=== PATIENT | female | born 1950 | race Caucasian/White ===

== ENCOUNTER 2016-10-17 12:36 | Inpatient (IN) | payer MEDICARE, OTHER ==
[2016-10-17 13:19] LABS: Hematocrit 34 % (35-47); Mean Corpuscular HGB Conc 32 g/dl (31-36); Mean Corpuscular Hemoglobin 30 pg (27-31); Mean Corpuscular Volume 94 fL (80-97); Mean Platelet Volume 8 um3 (7.4-10.4); Red Blood Count 3.66 10^6/ul (4.0-5.4); Red Cell Distribution Width 16 % (10.5-15); White Blood Count 15.1 10^3/ul (3.5-10.8)
[2016-10-17 13:33] LABS: Albumin 2.9 g/dL (3.2-5.2); BUN/Creatinine Ratio 18.3 (8-20); Calcium 11.8 mg/dL (8.6-10.3); EGFR African American 68.2 (>60); Globulin 2.1 g/dL (2-4); Potassium 4.2 mmol/L (3.5-5.0); Total Bilirubin 0.6 mg/dL (0.2-1.0)
[2016-10-17] MEDS ORDERED: NS 0.9% 1000 ML* 1,000 ML IV ONE (13:38)
[2016-10-17] MEDS ORDERED: Furosemide IV* 10 MG/ML VIAL (40 MG) IV SLOW PU ONE (13:38)
[2016-10-17] MEDS ORDERED: NS 0.9% IVPB SCH (14:00)
[2016-10-17] MEDS ORDERED: PAMIDRONATE IVPB SCH (14:00)
[2016-10-17] MEDS ORDERED: Ketorolac INJ* 30 MG/ML 1 ML VIAL IV PUSH ONE (14:02)
[2016-10-17 15:29] LABS: Troponin I 0.14 ng/mL (<0.04)
--- NOTE | 2016-10-17 15:39 | RAD ---
Indication: Bronchitis, dehydration. Edema. Non-Hodgkin's lymphoma. Comparison: June 24, 2016 CT. Technique: Upright AP 1455 hours Report: Minimal prominence of interstitial markings. Negative for alveolar consolidation, focal pulmonary lesion, pleural effusion, pneumothorax. Upper normal heart size. Unremarkable central pulmonary vasculature and mediastinal contours. LEFT chest port tip at level of superior vena cava. IMPRESSION: No evidence for acute intrathoracic disease.
[2016-10-17 15:44] LABS: Urine Bilirubin Negative (Negative); Urine Glucose Negative (Negative); Urine Nitrite Negative (Negative)
[2016-10-17] MEDS ORDERED: Enoxaparin(*) 40 MG/0.4 ML SYR SUBCUT SCH (17:00)
[2016-10-17] MEDS ORDERED: NS 0.9% 1000 ML* 1,000 ML IV SCH (17:15)
[2016-10-17] MEDS ORDERED: Ketorolac INJ* 15 MG/ML 1 ML VIAL IV PUSH PRN (17:49)
[2016-10-17] MEDS ORDERED: Aspirin TAB* 325 MG PO ONE (18:15)
[2016-10-17 18:35] LABS: Calcium (PTH Intact) 11.7 mg/dL (8.6-10.3)
[2016-10-17] MEDS: oxyCODONE/Acetamin 5/325 MG* TAB PO PRN ×2 (18:58→23:50)
[2016-10-17 19:21] LABS: Troponin I 0.16 ng/mL (<0.04)
[2016-10-17] MEDS: Metoprolol Tartrate TAB* 25 MG PO SCH (20:32)
[2016-10-17] MEDS: Gabapentin CAP(*) 100 MG PO SCH (20:32)
[2016-10-17] MEDS: Topiramate TAB(*) 25 MG PO SCH (20:34)
--- NOTE | 2016-10-17 22:12 | ED ---
Carey Wills Janilya, scribed for Neri Han MD on 10/17/16 at 1330 . Complex/Multi-Sys Presentation - HPI Summary HPI Summary: A 65 y/o female came in to [facility] presenting w/ a gradual onset of constant arthralgia, rash, fever starting July. Pt was put on Prednisione, which alleviated her Sx. When she finished her prescription of Prednisione 2 weeks ago , her Sx reoccurred. Since then, her condition has been getting progressively worse with arthralgia of ankles, knees, hands, elbows as well as muscle aches. In addition, fluids have been collecting in all of her extremities resulting in edema. About a week ago, pt noticed swelling of her face as well. In total, pt has gained 9 pounds. There is pain associated with her edema. She also reports tachycardia, fatigue, mild CP that lasted 5 minutes 3 weeks ago. Pt denies dizziness, SOB. Pt had chemotheraphy for lymphoma last May. No PMHx rheumatoid arthritis. At [facility], pt was told she was dehydrated. At Urgent Care, pt was told she has extremely high calcium levels. - History Of Current Complaint Chief Complaint: EDGeneral Time Seen by Provider: 10/17/16 12:55 Hx Obtained From: Patient Onset/Duration: Gradual Onset, Lasting Days, Still Present Timing: Constant Severity Currently: Moderate Severity Initially: Moderate Alleviating Factor(s): Prednisone, only when she is on the medication. When pt finishes the med, her Sx reoccur. - Allergies/Home Medications Allergies/Adverse Reactions: Allergies Allergy/AdvReac Type Severity Reaction Status Date / Time No Known Allergies Allergy Verified 10/17/16 12:43 Home Medications: Home Medications Gabapentin CAP(*) [Neurontin 100 mg CAP(*)] 100 mg PO BEDTIME 10/17/16 [History Confirmed 10/17/16] Ibuprofen [Advil] 800 mg PO TID 10/17/16 [History Confirmed 10/17/16] PMH/Surg Hx/FS Hx/Imm Hx Previously Healthy: Yes Endocrine/Hematology History: Denies: Hx Diabetes, Hx Systemic Lupus Erythematosus Cardiovascular History: Denies: Hx Congestive Heart Failure, Hx Hypertension, Hx Pacemaker/ICD GI History: Reports: Hx Gastroesophageal Reflux Disease - HEARTBURN OCCASIONALLY , NO MEDS, Other GI Disorders - polyp removed and illeoceceal valve History: Denies: Hx Dialysis, Hx Renal Disease Musculoskeletal History: Denies: Hx Rheumatoid Arthritis Sensory History: Reports: Hx Contacts or Glasses Denies: Hx Cataracts, Hx Hearing Aid Opthamlomology History: Reports: Hx Contacts or Glasses Denies: Hx Cataracts Neurological History: Reports: Hx Migraine Psychiatric History: Denies: Hx Panic Disorder - Cancer History Cancer Type, Location and Year: lymphoma Hx Chemotherapy: Yes - current Hx Radiation Therapy: No - Surgical History Surgery Procedure, Year, and Place: 2001 AND 2007 BIOPSY PAROTID TUMOR LYMPHOMA NON H[facility]GKINS; PARTIAL COLON RESECTON RELATED TO A POLYP-UNCHARACTERISTIC ATTACHED SO SURG REMOVED 2007 NON CANCEROUS Hx Anesthesia Reactions: No Infectious Disease History: No Infectious Disease History: Denies: Traveled Outside the [place] in Last 30 Days - Family History Known Family History: Positive: Diabetes, Other - pos: paternal aunt, breast CA - Social History Occupation: Retired Alcohol Use: Weekly Alcohol Amount: RED WINE 3-4 X WEEK Substance Use Type: Reports: None Smoking Status (MU): Never Smoked Tobacco Review of Systems Positive: Fever, Fatigue. Negative: Chills Negative: Erythema Negative: Sore Throat Positive: Chest Pain - 3 weeks ago, not now, Other - tachycardia Negative: Shortness Of Breath, Cough Negative: Abdominal Pain, Vomiting, Diarrhea, Nausea Negative: dysuria, hematuria Positive: Arthralgia, Myalgia, Edema Positive: Rash Neurological: Negative - pt denies dizziness All Other Systems Reviewed And Are Negative: Yes Physical Exam - Summary Physical Exam Summary: Constitutional: Well-developed, Well-nourished, Alert. (-) Distressed Skin: Warm, Dry HENT: Normocephalic; Atraumatic Eyes: Conjunctiva normal Neck: Musculoskeletal ROM normal neck. (-) JVD, (-) Stridor, (-) Tracheal deviation Cardio: Rhythm regular, rate normal, Heart sounds normal; Intact distal pulses; The pedal pulses are 2+ and symmetric. Radial pulses are 2+ and symmetric. (-) Murmur Pulmonary/Chest wall: Effort normal. (-) Respiratory distress, (-) Wheezes, (-) Rales Abd: Soft, (-) Tenderness, (-) Distension, (-) Guarding, (-) Rebound Musculoskeletal: (+) Peripheral edema up to knees, hands swollen. Lymph: (-) Cervical adenopathy Neuro: Alert, Oriented x3 Psych: Mood and affect Normal Triage Information Reviewed: Yes Vital Signs On Initial Exam: Initial Vitals Temp Pulse Resp BP Pulse Ox 98.4 F 96 16 113/66 100 10/17/16 12:43 10/17/16 12:43 10/17/16 12:43 10/17/16 12:43 10/17/16 12:43 Vital Signs Reviewed: Yes Diagnostics - Vital Signs Vital Signs Temp Pulse Resp BP Pulse Ox 10/17/16 12:43 98.4 F 96 16 113/66 100 - Laboratory Lab Results: Lab Results 10/17/16 Range/Units 13:04 WBC 15.1 H (3.5-10.8) 10^3/ul RBC 3.66 L (4.0-5.4) 10^6/ul Hgb 11.0 L (12.0-16.0) g/dl Hct 34 L (35-47) % MCV 94 (80-97) fL MCH 30 (27-31) pg MCHC 32 (31-36) g/dl RDW 16 H (10.5-15) % Plt Count 355 (150-450) 10^3/ul MPV 8 (7.4-10.4) um3 Neut % (Auto) 89.4 H (38-83) % Lymph % (Auto) 2.5 L (25-47) % Ponce % (Auto) 5.1 (1-9) % Eos % (Auto) 2.6 (0-6) % Baso % (Auto) 0.4 (0-2) % Absolute Neuts (auto) 13.5 H (1.5-7.7) 10^3/ul Absolute Lymphs (auto) 0.4 L (1.0-4.8) 10^3/ul Absolute Monos (auto) 0.8 (0-0.8) 10^3/ul Absolute Eos (auto) 0.4 (0-0.6) 10^3/ul Absolute Basos (auto) 0.1 (0-0.2) 10^3/ul Absolute Nucleated RBC 0.01 10^3/ul Nucleated RBC % 0 Result Diagrams: 10/17/16 13:04 10/17/16 13:04 Lab Statement: Any lab studies that have been ordered have been reviewed, and results considered in the medical decision making process. - Radiology CXR Xray Interpretation: No Acute Changes - IMPRESSION: No evidence of acute intrathoracic disease. Radiology Interpretation Completed By: Radiologist - EKG 1324 Cardiac Rate: NL - 94 bpm EKG Rhythm: Sinus Rhythm EKG Interpretation: No STEMI Complex Multi-Symp Course/Dx Course Of Treatment: d/w Dr. Gordillo @ [facility] for admission Assessment/Plan: A 65-year-old female presents to the ED with a CC of a gradual progress of edema of extremities since July. She was given Prednisone which improved her condition. However, once she was off the med, all her Sx returned. Pt states for 2 weeks, her condition has been worsening with swelling of face. Pt also stated she had mild CP a few weeks ago. CXR here showed no acute disease and EKG was normal. Today she was seen at Urgent Care and was diagnosed with hypercalcemia. We discussed patient care with Dr. Castillo and they recommended Zometa for high calcium as well as admission to hospital. Patient will be admitted. Pt is agreeable with this plan. - Diagnoses Provider Diagnoses: Peripheral edema, Elevated brain natriuretic peptide (BNP) level, Leukocytosis , Hypercalcemia - Physician Notifications Discussed Care Of Patient With: Dr. Castillo (oncology) at 1507: discussed current condition of pt and PMHx of lymphoma. Recommended Zometa as well as hospital admission for cardiac workup and treatment of hypercalcemia. Instructed by Provider To: Admit As Inpatient - Critical Care Time Critical Care Time: 30-74 min Discharge - Discharge Plan Condition: Stable Disposition: ADMITTED TO [facility] The documentation as recorded by the Carey daigle Janilya accurately reflects the service I personally performed and the decisions made by , Neri Han MD.
--- NOTE | 2016-10-18 01:55 | HP ---
CC: Dr. Radha Ardon; Dr. Orr, Oncology; Dr. Hensley, Rheumatology HISTORY AND PHYSICAL: DATE OF ADMISSION: 10/17/16 PRIMARY CARE PHYSICIAN: Dr. Radha Ardon. CHIEF COMPLAINT: Hypercalcemia. HISTORY OF PRESENT ILLNESS: Ms. Montes is a 65-year-old female with a past medical history of migraine and lymphoma, status post R-CHOP therapy, who presents to the hospital after she was found to be hypercalcemic on outpatient labs. The patient was recently referred to [facility] by Dr. Orr due to ongoing joint pains and edema and on lab work there, she was found to have an elevated calcium of 12.2. She was called after she left [place] and was already almost home, so she presents to the emergency room today for followup. The patient was treated for lymphoma at the end of last year. She underwent R- CHOP therapy, which completed in June, which she apparently had a good response to as noted by CT chest, abdomen, and pelvis from June 24. The patient states beginning in July, she developed joint pains initially were just in the hand. She saw Dr. Orr for this and has been on a course of prednisone, which improved the pain. She also noticed at that time that she had a rash on her face, arms and torso with the prednisone; however, after stopping prednisone, the joint pain and swelling returned, now involving her lower extremities as well. She has since seen Dr. Hensley for a few visits, who did an extensive workup and does not seem like he found any rheumatological cause for her symptoms. She has extensive testing done in our system here from early September that is all negative. The patient has been on multiple courses of prednisone and improves during each episode; however, after stopping, her symptoms return seemingly worse. She has since developed edema on top of the joint pain and swelling. She has agreed with Dr. Orr and Dr. Hensley not to resume prednisone. Dr. Orr referred the patient to [facility] for a second opinion to see if they thought perhaps the R-CHOP that she had been on before was causing these symptoms. The patient went there yesterday. She states she spoke with 2 oncologists up there who did not feel that this was a side effect of the chemotherapy. They took a lot of blood from the patient there and as noted above, directed her when calcium was elevated. The remaining results of the blood test from yesterday are not available at this time; however, they were concerned about possible recurrence of her lymphoma as the reason for her hypercalcemia. The patient does also take calcium supplements, which she was told to stop yesterday. She has been off prednisone for 2 weeks now and her pain and rash recurred in the past week or so. She has been controlling the pain mostly with ibuprofen at home and she did not like the way oxycodone made her feel. She denies any fever or chills. She does report intermittent midsternal chest pain over the past weeks that only lasted for a few minutes at a time and resolved. She reports some intermittent palpitations as well. Has had some episodes of constipation alternating with diarrhea and some nausea with no emesis. Denies any bleeding. No dysuria. PAST MEDICAL HISTORY: Follicular lymphoma, status post R-CHOP; migraines. PAST SURGICAL HISTORY: Parotidectomy, colectomy for a polyp, excisional lymph node biopsies, TMJ surgery. HOME MEDICATIONS: 1. Topamax 50 mg by mouth nightly. 2. Omeprazole 40 mg by mouth daily. 3. Ibuprofen 800 mg by mouth 3 times daily. 4. Gabapentin 200 mg by mouth in the morning, 100 mg by mouth at bedtime. ALLERGIES: The patient reports no known drug allergies. FAMILY HISTORY: Significant for paternal uncle with diabetes and a paternal grandmother with diabetes. SOCIAL HISTORY: The patient smoked briefly in high school. Has not smoked in a long time. Denies any alcohol or illicit drug use. PHYSICAL EXAMINATION GENERAL: A middle-aged female, lying in bed in no apparent distress. HEENT: Pupils equal, round, reactive to light and accommodation. Anicteric sclerae. Moist mucous membranes. NECK: No cervical adenopathy. LUNGS: Clear to auscultation bilaterally. No wheezes, rales, or rhonchi. CARDIOVASCULAR: Regular rate and rhythm. S1, S2. No murmurs, gallops, or rubs. ABDOMEN: Soft, nontender, and nondistended. Bowel sounds positive. EXTREMITIES: The patient has diffuse joint swelling throughout the hand, seems like the left greater than the right. Tender to palpation. No erythema noted. The patient with nonpitting edema in the lower extremities. Reports some facial fullness as well. SKIN: The patient has a faint maculopapular rash on her face, torso, and abdomen, and some on her upper thighs as well, nonpruritic. DIAGNOSTIC STUDIES/LAB DATA: White blood cell count of 15, hemoglobin of 11, hematocrit of 34, and platelets of 355. Sodium of 133, potassium of 4.2, chloride of 100, carbon dioxide of 28, BUN of 19, creatinine of 1.04, glucose of 116, lactic acid of 1.8, calcium of 11.8, and ionized calcium of 6.65. LFTs within normal limits. Troponin of 0.14. B-natriuretic peptide of 437. Urinalysis negative. Chest x-ray personally reviewed shows no acute disease. EKG personally reviewed shows low-voltage, some lateral T-wave flattening, which is new from old EKG from 2003. We do not have any more recent EKGs. ASSESSMENT AND PLAN: A 65-year-old female with a past medical history of lymphoma, status post R-CHOP therapy, and migraines who presents to the hospital with hypercalcemia, elevated troponin, and diffuse joint swelling and rash, which has been ongoing for some time now. 1. Hypercalcemia: The patient was taking some calcium supplementation as an outpatient, which she states it was not a significant amount. Does not take any Tums. In the ED, she received IV fluids, which I will continue as well as IV Lasix. Also, a dose of zoledronic acid. Recheck calcium and ionized calcium in the morning. I will also add on PTH, PTH-related peptide, and vitamin D levels to begin with. May be due to recurrence of malignancy. 2. Elevated troponin: The patient does not endorse any typical anginal chest pain. She mentioned these episodes of brief midsternal chest pain over the past weeks; however, nothing acutely leading up to this hospitalization. Troponin 0.14. I will trend this for now. She has some flattened T-waves; however, we do not have any more recent EKGs. I will order an echo for tomorrow. We will give her a dose of aspirin as well as a beta haider. If the patient has any significant changes in her echo or if her troponin continues to trend up, consider Cardiology consult in the morning assuming her chemotherapy can be cardiotoxic. 3. Polyarticular pain and rash: Etiology for this is unclear. She has had an extensive outpatient workup that has largely been negative. She stated that the oncologists from [place] did not feel that this is related to her chemotherapy and Dr. Hensley's workup so far has not showed any rheumatological causes, seems to be steroid responsive; however, the patient is resistant to resuming steroids at this point. For now, we will continue to treat symptomatically. We will hold off on additional nonsteroidal antiinflammatory drugs for now as I want to make sure kidney function is at baseline for CT scan with contrast. 4. History of lymphoma: The patient completed R-CHOP therapy in June with improvement on her CAT scan then. I would like to get a CT chest, abdomen, and pelvis here in the hospital to evaluate for any recurrence, which could be causing her hypercalcemia; however, her creatinine seems to be above baseline at the moment, maybe due to her home nonsteroidal anti-inflammatory drug treatments. We will hold this for now. She will be getting IV fluids as above. If her creatinine is stable or improved tomorrow, would proceed with a CT chest, abdomen, and pelvis. 5. History of migraines: Continue home Topamax q.h.s. 6. DVT prophylaxis: Lovenox subcu. TIME SPENT: Total time spent on this admission 65 minutes with over half the time spent [id number] with the patient in counseling and coordinating care. [id number]/[facility] #: [id number] WILEY
[2016-10-18] MEDS: Omeprazole CAP* 20 MG PO SCH (05:47)
[2016-10-18 05:54] LABS: Hematocrit 26 % (35-47); Hemoglobin 8.8 g/dl (12.0-16.0); Mean Corpuscular HGB Conc 34 g/dl (31-36); Mean Corpuscular Hemoglobin 31 pg (27-31); Mean Corpuscular Volume 93 fL (80-97); Mean Platelet Volume 8 um3 (7.4-10.4); Red Blood Count 2.83 10^6/ul (4.0-5.4); Red Cell Distribution Width 15 % (10.5-15); White Blood Count 9.3 10^3/ul (3.5-10.8)
[2016-10-18 06:05] LABS: BUN/Creatinine Ratio 17.1 (8-20); Calcium 11.5 mg/dL (8.6-10.3); EGFR African American 63.2 (>60); EGFR Non-African American 49.2 (>60); Potassium 3.6 mmol/L (3.5-5.0)
[2016-10-18] MEDS: Aspirin Low Dose CHEW TAB* 81 MG PO SCH (08:38)
[2016-10-18] MEDS: Gabapentin CAP(*) 100 MG PO SCH ×2 (08:38→21:37)
[2016-10-18] MEDS: Metoprolol Tartrate TAB* 25 MG PO SCH ×2 (08:53→21:39)
[2016-10-18] MEDS: oxyCODONE/Acetamin 5/325 MG* TAB PO PRN ×2 (09:32→21:58)
--- NOTE | 2016-10-18 13:37 | ECHO ---
Patient: MIKE GARCIA [facility] Rec#: [id number] : 1950 Date: 10/18/2016 Age: 65y Height: 163 cm / 64.2 in Weight: 63 kg / 138.9 lbs Sex: F BSA: 1.7 Room#: [facility] Admit Date#: 10/17/2016 Type: Inpatient Referring: MURIEL RIVERA MD Reading: Aiden Mera MD Nailer Operator: Deborah Herndon RN RDCS CC: Radha Mitchell MD Transthoracic Echocardiogram Indication: Elevated troponin levels BP: 95/50 HR: 104 Rhythm: Tachycardia Findings History: Lymphoma S/P R-CHOP therapy, migraines, admitted with hypercalcemia Technical Comments: The study quality is good. Left Ventricle: Mild concentric left ventricular hypertrophy is observed. There is increased basal septal hypertrophy noted without evidence of an increased gradient across the left ventricular outflow tract. C/w sigmoid septum. Mildly increased LVOT and aortic valve velocities c/w the hyperdynamic state. The left ventricle appears hyperdynamic. The estimated ejection fraction is greater than 65%. Abnormal left ventricular diastolic filling is observed, consistent with impaired relaxation. Left Atrium: The left atrium is mildly dilated. Right Ventricle: Moderator Band present. The right ventricle is mildly dilated. The right ventricular global systolic function is moderately reduced. Flattened in systole and diastole consistent with right ventricular pressure and volume overload. Right Atrium: The right atrium is mildly dilated. Aortic Valve: The aortic valve leaflets are mildly thickened. Systolic excursion of the aortic valve is normal. There is no evidence of aortic regurgitation. There is no evidence of aortic stenosis. Mitral Valve: The mitral valve leaflets are mildly thickened. There is mild to moderate mitral regurgitation. The mitral regurgitant jet is centrally directed. The mitral regurgitant jet is laterally directed. There is no evidence of mitral stenosis. Tricuspid Valve: The tricuspid valve leaflets are normal. There is moderate tricuspid regurgitation. There is evidence of moderate pulmonary hypertension. Pulmonic Valve: The pulmonic valve appears normal. There is mild pulmonic regurgitation. There is no pulmonic stenosis. Pericardium: There is a small pericardial effusion.Located posteriorly; does not appear to be hemodynamically significant. The pericardial effusion is seen adjacent to the left ventricle. The pericardium is thickened and calcified. Aorta: There is no dilatation of the ascending aorta. There is no dilatation of the aortic arch. The aortic root is normal in size. Pulmonary Artery: The main pulmonary artery appears normal. Venous: The inferior vena cava appears normal in size. There is a greater than 50% respiratory change in the inferior vena cava dimension. Summary: There was not any prior study for comparison. Conclusions Mild concentric left ventricular hypertrophy is observed. There is increased basal septal hypertrophy noted without evidence of an increased gradient across the left ventricular outflow tract. The estimated ejection fraction is greater than 65%. Mildly increased LVOT and aortic valve velocities c/w the hyperdynamic state. Abnormal left ventricular diastolic filling is observed, consistent with impaired relaxation. The left atrium is mildly dilated. The right ventricle is mildly dilated. The right ventricular global systolic function is moderately reduced. There is mild to moderate mitral regurgitation. There is moderate tricuspid regurgitation. There is evidence of moderate pulmonary hypertension. There is mild pulmonic regurgitation. There is a small pericardial effusion.Located posteriorly; does not appear to be hemodynamically significant. Measurements Name Value Normal Range RVIDd (AP) 2D 3.1 cm (0.9 - 2.6) RVDdMajor (2D) 3.7 cm (2.2 - 4.4) RAd ISD 4CH 4.9 cm (3.4 - 4.9) RA (A4C)W 3.9 cm (2.9 - 4.6) IVSd (2D) 1.5 cm (0.6 - 1) LVPWd (2D) 1.2 cm (0.6 - 1) LVIDd (2D) 4 cm (3.6 - 5.4) LVIDs (2D) 2.7 cm - LV FS (2D) 33 % (25 - 45) Aortic Annulus 1.7 cm (1.4 - 2.6) Ao root diameter (2D) 2.8 cm (2.1 - 3.5) Ascending Ao 2.8 cm (2.1 - 3.4) Aortic arch 2.1 cm (1.8 - 3.4) LA dimension (AP) 2D 3.3 cm (2.3 - 3.8) LAd ISD 4CH 4.9 cm (2.9 - 5.3) LA ISD 4CH W 4.1 cm (2.5 - 4.5) Name Value Normal Range LA ESV SP 4CH (A/L) 46 ml - LA ESV SP 2CH (A/L) 37 ml - LA ESV BP (A/L) 41 ml - LA ESV BP (A/L) index 25 ml/m2 - LA ESV SP 4CH (MOD) 44 ml - LA ESV SP 2CH (MOD) 35 ml - Name Value Normal Range MV E-wave Vmax 1 m/sec - MV deceleration time 209 msec - MV A-wave Vmax 1.3 m/sec - MV E:A ratio 0.8 ratio - LV septal e' Vmax 0.07 m/sec - LV lateral e' Vmax 0.09 m/sec - LV E:e' septal ratio 14.3 ratio - LV E:e' lateral ratio 11.1 ratio - Name Value Normal Range AV Vmax 2.3 m/sec - AV VTI 32.7 cm - AV peak gradient 21 mmHg - AV mean gradient 13 mmHg - LVOT diameter 1.9 cm - LVOT Vmax 1.5 m/sec - LVOT VTI 23.1 cm - LVOT peak gradient 8.5 mmHg - LVOT mean gradient 5.1 mmHg - DOI (VTI) 0.71 ratio - LEYLA (continuity Vmax) 1.9 cm2 - LEYLA (continuity VTI) 2 cm2 - ANNETTA Vmax 1.2 m/sec - Name Value Normal Range TR Vmax 3.4 m/sec - TR peak gradient 46 mmHg - RAP 10 mmHg - RVSP 56 mmHg - Name Value Normal Range PV Vmax 1.2 m/sec -
[2016-10-18] MEDS: Docusate CAP* 100 MG PO SCH ×2 (14:26→21:39)
[2016-10-18] MEDS: Polyethylene Glycol 3350* 17 GM PACKET PO SCH ×2 (14:26→21:40)
[2016-10-18] MEDS ORDERED: Enoxaparin(*) 60 MG/0.6 ML SYR SUBCUT SCH (14:30)
--- NOTE | 2016-10-18 15:26 | RAD ---
Indication: Bilateral leg edema Duplex Doppler sonography of the deep venous system of both lower extremities was performed. Bilaterally the common femoral veins, proximal greater saphenous veins, proximal deep femoral veins, femoral veins, popliteal veins, posterior tibial veins and peroneal veins appear patent and compressible. IMPRESSION: NO EVIDENCE OF DEEP VENOUS THROMBOSIS OF EITHER LOWER EXTREMITY IS PRESENT. Bilateral popliteal cysts are noted.
[2016-10-18] MEDS: NS 0.9% 1000 ML* 1,000 ML IV SCH ×2 (15:42→23:07)
[2016-10-18] MEDS ORDERED: Iodixanol* (CONTRAST) 320 MG/ML 100 ML SDV IV SCH (16:58)
--- NOTE | 2016-10-18 16:58 | PN ---
Subjective Date of Service: 10/18/16 Interval History: HOSPITALIST PROGRESS NOTE Patient seen and examined at bedside. In good spirits despite multiple joints hurting. Had one brief episode of chest pain last week, lasting <5 minutes, but denies chest pain since. No dyspnea or cough. Has noted progressive LE edema and gained 9lbs. Family History: Unchanged from Admission Social History: Unchanged from Admission Past Medical History: Unchanged from Admission Objective Active Medications: Aspirin (Aspirin Low Dose Tab*) 81 mg PO DAILY [facility] Last Admin: 10/18/16 08:38 Dose: 81 mg Docusate Sodium (Colace Cap*) 100 mg PO BID [facility] Last Admin: 10/18/16 14:26 Dose: 100 mg Enoxaparin Sodium (Lovenox(*)) 60 mg SUBCUT Q12H [facility] Last Admin: 10/18/16 14:20 Dose: 60 mg Gabapentin (Neurontin Cap(*)) 100 mg PO BEDTIME [facility] Last Admin: 10/17/16 20:32 Dose: 100 mg Gabapentin (Neurontin Cap(*)) 200 mg PO DAILY [facility] Last Admin: 10/18/16 08:38 Dose: 200 mg Sodium Chloride (Ns 0.9% 1000 Ml*) 1,000 mls @ 150 mls/hr IV PER RATE [facility] Last Admin: 10/18/16 15:42 Dose: 150 mls/hr Metoprolol Tartrate (Lopressor Tab*) 12.5 mg PO Q12HR [facility] Last Admin: 10/18/16 08:53 Dose: 12.5 mg Morphine Sulfate (Morphine Inj (Syringe)*) 2 mg IV Q4H PRN PRN Reason: SEVERE PAIN Omeprazole (Prilosec Cap*) 40 mg PO DAILY@0600 [facility] Last Admin: 10/18/16 05:47 Dose: 40 mg Oxycodone/Acetaminophen (Percocet 5/325 Tab*) 2 tab PO Q4H PRN PRN Reason: PAIN Last Admin: 10/18/16 09:32 Dose: 2 tab Polyethylene Glycol/Electrolytes (Miralax*) 17 gm PO 0800,2100 [facility] Last Admin: 10/18/16 14:26 Dose: 17 gm Topiramate (Topamax(*)) 50 mg PO BEDTIME [facility] Last Admin: 10/17/16 20:34 Dose: 50 mg Vital Signs 03/07/2510/18/16 10/18/16 04:50 07:24 07:50 Temperature 98.6 F Pulse Rate 94 97 Respiratory 16 16 Rate Blood Pressure 95/50 92/43 (mmHg) O2 Sat by Pulse 94 Oximetry 10/18/16 10/18/16 10/18/16 10:38 11:32 14:04 Temperature 98.9 F Pulse Rate Respiratory 18 16 18 Rate Blood Pressure 102/54 (mmHg) O2 Sat by Pulse Oximetry Oxygen Devices in Use Now: None Appearance: Pleasant lady lying in bed in NAD. Eyes: No Scleral Icterus Ears/Nose/Mouth/Throat: Mucous Membranes Moist Neck: Trachea Midline Respiratory: Symmetrical Chest Expansion and Respiratory Effort, Clear to Auscultation Cardiovascular: RRR - Normal S1 and S2 Abdominal: NL Sounds; No Tenderness; No Distention Extremities: - - Bilateral LE edema Neurological: Alert and Oriented x 3, NL Muscle Strength and Tone Lines/Tubes/Other Access: Clean, Dry and Intact Peripheral IV Nutrition: Taking PO's Result Diagrams: 10/18/16 05:42 10/18/16 05:42 Assess/Plan/Problems-Billing Assessment: Mrs. Montes is a 65yo F with PMH of follicular lymphoma s/p RCHOP, migraines, who presented to ED due to abnormal labs revealing hypercalcemia, also found to have troponin elevation. - Patient Problems (1) Hypercalcemia Comment: - Patient had labs done at [place] 10/17/16 and was called with an elevated calcium 12.2. - Receveid IVF, Furosemide, and Zoledronic acid yesterday. - Calcium down to 11.5 today (ionized Ca 7.1). - Continue aggressive IVF and monitor. - PTH is low consistent with non-PTH mediated hypercalcemia. With her h/o lymphoma, major concern is malignancy associated hypercalcemia - follow PTH related peptide. (2) Elevated troponin Comment: - Highly suspicious for pulmonary embolism. - Patient has h/o malignancy, drove back and forth from [place] yesterday, has LE edema. - Echocardiogram showed signs of moderate pulmonary HTN, mild dilatation of RV, and RV systolic function moderately reduced. - LE doppler negative for DVT. - Her creatinine is above her usual baseline, but at this point, CTA chest is really important, especially to see if she has massive or submassive PE, as it would change her therapy. Discussed risks and benefits of renal failure with IV contrast and patient agrees to proceed. - D/w Radiology (Dr. Manley) - CT approved. - Therapeutic Lovenox. (3) PIERRE (acute kidney injury) Comment: - Suspect part of it secondary to NSAID use, worsened by dehydration caused by hypercalcemia. - Continue IVF and monitor renal function. (4) Polyarthritis Comment: - Rheum w/u as outpatient was negative. CRP was 92, but RF, anti-CCP, HANY, ANCA were all negative. - Will consult Dr. Hensley. - Continue pain management. (5) Migraine Comment: - Continue Topamax. (6) DVT prophylaxis Comment: - Lovenox. (7) Full code status Status and Disposition: Inpatient. Sister updated at bedside.
--- NOTE | 2016-10-18 18:52 | RAD ---
Indication: Positive troponin. Shortness of breath. Contrast: Administered 67.0 ml of VISAPAQUE 320 mgi/ml CTA of the chest was performed after IV contrast administration. Coronal and sagittal reconstructed images were obtained. CT of the abdomen and pelvis was performed after oral and IV contrast administration. Comparison is made with the previous exam dated June 24, 2016. The pulmonary arterial tree is well opacified. There are no filling defects present to suggest pulmonary embolus. Aorta demonstrates no evidence of aortic dissection or aneurysmal dilatation. There is no mediastinal or hilar adenopathy. Heart is of normal size without evidence of pericardial effusion. The trachea and major bronchi appear patent. Bibasilar atelectasis is noted. Moderate degree of bilateral pleural effusions are noted. No pulmonary nodules are identified. The axilla demonstrates small 3 to 5 mm lymph nodes scattered throughout the axilla. The bony structures demonstrate no evidence of lytic lesions. CT of the abdomen and pelvis demonstrates liver to be normal in size. No focal lesions or intrahepatic ductal dilatation is noted. The spleen is normal in size. Pancreas demonstrates no mass effect or ductal dilatation. The common duct is not dilated. Gallbladder demonstrates no calcified gallstones. The stomach is contrast-filled. There is nondistention of the gastric antrum. There is some mild mucosal thickening of the gastric antrum and the possibility of infiltrative process within the gastric antrum such as linitis plastica is not excluded. No retroperitoneal lymphadenopathy is noted. No dilated loops of bowel are noted. The colon is filled with stool. No hernias are noted. The urinary bladder is unremarkable. No pelvic adenopathy is noted.. Myomatous uterus is present. The ovaries are unremarkable.. Small amount of free fluid is present. No hernias are noted. The bony structures demonstrates compression of the inferior endplate of L3. This was not present previously on June 24, 2016. IMPRESSION: No evidence of pulmonary embolus is noted. Moderate sized bilateral pleural effusion with bibasilar atelectasis is noted. No mediastinal or hilar adenopathy is noted. The gastric antrum is poorly distended and appears tubular. There is some mild thickening of the gastric antrum and an infiltrative process such as linitis plastica should BE considered. There is compression of the inferior endplate of L3 which was not present on previous exam.
--- NOTE | 2016-10-18 20:13 | RAD ---
Indication: Positive troponin, lymphoma. Contrast: Administered 50.0 ml of VISAPAQUE 320 mgi/ml CT of the neck was performed after IV contrast administration. Coronal and sagittal reconstructed images were obtained. Comparison is made with previous exam dated June 14, 2016. Again noted is bilateral pleural effusions. This is of moderate size. The visualized axilla and supraclavicular regions demonstrates no evidence of abnormal adenopathy. Small scattered supraclavicular lymph nodes are noted measuring up to 4 mm on the left supraclavicular area. The thyroid lobes demonstrates heterogeneous thyroid with small hypodense nodules unchanged from previous exam. The carotid chain demonstrates small lymph nodes which are not significantly changed since previous exam. The parotid glands demonstrates postoperative changes in the right parotid gland. Left parotid gland is unremarkable. Submandibular glands are grossly unremarkable. No prevertebral soft tissue swelling or fluid collections are noted. Mastoid air cells are unremarkable. IMPRESSION: NO EVIDENCE OF ABNORMAL LYMPHADENOPATHY IS NOTED. THERE ARE BILATERAL PLEURAL EFFUSIONS NOTED. POSTOPERATIVE CHANGES OF THE RIGHT PAROTID GLAND. NO SIGNIFICANT CHANGE IS NOTED SINCE PREVIOUS EXAM.
[2016-10-18] MEDS: Topiramate TAB(*) 25 MG PO SCH (21:39)
[2016-10-18 21:42] LABS: BUN/Creatinine Ratio 20.4 (8-20); EGFR African American 77.6 (>60); EGFR Non-African American 60.3 (>60); Potassium 3.4 mmol/L (3.5-5.0)
[2016-10-19] MEDS: Omeprazole CAP* 20 MG PO SCH (05:48)
[2016-10-19] MEDS: NS 0.9% 1000 ML* 1,000 ML IV SCH (05:53)
[2016-10-19 07:04] LABS: Hematocrit 26 % (35-47); Hemoglobin 8.4 g/dl (12.0-16.0); Mean Corpuscular HGB Conc 33 g/dl (31-36); Mean Corpuscular Hemoglobin 31 pg (27-31); Mean Corpuscular Volume 94 fL (80-97); Mean Platelet Volume 8 um3 (7.4-10.4); Red Blood Count 2.73 10^6/ul (4.0-5.4); Red Cell Distribution Width 16 % (10.5-15)
[2016-10-19 07:13] LABS: BUN/Creatinine Ratio 22.5 (8-20); Calcium 10.2 mg/dL (8.6-10.3); EGFR African American 92.3 (>60); EGFR Non-African American 71.8 (>60); Potassium 3.4 mmol/L (3.5-5.0)
[2016-10-19 07:32] LABS: TSH (Thyroid Stimulating Horm) 3.95 mcIU/mL (0.34-5.60)
[2016-10-19] MEDS ORDERED: NS 0.9% 1000 ML* 1,000 ML IV SCH (08:24)
[2016-10-19] MEDS: Enoxaparin(*) 40 MG/0.4 ML SYR SUBCUT SCH (08:36)
[2016-10-19] MEDS: Potassium Chlor TAB* 20 MEQ TAB.ER PO SCH ×3 (08:39→21:22)
[2016-10-19] MEDS: Docusate CAP* 100 MG PO SCH ×2 (08:40→21:22)
[2016-10-19] MEDS: Metoprolol Tartrate TAB* 25 MG PO SCH ×2 (08:40→21:21)
[2016-10-19] MEDS: Gabapentin CAP(*) 100 MG PO SCH ×2 (08:41→21:20)
[2016-10-19] MEDS: Polyethylene Glycol 3350* 17 GM PACKET PO SCH ×2 (08:42→21:53)
[2016-10-19] MEDS: Aspirin Low Dose CHEW TAB* 81 MG PO SCH (08:42)
--- NOTE | 2016-10-19 09:59 | PN ---
Progress Note - Progress Note SOAP: Subjective: []Today no changes. Discussed disease course. Presented with edema and diffuse rash. On and off steroids with limited effects. Rash controlled but edema continued to become worse. Fatigued, not eating well. Nose hurts and dry mouth. Has been seen by Rheumatology and had serologic evaluation that was negative, though may have been on steroids. Now presents dehydrated, SOB and with hypercalemia. Aspirin (Aspirin Low Dose Tab*) 81 mg PO DAILY [facility] Last Admin: 10/19/16 08:42 Dose: 81 mg Docusate Sodium (Colace Cap*) 100 mg PO BID [facility] Last Admin: 10/19/16 08:40 Dose: 100 mg Enoxaparin Sodium (Lovenox(*)) 40 mg SUBCUT DAILY [facility] Last Admin: 10/19/16 08:36 Dose: 40 mg Gabapentin (Neurontin Cap(*)) 100 mg PO BEDTIME [facility] Last Admin: 10/18/16 21:37 Dose: 100 mg Gabapentin (Neurontin Cap(*)) 200 mg PO DAILY [facility] Last Admin: 10/19/16 08:41 Dose: 200 mg Sodium Chloride (Ns 0.9% 1000 Ml*) 1,000 mls @ 75 mls/hr IV PER RATE [facility] Iodixanol (Visipaque* 320 (Contrast)) 117 ml IV ONCE [facility] Stop: 10/20/16 23:59 Last Admin: 10/18/16 17:49 Dose: 117 ml Metoprolol Tartrate (Lopressor Tab*) 12.5 mg PO Q12HR [facility] Last Admin: 10/19/16 08:40 Dose: 12.5 mg Morphine Sulfate (Morphine Inj (Syringe)*) 2 mg IV Q4H PRN PRN Reason: SEVERE PAIN Omeprazole (Prilosec Cap*) 40 mg PO DAILY@0600 [facility] Last Admin: 10/19/16 05:48 Dose: 40 mg Oxycodone/Acetaminophen (Percocet 5/325 Tab*) 2 tab PO Q4H PRN PRN Reason: PAIN Last Admin: 10/18/16 21:58 Dose: 2 tab Polyethylene Glycol/Electrolytes (Miralax*) 17 gm PO 0800,2100 [facility] Last Admin: 10/19/16 08:42 Dose: 17 gm Potassium Chloride (Klor Con Er Tab*) 40 meq PO Q4H [facility] Stop: 10/19/16 13:01 Last Admin: 10/19/16 08:39 Dose: 40 meq Topiramate (Topamax(*)) 50 mg PO BEDTIME [facility] Last Admin: 10/18/16 21:39 Dose: 50 mg Objective: [] Vital Signs Temp Pulse Resp BP Pulse Ox 98.2 F 96 16 112/52 89 10/19/16 07:45 10/19/16 07:45 10/19/16 08:41 10/19/16 07:52 10/19/16 07:45 HEENT - PALE, DRY MUCOSA, NO THRUSH CRACKLES AT BASE BOTH SIDES AND NO WHEEZING RRR S1S2 NO HSM, NT/ND EXT +2 EDEMA Assessment: []65 year old who presents with multiple concurrent symptoms and lab abnormalities. Ddx: unifying diagnosis would include primary immunologic syndrome, paraneoplastic syndrome (gastric cancer, occult lymphoma). May have right heart failure from progressive respiratory disease, anemia from iron deficiency, rash allergic or primary immune, but then difficult to explain hyperglycemia. Plan: []1. Re-send ESR and check Iron studies, Retic Count, LDH. If increased Retic, then [facility] 2. Agree with EGD 3. Re-check bone green biopsy. 4. Assuming RHF is secondary to pulmonary disease, PFTs in house or when feeling better, consider consultation to Dr. Reyes. 5. Will obtain full lab results from [facility].
[2016-10-19 11:58] LABS: Corrected Retic Count 1.1 % (0.5-1.5); Immature Retic Fraction 0.53
[2016-10-19 12:09] LABS: C Reactive Protein 42.93 mg/L (< 5.00)
[2016-10-19 12:35] LABS: Erythrocyte Sed Rate 13 mm/Hr (0-40)
[2016-10-19] MEDS ORDERED: Furosemide IV* 10 MG/ML 2 ML VIAL (20 MG) IV ONE (13:15)
[2016-10-19] MEDS: oxyCODONE/Acetamin 5/325 MG* TAB PO PRN (17:43)
--- NOTE | 2016-10-19 18:23 | PN ---
Subjective Date of Service: 10/19/16 Interval History: HOSPITALIST PROGRESS NOTE Patient seen and examined at bedside. She feels a little dyspneic today, denies CP. Joint pains are still present, but she was able to ambulate to bathroom. Family History: Unchanged from Admission Social History: Unchanged from Admission Past Medical History: Unchanged from Admission Objective Active Medications: Aspirin (Aspirin Low Dose Tab*) 81 mg PO DAILY [facility] Last Admin: 10/19/16 08:42 Dose: 81 mg Docusate Sodium (Colace Cap*) 100 mg PO BID [facility] Last Admin: 10/19/16 08:40 Dose: 100 mg Enoxaparin Sodium (Lovenox(*)) 40 mg SUBCUT DAILY [facility] Last Admin: 10/19/16 08:36 Dose: 40 mg Gabapentin (Neurontin Cap(*)) 100 mg PO BEDTIME [facility] Last Admin: 10/18/16 21:37 Dose: 100 mg Gabapentin (Neurontin Cap(*)) 200 mg PO DAILY [facility] Last Admin: 10/19/16 08:41 Dose: 200 mg Iodixanol (Visipaque* 320 (Contrast)) 117 ml IV ONCE [facility] Stop: 10/20/16 23:59 Last Admin: 10/18/16 17:49 Dose: 117 ml Metoprolol Tartrate (Lopressor Tab*) 12.5 mg PO Q12HR [facility] Last Admin: 10/19/16 08:40 Dose: 12.5 mg Morphine Sulfate (Morphine Inj (Syringe)*) 2 mg IV Q4H PRN PRN Reason: SEVERE PAIN Omeprazole (Prilosec Cap*) 40 mg PO DAILY@0600 [facility] Last Admin: 10/19/16 05:48 Dose: 40 mg Oxycodone/Acetaminophen (Percocet 5/325 Tab*) 2 tab PO Q4H PRN PRN Reason: PAIN Last Admin: 10/19/16 17:43 Dose: 2 tab Polyethylene Glycol/Electrolytes (Miralax*) 17 gm PO 0800,2100 [facility] Last Admin: 10/19/16 08:42 Dose: 17 gm Potassium Chloride (Klor Con Er Tab*) 20 meq PO BID WITH MEALS [facility] Prednisone (Deltasone Tab*) 20 mg PO DAILY WITH MEAL [facility] Topiramate (Topamax(*)) 50 mg PO BEDTIME [facility] Last Admin: 10/18/16 21:39 Dose: 50 mg Vital Signs 10/19/16 10/19/16 10/19/16 08:41 10:41 11:37 Temperature 99.6 F Pulse Rate 100 Respiratory 16 16 18 Rate Blood Pressure 112/52 (mmHg) O2 Sat by Pulse 93 Oximetry 10/19/16 10/19/16 15:06 17:43 Temperature 99.3 F Pulse Rate 95 Respiratory 18 18 Rate Blood Pressure 108/59 (mmHg) O2 Sat by Pulse 92 Oximetry Oxygen Devices in Use Now: None Appearance: Pleasant lady lying in bed in NAD. Eyes: No Scleral Icterus Ears/Nose/Mouth/Throat: Mucous Membranes Moist Neck: Trachea Midline Respiratory: Symmetrical Chest Expansion and Respiratory Effort, - - BS+ bilaterally with bibasilar Cardiovascular: RRR - Normal S1 and S2 Abdominal: - - Mild distention, soft, NT, BS+ Extremities: - - Bilateral LE moderate to severe pitting edema all the way up to her thighs Skin: - - Faint macular erythematous rash on both forearms Neurological: Alert and Oriented x 3, NL Muscle Strength and Tone Lines/Tubes/Other Access: Clean, Dry and Intact Peripheral IV Nutrition: Taking PO's Result Diagrams: 10/19/16 06:36 10/19/16 06:36 Assess/Plan/Problems-Billing Assessment: Mrs. Montes is a 65yo F with PMH of follicular lymphoma s/p RCHOP, migraines, who presented to ED due to abnormal labs revealing hypercalcemia, also found to have troponin elevation. - Patient Problems (1) Fluid overload Comment: - Suspect her dyspnea is secondary to mild fluid overload associated with her aggressive IV hydration for hypercalcemia and PIERRE. - D/c IVF and give Furosemide 20mg IV x1. - Continue to monitor. (2) Hypercalcemia Comment: - Patient had labs done at [facility] 10/17/16 and was called with an elevated calcium 12.2. - Receveid IVF, Furosemide, and Zoledronic acid 10/16/16. - Calcium back to normal - 10.2 today. - D/c IVF. - PTH is low consistent with non-PTH mediated hypercalcemia. With her h/o lymphoma, major concern is malignancy associated hypercalcemia - follow PTH related peptide. (3) Elevated troponin Comment: - CTA chest was negative for PE and LE doppler negative for DVT. - Echocardiogram showed signs of moderate pulmonary HTN, mild dilatation of RV, and RV systolic function moderately reduced and this is new when compared to prior echo from January 2016. - Will request Pulm eval for new pulmonary hypertension. (4) PIERRE (acute kidney injury) Comment: - Suspect part of it secondary to NSAID use, worsened by dehydration caused by hypercalcemia. - Resolved. - D/c IVF. (5) Polyarthritis Comment: - Rheum w/u as outpatient was negative. CRP was 92, but RF, anti-CCP, HANY, ANCA were all negative. - Rheum consult requested. - Continue pain management. (6) Migraine Comment: - Continue Topamax. (7) DVT prophylaxis Comment: - Lovenox. (8) Full code status Status and Disposition: Inpatient. Sister updated at bedside.
--- NOTE | 2016-10-19 18:36 | CONSULT ---
Consult Consult: See dictated H and P. Ms. Montes is a 65 year old woman with history of an elevated CRP, diffuse myalgias and arthralgias, partially responsive to prednisone now admitted with hypercalcemia, with findings of pulmonary HTN, gastric wall thickening, L3 endplate deformity and pleural effusion in the setting of renal insufficiency. Prior rheumatologic workup was unrevealing; in light of pleural effusion/ serositis we will repeat her CTD panel and ANCA (given renal insufficiency) She is planning to have an endoscopy and bone marrow biopsy tomorrow; will follow up results; thanks!
[2016-10-19] MEDS: Topiramate TAB(*) 25 MG PO SCH (21:20)
--- NOTE | 2016-10-20 00:25 | CONS ---
RHEUMATOLOGY CONSULTATION: DATE OF CONSULT: 10/19/16 CONSULTING PHYSICIAN: Dr. Maldonado. CHIEF COMPLAINT: Elevated C-reactive protein and arthralgias. HISTORY OF PRESENT ILLNESS: Ms. Gely Montes is a 65-year-old woman, known to me, who was initially referred to me by Dr. Orr as an outpatient. She had at least partially steroid responsive syndrome characterized by diffuse arthralgias and myalgias and neuropathic pain that occurred shortly after rituximab for treatment of a prior malignancy. There is some question as to whether it might be a medication reaction and she initially held gabapentin, but this did not seem to make a difference. More recently, she was seen as a second oncologic opinion at the [facility] as her C-reactive protein remained elevated despite several courses of prednisone, which she had tapered off. During her workup there, she was found to have an elevated calcium level of 12.2. She was also very edematous. She was called by [facility] as she was driving home, advising her to go to the emergency room immediately because of hypercalcemia and renal insufficiency. She then presented to the emergency room and indeed it was confirmed that she had hypercalcemia. She was admitted for IV hydration as well as a further workup. As noted above, she was treated for lymphoma last year. She underwent CHOP therapy, which included rituximab and this ended in June, which she overall tolerated well and she had had imaging studies of her CT of the chest, abdomen and pelvis from June 2016. In July, she developed the joint pains as noted above, initially in her hands, but also her shoulders and other joints. She was placed on a course of prednisone, which did improve the pain except for her hands. She also had a rash on her face, arms, and torso, which came and went. After the prednisone was stopped, the joint swelling and especially the pain and myalgias returned, especially in the lower extremities. She had an extensive rheumatologic evaluation and only the C-reactive protein was found to be elevated, although it did seem to come down a little bit while she was on steroids. She was started on another course of prednisone with some response to it and her symptoms worsened after she got off. She was also on a Butrans patch and she was restarted on gabapentin for her neuropathic pain. The Butrans was stopped this past week as she developed edema and it was unclear at the time whether she was having side effects of her medications. She also developed diffuse edema, and as noted above, she was seen at [facility] for a second opinion. She had extensive serologies done there and it was later noted when she was going home that the calcium level was elevated. I have requested results of this workup. During her present admission, she had an evaluation including an echocardiogram, which revealed moderate pulmonary hypertension among other abnormalities. CT scan of the chest and abdomen revealed pleural effusions and an end-plate abnormality at the L3 region and dilated or edematous gastric region. She is currently planning to have another bone marrow biopsy in light of her symptoms as well as imaging findings as there is some concern for the presence of a malignancy, although otherwise her CT scan was not revealing. Despite her pulmonary hypertension, there has been no evidence of thromboemboli found. In terms of her symptoms, she has had progressive shortness of breath. She was also on ibuprofen, which is being held because of her renal insufficiency. She has not been on prednisone, however, over the last couple of days. She has also had some intermittent palpitations and she has diffuse pain in her shoulder region as well. She has also had some constipation and some nausea with no emesis. She is on Percocet and she is concerned about the possibility of worsening the constipation on pain medicines; however, she has had no bleeding and no dysuria. PAST MEDICAL HISTORY: Includes follicular lymphoma, status post right CHOP; and migraine headaches. PAST SURGICAL HISTORY: Includes parotidectomy, colectomy for a polyp, and excisional lymph node biopsies, TMJ surgery. HOME MEDICATIONS: 1. Topamax 50 mg daily. 2. Omeprazole 40 mg daily. 3. Ibuprofen, which is currently being held. 4. Gabapentin 300 mg daily total, which is 200 in the morning and 100 at bedtime. ALLERGIES: No known drug allergies. FAMILY HISTORY: Notable for paternal uncle with diabetes and grandmother with diabetes. SOCIAL HISTORY: She smoked briefly in high school. She has not smoked in a long time. She denies any alcohol or drug use. PHYSICAL EXAM: She is a pleasant woman, lying in bed, appeared to be chronically ill, but in no acute distress. HEENT Exam: Normocephalic, atraumatic. Pupils equal, round, and reactive to light and accommodate. Anicteric sclerae. Moist mucous membranes. In terms of her vital signs, temperature is 99.6, respiratory rate of 16, blood pressure 112/52. Neck: Trachea was midline. No apparent adenopathy and mucous membranes are moist. Respiratory revealed symmetric chest expansion and respiratory effort, bilateral breath sounds present with bibasilar decreased breath sounds. Cardio- vascular exam revealed a regular rate and rhythm. Normal S1 and S2. No S3 or S4. Abdomen: Minimal distention, soft, otherwise nontender. Positive bowel sounds. There is no organomegaly. Extremities: Bilateral lower extremities, 1 to 2+ edema all the way to the mid thigh region. Skin: Faint macular erythematous rash in both forearms. Neurologic: Alert and oriented x3. Muscle strength and tone was intact. On musculoskeletal exam, moderate tenderness and restriction of the shoulders, but no synovitis or warmth of the joints. Neurologic: Cranial nerves II through XII are intact. Motor strength was intact as well too. : No CVA tenderness. There is no synovitis of her joints. DIAGNOSTIC STUDIES/LAB DATA: She had a hemoglobin of 8.4. BUN 18, creatinine 0.80. ASSESSMENT: Ms. Montes is a 65-year-old woman with a past medical history of follicular lymphoma. She has received rituximab as part of her treatment. She presented with hypercalcemia. Workup has revealed pleural effusions on her CT scan with gastric thickening and possible L3 end-plate deformity. She has had a prior rheumatologic evaluation as an outpatient. Her Lyme test, antinuclear antibody, rheumatoid factor, CCP, sed rate, and HLA-B27 as well as SSA and SSB, scleroderma panel, and CPK were normal. However, her C-reactive has been elevated and in fact went up when she came off of prednisone, and is now just above 40, but it was 92 on 10/14/16. 1. In terms of her hypercalcemia, she has had a PTH done. I am wondering if she might have an underlying malignancy. In light of her serositis and pleural effusions, would recheck the connective tissue disease panel. She has had some sinus symptoms and in light of her renal insufficiency, we will check an ANCA to evaluate for a pulmonary renal syndrome. 2. In terms of her gastric wall thickening, she is going to have an endoscopy. She will have H. pylori to look for another inflammatory process. 3. Elevated C-reactive protein. We will probably hold off on steroids at this point given that we do not have her underlying unifying diagnosis established yet. 4. Hypercalcemia. As noted above, would follow up on the connective tissue disease panel. 5. Renal insufficiency. NSAIDs were on hold. 6. Chronic pain. Consider restarting the Butrans patch, which she noted some benefit from in combination with prednisone. Potentially she might have some symptoms of polymyalgia rheumatica, although not all of her symptoms are consistent with this, and potentially we could start prednisone to get a low dose of 20 mg daily which she noted benefit from in combination with the Butrans patch. We will continue to follow. TIME SPENT: Greater than 60 minutes with the patient, explaining results and counseling her and we will continue to follow daily. [id number]/[facility] #: [id number] WILEY
[2016-10-20] MEDS: Morphine INJ* 2 MG/ML 1 ML SYRINGE IV PRN (01:36)
[2016-10-20] MEDS: Omeprazole CAP* 20 MG PO SCH (04:54)
[2016-10-20] MEDS: oxyCODONE/Acetamin 5/325 MG* TAB PO PRN ×3 (04:55→20:40)
[2016-10-20 04:56] LABS: Hematocrit 28 % (35-47); Hemoglobin 9.4 g/dl (12.0-16.0); Mean Corpuscular HGB Conc 33 g/dl (31-36); Mean Corpuscular Hemoglobin 31 pg (27-31); Mean Corpuscular Volume 93 fL (80-97); Mean Platelet Volume 8 um3 (7.4-10.4); Red Blood Count 3.06 10^6/ul (4.0-5.4); Red Cell Distribution Width 15 % (10.5-15); White Blood Count 15.7 10^3/ul (3.5-10.8)
[2016-10-20 05:07] LABS: BUN/Creatinine Ratio 23.1 (8-20); Calcium 9.7 mg/dL (8.6-10.3); EGFR Non-African American 73.9 (>60); Potassium 4.1 mmol/L (3.5-5.0)
[2016-10-20] MEDS ORDERED: predniSONE TAB* 20 MG PO SCH (08:30)
[2016-10-20] MEDS: Polyethylene Glycol 3350* 17 GM PACKET PO SCH ×2 (10:14→20:46)
[2016-10-20] MEDS: Aspirin Low Dose CHEW TAB* 81 MG PO SCH (10:15)
[2016-10-20] MEDS: Potassium Chlor TAB* 20 MEQ TAB.ER PO SCH ×2 (10:15→17:13)
[2016-10-20] MEDS: Metoprolol Tartrate TAB* 25 MG PO SCH ×3 (10:15→21:05)
[2016-10-20] MEDS: Gabapentin CAP(*) 100 MG PO SCH ×2 (10:16→20:37)
[2016-10-20] MEDS: Docusate CAP* 100 MG PO SCH ×2 (10:16→20:38)
[2016-10-20] MEDS: Enoxaparin(*) 40 MG/0.4 ML SYR SUBCUT SCH (10:16)
--- NOTE | 2016-10-20 14:35 | CONSULT ---
Consult Consult: Consult follow up Note Patient: MIKE MONTES /Age: 05 1950 65 Medical Record#: [id number] Admission Date: 10/17/16 Provider: Steve Hensley MD Chief Complaint: Joint/muscular pain, elevated CRP Subjective Date of Service: 10/20/16 Interval History: PROGRESS NOTE Patient seen and examined at bedside. She feels persistent left shoulder pain but no swelling; she does feel that she has had some congestion or blockages in her nasal airway and she also had a skin biopsy and is planning to have an EGD done; denies CP. Joint pains is present especially near the left upper extremity and it was very severe last night; changing position helps her joint pain to bathroom. Family History: Unchanged from Admission Social History: Unchanged from Admission Past Medical History: Unchanged from Admission Objective Active Medications: Aspirin (Aspirin Low Dose Tab*) 81 mg PO DAILY [facility] Last Admin: 10/19/16 08:42 Dose: 81 mg Docusate Sodium (Colace Cap*) 100 mg PO BID [facility] Last Admin: 10/19/16 08:40 Dose: 100 mg Enoxaparin Sodium (Lovenox(*)) 40 mg SUBCUT DAILY [facility] Last Admin: 10/19/16 08:36 Dose: 40 mg Gabapentin (Neurontin Cap(*)) 100 mg PO BEDTIME [facility] Last Admin: 10/18/16 21:37 Dose: 100 mg Gabapentin (Neurontin Cap(*)) 200 mg PO DAILY [facility] Last Admin: 10/19/16 08:41 Dose: 200 mg Iodixanol (Visipaque* 320 (Contrast)) 117 ml IV ONCE [facility] Stop: 10/20/16 23:59 Last Admin: 10/18/16 17:49 Dose: 117 ml Metoprolol Tartrate (Lopressor Tab*) 12.5 mg PO Q12HR [facility] Last Admin: 10/19/16 08:40 Dose: 12.5 mg Morphine Sulfate (Morphine Inj (Syringe)*) 2 mg IV Q4H PRN PRN Reason: SEVERE PAIN Omeprazole (Prilosec Cap*) 40 mg PO DAILY@0600 [facility] Last Admin: 10/19/16 05:48 Dose: 40 mg Oxycodone/Acetaminophen (Percocet 5/325 Tab*) 2 tab PO Q4H PRN PRN Reason: PAIN Last Admin: 10/19/16 17:43 Dose: 2 tab Polyethylene Glycol/Electrolytes (Miralax*) 17 gm PO 0800,2100 [facility] Last Admin: 10/19/16 08:42 Dose: 17 gm Progress Note MIKE MONTES [id number] 10/17/16 Potassium Chloride (Klor Con Er Tab*) 20 meq PO BID WITH MEALS [facility] Prednisone (Deltasone Tab*) 20 mg PO DAILY WITH [facility] Topiramate (Topamax(*)) 50 mg PO BEDTIME [facility] Last Admin: 10/18/16 21:39 Dose: 50 mg Vital Signs 10/19/16 10/19/16 08:41 10:41 11:37 Temperature 99.6 F Pulse Rate 100 Respiratory 16 16 18 Rate Blood Pressure 112/52 (mmHg) O2 Sat by Pulse 93 Oximetry 10/19/16 10/19/16 15:06 17:43 Temperature 99.3 F Pulse Rate 95 Respiratory 18 18 Rate Blood Pressure 108/59 (mmHg) O2 Sat by Pulse 92 Oximetry Oxygen Devices in Use Now: None Appearance: No acute distress lying in bed on her right side Eyes: No Scleral Icterus Ears/Nose/Mouth/Throat: Mucous Membranes Moist Neck: Trachea Midline Respiratory: Symmetrical Chest Expansion and Respiratory Effort, - - BS+ bilaterally clear Cardiovascular: RRR - Normal S1 and S2 Abdominal: - - Mild distention, soft, NT, BS+ Extremities: - - Bilateral LE moderate to severe pitting edema all the way up to her thighs Skin: - - Faint macular erythematous rash on both forearms s/p biopsy Neurological: Alert and Oriented x 3, NL Muscle Strength and Tone M/S: mild left shoulder restriction and right shoulder restriction but no synovitis or warmth of her joints. No impingement. Clean, Dry and Intact Peripheral IV Nutrition: Taking PO's Result Diagrams: 06:36 Hemoglobin was 8.4 on 10/19 and serume creatinine was .8 on 10/19. Assess/Plan/Problems Assessment: Mrs. Montes is a 65yo F with PMH of follicular lymphoma s/p RCHOP, with an elevated CRP and diffuse myalgias partiallly responsive to steroids in the past. She was admitted with hypercalcemia, low grade fever, renal insufficiency , dyspnea, and CT revealing pleural effusions and echo revealing pulmonary HTN. - Patient Problems (1) Elevated CRP Comment: - Suspect possible connective tissue disorder, although symptoms and signs could relate to an occult malignancy. Repeat connective tissue disease panel is pending. Pulmonary HTN may reflect a connective tissue disorder. She is having an EGD for evaluation of abnormal gastric lining; monitor low grade fevers and white count, which has stabilized. - Continue to monitor. (2) Shoulder pain Comment: - Patient had labs done at [place] 10/17/16 and results were requested. Pain may be coming from her soft tissue region around the shoulder; we will try topical Lidoderm; hold off on steroids until further diagnostic evaluation reveals her underlying diagnosis Of note, her PTH is low consistent with non-PTH mediated hypercalcemia. Agree with following PTH related peptide. (3) PIERRE (acute kidney injury) Comment: - Suspect part of it secondary to NSAID use, and this is improved; she is holding NSAIDs (5) Polyarthritis Comment: Serologies for pending. Monitor for rash or other side effects with Lidoderm, which is rare; it may help her shoulder pain. Status and Disposition: Inpatient. Sister updated as well at bedside
[2016-10-20] MEDS ORDERED: Lidocaine PATCH 5%* 1 PATCH TRANSDERM SCH (15:00)
--- NOTE | 2016-10-20 15:07 | CONS ---
PULMONARY/SLEEP CONSULTATION REPORT: DATE OF CONSULT: 10/20/16 CONSULTATION REQUESTED BY: Dr. Maldonado. REASON FOR CONSULTATION: Evaluation of pulmonary hypertension. HISTORY OF PRESENT ILLNESS: The patient is a 65-year-old pleasant female with history of possible connective tissue disease, partially steroid responsive syndrome with diffuse arthralgias and myalgias, history of follicular lymphoma status post R-CHOP, migraine headaches. The patient was referred to [place] for a second opinion for management of her lymphoma. The patient was seen in [place] on the day of admission, had lab workup done, which revealed hypercalcemia. The patient was sent into the ED for evaluation and management of hypercalcemia. The patient received IV fluids, Lasix, with improvement in calcium levels. Further evaluation included echocardiogram, which was personally reviewed by me. The patient noted to have moderate pulmonary hypertension with no significant underlying cardiac abnormalities. The patient also noted to have pleural effusions, moderate sized bilaterally with bibasilar atelectasis without significant mediastinal or hilar adenopathy. The patient denies significant shortness of breath at this time. The patient reports history of snoring, which she attributes to having nasal blockage. The patient reports difficulty breathing through her nose, especially at night. The patient reports dry mouth. The patient also has history of migraine headaches. The patient reports daytime fatigue and sleepiness. Patient denies history of gasping arousals at night. Patient is being evaluated by rheumatological disorder given renal failure and diffuse joint pains. Patient denies history of blood clots. CTA was negative for pulmonary embolism. PAST MEDICAL HISTORY: 1. Follicular lymphoma, status post R-CHOP. 2. Migraine headaches. PAST SURGICAL HISTORY: Parotidectomy, colectomy for a polyp, excisional lymph node biopsy, TMJ surgery. MEDICATIONS AT HOME: 1. Topamax 50 mg daily. 2. Omeprazole 40 mg daily. 3. Ibuprofen. 4. Gabapentin 300 mg daily, 200 mg in the morning and 100 mg at bedtime. ALLERGIES: No known drug allergies. FAMILY HISTORY: Paternal uncle with diabetes and grandmother with diabetes. SOCIAL HISTORY: Smoked briefly while she was in high school. No significant smoking history. No alcohol or drug abuse. PHYSICAL EXAMINATION: General: The patient sitting up in bed in no apparent distress. Vital Signs: Temperature 98.5, pulse 86 beats per minute, respiratory rate 20 per minute, O2 sat 95% on room air, blood pressure 101/53. HEENT: Pupils equal, reactive to light. Mucous membranes moist. Respiratory: Good breath sounds bilaterally, symmetric chest wall expansion. Cardiovascular: Regular rate and rhythm. No murmurs, gallops or rubs. Extremities: Normal range of motion. Trace edema present. Skin: No rash or bruits, very faint macular erythematous rash in forearms. Neurologic: Alert, awake, and oriented x3. No focal deficits. LABORATORY DATA: WBC count of 15.7 today with hemoglobin of 9.4 and hematocrit of 28 with platelet count of 292. Sodium is 131, potassium 4.1, chloride 103, bicarb 24, BUN 18, creatinine 0.78, troponin slightly elevated at 0.1 4, CRP 42.93, LDH 129, calcium 9.7, TSH 3.95. Connective tissue disease workup pending at this time. CTA of the chest showed no evidence of pulmonary embolism, moderate-sized pleural effusions bilaterally. Echocardiogram showed evidence of moderate pulmonary hypertension, mild calcific LV hypertrophy, there is increased basal septal hypertrophy, EF of 65% . Hyperdynamic state seen. Diastolic dysfunction is seen, small pericardial effusion is seen. IMPRESSION AND RECOMMENDATIONS: 65-year-old female with history of follicular lymphoma status post R-CHOP, with underlying connective tissue disease, partially steroid responsive of unclear etiology with evidence of pulmonary hypertension. Pulmonary hypertension could be of multiple etiologies in her case, given underlying connective tissue disease that is yet to be diagnosed versus a hematological malignancy versus medication induced versus hypoxemia secondary to underlying sleep apnea, which is to be investigated Recommend overnight oximetry for evaluation of hypoxemia, if overnight oximetry points towards the possibility of sleep apnea, will investigate further with a sleep study. Right heart catheterization not indicated at this time.Patient not symptomatic with underlying pulmonary hypertension. Will wait for the serological workup to evaluate underlying connective tissue disease. Further recommendations pending above workups. Thank you for allowing me to participate in the care of your patient. Will follow up with you. [id number]/[facility] #: [id number] WILEY
[2016-10-20] MEDS ORDERED: Midazolam* 1 MG/ML 10 ML VIAL (10 MG) ONE (16:17)
[2016-10-20] MEDS ORDERED: Meperidine SYRINGE* 50 MG/ML ONE (16:17)
[2016-10-20] MEDS ORDERED: Midazolam* 1 MG/ML 5 ML VIAL (5 MG) ONE (16:17)
[2016-10-20] MEDS ORDERED: Diltiazem DRIP* 100 MG/100 ML ADDV.BAG IVPB ONE (17:10)
--- NOTE | 2016-10-20 17:36 | PN ---
Subjective Date of Service: 10/20/16 Interval History: HOSPITALIST PROGRESS NOTE Patient seen and examined at bedside. She did not sleep well last night. Feels her nose is blocked and "suffocating" her. Also has severe left shoulder pain now and could not get comfortable in bed. During our conversation, she developed a right sided facial rash after drinking hot broth. Family History: Unchanged from Admission Social History: Unchanged from Admission Past Medical History: Unchanged from Admission Objective Active Medications: Aspirin (Aspirin Low Dose Tab*) 81 mg PO DAILY [facility] Last Admin: 10/20/16 10:15 Dose: 81 mg Docusate Sodium (Colace Cap*) 100 mg PO BID [facility] Last Admin: 10/20/16 10:16 Dose: 100 mg Enoxaparin Sodium (Lovenox(*)) 40 mg SUBCUT DAILY [facility] Last Admin: 10/20/16 10:16 Dose: 40 mg Gabapentin (Neurontin Cap(*)) 100 mg PO BEDTIME [facility] Last Admin: 10/19/16 21:20 Dose: 100 mg Gabapentin (Neurontin Cap(*)) 200 mg PO DAILY [facility] Last Admin: 10/20/16 10:16 Dose: 200 mg Diltiazem HCl (Cardizem Iv Advan*) 100 mg in 100 mls @ 5 mls/hr IVPB DAILY [facility] PRN Reason: 5 MG/HR Iodixanol (Visipaque* 320 (Contrast)) 117 ml IV ONCE [facility] Stop: 10/20/16 23:59 Last Admin: 10/18/16 17:49 Dose: 117 ml Lidocaine (Lidoderm 5% Patch*) 1 patch TRANSDERM .ON 0900 OFF AT 2100 [facility] Last Admin: 10/20/16 17:12 Dose: 1 patch Metoprolol Tartrate (Lopressor Tab*) 12.5 mg PO Q12HR [facility] Last Admin: 10/20/16 17:13 Dose: 12.5 mg Morphine Sulfate (Morphine Inj (Syringe)*) 2 mg IV Q4H PRN PRN Reason: SEVERE PAIN Last Admin: 10/20/16 01:36 Dose: 2 mg Omeprazole (Prilosec Cap*) 40 mg PO DAILY@0600 [facility] Last Admin: 10/20/16 04:54 Dose: 40 mg Oxycodone/Acetaminophen (Percocet 5/325 Tab*) 2 tab PO Q4H PRN PRN Reason: PAIN Last Admin: 03/14/17 14:21 Dose: 2 tab Pharmacy Profile Note (Lidocaine Patch Remove*) 1 note N/A 2099 [facility] Polyethylene Glycol/Electrolytes (Miralax*) 17 gm PO 0800,2099 [facility] Last Admin: 10/20/16 10:14 Dose: Not Given Potassium Chloride (Klor Con Er Tab*) 20 meq PO BID WITH MEALS [facility] Last Admin: 10/20/16 17:13 Dose: 20 meq Topiramate (Topamax(*)) 50 mg PO BEDTIME [facility] Last Admin: 10/19/16 21:20 Dose: 50 mg Vital Signs 10/20/16 10/20/16 10/20/16 14:21 15:14 16:21 Temperature 99.3 F Pulse Rate 106 Respiratory 18 18 20 Rate Blood Pressure 106/53 (mmHg) O2 Sat by Pulse 92 Oximetry Oxygen Devices in Use Now: None Appearance: Pleasant lady sitting up in bed in [facility], but discouraged. Eyes: No Scleral Icterus Ears/Nose/Mouth/Throat: Mucous Membranes Moist Neck: Trachea Midline Respiratory: Symmetrical Chest Expansion and Respiratory Effort, - - BS+ bilaterally with bibasilar rales Cardiovascular: RRR - Normal S1 and S2 Abdominal: NL Sounds; No Tenderness; No Distention Extremities: - - Bilateral LE moderate pitting edema Skin: - - Palpable faint erythematous rash on both UE and right side of her face Neurological: Alert and Oriented x 3, NL Muscle Strength and Tone Lines/Tubes/Other Access: Clean, Dry and Intact Peripheral IV Nutrition: Taking PO's Result Diagrams: 10/20/16 04:41 10/20/16 04:41 Assess/Plan/Problems-Billing Assessment: Mrs. Montes is a 65yo F with PMH of follicular lymphoma s/p RCHOP, migraines, who presented to ED due to abnormal labs revealing hypercalcemia, also found to have troponin elevation. - Patient Problems (1) Atrial fibrillation Comment: - Patient had a brief episode of tachycardia while napping, likely secondary to GREG, but developed Afib when she went to Endo suite. - Continue metoprolol and start Cardizem drip for rate control. - [id number] score is 2 (sex, age). Discussed risks and benefits of anticoagulation and patient is in agreement with Lovenox, as we can hold it before her procedures. - Cardiology consult if she does not convert. (2) Fluid overload Comment: - Suspect her dyspnea is secondary to mild fluid overload associated with her aggressive IV hydration for hypercalcemia and PIERRE. - Hold off on further diuresis for now due to new Afib with RVR. (3) Hypercalcemia Comment: - Patient had labs done at [facility] 10/17/16 and was called with an elevated calcium 12.2. - Receveid IVF, Furosemide, and Zoledronic acid 10/16/16. - Calcium back to normal. - PTH is low consistent with non-PTH mediated hypercalcemia. With her h/o lymphoma, major concern is malignancy associated hypercalcemia - follow PTH related peptide. (4) Elevated troponin Comment: - CTA chest was negative for PE and LE doppler negative for DVT. - Echocardiogram showed signs of moderate pulmonary HTN, mild dilatation of RV, and RV systolic function moderately reduced and this is new when compared to prior echo from January 2016. - Pulm eval appreciated - concerned with GREG as source of pulmonary hypertension. Check overnight oximetry on RA tonight. (5) PIERRE (acute kidney injury) Comment: - Suspect part of it secondary to NSAID use, worsened by dehydration caused by hypercalcemia. - Resolved. - D/c IVF. (6) Polyarthritis Comment: - Rheum w/u as outpatient was negative. CRP was 92, but RF, anti-CCP, HANY, ANCA were all negative. - Rheum consult appreciated - will repeat w/u. - With her nasal symptoms, concerned for Hunter's - will check sinus CT. - Continue pain management. (7) Migraine Comment: - Continue Topamax. (8) Rash Comment: - Palpable rash of UE and face suggestive of vasculitis - skin biopsy. (9) Gastric wall thickening Comment: - CT abdome revealed gastric thickening suggestive of linitis plastica. - EGD was cancelled today due to episode of new Afib. (10) H/O lymphoma Comment: - For bone marrow biopsy tomorrow. (11) DVT prophylaxis Comment: - Lovenox. (12) Full code status Status and Disposition: Inpatient. Sister updated at bedside.
[2016-10-20] MEDS ORDERED: Diltiazem DRIP* 100 MG/100 ML ADDV.BAG IVPB SCH ×2 (18:00→19:07)
[2016-10-20 18:06] LABS: Magnesium 1.4 mg/dL (1.9-2.7)
[2016-10-20] MEDS ORDERED: Enoxaparin(*) 60 MG/0.6 ML SYR SUBCUT SCH (20:00)
[2016-10-20] MEDS ORDERED: Magnesium Sulfate 2 GM IV* 0 GM/0 ML BAG ONE (20:24)
[2016-10-20] MEDS: Ondansetron INJ* 2 MG/ML VIAL IV PRN (20:35)
[2016-10-20] MEDS: Topiramate TAB(*) 25 MG PO SCH (20:39)
[2016-10-20] MEDS ORDERED: Rosuvastatin (NF) 20 MG TAB PO SCH (21:00)
--- NOTE | 2016-10-20 23:35 | CONS ---
GASTROENTEROLOGY CONSULT: DATE OF CONSULT: 10/20/16 CONSULTING PHYSICIANS: Joe Orr*; Sadia Maldonado. REASON FOR CONSULTATION: Gastric antral thickening on CT scan done as part of an evaluation of numerous issues including anorexia, hypercalcemia and diffuse rheumatologic complaints that are being evaluated by Dr Orr, Dr Hensley, and a second opinion consult at [facility]. 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 About a month later, she developed diffuse rheumatologic complaints along with some swelling and rash. She was seen by Dr Hensley who noted her ESR was not elevated. She had a couple of brief courses of steroids with symptomatic improvement, though her inflammatory markers did not respond typically. She also tried ibuprofen briefly. She had been maintained on omeprazole throughout this time and indeed it had been started several weeks after the start of her chemotherapy this summer when she developed dyspepsia 40 mg a day. In recent weeks, she says she has just been a little bit anorectic, but there has not been any vomiting. She has been constipated and blames this on pain medications she is taking for the rheumatologic complaints. 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 PAST MEDICAL HISTORY: 1. Lymphoma - detected in a right neck biopsy in 2001 and then, per the patient , a second opinion contradicted that interpretation, but then in 2007, she had another biopsy from the same general area showing lymphoma and [facility] confirmed this in a second opinion. She then was observed given the indolent course until this past summer when she had a right groin lymph node biopsy. Throughout this time and indeed up to now, LDHs have been consistently normal. 2. Atrial fibrillation - noted today when she was brought to endoscopy. She had been having steadily increasing tachycardia the last 48 hrs on tele. 3. History of migraines. 4. History of cecal sessile serrated adenoma - [place] [address] Benjamin. Other hyperplastic and adenomatous polyps removed by Dr Crawford. Most recent surveillance exam October 2015. 5. Status post TMJ surgery. 6. Status post parotid resection. SOCIAL HISTORY: She is and under some stress as her recently had open heart surgery complicated by a stroke. 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 She is a nonsmoker, having just dabbled with it in high school. REVIEW OF SYSTEMS: No history of OH, valvular disease, syncope, palpitations, hepatitis, hematuria, recent abdominal surgery, or psoriasis. She has had no dysphagia or vomiting. PHYSICAL EXAM (in her room) : She is an older woman, moderately overweight with a slightly protuberant abdomen, in no distress at this time, stating she feels tired with any exertion. HEENT exam shows no icterus. She has no adenopathy. Breath sounds are diminished at the bases. Heart sounds are between 100 to 110, irregular. She is not diaphoretic and again feels warm. Her abdomen is symmetric, protuberant, doughy without focal mass. Extremities showed 1 to 2+ edema of the ankles. DIAGNOSTIC STUDIES/LAB DATA: CT review - the antrum has a symmetrically slightly thickened contour compared to the upper body and fundus, though there are no changes of inflammatory stranding or lymph nodes. Contrast goes through. Labs - today hemoglobin 9.4, hematocrit 28, MCV 93, platelets 292. White count 15.7. Chemistries show BUN 18, creatinine 0.78 down from creatinine 1.11 on admission. Iron panel showing iron 20, TIBC 239, saturation 8%, ferritin 88, and most recent B12, 06/02/16, greater than 1450. IMPRESSION: This 65-year-old woman treated for follicular lymphoma for 5 or 6 months this past year after remarkably 14 years of watchful waiting, now has had a couple of months of rheumatologic symptoms and then hypercalcemia, all emerging without any bulky disease seen on imaging or on physical exam. There has been detected a thickening of the antrum of the stomach. She has not had typical peptic pain or N,V or weight loss. This can be a hard area to operations and maintenance specialist radiologically and there are no nodes or liver findings. Adding to the complexity is that she has been being on omeprazole for 9 months and then sporadic short courses of ibuprofen and prednisone. Gastroscopy will be done along with a CLOtest. [id number]/[facility] #: [id number] MTDD
[2016-10-21] MEDS: oxyCODONE/Acetamin 5/325 MG* TAB PO PRN (05:29)
[2016-10-21] MEDS: Omeprazole CAP* 20 MG PO SCH (05:31)
[2016-10-21] MEDS: Lidocaine Patch REMOVE* 1 NOTE MISC SCH ×2 (05:37→23:21)
[2016-10-21 06:08] LABS: Hematocrit 30 % (35-47); Hemoglobin 9.8 g/dl (12.0-16.0); Mean Corpuscular HGB Conc 33 g/dl (31-36); Mean Corpuscular Hemoglobin 30 pg (27-31); Mean Corpuscular Volume 93 fL (80-97); Mean Platelet Volume 8 um3 (7.4-10.4); Red Blood Count 3.22 10^6/ul (4.0-5.4); Red Cell Distribution Width 16 % (10.5-15); White Blood Count 19.5 10^3/ul (3.5-10.8)
[2016-10-21 06:24] LABS: Albumin 2.4 g/dL (3.2-5.2); Calcium 9.2 mg/dL (8.6-10.3); EGFR African American 87.2 (>60); EGFR Non-African American 67.8 (>60); Globulin 1.8 g/dL (2-4); Magnesium 1.7 mg/dL (1.9-2.7); Potassium 4.3 mmol/L (3.5-5.0); Total Bilirubin 0.5 mg/dL (0.2-1.0); Total Protein 4.2 g/dL (6.4-8.9)
[2016-10-21] MEDS: Acetaminophen TAB* 325 MG PO PRN ×3 (08:02→20:35)
[2016-10-21] MEDS ORDERED: Piperac/Tazob 3.375 gm in NS* 3.375 GM/100 ML BAG IVPB ONE (10:25)
[2016-10-21] MEDS ORDERED: Vancomycin(*) 1,250 MG in NS 0.9% 250 ML* 250 ML IVPB ONE (11:00)
[2016-10-21] MEDS: Lidocaine PATCH 5%* 1 PATCH TRANSDERM SCH (11:18)
[2016-10-21] MEDS ORDERED: Vancomycin per Pharmacy* NOTE FOLLOW UP PRN (12:17)
[2016-10-21] MEDS ORDERED: Senna TAB PO ONE (12:19)
[2016-10-21] MEDS ORDERED: Senna TAB PO PRN (12:19)
[2016-10-21] MEDS: Aspirin Low Dose CHEW TAB* 81 MG PO SCH (13:22)
[2016-10-21] MEDS: Polyethylene Glycol 3350* 17 GM PACKET PO SCH ×2 (13:22→20:36)
[2016-10-21] MEDS: Potassium Chlor TAB* 20 MEQ TAB.ER PO SCH ×2 (13:22→17:25)
[2016-10-21] MEDS: Docusate CAP* 100 MG PO SCH ×2 (13:23→20:34)
[2016-10-21] MEDS: Gabapentin CAP(*) 100 MG PO SCH ×2 (13:23→20:34)
[2016-10-21] MEDS: Metoprolol Tartrate TAB* 25 MG PO SCH ×2 (13:25→20:20)
--- NOTE | 2016-10-21 13:56 | PN ---
Progress Note - Progress Note Note: Pulm consult f/u note 10/21/16. Pt seen and examined at bedside. Pt reproted not being able to sleep well at night. Has MURRY, no new complaints. Active Medications Generic Name Dose Route Start Last Admin Trade Name Freq PRN Reason Stop Dose Admin Acetaminophen 650 mg 10/21/16 07:43 10/21/16 08:02 Tylenol Tab* PO 650 mg Q4H PRN Administration FEVER/PAIN Aspirin 81 mg 10/18/16 09:00 10/21/16 13:22 Aspirin Low Dose Tab* PO 81 mg DAILY MARIN Administration Docusate Sodium 100 mg 10/18/16 15:00 10/21/16 13:23 Colace Cap* PO 100 mg BID MARIN Administration Gabapentin 100 mg 10/17/16 21:00 10/20/16 20:37 Neurontin Cap(*) PO 100 mg BEDTIME MARIN Administration Gabapentin 200 mg 10/18/16 09:00 10/21/16 13:23 Neurontin Cap(*) PO 200 mg DAILY MARIN Administration Lactated Ringer's 1,000 mls @ 0 mls/hr 10/21/16 10:25 10/21/16 12:46 Lactated Ringers 1000 Ml Bag* IV 10/21/16 23:59 999 mls/hr WIDE OPEN AMRIN Administration Wide Open Piperacillin Sod/Tazobactam Sod 3.375 gm in 100 mls @ 25 mls/hr 10/21/16 15: 00 Zosyn 3.375 Gm In Ns Premix* IVPB Q8H MARIN Vancomycin HCl 1,000 mg/ 250 mls @ 166.667 mls/hr 10/21/16 20:00 Sodium Chloride IVPB Q8H MARIN Lidocaine 1 patch 10/21/16 10:00 10/21/16 11:18 Lidoderm 5% Patch* TRANSDERM 1 patch DAILY MARIN Administration Metoprolol Tartrate 12.5 mg 10/17/16 21:00 10/21/16 13:25 Lopressor Tab* PO Not Given Q12HR MARIN Morphine Sulfate 2 mg 10/17/16 17:57 10/20/16 01:36 Morphine Inj (Syringe)* IV 2 mg Q4H PRN Administration SEVERE PAIN Omeprazole 40 mg 10/18/16 06:00 10/21/16 05:31 Prilosec Cap* PO 40 mg DAILY@0600 MARIN Administration Ondansetron HCl 4 mg 10/20/16 19:59 10/20/16 20:35 Zofran Inj* IV 4 mg Q6H PRN Administration NAUSEA Oxycodone/Acetaminophen 2 tab 10/17/16 17:56 10/21/16 05:29 Percocet 5/325 Tab* PO 2 tab Q4H PRN Administration PAIN Pharmacy Consult 1 note 10/21/16 12:17 Vancomycin Per Pharmacy* FOLLOW UP . PRN PER PROTOCOL Pharmacy Profile Note 1 note 10/20/16 21:00 10/21/16 05:37 Lidocaine Patch Remove* N/A 1 note 2100 MARIN Administration Pharmacy Profile Note 1 note 10/22/16 11:30 Vancomycin Trough Check FOLLOW UP 10/22/16 11:31 ONCE ONE Polyethylene Glycol/Electrolytes 17 gm 10/18/16 15:00 10/21/16 13:22 Miralax* PO Not Given 0800,2100 MARIN Potassium Chloride 20 meq 10/19/16 21:00 10/21/16 13:22 Klor Con Er Tab* PO 20 meq BID WITH MEALS MARIN Administration Senna 1 tab 10/21/16 12:19 Senokot Tab* PO BEDTIME PRN CONSTIPATION Topiramate 50 mg 10/17/16 21:00 10/20/16 20:39 Topamax(*) PO 50 mg BEDTIME MARIN Administration Vital Signs Temp Pulse Resp BP Pulse Ox 99.7 F 106 18 83/51 92 10/21/16 08:54 10/20/16 15:14 10/21/16 13:23 10/21/16 12:30 10/20/16 15:14 Gen: Pt in NAD HEENT: No Scleral Icterus, Mucous Membranes Moist Neck: Trachea Midline Respiratory: Symmetrical Chest Expansion and Respiratory Effort, BS+ bilaterally with bibasilar rales Cardiovascular: RRR - Normal S1 and S2 Abdominal: NL Sounds; No Tenderness; No Distention Extremities: Bilateral LE moderate pitting edema Skin: Palpable faint erythematous rash on both UE and right side of her face Neurological: Alert and Oriented x 3, NL Muscle Strength and Tone Laboratory Results - last 24 hr 10/17/16 10/20/16 10/21/16 17:57 04:41 05:49 WBC 19.5 H RBC 3.22 L Hgb 9.8 L Hct 30 L MCV 93 MCH 30 MCHC 33 RDW 16 H Plt Count 348 MPV 8 Neut % (Auto) 89.8 H Lymph % (Auto) 2.1 L [place] % (Auto) 5.9 Eos % (Auto) 1.9 Baso % (Auto) 0.3 Absolute Neuts (auto) 17.5 H Absolute Lymphs (auto) 0.4 L Absolute Monos (auto) 1.2 H Absolute Eos (auto) 0.4 Absolute Basos (auto) 0 Absolute Nucleated RBC 0 Nucleated RBC % 0 Sodium Potassium Chloride Carbon Dioxide Anion Gap BUN Creatinine Est GFR ( Amer) Est GFR (Non-Af Amer) BUN/Creatinine Ratio Glucose Calcium Magnesium 1.4 L Total Bilirubin AST ALT Alkaline Phosphatase Total Protein Albumin Globulin Albumin/Globulin Ratio Vit D 1,25-Dihydroxy 277 H 10/21/16 05:49 WBC RBC Hgb Hct MCV MCH MCHC RDW Plt Count MPV Neut % (Auto) Lymph % (Auto) [place] % (Auto) Eos % (Auto) Baso % (Auto) Absolute Neuts (auto) Absolute Lymphs (auto) Absolute Monos (auto) Absolute Eos (auto) Absolute Basos (auto) Absolute Nucleated RBC Nucleated RBC % Sodium 129 L Potassium 4.3 Chloride 101 Carbon Dioxide 22 Anion Gap 6 BUN 21 Creatinine 0.84 Est GFR ( Amer) 87.2 Est GFR (Non-Af Amer) 67.8 BUN/Creatinine Ratio 25.0 H Glucose 100 Calcium 9.2 Magnesium 1.7 L Total Bilirubin 0.50 AST 26 ALT 19 Alkaline Phosphatase 52 Total Protein 4.2 L Albumin 2.4 L Globulin 1.8 L Albumin/Globulin Ratio 1.3 Vit D 1,25-Dihydroxy I/R: Pt is a 65yo F with PMH of follicular lymphoma s/p R-CHOP, migraines, who presented to ED due to abnormal labs revealing hypercalcemia, new onset A.fib, PH on ECHO. - Elevated troponins, CTA chest was negative for PE and LE doppler negative for DVT. Echocardiogram showed signs of moderate pulmonary HTN, mild dilatation of RV, and RV systolic function moderately reduced and this is new when compared to prior echo from January 2016. Pulm HTN likely secondary Overnight oximetry suggestive of significant hypoxia Results were discussed in detail hypoxia likely secondary to underlying sleep apnea Will need sleep study as out pt Hypercalcemia improved with IVF, Furosemide, and Zoledronic acid O2 until sleep study can be performed Rest of mx as per primary team
[2016-10-21 14:06] LABS: PTH Related Peptide 0.4 pmol/L (<2.0)
[2016-10-21] MEDS: Piperac/Tazob 3.375 gm in NS* 3.375 GM/100 ML BAG IVPB SCH ×2 (15:30→22:46)
--- NOTE | 2016-10-21 18:03 | CONSULT ---
Consult Consult: Progress Consult follow up Note Patient: MIKE MONTES /Age: 05 1950 65 Medical Record#: [id number] Admission Date: 10/17/16 Provider: Steve Hensley MD Chief complaint: myalgias elevated CRP Subjective Date of Service: 10/21/16 Interval History: PROGRESS NOTE Patient seen and examined at bedside. She did not sleep well last night. However, she did note that the Lidoderm patch helped her shoulder pain; it worsened when the patch was taken off and is improved now that it is back on. EGD was held and not done yet. Skin biopsy and autoimmune studies are pending. She has some difficulty with breathing when talking a lot or mobilizing but overall symptoms are stable Family History: Unchanged from Admission Social History: Unchanged from Admission Past Medical History: Unchanged from Admission Objective Active Medications: Aspirin (Aspirin Low Dose Tab*) 81 mg PO DAILY [facility] Last Admin: 10/20/16 10:15 Dose: 81 mg Docusate Sodium (Colace Cap*) 100 mg PO BID [facility] Last Admin: 10/20/16 10:16 Dose: 100 mg Enoxaparin Sodium (Lovenox(*)) 40 mg SUBCUT DAILY [facility] Last Admin: 10/20/16 10:16 Dose: 40 mg Gabapentin (Neurontin Cap(*)) 100 mg PO BEDTIME MARIN Last Admin: 10/19/16 21:20 Dose: 100 mg Gabapentin (Neurontin Cap(*)) 200 mg PO DAILY [facility] Last Admin: 10/20/16 10:16 Dose: 200 mg Diltiazem HCl (Cardizem Iv Advan*) 100 mg in 100 mls @ 5 mls/hr IVPB DAILY [facility] PRN Reason: 5 MG/HR Iodixanol (Visipaque* 320 (Contrast)) 117 ml IV ONCE [facility] Stop: 10/20/16 23:59 Last Admin: 10/18/16 17:49 Dose: 117 ml Lidocaine (Lidoderm 5% Patch*) 1 patch TRANSDERM .ON 0900 OFF AT 2100 [facility] Last Admin: 10/20/16 17:12 Dose: 1 patch Metoprolol Tartrate (Lopressor Tab*) 12.5 mg PO Q12HR MARIN Last Admin: 10/20/16 17:13 Dose: 12.5 mg Morphine Sulfate (Morphine Inj (Syringe)*) 2 mg IV Q4H PRN PRN Reason: SEVERE PAIN Last Admin: 10/20/16 01:36 Dose: 2 mg Omeprazole (Prilosec Cap*) 40 mg PO DAILY@0600 [facility] Last Admin: 10/20/16 04:54 Dose: 40 mg Oxycodone/Acetaminophen (Percocet 5/325 Tab*) 2 tab PO Q4H PRN PRN Reason: PAIN Last Admin: 10/20/16 14:21 Dose: 2 tab Pharmacy Profile Note (Lidocaine Patch Remove*) 1 note N/A 2099 [facility] Polyethylene Glycol/Electrolytes (Miralax*) 17 gm PO 0800,2100 [facility] Last Admin: 10/20/16 10:14 Dose: Not Given Potassium Chloride (Klor Con Er Tab*) 20 meq PO BID WITH MEALS [facility] Last Admin: 10/20/16 17:13 Dose: 20 meq Topiramate (Topamax(*)) 50 mg PO BEDTIME [facility] Last Admin: 10/19/16 21:20 Dose: 50 mg Vital Signs 10/20/16 10/20/16 14:21 15:14 16:21 Temperature 99.3 F Pulse Rate 106 Respiratory 18 18 20 Rate Blood Pressure 106/53 (mmHg) O2 Sat by Pulse 92 Oximetry Oxygen Devices in Use Now: None Appearance: Pleasant lady sitting up in bed in [facility], but discouraged. Eyes: No Scleral Icterus Ears/Nose/Mouth/Throat: Mucous Membranes Moist Neck: Trachea Midline Respiratory: Symmetrical Chest Expansion and Respiratory Effort, - - BS+ bilaterally are clear Cardiovascular: RRR - Normal S1 and S2 Abdominal: No Distention Extremities: - - Bilateral LE moderate pitting edema Skin: - - Palpable faint erythematous rash on both UE but it is fading; she has mild facial swelling Neurological: Alert and Oriented x 3, NL Muscle Strength and Tone M/S no synovitis; no warmth of joints; mild shoulder restriction Lines/Tubes/Other Access: Clean, Dry and Intact Peripheral IV Nutrition: Taking PO's Result Diagrams: 04:41 White count 15.7 K and hemoglobin of 9.4 Assess/Plan/Problems-Billing Assessment: Mrs. Montes is a 65yo F with PMH of follicular lymphoma s/p RCHOP, migraines, who presented to ED due to abnormal labs revealing hypercalcemia, also found to have pulmonary HTN, rash and pleural effusions; vertebral end plate abnormality - Patient Problems (1) Hypercalcemia Comment: - Patient had correction of this issue; autoimmune serologies are pending - PTH is low consistent with non-PTH mediated hypercalcemia. With her h/o lymphoma, major concern is malignancy associated hypercalcemia - follow PTH related peptide. (4) Elevated CRP Comment: - CTA chest was negative for PE and LE doppler negative for DVT. - Echocardiogram showed signs of moderate pulmonary HTN, mild dilatation of RV, and RV systolic function moderately reduced and this is new and so she is having oximetry tresting (5) PIERRE (acute kidney injury) Comment: - Suspect part of it secondary to NSAID use, and so NSAIDs are held - D/c IVF. (6) Polyarthritis Comment: - As an out patient RF, anti-CCP, HANY, ANCA were all negative. - She has noted some benefit with Lidoderm - Continue pain management. (7) Rash Comment: - Palpable rash of UE and face suggestive of vasculitis - skin biopsy pending. (9) Gastric wall thickening Comment: - CT abdome revealed gastric thickening and she will have an EGD soon. Steroids are on hold until diagnosis elucidated
[2016-10-21] MEDS: Topiramate TAB(*) 25 MG PO SCH (20:35)
[2016-10-21] MEDS: Vancomycin(*) 1,000 MG in NS 0.9% 250 ML* 250 ML IVPB SCH (20:41)
--- NOTE | 2016-10-21 20:42 | PN ---
Subjective Date of Service: 10/21/16 Interval History: . Interviewed and examined patient at bedside; Discussed case with Dr. Maldonado ; Reviewed previous notes and radiology results; episode of AF overnight, converted. started on amio has hypotensive. dilt stopped. c/o nasal congestion. c/o peripheral edema (discussed Pulm htn can cause this; protein levels low; potentially infalmmatory process at play) Family History: Unchanged from Admission Social History: Unchanged from Admission Past Medical History: Unchanged from Admission Objective Active Medications: . Acetaminophen (Tylenol Tab*) 650 mg PO Q4H PRN PRN Reason: FEVER/PAIN Last Admin: 10/21/16 20:35 Dose: 650 mg Aspirin (Aspirin Low Dose Tab*) 81 mg PO DAILY [facility] Last Admin: 10/21/16 13:22 Dose: 81 mg Docusate Sodium (Colace Cap*) 100 mg PO BID [facility] Last Admin: 10/21/16 20:34 Dose: 100 mg Gabapentin (Neurontin Cap(*)) 100 mg PO BEDTIME [facility] Last Admin: 10/21/16 20:34 Dose: 100 mg Gabapentin (Neurontin Cap(*)) 200 mg PO DAILY [facility] Last Admin: 10/21/16 13:23 Dose: 200 mg Lactated Ringer's (Lactated Ringers 1000 Ml Bag*) 1,000 mls @ 0 mls/hr IV WIDE OPEN MARIN PRN Reason: Wide Open Stop: 10/21/16 23:59 Last Admin: 10/21/16 10:15 Dose: 999 mls/hr Piperacillin Sod/Tazobactam Sod (Zosyn 3.375 Gm In Ns Premix*) 3.375 gm in 100 mls @ 25 mls/hr IVPB Q8H [facility] Last Admin: 10/21/16 15:30 Dose: 25 mls/hr Vancomycin HCl 1,000 mg/ (Sodium Chloride) 250 mls @ 166.667 mls/hr IVPB Q8H [facility] Lidocaine (Lidoderm 5% Patch*) 1 patch TRANSDERM DAILY [facility] Last Admin: 10/21/16 11:18 Dose: 1 patch Metoprolol Tartrate (Lopressor Tab*) 12.5 mg PO Q12HR [facility] Last Admin: 10/21/16 20:20 Dose: Not Given Morphine Sulfate (Morphine Inj (Syringe)*) 2 mg IV Q4H PRN PRN Reason: SEVERE PAIN Last Admin: 10/20/16 01:36 Dose: 2 mg Omeprazole (Prilosec Cap*) 40 mg PO DAILY@0600 [facility] Last Admin: 10/21/16 05:31 Dose: 40 mg Ondansetron HCl (Zofran Inj*) 4 mg IV Q6H PRN PRN Reason: NAUSEA Last Admin: 10/20/16 20:35 Dose: 4 mg Oxycodone/Acetaminophen (Percocet 5/325 Tab*) 2 tab PO Q4H PRN PRN Reason: PAIN Last Admin: 10/21/16 05:29 Dose: 2 tab Pharmacy Consult (Vancomycin Per Pharmacy*) 1 note FOLLOW UP . PRN PRN Reason: PER PROTOCOL Pharmacy Profile Note (Lidocaine Patch Remove*) 1 note N/A 2100 [facility] Last Admin: 10/21/16 05:37 Dose: 1 note Pharmacy Profile Note (Vancomycin Trough Check) 1 note FOLLOW UP ONCE ONE Stop: 10/22/16 11:31 Polyethylene Glycol/Electrolytes (Miralax*) 17 gm PO 0800,2100 [facility] Last Admin: 10/21/16 20:36 Dose: 17 gm Potassium Chloride (Klor Con Er Tab*) 20 meq PO BID WITH MEALS [facility] Last Admin: 10/21/16 17:25 Dose: 20 meq Senna (Senokot Tab*) 1 tab PO BEDTIME PRN PRN Reason: CONSTIPATION Topiramate (Topamax(*)) 50 mg PO BEDTIME [facility] Last Admin: 10/21/16 20:35 Dose: 50 mg Vital Signs 10/20/16 10/20/16 10/20/16 20:40 21:00 22:00 Temperature Respiratory 16 20 23 Rate Blood Pressure 82/37 91/58 (mmHg) 10/20/16 10/20/16 10/20/16 22:26 22:37 22:38 Temperature Respiratory 20 22 19 Rate Blood Pressure 86/43 (mmHg) Oxygen Devices in Use Now: None Appearance: NAD at rest Eyes: No Scleral Icterus Ears/Nose/Mouth/Throat: Clear Oropharnyx Neck: Trachea Midline Respiratory: Clear to Auscultation Cardiovascular: NL Sounds; No Murmurs; No JVD Abdominal: NL Sounds; No Tenderness; No Distention Lymphatic: No Cervical Adenopathy, - - + peripheral edema Extremities: - - + vasculitis appearing rash Neurological: Alert and Oriented x 3 Lines/Tubes/Other Access: Clean, Dry and Intact Peripheral IV Nutrition: Taking PO's Result Diagrams: 10/23/16 11:03 10/23/16 06:30 Additional Lab and Data: . Microbiology and Other Data: Microbiology 10/18/16 03:45 Nasal Screen MRSA (PCR)(ZANE) - Final Nasal Mrsa Negative Assess/Plan/Problems-Billing . Assessment: Mrs. Montes is a 65yo F with PMH of follicular lymphoma s/p RCHOP, migraines, who presented to ED due to abnormal labs revealing hypercalcemia, also found to have troponin elevation. Current Medications: - Acetaminophen (Tylenol Tab) 650 mg PO Q4H PRN FEVER/PAIN - Aspirin (Aspirin Low Dose Tab) 81 mg PO DAILY MARIN - Docusate Sodium (Colace Cap*) 100 mg PO BID MARIN - Gabapentin (Neurontin Cap(*)) 100 mg PO BEDTIME MARIN - Gabapentin (Neurontin Cap(*)) 200 mg PO DAILY MARIN - Piperacillin Sod/Tazobactam Sod (Zosyn 3.375 Gm In Ns Premix*) 3.375 gm in 100 mls @ 25 mls/hr IVPB Q8H - Vancomycin HCl 1,000 mg/ (Sodium Chloride) 250 mls @ 166.667 mls/hr IVPB Q8H - Lidocaine (Lidoderm 5% Patch*) 1 patch TRANSDERM DAILY - Metoprolol Tartrate (Lopressor Tab) 12.5 mg PO Q12HR MARIN - Morphine Sulfate (Morphine Inj (Syringe)*) 2 mg IV Q4H PRN SEVERE PAIN - Omeprazole (Prilosec Cap) 40 mg PO DAILY@0600 MARIN - Ondansetron HCl (Zofran Inj) 4 mg IV Q6H PRN NAUSEA - Oxycodone/Acetaminophen (Percocet 5/325 Tab) 2 tab PO Q4H PRN PAIN - Polyethylene Glycol/Electrolytes (Miralax*) 17 gm PO 0800,2100 MARIN - Potassium Chloride (Klor Con Er Tab*) 20 meq PO BID WITH MEALS MARIN - Senna (Senokot Tab*) 1 tab PO BEDTIME PRN CONSTIPATION - Topiramate (Topamax) 50 mg PO BEDTIME MARIN - Patient Problems (1) Atrial fibrillation Current Visit: Yes Status: Acute Priority: High Code(s): I48.91 - UNSPECIFIED ATRIAL FIBRILLATION Comment: - Patient had a brief episode of tachycardia while napping, likely secondary to GREG, but developed Afib when she went to Endo suite. - Continue metoprolol ; Cardizem caused hypotension. - [id number] score is 2 (sex, age). Discussed risks and benefits of anticoagulation and patient is in agreement with Lovenox, but we can hold it before her procedures. - Cardiology consult if she does not convert. (2) Fluid overload Current Visit: Yes Status: Acute Priority: High Code(s): E87.70 - FLUID OVERLOAD, UNSPECIFIED Comment: - Is her dyspnea is secondary to mild fluid overload associated with her aggressive IV hydration for hypercalcemia and PIERRE. - Hold off on further diuresis for now due to new Afib with RVR. (3) Hypercalcemia Current Visit: Yes Status: Acute Priority: High Code(s): E83.52 - HYPERCALCEMIA Comment: - Patient had labs done at [place] 10/17/16 and was called with an elevated calcium 12.2. - Receveid IVF, Furosemide, and Zoledronic acid 10/16/16. - Calcium back to normal. - PTH is low consistent with non-PTH mediated hypercalcemia. With her h/o lymphoma, major concern is malignancy associated hypercalcemia - follow PTH related peptide. (4) Elevated troponin Current Visit: Yes Status: Acute Priority: High Code(s): R74.8 - ABNORMAL LEVELS OF OTHER SERUM ENZYMES Comment: - CTA chest was negative for PE and LE doppler negative for DVT. - Echocardiogram showed signs of moderate pulmonary HTN, mild dilatation of RV, and RV systolic function moderately reduced and this is new when compared to prior echo from January 2016. - Pulreji tran appreciated - concerned for GREG as source of pulmonary hypertension. (5) PIERRE (acute kidney injury) Current Visit: Yes Status: Acute Priority: High Code(s): N17.9 - ACUTE KIDNEY FAILURE, UNSPECIFIED Comment: - Suspect part of it secondary to NSAID use, worsened by dehydration caused by hypercalcemia. - Resolved. - D/C IVF. (6) Polyarthritis Current Visit: Yes Status: Acute Priority: High Code(s): M13.0 - POLYARTHRITIS, UNSPECIFIED Comment: - Rheum w/u as outpatient was negative. CRP was 92, but RF, anti-CCP, HANY, ANCA were all negative. - Rheum consult appreciated - repeat w/u in process - With her nasal symptoms, concerned for Hunter's - but sinus CT negative. - Continue pain management. (7) Migraine Current Visit: Yes Status: Acute Priority: Medium Code(s): G43.909 - MIGRAINE, UNSP, NOT INTRACTABLE, WITHOUT STATUS MIGRAINOSUS Comment: - Continue Topamax. (8) Rash Current Visit: Yes Status: Acute Code(s): R21 - RASH AND OTHER NONSPECIFIC SKIN ERUPTION Comment: - Palpable rash of UE and face suggestive of vasculitis - skin biopsy pending. 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 - EGD was cancelled today due to episode of new Afib. (10) H/O lymphoma Current Visit: Yes Status: Acute Priority: High Code(s): Z85.79 - PRSNL HX OF MALIG NEOPLM OF LYMPHOID, HEMATPOETC & REL TISS Comment: - Bone marrow biopsy when stable. (11) DVT prophylaxis Current Visit: Yes Status: Acute Priority: High Code(s): KSP2062 - Comment: - Lovenox, but on hold for EGD. (12) Full code status Current Visit: Yes Status: Acute Priority: High Code(s): Z78.9 - OTHER SPECIFIED HEALTH STATUS Status and Disposition: Inpatient. Sister updated at bedside.
[2016-10-21] MEDS: Saline NASAL DROPS 0.65%* 1 DROP BTL BOTH NARES PRN (22:11)
[2016-10-21] MEDS: Morphine INJ* 2 MG/ML 1 ML SYRINGE IV PRN (22:41)
[2016-10-22] MEDS ORDERED: Diltiazem DRIP* 100 ML IVPB ONE (00:02)
[2016-10-22] MEDS ORDERED: Diltiazem DRIP* 100 MG/100 ML ADDV.BAG IVPB ONE (00:05)
--- NOTE | 2016-10-22 00:05 | PN ---
Progress Note - Progress Note Note: Cross cover note: Pt rhythm back in afib with rates 120-140. BP with SBPs 90 and DBP 40-50s. Will start cardizem at 2.5mg. If BP unable to tolerate then will transfer ICU for amiodarone.
[2016-10-22] MEDS ORDERED: Amiodarone 150 MG IVPREMIX* 150 MG/100 ML BAG IV ONE (01:22)
[2016-10-22] MEDS: Amiodarone 360 MG IVPREMIX* 360 MG/200 ML BAG IV SCH ×4 (02:25→19:38)
[2016-10-22] MEDS: oxyCODONE/Acetamin 5/325 MG* TAB PO PRN ×4 (02:38→22:56)
[2016-10-22] MEDS: Vancomycin(*) 1,000 MG in NS 0.9% 250 ML* 250 ML IVPB SCH ×3 (04:42→19:40)
[2016-10-22] MEDS: Piperac/Tazob 3.375 gm in NS* 3.375 GM/100 ML BAG IVPB SCH ×3 (06:10→22:49)
[2016-10-22] MEDS: Omeprazole CAP* 20 MG PO SCH (06:10)
[2016-10-22 06:45] LABS: Hematocrit 30 % (35-47); Hemoglobin 9.7 g/dl (12.0-16.0); Mean Corpuscular HGB Conc 33 g/dl (31-36); Mean Corpuscular Hemoglobin 31 pg (27-31); Mean Corpuscular Volume 94 fL (80-97); Mean Platelet Volume 8 um3 (7.4-10.4); Red Blood Count 3.16 10^6/ul (4.0-5.4); Red Cell Distribution Width 16 % (10.5-15); White Blood Count 18.9 10^3/ul (3.5-10.8)
[2016-10-22 06:57] LABS: BUN/Creatinine Ratio 20.7 (8-20); Calcium 8.7 mg/dL (8.6-10.3); EGFR African American 83.8 (>60); EGFR Non-African American 65.1 (>60); Potassium 4.2 mmol/L (3.5-5.0)
[2016-10-22] MEDS: Morphine INJ* 2 MG/ML 1 ML SYRINGE IV PRN ×2 (07:04→19:40)
[2016-10-22] MEDS: Docusate CAP* 100 MG PO SCH ×2 (07:54→22:24)
[2016-10-22] MEDS: Aspirin Low Dose CHEW TAB* 81 MG PO SCH (07:56)
[2016-10-22] MEDS: Gabapentin CAP(*) 100 MG PO SCH ×2 (07:56→22:25)
[2016-10-22] MEDS: Metoprolol Tartrate TAB* 25 MG PO SCH ×2 (07:56→22:25)
[2016-10-22] MEDS: Polyethylene Glycol 3350* 17 GM PACKET PO SCH ×2 (08:06→22:24)
[2016-10-22] MEDS: Potassium Chlor TAB* 20 MEQ TAB.ER PO SCH ×2 (08:07→18:19)
[2016-10-22] MEDS: Saline NASAL DROPS 0.65%* 1 DROP BTL BOTH NARES PRN (08:09)
[2016-10-22] MEDS ORDERED: Oxymetazoline 0.05% NASAL SPR* 15 ML BTL BOTH NARES ONE (09:20)
[2016-10-22] MEDS: Lidocaine PATCH 5%* 1 PATCH TRANSDERM SCH (10:56)
[2016-10-22] MEDS ORDERED: Vancomycin Trough Check NOTE FOLLOW UP ONE (11:30)
--- NOTE | 2016-10-22 13:25 | CONS ---
CARDIOLOGY CONSULTATION: DATE OF CONSULT: 10/22/16 REASON FOR CONSULT: Paroxysmal atrial fibrillation. CHIEF COMPLAINT: Rash, fevers, arthralgias, swelling, and shortness of breath. HISTORY OF PRESENT ILLNESS: Mrs. Montes is a 65-year-old woman with a history of lymphoma, followed by Dr. Joe Orr. The patient reports and notes confirm that the patient underwent chemotherapy with R-CHOP from January 2016, ending in May (follicular lymphoma grade 3A). In either late June to early July, she developed a rash, fever and some swelling of her hands and assumed it was a virus. She was at [facility] with her during his bypass surgery with the acute flare. She reports that she was treated with steroids with improvement in her swelling, fevers and rash but when she came off , she had recurrent symptoms with hand swelling and now feet swelling. I believe she was on 4 to 5 courses of high dose steroids over the 4 to 5 month period of her symptoms and she underwent outpatient consultation with Rheumatology, Oncology locally, as well as in [facility]. After her workup in [facility] revealed hypercalcemia and she was advised to be hospitalized for this, which prompted this admission. During this admission, the patient was found to have pleural effusions, elevated PA pressures, right ventricular strain, marked hypoxemia on overnight oximetry, electrolyte disturbances, mild elevation in troponins, elevated C- reactive protein, and her hypercalcemia was confirmed. She has been treated with diuretics, which led to a drop in blood pressure. Toradol for pain, Lidoderm for pain, magnesium replacement, antibiotics with pip/tazo and vancomycin. On the , she had 20 mg of prednisone and she has had normal saline IV. The patient's stay has been complicated by paroxysmal atrial fibrillation during sleep, the patient is unaware of any palpitations or racing of the heart or other symptoms with this. She has orthopnea, has to have the head of the bed and 2 pillows to sleep comfortably. She continues to have pain in her feet , hands and joints. She reports a 12-pound weight gain and she is very constipated. She denies a change in appetite, hematuria, or dysuria. PAST MEDICAL HISTORY: 1. Follicular lymphoma, grade 3A, status post R-CHOP 6 cycles, initial diagnosis was 2001 with a swollen lymph node in the neck. 2. She has a history of migraine headaches. PAST SURGICAL HISTORY: Includes: 1. Parotidectomy. 2. Colectomy for polyp. 3. Excisional lymph node. 4. TMJ surgery. OUTPATIENT SUPPLEMENTS: She was taking at the onset of this included: 1. Zinc. 2. Curcumin. 3. Feverfew. 4. Red palm oil. 5. Selenium. 6. Resveratrol. 7. Vitamin B12. 8. Milk thistle. 9. Vitamin K2. 10. Magnesium. 11. Calcium 400 mg a day. 12. Bitter melon 500 mg a day. 13. Fish oil 1 g a day. 14. Vitamin B complex. 15. Vitamin B6. 16. Coenzyme Q. Additional discontinued medications included aspirin. CURRENT ACTIVE MEDICATIONS: Include: 1. Tylenol. 2. Amiodarone drip. 3. Aspirin 81 mg a day (decreased from 325 mg). 4. Colace. 5. Neurontin 300 mg a day. 6. Lidocaine patch. 7. Metoprolol 12.5 mg b.i.d. 8. Morphine p.r.n. 9. Biotene mouthwash. 10. Prilosec 40 mg a day. 11. Zofran p.r.n. nausea. 12. Percocet p.r.n. 13. Vancomycin. 14. PEG. 15. Potassium 20 mEq b.i.d. 16. Senna. 17. Sodium chloride nasal drops. 18. Topamax 50 mg q.h.s. ALLERGIES: She has no known drug allergies. FAMILY HISTORY: Significant for diabetes in uncle and paternal grandmother. SOCIAL HISTORY: Distant smoking in high school, no history of recreational drugs or alcohol. Supportive family, . REVIEW OF SYSTEMS: As above, significant for orthopnea, constipation, pain in joints and the soft tissues in the hands and feet, and diffuse body pain, increased fluid weight gain and abdominal distention. She denies recent travel or known exposure to any sorts of parasites or unusual environment. She denies any oral mucosal lesions. She did mention that she has had bleeding and clotting within the nose during this. PHYSICAL EXAMINATION: On exam, the patient is 5 feet 4, weighs 165 pounds with a BMI of 28. Blood pressure 95/60. She is currently in sinus rhythm in the 70s to 90s. General appearance: Older middle-aged woman, well nourished, lying at 30 degrees in no acute distress. Psychologically, calm, cooperative, pleasant. Neurologically, awake, alert, oriented to person, place and time. Cranial nerves II through XII grossly intact. Speech is articulate. Comprehension is good. No gross motor or sensory deficits in the bed. Gait not examined. Skin : She does have a fine macular rash seen on the arm but no evidence of cyanosis on room air, awake. HEENT: Pupils are equal and round. Nares not examined. Oral mucosa moist and unremarkable. Neck: Without thyromegaly or lymphadenopathy appreciated. Palpable carotid pulses, free of bruits. Breath sounds were markedly diminished in the bases with some vocal egophony, dull to percussion in the bases bilaterally. Coronary, a bit muffled. S1, S2 regular. I did not appreciate murmurs. Abdomen: Active bowel sounds, soft, nontender. No appreciable hepatosplenomegaly. Lower extremities showed mild pitting edema and looked a bit tense. DIAGNOSTIC STUDIES/LABORATORY DATA: A 12-lead ECG from 10/18/16 shows normal sinus rhythm, 88 beats per minute, QRS axis +60 with a normal AV and IV conduction times. She has flattened T-waves out of proportion to her body habitus in the limb leads and diffusely. Rhythm strips last night confirm atrial fibrillation with a ventricular rate of 144 beats a minute. Currently she is in normal sinus rhythm. Echocardiogram from 10/17/16 shows mild left ventricular hypertrophy, hyperdynamic left ventricular function with an ejection fraction of 65% and diastolic dysfunction, right ventricular dilatation, mild and moderate right ventricular hypokinesis, mild to moderate mitral insufficiency, moderate tricuspid insufficiency and PA pressure of 56 mmHg. Small pericardial effusion without filling compromise appreciated. Chest x-ray from 10/17/16 was negative for effusions or acute disease. From 10/18/16, CT of the chest, abdomen and pelvis was negative for pulmonary emboli, moderate sized bilateral pleural effusions and atelectasis. Gastric antrum appears tubular and thickened. Compression L3. Venous Doppler, 10/18/16, negative for DVT. Neck CT, no abnormal lymphadenopathy, pleural effusions again noted, operative changes from right parotid biopsy. Overnight oximeter from 10/21/16 showed marked desaturation and with desaturation associated increase in heart rate, oxygen saturation below 90%, 4 hours and 50 minutes and oxygenation below 80%, 2 minutes. Labs today, white count 18.9, hemoglobin 9.7, hematocrit 30, platelets 334, sed rate of 13. Sodium 129, potassium 4.2, chloride 102, bicarb 20, BUN 18, creatinine 1.25, glucose 99, calcium 8.7, CK 54, ionized calcium 7.14 on the 12th, phosphorous 3.6, magnesium 1.7, AST 26, ALT 19. Troponin #1 of 0.14, #2 of 0.16, #3 of 0.14. C- reactive protein 43. BNP of 437, total protein 4.2, albumin 2.2, globulin 1.8. Total cholesterol 226, triglycerides 143, LDL cholesterol 147, HDL cholesterol 50 (cholesterol from November 2015). Vitamin D1/25 of 277, TSH of 3.95, intact parathyroid hormone less than 1.3, calcium (PTH intact) 11.7, PTH related peptide 0.4. Urinalysis from 10/17/16, specific gravity 1.006, negative for blood, bacteria, white cells, nitrites, ketones, protein. Immunological studies sent 10/20/16 are largely pending. Negative for C-ANCA, P - ANCA and HLA-B27. Serology, hepatitis negative and nonreactive. Lyme is negative. HPV negative. Skin biopsy revealed thrombotic vasculopathy. SUMMARY: Mrs. Montes is a 65-year-old woman who presented approximately 4 months ago with rash, fever, and swelling initially in the hands that is steroid responsive and as of yet undiagnosed. The patient is status post multiple courses of high-dose steroids, use of nonsteroidals, and has presented to our hospital with significant pleural effusions, pulmonary hypertension, right ventricular strain, desaturating overnight and she has had 2 episodes of atrial fibrillation with sleep and presumed trigger of hypoxia. In terms of the paroxysmal atrial fibrillation, I believe this is secondary to her hypoxia, and pulmonary abnormalities with elevated PA pressure and significant pleural effusions. As discussed with Dr. Miner, I think ensuring she is well oxygenated overnight, even during her workup, is going to be important to keep her out of atrial fibrillation. Medications to assist in keeping in sinus rhythm is fine, amiodarone is efficacious and safe on the short term, but could potentially complicate her picture with its propensity for pulmonary toxicity, thyroid abnormalities, skin reactions and potential liver toxicity. Additional options as she does not have a lot of other past medical history prior to this would include sotalol 80 mg b.i.d. among others. The elevated troponins could be due to underlying coronary disease but she does not have a high pretest probability and it could be from a right ventricular strain, small pericardial effusion. I do not feel she needs an acute workup or cath for this. In terms of just managing her effusions, especially as she is constipated, I would consider adding colchicine as a trial and titrating to loose stools and following her CRP. I believe her underlying inflammatory/autoimmune process is the root of her problem and I have reviewed the multiple consultations on this, considerations would be some sort of a renal tubular problem. As she would be immunocompromised with her R- CHOP, opportunistic infections such as fungal infections should be considered, this could present with sinus problems, vasculitis. There are other infections, viral, bacterial, and parasitic should be considered with secondary autoimmune reaction. As we discussed ENT to evaluate the sinuses, as this is one for her complaints and consideration of stopping aspirin, at least on the short term until ENT has seen the patient, in case an aspirin, triad of sinus, pulmonary and rash are contributing her presentation. The patient's electrolyte disturbances and low blood pressure are noted. I am most suspicious of iatrogenic adrenal insufficiency with this but I would try to optimize the electrolytes with the potassium, magnesium and sodium, as this can impact on the patient's rhythms. There is potential for chemo-induced cardiotoxicity but with the left ventricle appearing hyperdynamic, I am more suspicious that the right ventricular hypokinesis is a secondary phenomenon as opposed to a chemo-induced cardiomyopathy. If in the future we have additional concerns about cardiotoxicity from chemotherapy, a cardiac MRI is an option that is much more sensitive and specific than an echocardiogram. We will follow along with you on this very pleasant but complex patient. CC: Dr. Miner, Radha Ardon MD; Dr. Orr * [id number]/[facility] #: [id number] [facility]PITALKalyan
[2016-10-22 15:08] LABS: Rheumatoid Factor <15 IU/mL (<15)
[2016-10-22] MEDS: Oral Rinse (Biotene)(NF) 237 ML ORAL RINSE BTL MT SCH ×2 (15:31→20:04)
--- NOTE | 2016-10-22 15:50 | CONSULT ---
Consult Consult: Consult follow up Progress Note Patient Name: MIKE MONTES Date of : 1950 Patient Status: Inpatient Attending Provider: Steve Hensley Date: 10/22/165 Subjective Date of Service: 10/22/16 Chief complaint: arthralgias, elevated CRP Interval History: Events noted Patient now in ICU with arrythmia (atrial fibrillation) and hypotension. She has noted improvement in her shoulder pain with Lidoderm. She notes dyspnea with exertion. Sherelated that she felt that something is blocking her sinuses and/or upper nasal airway passages Family History: Unchanged from Admission Social History: Unchanged from Admission Past Medical History: Unchanged from Admission Objective Active Medications: . Acetaminophen (Tylenol Tab*) 650 mg PO Q4H PRN PRN Reason: FEVER/PAIN Last Admin: 10/21/16 20:35 Dose: 650 mg Aspirin (Aspirin Low Dose Tab*) 81 mg PO DAILY [facility] Last Admin: 10/21/16 13:22 Dose: 81 mg Docusate Sodium (Colace Cap*) 100 mg PO BID [facility] Last Admin: 10/21/16 20:34 Dose: 100 mg Gabapentin (Neurontin Cap(*)) 100 mg PO BEDTIME [facility] Last Admin: 10/21/16 20:34 Dose: 100 mg Gabapentin (Neurontin Cap(*)) 200 mg PO DAILY [facility] Last Admin: 10/21/16 13:23 Dose: 200 mg Lactated Ringer's (Lactated Ringers 1000 Ml Bag*) 1,000 mls @ 0 mls/hr IV WIDE OPEN [facility]IN PRN Reason: Wide Open Stop: 10/21/16 23:59 Last Admin: 10/21/16 10:15 Dose: 999 mls/hr Piperacillin Sod/Tazobactam Sod (Zosyn 3.375 Gm In Ns Premix*) 3.375 gm in 100 mls @ 25 mls/hr IVPB Q8H [facility] Last Admin: 10/21/16 15:30 Dose: 25 mls/hr Vancomycin HCl 1,000 mg/ (Sodium Chloride) 250 mls @ 166.667 mls/hr IVPB Q8H [facility] Lidocaine (Lidoderm 5% Patch*) 1 patch TRANSDERM DAILY [facility] Last Admin: 10/21/16 11:18 Dose: 1 patch Metoprolol Tartrate (Lopressor Tab*) 12.5 mg PO Q12HR [facility] Last Admin: 10/21/16 20:20 Dose: Not Given Morphine Sulfate (Morphine Inj (Syringe)*) 2 mg IV Q4H PRN PRN Reason: SEVERE PAIN Last Admin: 10/20/16 01:36 Dose: 2 mg Omeprazole (Prilosec Cap*) 40 mg PO DAILY@0600 [facility] Last Admin: 10/21/16 05:31 Dose: 40 mg Ondansetron HCl (Zofran Inj*) 4 mg IV Q6H PRN PRN Reason: NAUSEA Last Admin: 10/20/16 20:35 Dose: 4 mg Oxycodone/Acetaminophen (Percocet 5/325 Tab*) 2 tab PO Q4H PRN PRN Reason: PAIN Last Admin: 10/21/16 05:29 Dose: 2 tab Pharmacy Consult (Vancomycin Per Pharmacy*) 1 note FOLLOW UP . PRN PRN Reason: PER PROTOCOL Pharmacy Profile Note (Lidocaine Patch Remove*) 1 note N/A 2100 [facility] Last Admin: 10/21/16 05:37 Dose: 1 note Pharmacy Profile Note (Vancomycin Trough Check) 1 note FOLLOW UP ONCE ONE Stop: 10/22/16 11:31 Polyethylene Glycol/Electrolytes (Miralax*) 17 gm PO 0800,2100 [facility] Last Admin: 10/21/16 20:36 Dose: 17 gm Potassium Chloride (Klor Con Er Tab*) 20 meq PO BID WITH MEALS [facility] Last Admin: 10/21/16 17:25 Dose: 20 meq Senna (Senokot Tab*) 1 tab PO BEDTIME PRN PRN Reason: CONSTIPATION Topiramate (Topamax(*)) 50 mg PO BEDTIME [facility] Last Admin: 10/21/16 20:35 Dose: 50 mg Vital Signs 10/20/16 10/20/16 10/20/16 20:40 21:00 22:00 Temperature Respiratory 16 20 23 Rate Blood Pressure 82/37 91/58 (mmHg) 10/20/16 10/20/16 10/20/16 22:26 22:37 22:38 Temperature Respiratory 20 22 19 Rate Blood Pressure 86/43 (mmHg) Oxygen Devices in Use Now: None Appearance: NAD at rest Ears/Nose/Mouth/Throat: Clear Oropharnyx Neck: Trachea Midline Respiratory: Clear to Auscultation Cardiovascular: NL Sounds; No Murmurs although she has a few ectopic beats, mostly sounds regular in rhythm and rate; No JVD Abdominal: NL Sounds; No Tenderness; No Distention Lymphatic: No Cervical Adenopathy Vascular:trace peripheral edema Extremities: papular exanthem forearm; left hand is slightly swollen but IV infiltrated near site Neurological: Alert and Oriented x 3 Lines/Tubes/Other Access: Clean, Dry and Intact Peripheral IV Musculoskeletal: mild synovitis, minimal shoulder restriction, no warmth of her joints Nutrition: complains of constipation Result Microbiology and Other Data: Microbiology 10/18/16 03:45 Nasal Screen MRSA (PCR)(ZANE) - Final Nasal Mrsa Negative RF negative. Skin Biopsy: thrombotic vasculopathy: no evidence of leukocytoclastic vasculitis Assess/Plan/Problems-Billing . Assessment: Mrs. Montes is a 65yo F with PMH of follicular lymphoma s/p RCHOP, migraines, who was admitted with hypercalcemia. History of elevated CRP and diffuse arthralgias, now with pleural effusion, pulmonary HTN, and thrombotic vasculopathy - Patient Problems (1) Elevated CRP: This may represent an autoimmune process. Given the nature of her hypercalcemia and history, also consider an atypical paraneoplastic process. EGD and Bone marrow biopsy carries some risk as she is hypotensive given her current hemodynamic status. Would follow up autoimmune serologies. Consider empiric trial of steroids, which she noted benefit from in the past. She has primarily complaints of possible nasal blockage symptoms. Consider ENT consultation (2) Thrombotic vasculopathy: check cryos and cardiolipin antibodies. Repeat HANY pending (3) Hypercalcemia - PTH is low consistent with non-PTH mediated hypercalcemia. With her h/o lymphoma, major concern is malignancy associated hypercalcemia - follow PTH related peptide. (6) Renal insufficiency: NSAIDs on hold 7) Shoulder pain: improved with Lidoderm
[2016-10-22 15:58] LABS: SS-B/La Antibody <0.2 U; Scleroderma Ab <0.2 U
[2016-10-22] MEDS: Lactobacillus Acidophilu (GG)* 1 CAP CAP PO SCH (18:19)
[2016-10-22] MEDS ORDERED: NS 0.9% 250 ML* 500 ML ONE (19:27)
[2016-10-22] MEDS: Lidocaine Patch REMOVE* 1 NOTE MISC SCH (22:26)
[2016-10-22] MEDS: Topiramate TAB(*) 25 MG PO SCH (22:26)
[2016-10-23] MEDS: Ondansetron INJ* 2 MG/ML VIAL IV PRN (00:59)
[2016-10-23] MEDS: ALPRAZolam TAB* 0.5 MG PO PRN (01:02)
[2016-10-23] MEDS ORDERED: NS 0.9% 1000 ML* 1,000 ML IV SCH (02:45)
[2016-10-23] MEDS: Vancomycin(*) 1,000 MG in NS 0.9% 250 ML* 250 ML IVPB SCH ×3 (03:25→19:30)
[2016-10-23] MEDS: Omeprazole CAP* 20 MG PO SCH (06:00)
[2016-10-23] MEDS: Piperac/Tazob 3.375 gm in NS* 3.375 GM/100 ML BAG IVPB SCH ×2 (06:29→15:09)
[2016-10-23 07:03] LABS: Albumin 2.2 g/dL (3.2-5.2); BUN/Creatinine Ratio 18.4 (8-20); Calcium 8.2 mg/dL (8.6-10.3); EGFR African American 83.8 (>60); EGFR Non-African American 65.1 (>60); Globulin 1.8 g/dL (2-4); Potassium 4.6 mmol/L (3.5-5.0); Total Bilirubin 0.3 mg/dL (0.2-1.0)
[2016-10-23] MEDS: Polyethylene Glycol 3350* 17 GM PACKET PO SCH ×2 (08:06→20:17)
[2016-10-23] MEDS: Potassium Chlor TAB* 20 MEQ TAB.ER PO SCH ×2 (09:19→16:59)
[2016-10-23] MEDS: Lactobacillus Acidophilu (GG)* 1 CAP CAP PO SCH (09:39)
[2016-10-23] MEDS: Docusate CAP* 100 MG PO SCH ×2 (09:39→20:17)
[2016-10-23] MEDS: Metoprolol Tartrate TAB* 25 MG PO SCH ×2 (09:40→20:46)
[2016-10-23] MEDS: Gabapentin CAP(*) 100 MG PO SCH ×2 (09:40→20:47)
--- NOTE | 2016-10-23 10:16 | PN ---
Progress Note - Progress Note SOAP: Subjective: []Short of breath, dry mouth. She has some confusion. No nausea, no focal neurological complaints. Acetaminophen (Tylenol Tab*) 650 mg PO Q4H PRN PRN Reason: FEVER/PAIN Last Admin: 10/21/16 20:35 Dose: 650 mg Alprazolam (Xanax Tab*) 0.5 mg PO TID PRN PRN Reason: ANXIETY Last Admin: 10/23/16 01:02 Dose: 0.5 mg Docusate Sodium (Colace Cap*) 100 mg PO BID [facility] Last Admin: 10/23/16 09:39 Dose: Not Given Gabapentin (Neurontin Cap(*)) 100 mg PO BEDTIME [facility] Last Admin: 10/22/16 22:25 Dose: 100 mg Gabapentin (Neurontin Cap(*)) 200 mg PO DAILY [facility] Last Admin: 10/23/16 09:40 Dose: 200 mg Piperacillin Sod/Tazobactam Sod (Zosyn 3.375 Gm In Ns Premix*) 3.375 gm in 100 mls @ 25 mls/hr IVPB Q8H [facility] Last Admin: 10/23/16 06:29 Dose: 25 mls/hr Vancomycin HCl 1,000 mg/ (Sodium Chloride) 250 mls @ 166.667 mls/hr IVPB Q8H [facility] Last Admin: 10/23/16 03:25 Dose: 166.667 mls/hr Sodium Chloride (Ns 0.9% 1000 Ml*) 1,000 mls @ 125 mls/hr IV PER RATE [facility] Stop: 10/23/16 10:44 Last Admin: 10/23/16 03:25 Dose: 125 mls/hr Lactobacillus Rhamnosus (Culturelle*) 1 cap PO DAILY [facility] Last Admin: 10/23/16 09:39 Dose: 1 cap Lidocaine (Lidoderm 5% Patch*) 1 patch TRANSDERM DAILY@1600 [facility] Metoprolol Tartrate (Lopressor Tab*) 12.5 mg PO Q12HR [facility] Last Admin: 10/23/16 09:40 Dose: 12.5 mg Morphine Sulfate (Morphine Inj (Syringe)*) 2 mg IV Q4H PRN PRN Reason: SEVERE PAIN Last Admin: 10/22/16 19:40 Dose: 2 mg Multi-Ingredient Mouthwash/Gargle (Biotene Dry Mouth Oral Rinse(Nf)) 15 ml MT . DIRECTED [facility] Last Admin: 10/22/16 20:04 Dose: 15 ml Omeprazole (Prilosec Cap*) 40 mg PO DAILY@0600 [facility] Last Admin: 10/23/16 06:00 Dose: 40 mg Ondansetron HCl (Zofran Inj*) 4 mg IV Q6H PRN PRN Reason: NAUSEA Last Admin: 10/23/16 00:59 Dose: 4 mg Oxycodone/Acetaminophen (Percocet 5/325 Tab*) 2 tab PO Q4H PRN PRN Reason: PAIN Last Admin: 10/22/16 22:56 Dose: 2 tab Pharmacy Consult (Vancomycin Per Pharmacy*) 1 note FOLLOW UP . PRN PRN Reason: PER PROTOCOL Pharmacy Profile Note (Lidocaine Patch Remove*) 1 note PATCH OFF 0400 [facility] Polyethylene Glycol/Electrolytes (Miralax*) 17 gm PO 0800,2100 [facility] Last Admin: 10/23/16 08:06 Dose: Not Given Potassium Chloride (Klor Con Er Tab*) 20 meq PO BID WITH MEALS [facility] Last Admin: 10/23/16 09:19 Dose: Not Given Senna (Senokot Tab*) 1 tab PO BEDTIME PRN PRN Reason: CONSTIPATION Sodium Chloride (Sodium Chloride 0.65% Nasal Drops*) 1 drop BOTH NARES Q4H PRN PRN Reason: CONGESTION Last Admin: 10/22/16 08:09 Dose: 1 drop Topiramate (Topamax(*)) 50 mg PO BEDTIME [facility] Last Admin: 10/22/16 22:26 Dose: 50 mg Objective: [] Vital Signs Temp Pulse Resp BP Pulse Ox 98.7 F 88 27 102/59 93 10/23/16 08:00 10/23/16 07:30 10/23/16 09:00 10/23/16 08:00 10/23/16 08:00 HEENT - CYANOSIS. PALE, DRY MUCOSA, NO THRUSH CTA AND NO WHEEZING, sat 90% on RA on exam. RRR S1S2 NO HSM, NT/ND EXT +2 EDEMA Assessment: []65 year old who presents with multiple concurrent symptoms and lab abnormalities. 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 My concern is neoplastic process in stomach trgigering DIC through tissue factor release (gastric cancer, occult lymphoma). Primary immunologic syndrome, paraneoplastic syndrome remain on differential. Plan: 1. Proceed with EGD when possible 2. Send serologic evaluation of micro thrombotic process: - DIC panel, Lupus anticoagulant, ACL, Protein C, S 3. Heparin drip, discussed with Dr. Marcos. Unclear why she is not on anticoagulation at this time 4. O2 by NC
[2016-10-23 12:03] LABS: Hematocrit 27 % (35-47); Hemoglobin 8.8 g/dl (12.0-16.0); Mean Corpuscular HGB Conc 33 g/dl (31-36); Mean Corpuscular Hemoglobin 31 pg (27-31); Mean Corpuscular Volume 94 fL (80-97); Mean Platelet Volume 8 um3 (7.4-10.4); Red Blood Count 2.83 10^6/ul (4.0-5.4); Red Cell Distribution Width 16 % (10.5-15)
[2016-10-23 12:20] LABS: Fibrinogen 332 mg/dL (110.8-404.3)
[2016-10-23 12:27] LABS: Schistocytes PRESENT
[2016-10-23] MEDS: Morphine INJ* 2 MG/ML 1 ML SYRINGE IV PRN ×2 (12:35→19:30)
[2016-10-23] MEDS: Saline NASAL DROPS 0.65%* 1 DROP BTL BOTH NARES PRN ×2 (14:06→21:52)
[2016-10-23] MEDS: Lidocaine PATCH 5%* 1 PATCH TRANSDERM SCH (16:12)
[2016-10-23] MEDS ORDERED: Oxymetazoline 0.05% NASAL SPR* 15 ML BTL BOTH NARES ONE (16:30)
[2016-10-23] MEDS ORDERED: Midazolam* 1 MG/ML 10 ML VIAL (10 MG) ONE (16:33)
[2016-10-23] MEDS ORDERED: Meperidine SYRINGE* 50 MG/ML ONE (16:33)
--- NOTE | 2016-10-23 18:41 | PN ---
Subjective Date of Service: 10/22/16 Interval History: . patient with AF o/n denies CP - converted after amio started (IV gtt); continues in NSR ? GREG - was not hypoxic. trial CPAP discussed with patient. 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 Will review with hematology. Still awaiting EGD - though ongoing AF with hypotension delayed this again. ENT consult requested as well. Family History: Unchanged from Admission Social History: Unchanged from Admission Past Medical History: Unchanged from Admission Objective Active Medications: . Acetaminophen (Tylenol Tab*) 650 mg PO Q4H PRN PRN Reason: FEVER/PAIN Last Admin: 10/21/16 20:35 Dose: 650 mg Alprazolam (Xanax Tab*) 0.5 mg PO TID PRN PRN Reason: ANXIETY Last Admin: 10/23/16 01:02 Dose: 0.5 mg Docusate Sodium (Colace Cap*) 100 mg PO BID [facility] Last Admin: 10/23/16 09:39 Dose: Not Given Gabapentin (Neurontin Cap(*)) 100 mg PO BEDTIME [facility] Last Admin: 10/22/16 22:25 Dose: 100 mg Gabapentin (Neurontin Cap(*)) 200 mg PO DAILY [facility] Last Admin: 10/23/16 09:40 Dose: 200 mg Piperacillin Sod/Tazobactam Sod (Zosyn 3.375 Gm In Ns Premix*) 3.375 gm in 100 mls @ 25 mls/hr IVPB Q8H [facility] Last Admin: 10/23/16 15:09 Dose: 25 mls/hr Vancomycin HCl 1,000 mg/ (Sodium Chloride) 250 mls @ 166.667 mls/hr IVPB Q8H [facility] Last Admin: 10/23/16 12:06 Dose: 166.667 mls/hr Lactobacillus Rhamnosus (Culturelle*) 1 cap PO DAILY [facility] Last Admin: 10/23/16 09:39 Dose: 1 cap Lidocaine (Lidoderm 5% Patch*) 1 patch TRANSDERM DAILY@1600 [facility] Last Admin: 10/23/16 16:12 Dose: 1 patch Metoprolol Tartrate (Lopressor Tab*) 12.5 mg PO Q12HR [facility] Last Admin: 10/23/16 09:40 Dose: 12.5 mg Morphine Sulfate (Morphine Inj (Syringe)*) 2 mg IV Q4H PRN PRN Reason: SEVERE PAIN Last Admin: 10/23/16 12:35 Dose: 2 mg Multi-Ingredient Mouthwash/Gargle (Biotene Dry Mouth Oral Rinse(Nf)) 15 ml MT . DIRECTED [facility] Last Admin: 10/22/16 20:04 Dose: 15 ml Omeprazole (Prilosec Cap*) 40 mg PO DAILY@0600 [facility] Last Admin: 10/23/16 06:00 Dose: 40 mg Ondansetron HCl (Zofran Inj*) 4 mg IV Q6H PRN PRN Reason: NAUSEA Last Admin: 10/23/16 00:59 Dose: 4 mg Oxycodone/Acetaminophen (Percocet 5/325 Tab*) 2 tab PO Q4H PRN PRN Reason: PAIN Last Admin: 10/22/16 22:56 Dose: 2 tab Oxymetazoline HCl (Afrin 0.05% Nasal [place]*) 3 spray BOTH NARES BEDTIME PRN PRN Reason: NASAL CONGESTION Stop: 10/29/16 23:59 Pharmacy Consult (Vancomycin Per Pharmacy*) 1 note FOLLOW UP . PRN PRN Reason: PER PROTOCOL Pharmacy Profile Note (Lidocaine Patch Remove*) 1 note PATCH OFF 0400 [facility] Pharmacy Profile Note (Vancomycin Trough Check) 1 note FOLLOW UP 1130 [facility] Stop: 10/24/16 11:31 Polyethylene Glycol/Electrolytes (Miralax*) 17 gm PO 0800,2100 [facility] Last Admin: 10/23/16 08:06 Dose: Not Given Potassium Chloride (Klor Con Er Tab*) 20 meq PO BID WITH MEALS [facility] Last Admin: 10/23/16 16:59 Dose: Not Given Senna (Senokot Tab*) 1 tab PO BEDTIME PRN PRN Reason: CONSTIPATION Sodium Chloride (Sodium Chloride 0.65% Nasal Drops*) 1 drop BOTH NARES Q4H PRN PRN Reason: CONGESTION Last Admin: 10/23/16 14:06 Dose: 1 drop Sotalol HCl (Betapace Tab*) 80 mg PO BID [facility] Topiramate (Topamax(*)) 50 mg PO BEDTIME [facility] Last Admin: 10/22/16 22:26 Dose: 50 mg . Vital Signs 10/22/16 10/22/16 10/22/16 18:45 19:00 19:15 Temperature Pulse Rate 88 85 85 Respiratory 23 24 22 Rate Blood Pressure 102/50 103/57 105/58 (mmHg) O2 Sat by Pulse 97 93 95 Oximetry 10/22/16 10/22/16 10/22/16 19:30 19:40 19:45 Temperature Pulse Rate 84 85 Respiratory 21 21 26 Rate Blood Pressure 103/56 107/53 (mmHg) O2 Sat by Pulse 93 94 Oximetry Oxygen Devices in Use Now: None Appearance: NAD Ears/Nose/Mouth/Throat: NL Teeth, Lips, Gums Neck: Trachea Midline Respiratory: Symmetrical Chest Expansion and Respiratory Effort, - - a bit tachypneic Abdominal: No Hepatosplenomegaly Lymphatic: No Cervical Adenopathy Extremities: - - + peripheral edema noted; no change. Skin: - - diffuse rash as previously described. Neurological: Alert and Oriented x 3 Lines/Tubes/Other Access: Clean, Dry and Intact Peripheral IV Nutrition: Taking PO's Result Diagrams: 10/23/16 11:03 10/23/16 06:30 Additional Lab and Data: . Microbiology and Other Data: Microbiology 10/18/16 03:45 Nasal Screen MRSA (PCR)(ZANE) - Final Nasal Mrsa Negative Assess/Plan/Problems-Billing . Assessment: Mrs. Montes is a 65yo F with PMH of follicular lymphoma s/p RCHOP, migraines, who presented to ED due to abnormal labs revealing hypercalcemia, also found to have troponin elevation. Current Medications: - Acetaminophen (Tylenol Tab) 650 mg PO Q4H PRN FEVER/PAIN - Aspirin (Aspirin Low Dose Tab) 81 mg PO DAILY [facility] - Docusate Sodium (Colace Cap*) 100 mg PO BID [facility] - Gabapentin (Neurontin Cap(*)) 100 mg PO BEDTIME [facility] - Gabapentin (Neurontin Cap(*)) 200 mg PO DAILY [facility] - Piperacillin Sod/Tazobactam Sod (Zosyn 3.375 Gm In Ns Premix*) 3.375 gm in 100 mls @ 25 mls/hr IVPB Q8H - Vancomycin HCl 1,000 mg/ (Sodium Chloride) 250 mls @ 166.667 mls/hr IVPB Q8H - Lidocaine (Lidoderm 5% Patch*) 1 patch TRANSDERM DAILY - Metoprolol Tartrate (Lopressor Tab) 12.5 mg PO Q12HR [facility] - Morphine Sulfate (Morphine Inj (Syringe)*) 2 mg IV Q4H PRN SEVERE PAIN - Omeprazole (Prilosec Cap) 40 mg PO DAILY@0600 [facility] - Ondansetron HCl (Zofran Inj) 4 mg IV Q6H PRN NAUSEA - Oxycodone/Acetaminophen (Percocet 5/325 Tab) 2 tab PO Q4H PRN PAIN - Polyethylene Glycol/Electrolytes (Miralax*) 17 gm PO 0800,2100 [facility] - Potassium Chloride (Klor Con Er Tab*) 20 meq PO BID WITH MEALS [facility] - Senna (Senokot Tab*) 1 tab PO BEDTIME PRN CONSTIPATION - Topiramate (Topamax) 50 mg PO BEDTIME [facility] - Patient Problems (1) Atrial fibrillation Current Visit: Yes Status: Acute Priority: High Code(s): I48.91 - UNSPECIFIED ATRIAL FIBRILLATION Comment: - Again, AF o/n --> to ICU for amio gtt. - CHADS2 vasc score is 2 (sex, age). - Appreciate cardiology consult - Amio / metoprolol (2) Fluid overload Current Visit: Yes Status: Acute Priority: High Code(s): E87.70 - FLUID OVERLOAD, UNSPECIFIED Comment: - Hold off on further diuresis for now due to new pAfib with RVR. - Echo showed LV was actually hyperdynamic, so I think her peripheral edema is not suggestive of intravascular volume overload. (3) Hypercalcemia Current Visit: Yes Status: Acute Priority: High Code(s): E83.52 - HYPERCALCEMIA Comment: - Patient had labs done at [facility] 10/17/16 and was called with an elevated calcium 12.2. - Receveid IVF, Furosemide, and Zoledronic acid 10/16/16. - Calcium back to normal. - PTH is low consistent with non-PTH mediated hypercalcemia. With her h/o lymphoma, major concern is malignancy associated hypercalcemia - follow PTH related peptide. (4) Elevated troponin Current Visit: Yes Status: Acute Priority: High Code(s): R74.8 - ABNORMAL LEVELS OF OTHER SERUM ENZYMES Comment: - CTA chest was negative for PE and LE doppler negative for DVT. - Echocardiogram showed signs of moderate pulmonary HTN, mild dilatation of RV, and RV systolic function moderately reduced and this is new when compared to prior echo from January 2016. - Pulm chelsea appreciated - concerned for GREG as source of pulmonary hypertension. - ?? small vessel occlusions -- pulmonary thrombotic vasculopathy? - start AC after EGD. (5) PIERRE (acute kidney injury) Current Visit: Yes Status: Acute Priority: High Code(s): N17.9 - ACUTE KIDNEY FAILURE, UNSPECIFIED Comment: - Suspect part of it secondary to NSAID use, worsened by dehydration caused by hypercalcemia. - Resolved. - D/C IVF. (6) Polyarthritis Current Visit: Yes Status: Acute Priority: High Code(s): M13.0 - POLYARTHRITIS, UNSPECIFIED Comment: - Rheum w/u as outpatient was negative. CRP was 92, but RF, anti-CCP, HANY, ANCA were all negative. - Rheum consult appreciated - repeat w/u in process - With her nasal symptoms, concerned for Hunter's - but sinus CT negative. - Continue pain management. (7) Migraine Current Visit: Yes Status: Acute Priority: Medium Code(s): G43.909 - MIGRAINE, UNSP, NOT INTRACTABLE, WITHOUT STATUS MIGRAINOSUS Comment: - Continue Topamax. (8) Rash Current Visit: Yes Status: Acute Code(s): R21 - RASH AND OTHER NONSPECIFIC SKIN ERUPTION Comment: - "thrombotic vasculopathy" --> will d/w hematology; could this be a low grade DIC secondary to a malignancy? Drug reaction? 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 - EGD ordered. (10) H/O lymphoma Current Visit: Yes Status: Acute Priority: High Code(s): Z85.79 - [facility] HEMATPOETC & REL TISS Comment: - Bone marrow biopsy when stable. (11) DVT prophylaxis Current Visit: Yes Status: Acute Priority: High Code(s): KMM7463 - Comment: - Lovenox, but on hold for EGD. (12) Full code status Current Visit: Yes Status: Acute Priority: High Code(s): Z78.9 - OTHER SPECIFIED HEALTH STATUS Status and Disposition: Inpatient. Sister updated at bedside.
--- NOTE | 2016-10-23 18:50 | PN ---
Subjective Date of Service: 10/23/16 Interval History: . pt s/p EGD today -- will start AC tomorrow AM as per GI. s/p ENT consultation with no obstructive lesions to account for GREG or congestion. s/p heme/onc c/s --> recommends AC when able - tomorrow AM per GI s/p EGD. (ddx includes occult malignancy -- perhaps gastric cancer) s/p recurrent AF o/n - finished amio IV gtt; will change to Sotalol as per cardiology suggestion. ASA stopped. regular diet tomorrow AM trial CPAP o/n as tolerated. steroid trial still on table - will d/w rheumatology. Family History: Unchanged from Admission Social History: Unchanged from Admission Past Medical History: Unchanged from Admission Objective Active Medications: . Acetaminophen (Tylenol Tab*) 650 mg PO Q4H PRN PRN Reason: FEVER/PAIN Last Admin: 10/21/16 20:35 Dose: 650 mg Alprazolam (Xanax Tab*) 0.5 mg PO TID PRN PRN Reason: ANXIETY Last Admin: 10/23/16 01:02 Dose: 0.5 mg Docusate Sodium (Colace Cap*) 100 mg PO BID [facility] Last Admin: 10/23/16 09:39 Dose: Not Given Gabapentin (Neurontin Cap(*)) 100 mg PO BEDTIME [facility] Last Admin: 10/22/16 22:25 Dose: 100 mg Gabapentin (Neurontin Cap(*)) 200 mg PO DAILY [facility] Last Admin: 10/23/16 09:40 Dose: 200 mg Piperacillin Sod/Tazobactam Sod (Zosyn 3.375 Gm In Ns Premix*) 3.375 gm in 100 mls @ 25 mls/hr IVPB Q8H [facility] Last Admin: 10/23/16 15:09 Dose: 25 mls/hr Vancomycin HCl 1,000 mg/ (Sodium Chloride) 250 mls @ 166.667 mls/hr IVPB Q8H [facility] Last Admin: 10/23/16 12:06 Dose: 166.667 mls/hr Lactobacillus Rhamnosus (Culturelle*) 1 cap PO DAILY [facility] Last Admin: 10/23/16 09:39 Dose: 1 cap Lidocaine (Lidoderm 5% Patch*) 1 patch TRANSDERM DAILY@1600 [facility] Last Admin: 10/23/16 16:12 Dose: 1 patch Metoprolol Tartrate (Lopressor Tab*) 12.5 mg PO Q12HR [facility] Last Admin: 10/23/16 09:40 Dose: 12.5 mg Morphine Sulfate (Morphine Inj (Syringe)*) 2 mg IV Q4H PRN PRN Reason: SEVERE PAIN Last Admin: 10/23/16 12:35 Dose: 2 mg Multi-Ingredient Mouthwash/Gargle (Biotene Dry Mouth Oral Rinse(Nf)) 15 ml MT . DIRECTED [facility] Last Admin: 10/22/16 20:04 Dose: 15 ml Omeprazole (Prilosec Cap*) 40 mg PO DAILY@0600 [facility] Last Admin: 10/23/16 06:00 Dose: 40 mg Ondansetron HCl (Zofran Inj*) 4 mg IV Q6H PRN PRN Reason: NAUSEA Last Admin: 10/23/16 00:59 Dose: 4 mg Oxycodone/Acetaminophen (Percocet 5/325 Tab*) 2 tab PO Q4H PRN PRN Reason: PAIN Last Admin: 10/22/16 22:56 Dose: 2 tab Oxymetazoline HCl (Afrin 0.05% Nasal [place]*) 3 spray BOTH NARES BEDTIME PRN PRN Reason: NASAL CONGESTION Stop: 10/29/16 23:59 Pharmacy Consult (Vancomycin Per Pharmacy*) 1 note FOLLOW UP . PRN PRN Reason: PER PROTOCOL Pharmacy Profile Note (Lidocaine Patch Remove*) 1 note PATCH OFF 0400 [facility] Pharmacy Profile Note (Vancomycin Trough Check) 1 note FOLLOW UP 1130 ONE Stop: 10/24/16 11:31 Polyethylene Glycol/Electrolytes (Miralax*) 17 gm PO 0800,2100 [facility] Last Admin: 10/23/16 08:06 Dose: Not Given Potassium Chloride (Klor Con Er Tab*) 20 meq PO BID WITH MEALS [facility] Last Admin: 10/23/16 16:59 Dose: Not Given Senna (Senokot Tab*) 1 tab PO BEDTIME PRN PRN Reason: CONSTIPATION Sodium Chloride (Sodium Chloride 0.65% Nasal Drops*) 1 drop BOTH NARES Q4H PRN PRN Reason: CONGESTION Last Admin: 10/23/16 14:06 Dose: 1 drop Sotalol HCl (Betapace Tab*) 80 mg PO BID [facility] Topiramate (Topamax(*)) 50 mg PO BEDTIME [facility] Last Admin: 10/22/16 22:26 Dose: 50 mg . Vital Signs 10/23/16 10/23/16 10/23/16 17:05 17:10 17:15 Temperature Pulse Rate 88 87 87 Respiratory 23 22 22 Rate Blood Pressure 120/55 122/52 114/56 (mmHg) O2 Sat by Pulse 93 92 91 Oximetry 10/23/16 10/23/16 10/23/16 17:30 17:45 18:00 Temperature Pulse Rate 85 88 84 Respiratory 23 21 22 Rate Blood Pressure 106/52 109/58 103/52 (mmHg) O2 Sat by Pulse 87 85 87 Oximetry Oxygen Devices in Use Now: None Result Diagrams: 10/23/16 11:03 10/23/16 06:30 Additional Lab and Data: . Microbiology and Other Data: Microbiology 10/18/16 03:45 Nasal Screen MRSA (PCR)(ZANE) - Final Nasal Mrsa Negative Assess/Plan/Problems-Billing . Assessment: Mrs. Montes is a 65yo F with PMH of follicular lymphoma s/p RCHOP, migraines, who presented to ED due to abnormal labs revealing hypercalcemia, also found to have troponin elevation. Current Medications: - Acetaminophen (Tylenol Tab) 650 mg PO Q4H PRN FEVER/PAIN - Aspirin (Aspirin Low Dose Tab) 81 mg PO DAILY [facility] - Docusate Sodium (Colace Cap*) 100 mg PO BID [facility] - Gabapentin (Neurontin Cap(*)) 100 mg PO BEDTIME [facility] - Gabapentin (Neurontin Cap(*)) 200 mg PO DAILY [facility] - Piperacillin Sod/Tazobactam Sod (Zosyn 3.375 Gm In Ns Premix*) 3.375 gm in 100 mls @ 25 mls/hr IVPB Q8H - Vancomycin HCl 1,000 mg/ (Sodium Chloride) 250 mls @ 166.667 mls/hr IVPB Q8H - Lidocaine (Lidoderm 5% Patch*) 1 patch TRANSDERM DAILY - Metoprolol Tartrate (Lopressor Tab) 12.5 mg PO Q12HR [facility] - Morphine Sulfate (Morphine Inj (Syringe)*) 2 mg IV Q4H PRN SEVERE PAIN - Omeprazole (Prilosec Cap) 40 mg PO DAILY@0600 [facility] - Ondansetron HCl (Zofran Inj) 4 mg IV Q6H PRN NAUSEA - Oxycodone/Acetaminophen (Percocet 5/325 Tab) 2 tab PO Q4H PRN PAIN - Polyethylene Glycol/Electrolytes (Miralax*) 17 gm PO 0800,2100 [facility] - Potassium Chloride (Klor Con Er Tab*) 20 meq PO BID WITH MEALS [facility] - Senna (Senokot Tab*) 1 tab PO BEDTIME PRN CONSTIPATION - Topiramate (Topamax) 50 mg PO BEDTIME [facility] - Patient Problems (1) Atrial fibrillation Current Visit: Yes Status: Acute Priority: High Code(s): I48.91 - UNSPECIFIED ATRIAL FIBRILLATION Comment: - Again, AF o/n --> to ICU for amio gtt. - CHADS2 vasc score is 2 (sex, age). - Appreciate cardiology consult - Amio off - Sotalol 80 mg PO BID - Metoprolol 12.5 mg PO BID (2) Hypercalcemia Current Visit: Yes Status: Acute Priority: High Code(s): E83.52 - HYPERCALCEMIA Comment: - Patient had labs done at [place] 10/17/16 and was called with an elevated calcium 12.2. - Receveid IVF, Furosemide, and Zoledronic acid 10/16/16. - Calcium back to normal. - PTH is low consistent with non-PTH mediated hypercalcemia. With her h/o lymphoma, major concern is malignancy associated hypercalcemia - follow PTH related peptide. (3) Elevated troponin Current Visit: Yes Status: Acute Priority: High Code(s): R74.8 - ABNORMAL LEVELS OF OTHER SERUM ENZYMES Comment: - CTA chest was negative for PE and LE doppler negative for DVT. - Echocardiogram showed signs of moderate pulmonary HTN, mild dilatation of RV, and RV systolic function moderately reduced and this is new when compared to prior echo from January 2016. - Pulm chelsea appreciated - concerned for GREG as source of pulmonary hypertension. - ?? small vessel occlusions -- pulmonary thrombotic vasculopathy? - start AC 10/24/16 AM. (4) PIERRE (acute kidney injury) Current Visit: Yes Status: Acute Priority: High Code(s): N17.9 - ACUTE KIDNEY FAILURE, UNSPECIFIED Comment: - Suspect part of it secondary to NSAID use, worsened by dehydration caused by hypercalcemia. - Resolved. - D/C IVF. (5) Polyarthritis Current Visit: Yes Status: Acute Priority: High Code(s): M13.0 - POLYARTHRITIS, UNSPECIFIED Comment: - Rheum w/u as outpatient was negative. CRP was 92, but RF, anti-CCP, HANY, ANCA were all negative. - Rheum consult appreciated - repeat w/u in process - With her nasal symptoms, concerned for Hunter's - but sinus CT negative. - Continue pain management. (6) Migraine Current Visit: Yes Status: Acute Priority: Medium Code(s): G43.909 - MIGRAINE, UNSP, NOT INTRACTABLE, WITHOUT STATUS MIGRAINOSUS Comment: - Continue Topamax. (7) Rash Current Visit: Yes Status: Acute Code(s): R21 - RASH AND OTHER NONSPECIFIC SKIN ERUPTION Comment: - "thrombotic vasculopathy" --> will d/w hematology; could this be a low grade DIC secondary to a malignancy? Drug reaction? 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 - EGD ordered. (9) H/O lymphoma Current Visit: Yes Status: Acute Priority: High Code(s): Z85.79 - PRSNL HX OF MALIG NEOPLM OF LYMPHOID, HEMATPOETC & REL TISS Comment: - Bone marrow biopsy when stable. (10) DVT prophylaxis Current Visit: Yes Status: Acute Priority: High Code(s): XVJ2414 - Comment: - Lovenox, but on hold for EGD. (11) Full code status Current Visit: Yes Status: Acute Priority: High Code(s): Z78.9 - OTHER SPECIFIED HEALTH STATUS Status and Disposition: Inpatient. Sister updated at bedside.
[2016-10-23] MEDS: Topiramate TAB(*) 25 MG PO SCH (20:47)
[2016-10-23] MEDS: Sotalol TAB* 80 MG PO SCH (20:47)
[2016-10-23] MEDS: oxyCODONE/Acetamin 5/325 MG* TAB PO PRN (21:01)
[2016-10-23] MEDS: Oral Rinse (Biotene)(NF) 237 ML ORAL RINSE BTL MT SCH (21:52)
[2016-10-24] MEDS: ALPRAZolam TAB* 0.5 MG PO PRN ×3 (00:19→21:10)
[2016-10-24] MEDS: Piperac/Tazob 3.375 gm in NS* 3.375 GM/100 ML BAG IVPB SCH ×3 (00:20→22:46)
[2016-10-24] MEDS: Oxymetazoline 0.05% NASAL SPR* 15 ML BTL BOTH NARES PRN ×2 (00:21→21:25)
[2016-10-24] MEDS ORDERED: NS 0.9% 250 ML* 250 ML ONE (03:48)
[2016-10-24] MEDS: Vancomycin(*) 1,000 MG in NS 0.9% 250 ML* 250 ML IVPB SCH ×2 (03:52→12:20)
[2016-10-24] MEDS ORDERED: Lidocaine Patch REMOVE* 1 NOTE MISC PATCH OFF SCH (04:00)
[2016-10-24] MEDS ORDERED: Metoprolol Tartrate IV* 1 MG/ML 5 ML VIAL IV ONE (04:11)
[2016-10-24] MEDS ORDERED: Metoprolol Tartrate TAB* 25 MG PO SCH ×2 (04:12→09:00)
[2016-10-24] MEDS: Morphine INJ* 2 MG/ML 1 ML SYRINGE IV PRN ×2 (04:25→21:17)
[2016-10-24] MEDS ORDERED: Metoprolol Tartrate IV* 1 MG/ML 5 ML VIAL ONE (04:29)
[2016-10-24 05:35] LABS: Hematocrit 29 % (35-47); Hemoglobin 9.4 g/dl (12.0-16.0); Mean Corpuscular HGB Conc 32 g/dl (31-36); Mean Corpuscular Hemoglobin 30 pg (27-31); Mean Corpuscular Volume 94 fL (80-97); Mean Platelet Volume 8 um3 (7.4-10.4); Red Blood Count 3.09 10^6/ul (4.0-5.4); Red Cell Distribution Width 16 % (10.5-15); White Blood Count 11.2 10^3/ul (3.5-10.8)
[2016-10-24 05:38] LABS: Calcium 8.3 mg/dL (8.6-10.3); EGFR African American 66.7 (>60); EGFR Non-African American 51.9 (>60); Potassium 4.2 mmol/L (3.5-5.0)
--- NOTE | 2016-10-24 06:31 | PRO ---
DATE: 10/23/16 - ROOM #ICU-03 REFERRING PHYSICIANS: Radha Ardon, Jim Sewell, Hossein Hensley.* PROCEDURE: Upper gastrointestinal endoscopy and biopsy of gastric greater curvature rugal folds, midgastric antrum greater curvature aspect, and third portion of duodenum. INDICATION: This is a 65-year-old woman who has been treated for lymphoma the latter half of 2015 and now has numerous symptoms and findings which included CT of the abdomen showing thickening of the gastric antrum. There are no lymph nodes in that area or stranding. Her gastroscopy has been delayed 3 days by supraventricular tachyarrhythmias. Yesterday, she received an amiodarone drip and is now being converted to oral. She did have scrambled eggs this morning between 8 and 8:30, but was n.p.o. over the lunch hour. ENDOSCOPIST: Dr. Han MEDICATION: Midazolam 2, meperidine 37.5 with excellent preparation. FINDINGS: She is a chronically ill-appearing woman, hooked up to monitoring lines in the intensive care unit. Her rhythm is in the 80s, appearing to be sinus. EGD: Larynx - limited views are symmetric. Esophagus - easily entered. The mucosa is normal in the upper, mid, and lower esophagus with the EG junction at about 39 with no erosions. There is no fundic prolapse, but there is looseness of the EG junction. Stomach - a small amount of egg material present, but views are good and the patient did not gag or expectorate. Mucosa appears normal in the cardia and fundus. The rugal folds are somewhat prominent, maybe a little firm in the gastric body greater curvature area. This is a diffuse finding with nothing grossly deformed or eroded or ulcerated. Again, there is no focality to this and the stomach seems to distend normally. Five to six biopsies were obtained from the greater curvature, mid body, attempting to engage the rugal folds directly and deeply. The gastric antrum appeared completely normal. Given the focality of the CT finding in that area, 3 biopsies were taken, mid gastric antrum greater curvature aspect. Pylorus appeared normal. Duodenum - the bulb and second through fourth portions appear normal. Three biopsies taken, descending duodenum, because of her complexity and skin biopsy findings. IMPRESSION: 1. Loose diaphragmatic hiatus. Addendum: normal duodenum, stomach and Clotest negative 2. Otherwise grossly normal upper endoscopy with biopsies pending of the gastric body, antrum, and descending duodenum. [id number]/[facility] #: [id number] [facility]
[2016-10-24] MEDS: Omeprazole CAP* 20 MG PO SCH (06:33)
[2016-10-24] MEDS: Polyethylene Glycol 3350* 17 GM PACKET PO SCH ×2 (07:38→21:13)
[2016-10-24] MEDS: Gabapentin CAP(*) 100 MG PO SCH (08:31)
[2016-10-24] MEDS: Potassium Chlor TAB* 20 MEQ TAB.ER PO SCH ×2 (08:31→17:41)
[2016-10-24] MEDS: Sotalol TAB* 80 MG PO SCH ×2 (08:31→21:10)
[2016-10-24] MEDS: Docusate CAP* 100 MG PO SCH ×2 (08:32→21:13)
[2016-10-24] MEDS: Lactobacillus Acidophilu (GG)* 1 CAP CAP PO SCH (08:32)
[2016-10-24] MEDS: Acetaminophen TAB* 325 MG PO PRN (08:32)
[2016-10-24] MEDS ORDERED: Furosemide IV* 10 MG/ML 2 ML VIAL (20 MG) IV ONE ×2 (10:44→19:13)
[2016-10-24] MEDS ORDERED: Albumin Human 25%* 50 ML in PREMIX* 0 ML IV ONE (11:00)
[2016-10-24] MEDS: Enoxaparin(*) 80 MG/0.8 ML SYR SUBCUT SCH ×2 (11:19→23:51)
[2016-10-24] MEDS: predniSONE TAB* 20 MG PO SCH (11:20)
[2016-10-24] MEDS: Saline NASAL DROPS 0.65%* 1 DROP BTL BOTH NARES PRN ×2 (11:20→20:05)
[2016-10-24] MEDS: oxyCODONE/Acetamin 5/325 MG* TAB PO PRN (11:20)
[2016-10-24] MEDS ORDERED: Vancomycin Trough Check NOTE FOLLOW UP ONE (11:30)
[2016-10-24 15:40] LABS: Phospholipid Ab IgG < 9.4 GPL; Phospholipid Ab IgM, S < 9.4 MPL
[2016-10-24 16:39] LABS: Beta 2 Glycoprotein IgG <9.4 U/mL
--- NOTE | 2016-10-24 19:02 | PN ---
Subjective Date of Service: 10/24/16 Interval History: . multiple complaints AF again last night did not wear CPAP 2/2 EGD late in day EGD went well - bx's taken lovenox started this AM multiple meetings with family to review overall strategy. pHTN discussed --> likely combination of veno-occlusive disease. unclear etiology of clotting because patient has responded to steroids in the past, they will be restarted. albumin very low ==> albumin infusion ordered in response to total body fluid overload on physical exam, yet labs c/w poor forward flow and hypovolemia ( perhaps a consequence of pHTN and restricted R to L circulation. Will employ CPAP tonight. Awaiting EGD bx results asked nutrition to increase protein intake. follow pre-albumin and albumin levels. Adjusted meds; dc metoprolol and lower sotalol dose for observed hypotension. Encouraged PO intake / protein Antibiotics stopped; fever thought secondary to systemic (non-infectious process ) - probiotics requested by patient & family. . Family History: Unchanged from Admission Social History: Unchanged from Admission Past Medical History: Unchanged from Admission Objective Active Medications: . Acetaminophen (Tylenol Tab*) 650 mg PO Q4H PRN PRN Reason: FEVER/PAIN Last Admin: 10/24/16 08:32 Dose: 650 mg Alprazolam (Xanax Tab*) 0.5 mg PO TID PRN PRN Reason: ANXIETY Last Admin: 10/24/16 04:55 Dose: 0.5 mg Docusate Sodium (Colace Cap*) 100 mg PO BID [facility] Last Admin: 10/24/16 08:32 Dose: Not Given Enoxaparin Sodium (Lovenox(*)) 80 mg SUBCUT Q12H [facility] Last Admin: 10/24/16 11:19 Dose: 80 mg Lactobacillus Rhamnosus (Culturelle*) 1 cap PO DAILY [facility] Last Admin: 10/24/16 08:32 Dose: 1 cap Lidocaine (Lidoderm 5% Patch*) 1 patch TRANSDERM DAILY@1999 [facility] Morphine Sulfate (Morphine Inj (Syringe)*) 2 mg IV Q4H PRN PRN Reason: SEVERE PAIN Last Admin: 10/24/16 04:25 Dose: 2 mg Multi-Ingredient Mouthwash/Gargle (Biotene Dry Mouth Oral Rinse(Nf)) 15 ml MT . DIRECTED [facility] Last Admin: 10/23/16 21:52 Dose: 15 ml Omeprazole (Prilosec Cap*) 40 mg PO DAILY@0600 [facility] Last Admin: 10/24/16 06:33 Dose: 40 mg Ondansetron HCl (Zofran Inj*) 4 mg IV Q6H PRN PRN Reason: NAUSEA Last Admin: 10/23/16 00:59 Dose: 4 mg Oxycodone/Acetaminophen (Percocet 5/325 Tab*) 2 tab PO Q4H PRN PRN Reason: PAIN Last Admin: 10/24/16 11:20 Dose: 2 tab Oxymetazoline HCl (Afrin 0.05% Nasal [place]*) 3 spray BOTH NARES BEDTIME PRN PRN Reason: NASAL CONGESTION Stop: 10/29/16 23:59 Last Admin: 10/24/16 00:21 Dose: 3 nasal.[facility] Pharmacy Profile Note (Lidocaine Patch Remove*) 1 note PATCH OFF DAILY@0800 [facility] Polyethylene Glycol/Electrolytes (Miralax*) 17 gm PO 0800,2100 [facility] Last Admin: 10/24/16 07:38 Dose: Not Given Potassium Chloride (Klor Con Er Tab*) 20 meq PO BID WITH MEALS [facility] Last Admin: 10/24/16 17:41 Dose: 20 meq Prednisone (Deltasone Tab*) 40 mg PO DAILY [facility] Last Admin: 10/24/16 11:20 Dose: 40 mg Senna (Senokot Tab*) 1 tab PO BEDTIME PRN PRN Reason: CONSTIPATION Sodium Chloride (Sodium Chloride 0.65% Nasal Drops*) 1 drop BOTH NARES Q4H PRN PRN Reason: CONGESTION Last Admin: 10/24/16 11:20 Dose: 1 drop Sotalol HCl (Betapace Tab*) 40 mg PO BID [facility] Topiramate (Topamax(*)) 50 mg PO BEDTIME [facility] Last Admin: 10/23/16 20:47 Dose: 50 mg . Vital Signs 10/23/16 10/23/16 10/23/16 19:00 19:15 19:30 Temperature Pulse Rate Respiratory 22 23 Rate Blood Pressure 106/64 113/65 (mmHg) O2 Sat by Pulse Oximetry 10/23/16 10/23/16 10/23/16 19:56 20:00 21:00 Temperature 99.9 F Pulse Rate 90 Respiratory 24 22 Rate Blood Pressure 111/59 115/83 (mmHg) O2 Sat by Pulse 95 Oximetry Oxygen Devices in Use Now: None Appearance: NAD; fatigued. Eyes: No Scleral Icterus Ears/Nose/Mouth/Throat: Clear Oropharnyx Neck: Trachea Midline Respiratory: Symmetrical Chest Expansion and Respiratory Effort, - - some faint wheezing Cardiovascular: - - + peripheral edema, no MRG Abdominal: NL Sounds; No Tenderness; No Distention Lymphatic: No Cervical Adenopathy Extremities: - - + peripheral edema Skin: - - diffuse macular rash over trunk. Neurological: Alert and Oriented x 3 Lines/Tubes/Other Access: Clean, Dry and Intact Peripheral IV Nutrition: Taking PO's Result Diagrams: 10/24/16 04:38 10/24/16 04:53 Additional Lab and Data: . Microbiology and Other Data: Microbiology 10/18/16 03:45 Nasal Screen MRSA (PCR)(ZANE) - Final Nasal Mrsa Negative Assess/Plan/Problems-Billing . Assessment: Mrs. Montes is a 65yo F with PMH of follicular lymphoma s/p RCHOP, migraines, who presented to ED due to abnormal labs revealing hypercalcemia, also found to have troponin elevation. Current Medications: - Acetaminophen (Tylenol Tab) 650 mg PO Q4H PRN FEVER/PAIN - Aspirin (Aspirin Low Dose Tab) 81 mg PO DAILY [facility] - Docusate Sodium (Colace Cap*) 100 mg PO BID [facility] - Lidocaine (Lidoderm 5% Patch*) 1 patch TRANSDERM DAILY - Sotalol 40 mg PO BID (decreased 10/24) - Morphine Sulfate (Morphine Inj (Syringe)*) 2 mg IV Q4H PRN SEVERE PAIN - Omeprazole (Prilosec Cap) 40 mg PO DAILY@0600 [facility] - Ondansetron HCl (Zofran Inj) 4 mg IV Q6H PRN NAUSEA - Oxycodone/Acetaminophen (Percocet 5/325 Tab) 2 tab PO Q4H PRN PAIN - Polyethylene Glycol/Electrolytes (Miralax*) 17 gm PO 0800,2100 [facility] - Potassium Chloride (Klor Con Er Tab*) 20 meq PO BID WITH MEALS [facility] - Senna (Senokot Tab*) 1 tab PO BEDTIME PRN CONSTIPATION - Topiramate (Topamax) 50 mg PO BEDTIME [facility] - Prednisone 40 mg PO Daily (10/24 --> - Lovenox 80 mg SQ BID (10/24 --> - Albumin 25% given 10/24 - Patient Problems (1) Atrial fibrillation Current Visit: Yes Status: Acute Priority: High Code(s): I48.91 - UNSPECIFIED ATRIAL FIBRILLATION Comment: - Again, AF o/n --> to ICU for amio gtt, then changed to sotalol - CHADS2 vasc score is 2 (sex, age). - Appreciate cardiology consult - Amio off - Sotalol 40 mg PO BID - Metoprolol 12.5 mg PO BID -- stopped for hypotension. (2) Hypercalcemia Current Visit: Yes Status: Acute Priority: High Code(s): E83.52 - HYPERCALCEMIA Comment: - Patient had labs done at [place] 10/17/16 and was called with an elevated calcium 12.2. - Receveid IVF, Furosemide, and Zoledronic acid 10/16/16. - Calcium back to normal. ionized Ca nl 10/24 - PTH is low consistent with non-PTH mediated hypercalcemia. With her h/o lymphoma, major concern is malignancy associated hypercalcemia - follow PTH related peptide. (3) Elevated troponin Current Visit: Yes Status: Acute Priority: High Code(s): R74.8 - ABNORMAL LEVELS OF OTHER SERUM ENZYMES Comment: - CTA chest was negative for PE and LE doppler negative for DVT. - Echocardiogram showed signs of moderate pulmonary HTN, mild dilatation of RV, and RV systolic function moderately reduced and this is new when compared to prior echo from January 2016. - Pulm eval appreciated - concerned for GREG as source of pulmonary hypertension. - ?? small vessel occlusions -- pulmonary thrombotic vasculopathy? - started AC 10/24/16 in AM (lovenox) (4) PIERRE (acute kidney injury) Current Visit: Yes Status: Acute Priority: High Code(s): N17.9 - ACUTE KIDNEY FAILURE, UNSPECIFIED Comment: - Suspect part of it secondary to NSAID use, worsened by dehydration caused by hypercalcemia. - Resolved. - IVF off secondary to impressive peripheral edema. (5) Polyarthritis Current Visit: Yes Status: Acute Priority: High Code(s): M13.0 - POLYARTHRITIS, UNSPECIFIED Comment: - Rheum w/u as outpatient was negative. CRP was 92, but RF, anti-CCP, HANY, ANCA were all negative. - Rheum consult appreciated - repeat w/u in process - With her nasal symptoms, concerned for Hunter's - but sinus CT negative. - Continue pain management. (6) Migraine Current Visit: Yes Status: Acute Priority: Medium Code(s): G43.909 - MIGRAINE, UNSP, NOT INTRACTABLE, WITHOUT STATUS MIGRAINOSUS Comment: - Continue Topamax. (7) Rash Current Visit: Yes Status: Acute Code(s): R21 - RASH AND OTHER NONSPECIFIC SKIN ERUPTION Comment: - "thrombotic vasculopathy" --> will d/w hematology; could this be a low grade DIC secondary to a malignancy? Drug reaction? Stopped gabapentin to streamline potentially involved meds, though there are not many at present. 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 - EGD 10/23 with bx taken -- results pending as of 10/24 PM (9) H/O lymphoma Current Visit: Yes Status: Acute Priority: High Code(s): Z85.79 - PRSNL HX OF MALIG NEOPLM OF LYMPHOID, HEMATPOETC & REL TISS Comment: - Bone marrow biopsy when stable and if not alternative explanation for current presentation. (10) DVT prophylaxis Current Visit: Yes Status: Acute Priority: High Code(s): [id number] - Comment: - Lovenox (11) Full code status Current Visit: Yes Status: Acute Priority: High Code(s): Z78.9 - OTHER SPECIFIED HEALTH STATUS Status and Disposition: . Inpatient.
[2016-10-24 19:56] LABS: Phospholipid Ab IgG < 9.4 GPL; Phospholipid Ab IgM, S < 9.4 MPL
[2016-10-24] MEDS: Topiramate TAB(*) 25 MG PO SCH (21:11)
[2016-10-24] MEDS: Lidocaine PATCH 5%* 1 PATCH TRANSDERM SCH ×3 (21:17→22:46)
[2016-10-24] MEDS: Oral Rinse (Biotene)(NF) 237 ML ORAL RINSE BTL MT SCH (21:24)
[2016-10-25] MEDS ORDERED: Morphine INJ* 2 MG/ML 1 ML SYRINGE IV ONE (00:21)
[2016-10-25] MEDS ORDERED: LORazepam INJ* 2 MG/ML 1 ML VIAL IV PUSH ONE (00:21)
[2016-10-25] MEDS ORDERED: Morphine INJ* 2 MG/ML 1 ML SYRINGE ONE (00:25)
[2016-10-25] MEDS ORDERED: LORazepam INJ* 2 MG/ML 1 ML VIAL ONE (00:25)
[2016-10-25 05:26] LABS: Hematocrit 25 % (35-47); Hemoglobin 8.4 g/dl (12.0-16.0); Mean Corpuscular HGB Conc 33 g/dl (31-36); Mean Corpuscular Hemoglobin 31 pg (27-31); Mean Corpuscular Volume 94 fL (80-97); Mean Platelet Volume 8 um3 (7.4-10.4); Red Cell Distribution Width 16 % (10.5-15); White Blood Count 10.9 10^3/ul (3.5-10.8)
[2016-10-25 05:28] LABS: Add Diff/Slide Review? Slide Review Added
[2016-10-25 05:31] LABS: Potassium 4.7 mmol/L (3.5-5.0)
[2016-10-25 05:45] LABS: Add Path Review? YES; Hypochromasia 1+; Macrocytosis 1+; Microcytosis 2+; Schistocytes 1+; Toxic Granulation 1+
[2016-10-25] MEDS ORDERED: Furosemide IV* 10 MG/ML 2 ML VIAL (20 MG) IV ONE (06:00)
[2016-10-25 06:32] LABS: Albumin 2.6 g/dL (3.2-5.2); BUN/Creatinine Ratio 19.8 (8-20); Calcium 8.5 mg/dL (8.6-10.3); EGFR African American 52.2 (>60); EGFR Non-African American 40.6 (>60); Globulin 1.8 g/dL (2-4); Magnesium 1.7 mg/dL (1.9-2.7); Phosphorus 4.2 mg/dL (2.5-5.0); Total Bilirubin 0.4 mg/dL (0.2-1.0); Total Protein 4.4 g/dL (6.4-8.9)
[2016-10-25] MEDS: Omeprazole CAP* 20 MG PO SCH (06:37)
[2016-10-25] MEDS: Lactobacillus Acidophilu (GG)* 1 CAP CAP PO SCH (08:32)
[2016-10-25] MEDS: Sotalol TAB* 80 MG PO SCH (08:32)
[2016-10-25] MEDS: predniSONE TAB* 20 MG PO SCH (08:32)
[2016-10-25] MEDS: Lidocaine Patch REMOVE* 1 NOTE MISC PATCH OFF SCH (08:33)
[2016-10-25] MEDS: Potassium Chlor TAB* 20 MEQ TAB.ER PO SCH ×2 (08:33→17:44)
[2016-10-25] MEDS: Docusate CAP* 100 MG PO SCH ×2 (08:37→20:38)
[2016-10-25] MEDS: Polyethylene Glycol 3350* 17 GM PACKET PO SCH ×2 (08:37→20:38)
[2016-10-25] MEDS ORDERED: Magnesium Sulfate 1 GM IV* 1 GM/100 ML BAG IV ONE (09:27)
[2016-10-25] MEDS ORDERED: Digoxin IV* 0.5 MG/2 ML AMP (0.25 MG/ML) IV SLOW PU ONE ×2 (09:28→16:00)
[2016-10-25] MEDS: Enoxaparin(*) 80 MG/0.8 ML SYR SUBCUT SCH ×2 (09:57→23:00)
--- NOTE | 2016-10-25 10:39 | PN ---
Subjective Date of Service: 10/25/16 Interval History: f/u PAFib, volume overload Patient had hypotension SBP 70's with sotalol yesterday, renal function worse and LFT's higher No chest pain or dyspnea at rest, in and out of atrial fibrillation no change in symptoms with this Medications Active Medications: Acetaminophen (Tylenol Tab*) 650 mg PO Q4H PRN PRN Reason: FEVER/PAIN Last Admin: 10/24/16 08:32 Dose: 650 mg Alprazolam (Xanax Tab*) 0.5 mg PO TID PRN PRN Reason: ANXIETY Last Admin: 10/24/16 21:10 Dose: 0.5 mg Digoxin (Digoxin Iv*) 0.25 mg IV SLOW PU ONCE ONE Stop: 10/25/16 16:01 Docusate Sodium (Colace Cap*) 100 mg PO BID [facility] Last Admin: 10/25/16 08:37 Dose: Not Given Enoxaparin Sodium (Lovenox(*)) 80 mg SUBCUT Q12H [facility] Last Admin: 10/25/16 09:57 Dose: 80 mg Lactobacillus Rhamnosus (Culturelle*) 1 cap PO DAILY [facility] Last Admin: 10/25/16 08:32 Dose: 1 cap Lidocaine (Lidoderm 5% Patch*) 1 patch TRANSDERM DAILY@1999 [facility] Last Admin: 10/24/16 21:17 Dose: 1 patch Magnesium Oxide (Magox 400 Tab*) 800 mg PO DAILY [facility] Morphine Sulfate (Morphine Inj (Syringe)*) 2 mg IV Q4H PRN PRN Reason: SEVERE PAIN Last Admin: 10/24/16 21:17 Dose: 2 mg Multi-Ingredient Mouthwash/Gargle (Biotene Dry Mouth Oral Rinse(Nf)) 15 ml MT . DIRECTED [facility] Last Admin: 10/24/16 21:24 Dose: 15 ml Omeprazole (Prilosec Cap*) 40 mg PO DAILY@0600 [facility] Last Admin: 10/25/16 06:37 Dose: 40 mg Ondansetron HCl (Zofran Inj*) 4 mg IV Q6H PRN PRN Reason: NAUSEA Last Admin: 10/23/16 00:59 Dose: 4 mg Oxycodone/Acetaminophen (Percocet 5/325 Tab*) 2 tab PO Q4H PRN PRN Reason: PAIN Last Admin: 10/24/16 11:20 Dose: 2 tab Oxymetazoline HCl (Afrin 0.05% Nasal [place]rod*) 3 spray BOTH NARES BEDTIME PRN PRN Reason: NASAL CONGESTION Stop: 10/29/16 23:59 Last Admin: 10/24/16 21:25 Dose: 3 nasal.spr Pharmacy Profile Note (Lidocaine Patch Remove*) 1 note PATCH OFF DAILY@0800 [facility] Last Admin: 10/25/16 08:33 Dose: 1 note Polyethylene Glycol/Electrolytes (Miralax*) 17 gm PO 0800,2100 [facility] Last Admin: 10/25/16 08:37 Dose: Not Given Potassium Chloride (Klor Con Er Tab*) 20 meq PO BID WITH MEALS [facility] Last Admin: 10/25/16 08:33 Dose: 20 meq Prednisone (Deltasone Tab*) 40 mg PO DAILY [facility] Last Admin: 10/25/16 08:32 Dose: 40 mg Senna (Senokot Tab*) 1 tab PO BEDTIME PRN PRN Reason: CONSTIPATION Sodium Chloride (Sodium Chloride 0.65% Nasal Drops*) 1 drop BOTH NARES Q4H PRN PRN Reason: CONGESTION Last Admin: 10/24/16 20:05 Dose: 1 drop Topiramate (Topamax(*)) 50 mg PO BEDTIME [facility] Last Admin: 10/24/16 21:11 Dose: 50 mg Objective Vital Signs: Temp Pulse Resp BP Pulse Ox 98.4 F 87 20 88/59 98 10/25/16 08:00 10/25/16 10:00 10/25/16 10:00 10/25/16 10:00 10/25/16 10:00 Oxygen Devices in Use Now: None Appearance: frail but not toxic appearing, conversant and pleasant Neck: - - mild jvd Respiratory: Symmetrical Chest Expansion and Respiratory Effort Cardiovascular: RRR, - - no significant murmur, diffuse 2+ edema lower extremites Abdominal: - - non tender, mild distended Extremities: No Clubbing, Cyanosis Skin: No Rash or Ulcers Neurological: Alert and Oriented x 3 Laboratory Results: 10/25/16 05:16 10/25/16 05:16 INR (Anticoag Therapy) 1.17 (0.89-1.11) H 10/23/16 11:03 APTT 29.3 seconds (26.0-36.3) 10/23/16 11:03 Total Bilirubin 0.40 mg/dL (0.2-1.0) 10/25/16 05:16 AST 165 U/L (13-39) H 10/25/16 05:16 ALT 158 U/L (7-52) H 10/25/16 05:16 Alkaline Phosphatase 160 U/L (34-104) H 10/25/16 05:16 B-Natriuretic Peptide 437 pg/mL (-100) H 10/17/16 13:04 Total Protein 4.4 g/dL (6.4-8.9) L 10/25/16 05:16 Albumin 2.6 g/dL (3.2-5.2) L 10/25/16 05:16 Globulin 1.8 g/dL (2-4) L 10/25/16 05:16 Albumin/Globulin Ratio 1.4 (1-3) 10/25/16 05:16 TSH 3.95 mcIU/mL (0.34-5.60) 10/19/16 06:36 10/17/16 10/17/16 17:57 20:01 Troponin I 0.16 H* 0.14 H* Diagnostic Imaging: Chest x-ray from 10/17/16 was negative for effusions or acute disease. From 10/18/16, CT of the chest, abdomen and pelvis was negative for pulmonary emboli, moderate sized bilateral pleural effusions and atelectasis. Gastric antrum appears tubular and thickened. Compression L3. Venous Doppler, 10/18/16, negative for DVT. Overnight oximeter from 10/21/16 showed marked desaturation and with desaturation associated increase in heart rate, oxygen saturation below 90%, 4 hours and 50 minutes and oxygenation below 80%, 2 minutes. Assessment/Plan Gely Montes is a 65-year-old woman with a history of lymphoma s/p chemotherapy with R-CHOP last year since then has had fever/rash/hand swelling- pain treated with multiple course of steroids admitted with hypercalcemia has developed volume overload and third spacing in the setting of large amounts of IV saline in the setting of a low albumin level and anemia, pulm HTN some RV dysfunction but non-dilated IVC suggestive of third-spacing fluid, found with asymptomatic intermittent rapid afib had hypotension SBP 70's with sotalol and has been ineffective, also with pulmonary HTN and skin biopsy with thrombotic vasculopathy - Stop sotalol due to hypotension and has not been ineffective, would start digoxin - Agree with anticoagulation, could use a NOAC from a strict atrial fibrillation standpoint and aspirin can be stopped - Would give IV albumin with IV lasix to diurese - may need temporary pressor support pending response to above - Would continue 02 supplementation - Steroids also contributing to fluid accumulation - Keep K 4 or greater and Mg 2 or greater - No unifying diagnosis as of yet - Discussed with Dr. Rader and Dr. Rodríguez Thank you for allowing me to participate in the cardiovascular care of this patient. Please do not hesitate to contact me with questions or concerns.
--- NOTE | 2016-10-25 11:46 | CONSULT ---
Consult Consult: Consultation Note Critical Care Requesting Physician: Dr Rodríguez Reason for consult:anasarca, volume depletion, hypotension Limitations in history/physical:none Date of consult:10/25/2016 HPI: 65y F pmhx Follicular Lymphoma s/p R-CHOP (last 05/2016); admitted for arthralgia/fevers/rash since July. This was a recurrence of symptoms since stopping prednisone 2 weeks back; she has been on/off prednisone multiple times for the same thing. Worsening arthralgias of joints, muscle aches and edema has been developing. She was treated for hypercalcemia on admission with bisphosphonates/IVF/diuretics. Chest pain w/u was negative. Found to have mild- mod pulm htn and mild RV dil. Since admission she has developed more generalized anasarca due to low albumin and IVF administration from hypercal tx. She has some PIERRE which improved. Recently she has had new onset Atrial fibrillation, treated with amiodarone infusion, was not tolerating Cardizem IV, now started on Sotalol. She has not tolerated CPAP well for hypoxia. She has been intermittently hypotensive overnight, not tolerating CPAP well. She received albumin overnight, BP now is 120s. She feels okay, no cp/sob now. no abd pain/n/v/headache/dizziness. she feels congested upper airway sometimes. no fever/chills/rigors. no URI symptoms. Weight gain+. no fatigue/weakness. no dysuria. no wounds. skin lesions+. ECHO reviewed findings are consistent with low volume/IVC collapsed and mild RV dil with mild-mod pulm htn. ED/floor Course: as above ROS: ROS are all negative, except pertinent positives mentioned above. PMHx: Lymphoma s/p R-CHOP 05/2017 PSHx: Parotid Biopsy; Partial colon resection 09/10 to poly. Family History: DM; breast cancer in aunt. Social History: Alcohol red win 3-4x/week, Smoking none, Drug use none; Retired Allergies: NKDA Home Medications: ibuprofen, gabapentin Vitals: tmax 101.5 10/24 Vital Signs Temp 97.5 F 10/25/16 12:00 Pulse 98 10/25/16 13:00 Resp 23 10/25/16 13:00 BP 102/66 10/25/16 13:00 Pulse Ox 97 10/25/16 13:00 Intake & Output 10/24/16 10/25/16 10/25/16 18:59 06:59 18:59 Intake Total 700 300 120 Output Total 150 600 Balance 550 300 -480 Weight 178 lb 12.718 oz Intake: Medicated IV 50 GEN - Albumin 50 Oral 650 300 120 Output: Urine 150 600 Other: Estimated Void Medium Large Date of Last Bowel 10/24/16 10/25/16 Movement # Bowel Movements 1 3 Estimated Stool Amount Medium Large # Voids 1 3 O2/Vent: RA, sat 98% Infusions: none Current Medications: Current Medications Acetaminophen (Tylenol Tab*) 650 mg PO Q4H PRN PRN Reason: FEVER/PAIN Last Admin: 10/24/16 08:32 Dose: 650 mg Alprazolam (Xanax Tab*) 0.5 mg PO TID PRN PRN Reason: ANXIETY Last Admin: 10/24/16 21:10 Dose: 0.5 mg Digoxin (Digoxin Iv*) 0.25 mg IV SLOW PU ONCE ONE Stop: 10/25/16 16:01 Docusate Sodium (Colace Cap*) 100 mg PO BID [facility] Last Admin: 10/25/16 08:37 Dose: Not Given Enoxaparin Sodium (Lovenox(*)) 80 mg SUBCUT Q12H [facility] Last Admin: 10/25/16 09:57 Dose: 80 mg Furosemide (Lasix Iv*) 20 mg IV Q12HR [facility] Albumin Human 100 ml/ IV (Solution) 100 mls @ 0 mls/hr IV .(ENTER) [facility] PRN Reason: As Directed Albumin Human 50 ml/ IV (Solution) 50 mls @ 0 mls/hr IV Q12HR [facility] PRN Reason: As Directed Lactobacillus Rhamnosus (Culturelle*) 1 cap PO DAILY [facility] Last Admin: 10/25/16 08:32 Dose: 1 cap Lidocaine (Lidoderm 5% Patch*) 1 patch TRANSDERM DAILY@1999 [facility] Last Admin: 10/24/16 21:17 Dose: 1 patch Magnesium Oxide (Magox 400 Tab*) 800 mg PO DAILY [facility] Morphine Sulfate (Morphine Inj (Syringe)*) 2 mg IV Q4H PRN PRN Reason: SEVERE PAIN Last Admin: 10/24/16 21:17 Dose: 2 mg Multi-Ingredient Mouthwash/Gargle (Biotene Dry Mouth Oral Rinse(Nf)) 15 ml MT . DIRECTED [facility] Last Admin: 10/24/16 21:24 Dose: 15 ml Omeprazole (Prilosec Cap*) 40 mg PO DAILY@0600 [facility] Last Admin: 10/25/16 06:37 Dose: 40 mg Ondansetron HCl (Zofran Inj*) 4 mg IV Q6H PRN PRN Reason: NAUSEA Last Admin: 10/23/16 00:59 Dose: 4 mg Oxycodone/Acetaminophen (Percocet 5/325 Tab*) 2 tab PO Q4H PRN PRN Reason: PAIN Last Admin: 10/24/16 11:20 Dose: 2 tab Oxymetazoline HCl (Afrin 0.05% Nasal Ashley*) 3 spray BOTH NARES BEDTIME PRN PRN Reason: NASAL CONGESTION Stop: 10/29/16 23:59 Last Admin: 10/24/16 21:25 Dose: 3 nasal.spr Pharmacy Profile Note (Lidocaine Patch Remove*) 1 note PATCH OFF DAILY@0800 [facility] Last Admin: 10/25/16 08:33 Dose: 1 note Polyethylene Glycol/Electrolytes (Miralax*) 17 gm PO 0800,2100 [facility] Last Admin: 10/25/16 08:37 Dose: Not Given Potassium Chloride (Klor Con Er Tab*) 20 meq PO BID WITH MEALS [facility] Last Admin: 10/25/16 08:33 Dose: 20 meq Prednisone (Deltasone Tab*) 40 mg PO DAILY [facility] Last Admin: 10/25/16 08:32 Dose: 40 mg Senna (Senokot Tab*) 1 tab PO BEDTIME PRN PRN Reason: CONSTIPATION Sodium Chloride (Sodium Chloride 0.65% Nasal Drops*) 1 drop BOTH NARES Q4H PRN PRN Reason: CONGESTION Last Admin: 10/24/16 20:05 Dose: 1 drop Topiramate (Topamax(*)) 50 mg PO BEDTIME [facility] Last Admin: 10/24/16 21:11 Dose: 50 mg Physical Exam: General: awake, alert, no distress, no diaphoresis Head: normocephalic, atraumatic HEENT: no pallor, no icterus, moist mucous membranes Neck: no stridor, no jvd CVS: normal rate, normal rhythm, no murmur Resp: bilateral air entry, no rhales, no wheeze, no rhonchi, no acc muscle use Abdomen: soft, nontender, nondistended, bowel sounds present Ext: pulses+, warm, +edema in LE and upper ext mild Skin: intact, no breakdown; less areas of rash/erythema barely noticable now. Neuro: awake, alert, orientedx3, moving all extremities, no gross focal deficit Labs: Laboratory Results - last 24 hr 10/22/16 10/22/16 10/23/16 16:30 16:30 11:03 WBC RBC Hgb Hct MCV MCH MCHC RDW Plt Count MPV Neut % (Auto) Lymph % (Auto) Whitley % (Auto) Eos % (Auto) Baso % (Auto) Absolute Neuts (auto) Absolute Lymphs (auto) Absolute Monos (auto) Absolute Eos (auto) Absolute Basos (auto) Absolute Nucleated RBC Nucleated RBC % Toxic Granulation Normal RBC Morphology Hypochromasia Microcytosis Macrocytosis Elliptocytes Schistocytes Sodium Potassium Chloride Carbon Dioxide Anion Gap BUN Creatinine Est GFR ( Amer) Est GFR (Non-Af Amer) BUN/Creatinine Ratio Glucose Lactic Acid Calcium Phosphorus Magnesium Total Bilirubin AST ALT Alkaline Phosphatase Total Protein Albumin Globulin Albumin/Globulin Ratio Prealbumin Vancomycin Trough Beta-2-GPI IgG Ab <9.4 Beta-2-GPI IgM Ab <9.4 Anti-Cardiolipin IgG Ab < 9.4 < 9.4 Anti-Cardiolipin IgM Ab < 9.4 < 9.4 10/24/16 10/25/16 10/25/16 11:30 05:04 05:16 WBC 10.9 H RBC 2.70 L Hgb 8.4 L Hct 25 L MCV 94 MCH 31 MCHC 33 RDW 16 H Plt Count 286 MPV 8 Neut % (Auto) 89.7 H Lymph % (Auto) 3.8 L Whitley % (Auto) 6.3 Eos % (Auto) 0 Baso % (Auto) 0.2 Absolute Neuts (auto) 9.8 H Absolute Lymphs (auto) 0.4 L Absolute Monos (auto) 0.7 Absolute Eos (auto) 0 Absolute Basos (auto) 0 Absolute Nucleated RBC 0.01 Nucleated RBC % 0.1 Toxic Granulation 1+ Normal RBC Morphology Not Reportable Hypochromasia 1+ Microcytosis 2+ Macrocytosis 1+ Elliptocytes 1+ Schistocytes 1+ Sodium Potassium Chloride Carbon Dioxide Anion Gap BUN Creatinine Est GFR ( Amer) Est GFR (Non-Af Amer) BUN/Creatinine Ratio Glucose Lactic Acid Calcium Phosphorus Magnesium Total Bilirubin AST ALT Alkaline Phosphatase Total Protein Albumin Globulin Albumin/Globulin Ratio Prealbumin 8 L Vancomycin Trough 27.9 Beta-2-GPI IgG Ab Beta-2-GPI IgM Ab Anti-Cardiolipin IgG Ab Anti-Cardiolipin IgM Ab 10/25/16 10/25/16 05:16 05:16 WBC RBC Hgb Hct MCV MCH MCHC RDW Plt Count MPV Neut % (Auto) Lymph % (Auto) Whitley % (Auto) Eos % (Auto) Baso % (Auto) Absolute Neuts (auto) Absolute Lymphs (auto) Absolute Monos (auto) Absolute Eos (auto) Absolute Basos (auto) Absolute Nucleated RBC Nucleated RBC % Toxic Granulation Normal RBC Morphology Hypochromasia Microcytosis Macrocytosis Elliptocytes Schistocytes Sodium 127 L Potassium 4.7 Chloride 103 Carbon Dioxide 16 L Anion Gap 9 BUN 26 H Creatinine 1.31 H Est GFR ( Amer) 52.2 Est GFR (Non-Af Amer) 40.6 BUN/Creatinine Ratio 19.8 Glucose 116 H Lactic Acid 1.2 Calcium 8.5 L Phosphorus 4.2 Magnesium 1.7 L Total Bilirubin 0.40 AST 165 H ALT 158 H Alkaline Phosphatase 160 H Total Protein 4.4 L Albumin 2.6 L Globulin 1.8 L Albumin/Globulin Ratio 1.4 Prealbumin Vancomycin Trough Beta-2-GPI IgG Ab Beta-2-GPI IgM Ab Anti-Cardiolipin IgG Ab Anti-Cardiolipin IgM Ab corrected Ca for alb 2.6 and Ca 8.2 = 9.6 Imaging: -ECHO 10/2016 findings are consistent with low volume/IVC collapsed and mild RV dil, appears to be intact RV function, with mild-mod pulm htn. Preserved LV function. -CT chest/abd/pelvis 10/18/16 no PE; small to mod effusions bilaterally with mild comp atelectasis; gastric antrum mildly thickened -LE duplex 10/18 neg for DVT Assessment: 65y F pmhx Follicular Lymphoma s/p RCHOP (last 05/2016); admitted for arthralgia/fevers/rash since July. This was a recurrence of symptoms since stopping prednisone 2 weeks back. Worsening arthralgias of joints, muscle aches and edema has been developing. Treated for hypercalcemia, now with PIERRE, Transaminitis, intermittent hypotension, new onset Afib. -new onset Atrial Fibrillation -small-mod Pleural effusions -Pulmonary Hypertension -hypotension, hypovolemic, improved -Intravascular volume depletion, with gross body overload -hypoalbuminemia -PIERRE, improved, multifactorial nsaid/hypercal/dehydration -Liver Injury, congestive/ischemic -Anemia -Generalized Anasarca -Polyarthralgia/polyarthritis -Generalized rash, improved -Thrombotic vasculopathy -Hypercalcemia -h/o Follicular Lymphoma Plan: Neuro- stable CVS- clinically hypervolemic, gross overload. ECHO with intravascular depletion , collapsed IVC, hyperdyn LV (intact RV and LV function). Discussed earlier about Albumin infusions, will start with q12h. Hypotension is more so volume depletion now. Though w/u for infection due to fever needs to be done. Seems to be responding to albumin, no pressors indicated. Give lasix 20mg iv tonight and reassess response by AM and Cr by AM. This will take time to mobilize fluid. Amiodarone IV for afib now off. Agree with Dig also for rate control, watch levels, but Cr is normal now. No BB/CCB due to volume depletion. Lovenox sq BID also covering for her Afib. Resp-no distress, stable on RA. small-mod effusions. CXR in AM. would just diurese for now. bronchodilators prn. w/u for elevated PA pressures, pulm vasculopathy also part of her underlying process? some resp distress from Afib episodes also. ID- febrile 101.5 10/24 AM, WBC already has been slightly high but trending back down to. Blood cultures all negative. Cont to monitor. GI-stable. Liver injury, congestion vs ischemic insult from low bp? re-eval chem panel in AM. maintain perfusion pressure. Albumin should help. Renal- Gross volume overload, noted weights to be 30lbs+ since admission. Intravasc volume repletion, albumin. Try lasix tonight first dose to see response. Dont want to further injury kidney. Heme- s/p chemo 05/2016. D-dimer elevated but she is also in an acute disease process. CT chest done earlier in admission neg for PE. Endo-stable Musculsk-rash seems better on prednisone 40mg daily. Wounds-none Nutrition-reg diet DVT prophylaxis: lovenox sq bid GI prophylaxis:PPI Central Line:no Arterial Line:no [place] Cathetor:no Disposition: ICU for intermittent hypotension/afib. Code Status: full code Abdias Rader MD [employer] (Electronically Signed)
[2016-10-25] MEDS ORDERED: Furosemide IV* 10 MG/ML 10 ML VIAL (100 MG) IV ONE (12:25)
--- NOTE | 2016-10-25 12:36 | PN ---
Subjective Date of Service: 10/25/16 Interval History: pt c/o generalized edema. No CP, no SOB, rash -better. Has CPAP x 3 hrs last night, could not tolerate the mask for longer. Family History: Unchanged from Admission Social History: Unchanged from Admission Past Medical History: Unchanged from Admission Objective Active Medications: Acetaminophen (Tylenol Tab*) 650 mg PO Q4H PRN PRN Reason: FEVER/PAIN Last Admin: 10/24/16 08:32 Dose: 650 mg Alprazolam (Xanax Tab*) 0.5 mg PO TID PRN PRN Reason: ANXIETY Last Admin: 10/24/16 21:10 Dose: 0.5 mg Digoxin (Digoxin Iv*) 0.25 mg IV SLOW PU ONCE ONE Stop: 10/25/16 16:01 Docusate Sodium (Colace Cap*) 100 mg PO BID [facility] Last Admin: 10/25/16 08:37 Dose: Not Given Enoxaparin Sodium (Lovenox(*)) 80 mg SUBCUT Q12H [facility] Last Admin: 10/25/16 09:57 Dose: 80 mg Lactobacillus Rhamnosus (Culturelle*) 1 cap PO DAILY [facility] Last Admin: 10/25/16 08:32 Dose: 1 cap Lidocaine (Lidoderm 5% Patch*) 1 patch TRANSDERM DAILY@1999 [facility] Last Admin: 10/24/16 21:17 Dose: 1 patch Magnesium Oxide (Magox 400 Tab*) 800 mg PO DAILY [facility] Morphine Sulfate (Morphine Inj (Syringe)*) 2 mg IV Q4H PRN PRN Reason: SEVERE PAIN Last Admin: 10/24/16 21:17 Dose: 2 mg Multi-Ingredient Mouthwash/Gargle (Biotene Dry Mouth Oral Rinse(Nf)) 15 ml MT . DIRECTED [facility] Last Admin: 10/24/16 21:24 Dose: 15 ml Omeprazole (Prilosec Cap*) 40 mg PO DAILY@0600 [facility] Last Admin: 10/25/16 06:37 Dose: 40 mg Ondansetron HCl (Zofran Inj*) 4 mg IV Q6H PRN PRN Reason: NAUSEA Last Admin: 10/23/16 00:59 Dose: 4 mg Oxycodone/Acetaminophen (Percocet 5/325 Tab*) 2 tab PO Q4H PRN PRN Reason: PAIN Last Admin: 10/24/16 11:20 Dose: 2 tab Oxymetazoline HCl (Afrin 0.05% Nasal [place]*) 3 spray BOTH NARES BEDTIME PRN PRN Reason: NASAL CONGESTION Stop: 10/29/16 23:59 Last Admin: 10/24/16 21:25 Dose: 3 nasal.spr Pharmacy Profile Note (Lidocaine Patch Remove*) 1 note PATCH OFF DAILY@0800 [facility] Last Admin: 10/25/16 08:33 Dose: 1 note Polyethylene Glycol/Electrolytes (Miralax*) 17 gm PO 0800,2100 [facility] Last Admin: 10/25/16 08:37 Dose: Not Given Potassium Chloride (Klor Con Er Tab*) 20 meq PO BID WITH MEALS [facility] Last Admin: 10/25/16 08:33 Dose: 20 meq Prednisone (Deltasone Tab*) 40 mg PO DAILY [facility] Last Admin: 10/25/16 08:32 Dose: 40 mg Senna (Senokot Tab*) 1 tab PO BEDTIME PRN PRN Reason: CONSTIPATION Sodium Chloride (Sodium Chloride 0.65% Nasal Drops*) 1 drop BOTH NARES Q4H PRN PRN Reason: CONGESTION Last Admin: 10/24/16 20:05 Dose: 1 drop Topiramate (Topamax(*)) 50 mg PO BEDTIME [facility] Last Admin: 10/24/16 21:11 Dose: 50 mg Vital Signs 10/24/16 10/24/16 10/24/16 12:54 13:00 14:00 Temperature Pulse Rate 54 54 52 Respiratory 16 16 17 Rate Blood Pressure 82/45 73/40 79/47 (mmHg) O2 Sat by Pulse 99 99 98 Oximetry 10/24/16 10/24/16 10/24/16 15:00 15:16 16:00 Temperature 98 F Pulse Rate 82 76 80 Respiratory 15 16 21 Rate Blood Pressure 84/55 74/54 (mmHg) O2 Sat by Pulse 99 99 86 Oximetry 10/24/16 10/24/16 10/24/16 16:02 16:22 17:00 Temperature Pulse Rate Respiratory 23 17 18 Rate Blood Pressure 115/78 87/67 (mmHg) O2 Sat by Pulse Oximetry 10/24/16 10/24/16 10/24/16 18:00 19:00 19:34 Temperature 97.1 F Pulse Rate 80 53 Respiratory 26 17 Rate Blood Pressure 93/64 95/58 (mmHg) O2 Sat by Pulse 95 100 Oximetry 10/24/16 10/24/16 10/24/16 20:00 20:05 21:00 Temperature Pulse Rate 59 58 Respiratory 16 25 Rate Blood Pressure 87/60 96/61 (mmHg) O2 Sat by Pulse 94 98 Oximetry 10/24/16 10/24/16 10/24/16 21:10 21:17 22:00 Temperature Pulse Rate Respiratory 21 20 18 Rate Blood Pressure (mmHg) O2 Sat by Pulse Oximetry 10/24/16 10/24/16 10/24/16 22:32 23:00 23:02 Temperature Pulse Rate 61 57 Respiratory 17 16 19 Rate Blood Pressure 80/51 76/42 (mmHg) O2 Sat by Pulse 95 93 Oximetry 10/24/16 10/25/16 10/25/16 23:21 00:00 00:01 Temperature 98.0 F Pulse Rate 57 Respiratory 16 17 Rate Blood Pressure 90/56 (mmHg) O2 Sat by Pulse 93 Oximetry 10/25/16 10/25/16 10/25/16 00:29 00:30 01:00 Temperature Pulse Rate Respiratory 19 17 18 Rate Blood Pressure 92/60 (mmHg) O2 Sat by Pulse Oximetry 10/25/16 10/25/16 10/25/16 02:00 03:00 04:00 Temperature 97.8 F Pulse Rate 80 80 Respiratory 18 18 19 Rate Blood Pressure 81/55 90/62 95/75 (mmHg) O2 Sat by Pulse 96 95 Oximetry 10/25/16 10/25/16 10/25/16 05:00 06:00 06:42 Temperature Pulse Rate 122 86 47 Respiratory 17 16 22 Rate Blood Pressure 102/57 (mmHg) O2 Sat by Pulse 81 99 84 Oximetry 10/25/16 10/25/16 10/25/16 07:00 08:00 08:13 Temperature 98.4 F Pulse Rate 29 97 Respiratory 17 18 18 Rate Blood Pressure 99/63 97/55 103/65 (mmHg) O2 Sat by Pulse 88 94 Oximetry 10/25/16 10/25/16 10/25/16 08:27 09:00 09:57 Temperature Pulse Rate 125 94 90 Respiratory 17 Rate Blood Pressure 96/71 103/67 (mmHg) O2 Sat by Pulse 72 100 Oximetry 10/25/16 10/25/16 10/25/16 10:00 11:00 11:41 Temperature Pulse Rate 87 93 75 Respiratory 20 23 23 Rate Blood Pressure 88/59 120/64 102/70 (mmHg) O2 Sat by Pulse 98 97 100 Oximetry 10/25/16 10/25/16 11:44 12:00 Temperature 97.5 F Pulse Rate 69 83 Respiratory 20 25 Rate Blood Pressure 93/67 102/66 (mmHg) O2 Sat by Pulse 96 92 Oximetry Oxygen Devices in Use Now: Nasal Cannula - at 2 l Appearance: 65 yo F in nAd, aAOx3 Eyes: No Scleral Icterus, PERRLA Ears/Nose/Mouth/Throat: NL Teeth, Lips, Gums, Mucous Membranes Moist Neck: NL Appearance and Movements; NL JVP, Trachea Midline Respiratory: Symmetrical Chest Expansion and Respiratory Effort, - - crakles at b/l bases Cardiovascular: NL Sounds; No Murmurs; No JVD, - - irreegular Abdominal: NL Sounds; No Tenderness; No Distention, No Hepatosplenomegaly Extremities: No Clubbing, Cyanosis, - - anasarca and +2 pitting edema up to waist Skin: No Nodules or Sclerosis, - - scattered over the entire body and face, pale , blanchable rash Neurological: Alert and Oriented x 3, NL Muscle Strength and Tone Result Diagrams: 10/25/16 05:16 10/25/16 05:16 Additional Lab and Data: . Microbiology and Other Data: Microbiology 10/18/16 03:45 Nasal Screen MRSA (PCR)(ZANE) - Final Nasal Mrsa Negative Assess/Plan/Problems-Billing . Assessment: Mrs. Montes is a 65yo F with PMH of follicular lymphoma s/p RCHOP, migraines, who presented to ED due to abnormal labs revealing hypercalcemia, also found to have troponin elevation. - Patient Problems (1) Atrial fibrillation Comment: D/w Dr. Burns, due to hypotention, will d/c sotalol and start digoxin. CHADS2 vasc score is 2 (sex, age). Appreciate cardiology consult Metoprolol - stopped for hypotension. (2) Hypercalcemia Comment: Patient had labs done at [facility] 10/17/16 and was called with an elevated calcium 12.2. treated with IVF, Furosemide, and Zoledronic acid 10/16/16. Calcium back to normal. PTH is low consistent with non-PTH mediated hypercalcemia. With her h/o lymphoma , major concern is malignancy associated hypercalcemia. D/w Dr. Orr (3) Elevated troponin Comment: CTA chest was negative for PE and LE doppler negative for DVT. Echocardiogram showed signs of moderate pulmonary HTN, mild dilatation of RV, and RV systolic function moderately reduced and this is new when compared to prior echo from January 2016. - Pulm eval appreciated - concerned for GREG as source of pulmonary hypertension , but pt could not tolerated CPAP. - ?? small vessel occlusions -- pulmonary thrombotic vasculopathy? started AC 10/24/16 in AM (lovenox) (4) PIERRE (acute kidney injury) Comment: Suspect part of it secondary to NSAID use, worsened by dehydration caused by hypercalcemia. - Resolved in itally, now creat slightly increased- will monitor when tx with Albumin and Lasix today. (5) Polyarthritis Comment: Rheum w/u as outpatient was negative. CRP was 92, but RF, anti-CCP, HANY , ANCA were all negative. - Rheum consult appreciated - repeat w/u in process - With her nasal symptoms, concerned for Hunter's - but sinus CT negative. - Continue pain management. (6) Rash Comment: "thrombotic vasculopathy" d/w hematology; could this be a low grade DIC secondary to a malignancy? Drug reactionvs rheumatologic condition. Stopped gabapentin to streamline potentially involved meds, though there are not many at present. (7) Gastric wall thickening Comment: CT abdomen revealed gastric thickening suggestive of linitis plastica. - EGD 10/23 with bx taken -- results pending (8) H/O lymphoma Comment: H/o follicular lymphoma, s/p chemo in fall 2015, now in remission - Bone marrow biopsy when stable and if not alternative explanation for current presentation. (9) Fluid overload Comment: appreciate Dr. Rader's suggestions, albumin infusions and Lasix started. Pt is in significant volume overload from tx with IVF for initial hypercalcemia (10) Migraine Comment: - Continue Topamax. (11) LFT elevation Comment: suspect due to vascular congetsion. will monitor with diuresis (12) Fever Comment: on 10/24/16 blood cx negative, nontoxic appearing. leukocytosis resolving (13) DVT prophylaxis Comment: - Lovenox (14) Full code status Status and Disposition: . Inpatient.
[2016-10-25] MEDS ORDERED: Albumin Human 25%* 50 ML BTL IV ONE (13:45)
[2016-10-25] MEDS: oxyCODONE/Acetamin 5/325 MG* TAB PO PRN (14:26)
[2016-10-25] MEDS ORDERED: Furosemide IV* 10 MG/ML 10 ML VIAL (100 MG) IV SCH (17:00)
[2016-10-25] MEDS ORDERED: Furosemide IV* 10 MG/ML 2 ML VIAL (20 MG) IV SCH ×2 (18:00→21:00)
[2016-10-25] MEDS ORDERED: Albumin Human 25%* 50 ML in PREMIX* 0 ML IV SCH (18:00)
[2016-10-25] MEDS: Lidocaine PATCH 5%* 1 PATCH TRANSDERM SCH (20:03)
[2016-10-25] MEDS: Albumin Human 25%* 50 ML in PREMIX* 0 ML IV SCH (20:13)
[2016-10-25] MEDS: Topiramate TAB(*) 25 MG PO SCH (20:38)
[2016-10-25] MEDS: ALPRAZolam TAB* 0.5 MG PO PRN (20:39)
[2016-10-25] MEDS: Morphine INJ* 2 MG/ML 1 ML SYRINGE IV PRN (20:40)
[2016-10-26] MEDS: Omeprazole CAP* 20 MG PO SCH (05:58)
[2016-10-26 06:29] LABS: Hematocrit 24 % (35-47); Mean Corpuscular HGB Conc 33 g/dl (31-36); Mean Corpuscular Hemoglobin 31 pg (27-31); Mean Corpuscular Volume 93 fL (80-97); Mean Platelet Volume 8 um3 (7.4-10.4); Red Blood Count 2.62 10^6/ul (4.0-5.4); Red Cell Distribution Width 16 % (10.5-15); White Blood Count 14.6 10^3/ul (3.5-10.8)
[2016-10-26 06:42] LABS: Add Diff/Slide Review? Slide Review Added
[2016-10-26 06:48] LABS: BUN/Creatinine Ratio 23.9 (8-20); Calcium 9.2 mg/dL (8.6-10.3); EGFR African American 49.2 (>60); EGFR Non-African American 38.3 (>60); Globulin 1.7 g/dL (2-4); Potassium 4.3 mmol/L (3.5-5.0); Total Bilirubin 0.4 mg/dL (0.2-1.0); Total Protein 4.7 g/dL (6.4-8.9)
[2016-10-26 06:53] LABS: Digoxin 1.6 ng/ml (0.8-2.0)
--- NOTE | 2016-10-26 08:11 | PN ---
Progress Note - Progress Note Note: Progress Note Critical Care 24 hour events/significant events: -no overnight events noted; no resp distress/cp/n/v -afebrile overnight -started on albumin and got 1 dose of lasix last night; diuresing well. Vitals: Vital Signs Temp 97.0 F 10/25/16 23:40 Pulse 75 10/26/16 06:00 Resp 30 10/26/16 06:00 BP 125/75 10/26/16 06:00 Pulse Ox 98 10/26/16 06:00 Intake & Output 10/25/16 10/26/16 10/26/16 18:59 06:59 18:59 Intake Total 500 290 Output Total 1600 1900 Balance -1100 -1610 Weight 169 lb 8.568 oz Intake: IVPB 160 NS (0.9%) 10 albumin 100 magnesium 50 Oral 340 240 Albumin 50 Output: Urine 1600 1900 Other: Date of Last Bowel 10/25/16 Movement # Bowel Movements 1 Estimated Stool Amount Small Small O2/Vent: RA Infusions: none Medications: Current Medications Acetaminophen (Tylenol Tab*) 650 mg PO Q4H PRN PRN Reason: FEVER/PAIN Last Admin: 10/24/16 08:32 Dose: 650 mg Alprazolam (Xanax Tab*) 0.5 mg PO TID PRN PRN Reason: ANXIETY Last Admin: 10/25/16 20:39 Dose: 0.5 mg Docusate Sodium (Colace Cap*) 100 mg PO BID [facility] Last Admin: 10/25/16 20:38 Dose: Not Given Enoxaparin Sodium (Lovenox(*)) 80 mg SUBCUT Q12H [facility] Last Admin: 10/25/16 23:00 Dose: 80 mg Furosemide (Lasix Iv*) 20 mg IV Q12HR [facility] Last Admin: 10/25/16 20:38 Dose: 20 mg Albumin Human 100 ml/ IV (Solution) 100 mls @ 0 mls/hr IV .(ENTER) [facility] PRN Reason: As Directed Albumin Human 50 ml/ IV (Solution) 50 mls @ 0 mls/hr IV Q12HR [facility] PRN Reason: As Directed Last Admin: 10/25/16 20:13 Dose: 50 mls/hr Lactobacillus Rhamnosus (Culturelle*) 1 cap PO DAILY [facility] Last Admin: 10/25/16 08:32 Dose: 1 cap Lidocaine (Lidoderm 5% Patch*) 1 patch TRANSDERM DAILY@2000 [facility] Last Admin: 10/25/16 20:03 Dose: 1 patch Magnesium Oxide (Magox 400 Tab*) 800 mg PO DAILY [facility] Morphine Sulfate (Morphine Inj (Syringe)*) 2 mg IV Q4H PRN PRN Reason: SEVERE PAIN Last Admin: 10/25/16 20:40 Dose: 2 mg Multi-Ingredient Mouthwash/Gargle (Biotene Dry Mouth Oral Rinse(Nf)) 15 ml MT . DIRECTED [facility] Last Admin: 10/24/16 21:24 Dose: 15 ml Omeprazole (Prilosec Cap*) 40 mg PO DAILY@0600 [facility] Last Admin: 10/26/16 05:58 Dose: 40 mg Ondansetron HCl (Zofran Inj*) 4 mg IV Q6H PRN PRN Reason: NAUSEA Last Admin: 10/23/16 00:59 Dose: 4 mg Oxycodone/Acetaminophen (Percocet 5/325 Tab*) 2 tab PO Q4H PRN PRN Reason: PAIN Last Admin: 10/25/16 14:26 Dose: 2 tab Oxymetazoline HCl (Afrin 0.05% Nasal [place]*) 3 spray BOTH NARES BEDTIME PRN PRN Reason: NASAL CONGESTION Stop: 10/29/16 23:59 Last Admin: 10/24/16 21:25 Dose: 3 nasal.[email or web address] Pharmacy Profile Note (Lidocaine Patch Remove*) 1 note PATCH OFF DAILY@0800 [facility] Last Admin: 10/25/16 08:33 Dose: 1 note Polyethylene Glycol/Electrolytes (Miralax*) 17 gm PO 0800,2100 [facility] Last Admin: 10/25/16 20:38 Dose: Not Given Potassium Chloride (Klor Con Er Tab*) 20 meq PO BID WITH MEALS [facility] Last Admin: 10/25/16 17:44 Dose: 20 meq Prednisone (Deltasone Tab*) 40 mg PO DAILY [facility] Last Admin: 10/25/16 08:32 Dose: 40 mg Senna (Senokot Tab*) 1 tab PO BEDTIME PRN PRN Reason: CONSTIPATION Sodium Chloride (Sodium Chloride 0.65% Nasal Drops*) 1 drop BOTH NARES Q4H PRN PRN Reason: CONGESTION Last Admin: 10/24/16 20:05 Dose: 1 drop Topiramate (Topamax(*)) 50 mg PO BEDTIME [facility] Last Admin: 10/25/16 20:38 Dose: 50 mg Physical Exam: General: awake, alert, no distress, no diaphoresis Head: normocephalic, atraumatic HEENT: no pallor, no icterus, moist mucous membranes Neck: no stridor, no jvd CVS: normal rate, normal rhythm, no murmur Resp: bilateral air entry, no rhales, no wheeze, no rhonchi, no acc muscle use Abdomen: soft, nontender, nondistended, bowel sounds present Ext: pulses+, warm, +edema in LE and upper ext mild Skin: intact, no breakdown; less areas of rash/erythema barely noticable now. Neuro: awake, alert, orientedx3, moving all extremities, no gross focal deficit Labs: Laboratory Results - last 24 hr 10/26/16 10/26/16 06:20 06:20 WBC 14.6 H RBC 2.62 L Hgb 8.0 L Hct 24 L MCV 93 MCH 31 MCHC 33 RDW 16 H Plt Count 322 MPV 8 Neut % (Auto) 87.0 H Lymph % (Auto) 4.3 L [place] % (Auto) 8.7 Eos % (Auto) 0 Baso % (Auto) 0 Absolute Neuts (auto) 12.7 H Absolute Lymphs (auto) 0.6 L Absolute Monos (auto) 1.3 H Absolute Eos (auto) 0 Absolute Basos (auto) 0 Absolute Nucleated RBC 0.01 Nucleated RBC % 0 Sodium 132 L Potassium 4.3 Chloride 104 Carbon Dioxide 21 L Anion Gap 7 BUN 33 H Creatinine 1.38 H Est GFR ( Amer) 49.2 Est GFR (Non-Af Amer) 38.3 BUN/Creatinine Ratio 23.9 H Glucose 115 H Calcium 9.2 Total Bilirubin 0.40 AST 100 H ALT 132 H Alkaline Phosphatase 124 H Total Protein 4.7 L Albumin 3.0 L Globulin 1.7 L Albumin/Globulin Ratio 1.8 Digoxin 1.6 Imaging: -ECHO 10/2016 findings are consistent with low volume/IVC collapsed and mild RV dil, appears to be intact RV function, with mild-mod pulm htn. Preserved LV function. -CT chest/abd/pelvis 10/18/16 no PE; small to mod effusions bilaterally with mild comp atelectasis; gastric antrum mildly thickened -LE duplex 10/18 neg for DVT Assessment: 65y F pmhx Follicular Lymphoma s/p RCHOP (last 05/2016); admitted for arthralgia/fevers/rash since July. This was a recurrence of symptoms since stopping prednisone 2 weeks back. Worsening arthralgias of joints, muscle aches and edema has been developing. Treated for hypercalcemia, now with PIERRE, Transaminitis, intermittent hypotension, new onset Afib. -new onset Atrial Fibrillation -small-mod Pleural effusions -Pulmonary Hypertension -hypotension, hypovolemic, improved -Intravascular volume depletion, with gross body overload -hypoalbuminemia -PIERRE, improved, multifactorial nsaid/hypercal/dehydration -Liver Injury, congestive/ischemic -Anemia -Generalized Anasarca -Polyarthralgia/polyarthritis -Generalized rash, improved -Thrombotic vasculopathy -Hypercalcemia -h/o Follicular Lymphoma Plan: Neuro- stable CVS- started on albumin 25% and lasix; diuresed well with very good urine output , no further hypotension. will keep diuretics, keep albumin for 2 more days to add more colloid. she may not need albumin, just lasix along would likely be enough to diurese and once a day, this edema will gradually improve, she responds well. paroxysmal afib noted, but rate controlled, keep dig daily, or even metoprolol low dose 12.5mg po bid may be better now that her blood pressures are better. re-eval tomorrow for starting metoprolol. PIERRE not improved yet but has good urine output. K normal, follow and replete as needed daily. keep k>4, mg>2. Resp-on RA, no distress ID- afebrile, wbc 14, fluctuating. no signs of sepsis otherwise. may be response to steroids. cont to monitor GI-LFTs improving. likely was ischemic injury. PPI po. Renal- gross overload. PIERRE present but making good urine, K normal. Cr 1.38. Cont albumin, would keep lasix once daily now just so we dont overdiurese and precipitate hypotension. she is reponding well. Heme- s/p chemo 05/2016. hg to 8, no bleeding noted. on therapeutic lovenox for thrombotic vasculopathy, and now also for pAFib. Prednisone 40mg po daily for undetermined connective tissue process/vasculitis phenomenon. Endo-stable Musculsk-rash seems better on prednisone 40mg daily. Wounds-none Nutrition-reg diet DVT prophylaxis: lovenox sq bid GI prophylaxis:PPI Central Line:no Arterial Line:no [place] Cathetor:no Disposition: ICU for intermittent hypotension/afib; improving; will follow as needed. Code Status: full code Abdias Rader MD [employer] (Electronically Signed)
[2016-10-26] MEDS: Polyethylene Glycol 3350* 17 GM PACKET PO SCH ×2 (08:49→20:44)
[2016-10-26] MEDS: Docusate CAP* 100 MG PO SCH ×2 (08:50→20:44)
[2016-10-26] MEDS: Lidocaine Patch REMOVE* 1 NOTE MISC PATCH OFF SCH (08:52)
[2016-10-26] MEDS: predniSONE TAB* 20 MG PO SCH (08:55)
[2016-10-26] MEDS: Potassium Chlor TAB* 20 MEQ TAB.ER PO SCH ×2 (08:55→17:43)
[2016-10-26] MEDS: Magnesium Oxide TAB* 400 MG PO SCH (08:55)
[2016-10-26] MEDS: Lactobacillus Acidophilu (GG)* 1 CAP CAP PO SCH (08:56)
[2016-10-26] MEDS: Albumin Human 25%* 100 ML in PREMIX* 0 ML IV SCH ×3 (09:06→20:36)
[2016-10-26] MEDS: Albumin Human 25%* 50 ML in PREMIX* 0 ML IV SCH ×2 (10:20→20:42)
[2016-10-26] MEDS: Morphine INJ* 2 MG/ML 1 ML SYRINGE IV PRN ×2 (10:22→20:36)
[2016-10-26] MEDS: ALPRAZolam TAB* 0.5 MG PO PRN ×2 (10:23→20:40)
[2016-10-26 10:24] LABS: White Blood Count 13.8 10^3/ul (3.5-10.8)
[2016-10-26] MEDS: Enoxaparin(*) 80 MG/0.8 ML SYR SUBCUT SCH ×2 (11:42→23:00)
[2016-10-26 13:44] LABS: Protein C Activity 51 % (70 - 150)
--- NOTE | 2016-10-26 13:59 | PN ---
Subjective Date of Service: 10/26/16 Interval History: pt feels better. On no 02 today Family History: Unchanged from Admission Social History: Unchanged from Admission Past Medical History: Unchanged from Admission Objective Active Medications: Acetaminophen (Tylenol Tab*) 650 mg PO Q4H PRN PRN Reason: FEVER/PAIN Last Admin: 10/24/16 08:32 Dose: 650 mg Alprazolam (Xanax Tab*) 0.5 mg PO TID PRN PRN Reason: ANXIETY Last Admin: 10/26/16 10:23 Dose: 0.5 mg Docusate Sodium (Colace Cap*) 100 mg PO BID [facility] Last Admin: 10/26/16 08:50 Dose: Not Given Enoxaparin Sodium (Lovenox(*)) 80 mg SUBCUT Q12H [facility] Last Admin: 10/26/16 11:42 Dose: 80 mg Furosemide (Lasix Iv*) 20 mg IV DAILY [facility] Albumin Human 100 ml/ IV (Solution) 100 mls @ 0 mls/hr IV .(ENTER) [facility] PRN Reason: As Directed Last Admin: 10/26/16 09:41 Dose: 50 mls/hr Albumin Human 50 ml/ IV (Solution) 50 mls @ 0 mls/hr IV Q12HR [facility] PRN Reason: As Directed Last Admin: 10/26/16 10:20 Dose: 50 mls/hr Lactobacillus Rhamnosus (Culturelle*) 1 cap PO DAILY [facility] Last Admin: 10/26/16 08:56 Dose: 1 cap Lidocaine (Lidoderm 5% Patch*) 1 patch TRANSDERM DAILY@2000 [facility] Last Admin: 10/25/16 20:03 Dose: 1 patch Magnesium Oxide (Magox 400 Tab*) 800 mg PO DAILY [facility] Last Admin: 10/26/16 08:55 Dose: 800 mg Morphine Sulfate (Morphine Inj (Syringe)*) 2 mg IV Q4H PRN PRN Reason: SEVERE PAIN Last Admin: 10/26/16 10:22 Dose: 2 mg Multi-Ingredient Mouthwash/Gargle (Biotene Dry Mouth Oral Rinse(Nf)) 15 ml MT . DIRECTED [facility] Last Admin: 10/24/16 21:24 Dose: 15 ml Omeprazole (Prilosec Cap*) 40 mg PO DAILY@0600 [facility] Last Admin: 10/26/16 05:58 Dose: 40 mg Ondansetron HCl (Zofran Inj*) 4 mg IV Q6H PRN PRN Reason: NAUSEA Last Admin: 10/23/16 00:59 Dose: 4 mg Oxycodone/Acetaminophen (Percocet 5/325 Tab*) 2 tab PO Q4H PRN PRN Reason: PAIN Last Admin: 10/25/16 14:26 Dose: 2 tab Oxymetazoline HCl (Afrin 0.05% Nasal [place]*) 3 spray BOTH NARES BEDTIME PRN PRN Reason: NASAL CONGESTION Stop: 10/29/16 23:59 Last Admin: 10/24/16 21:25 Dose: 3 nasal.spr Pharmacy Profile Note (Lidocaine Patch Remove*) 1 note PATCH OFF DAILY@0800 [facility] Last Admin: 10/26/16 08:52 Dose: 1 note Polyethylene Glycol/Electrolytes (Miralax*) 17 gm PO 0800,2100 [facility] Last Admin: 10/26/16 08:49 Dose: Not Given Potassium Chloride (Klor Con Er Tab*) 20 meq PO BID WITH MEALS [facility] Last Admin: 10/26/16 08:55 Dose: 20 meq Prednisone (Deltasone Tab*) 40 mg PO DAILY [facility] Last Admin: 10/26/16 08:55 Dose: 40 mg Senna (Senokot Tab*) 1 tab PO BEDTIME PRN PRN Reason: CONSTIPATION Sodium Chloride (Sodium Chloride 0.65% Nasal Drops*) 1 drop BOTH NARES Q4H PRN PRN Reason: CONGESTION Last Admin: 10/24/16 20:05 Dose: 1 drop Topiramate (Topamax(*)) 50 mg PO BEDTIME [facility] Last Admin: 10/25/16 20:38 Dose: 50 mg Vital Signs 10/25/16 10/25/16 10/25/16 14:00 14:37 15:00 Temperature Pulse Rate 85 83 Respiratory 22 23 20 Rate Blood Pressure 102/73 102/55 (mmHg) O2 Sat by Pulse 95 92 Oximetry 10/25/16 10/25/16 10/25/16 15:54 16:00 16:42 Temperature 99.5 F Pulse Rate 77 82 Respiratory 18 Rate Blood Pressure 97/60 (mmHg) O2 Sat by Pulse 93 Oximetry 10/25/16 10/25/16 10/25/16 17:00 18:00 18:59 Temperature Pulse Rate 118 88 Respiratory 23 20 16 Rate Blood Pressure 105/63 95/56 (mmHg) O2 Sat by Pulse 95 96 Oximetry 10/25/16 10/25/16 10/25/16 19:00 19:43 20:00 Temperature 98.2 F Pulse Rate 71 78 Respiratory 16 30 Rate Blood Pressure 107/72 108/62 (mmHg) O2 Sat by Pulse 97 95 Oximetry 10/25/16 10/25/16 10/25/16 20:39 20:40 21:00 Temperature Pulse Rate 75 Respiratory 26 26 21 Rate Blood Pressure 112/58 (mmHg) O2 Sat by Pulse 95 Oximetry 10/25/16 10/25/16 10/25/16 22:00 22:07 23:00 Temperature Pulse Rate 73 73 68 Respiratory 17 17 17 Rate Blood Pressure 100/53 85/56 (mmHg) O2 Sat by Pulse 95 93 93 Oximetry 10/25/16 10/26/16 10/26/16 23:40 00:00 00:01 Temperature 97.0 F Pulse Rate 98 89 Respiratory 17 17 Rate Blood Pressure 95/51 (mmHg) O2 Sat by Pulse 92 93 Oximetry 10/26/16 10/26/16 10/26/16 01:00 02:00 03:00 Temperature Pulse Rate 88 68 67 Respiratory 18 25 17 Rate Blood Pressure 94/57 102/61 91/51 (mmHg) O2 Sat by Pulse 93 95 94 Oximetry 10/26/16 10/26/16 10/26/16 04:00 05:00 06:00 Temperature Pulse Rate 65 64 75 Respiratory 16 15 30 Rate Blood Pressure 96/51 91/48 125/75 (mmHg) O2 Sat by Pulse 94 94 98 Oximetry 10/26/16 10/26/16 10/26/16 07:00 08:00 09:00 Temperature 98.5 F Pulse Rate 66 70 69 Respiratory 18 18 16 Rate Blood Pressure 121/60 121/97 (mmHg) O2 Sat by Pulse 96 97 98 Oximetry 10/26/16 10/26/16 10/26/16 10:00 10:11 10:22 Temperature Pulse Rate 67 67 Respiratory 24 23 22 Rate Blood Pressure 124/69 (mmHg) O2 Sat by Pulse 99 98 Oximetry 10/26/16 10/26/16 10/26/16 10:23 11:00 12:00 Temperature 98.8 F Pulse Rate 68 Respiratory 22 28 Rate Blood Pressure 123/77 (mmHg) O2 Sat by Pulse 95 Oximetry Oxygen Devices in Use Now: None Appearance: 65 yo F in nAD, aAOx3 Eyes: No Scleral Icterus, PERRLA Ears/Nose/Mouth/Throat: NL Teeth, Lips, Gums, Mucous Membranes Moist Neck: NL Appearance and Movements; NL JVP, Trachea Midline Respiratory: Symmetrical Chest Expansion and Respiratory Effort, - - crackles at bases b/l Cardiovascular: NL Sounds; No Murmurs; No JVD, RRR Abdominal: NL Sounds; No Tenderness; No Distention Lymphatic: No Cervical Adenopathy Extremities: No Clubbing, Cyanosis, - - anasarca up to waist, improving Skin: No Nodules or Sclerosis, - - pale rash all over body and face-unchanged Neurological: Alert and Oriented x 3, NL Muscle Strength and Tone Result Diagrams: 10/26/16 06:20 10/26/16 06:20 Additional Lab and Data: . Microbiology and Other Data: Microbiology 10/18/16 03:45 Nasal Screen MRSA (PCR)([facility]) - Final Nasal Mrsa Negative Assess/Plan/Problems-Billing . Assessment: Mrs. Montes is a 65yo F with PMH of follicular lymphoma s/p RCHOP, migraines, who presented to ED due to abnormal labs revealing hypercalcemia, also found to have troponin elevation. - Patient Problems (1) Atrial fibrillation Comment: Due to hypotention, sotalol was stopped and digoxin started on 10/1916. Will start on a low maintenance dose on 10/27/16 (level of 1.6 today) CHADS2 vasc score is 2 (sex, age). Appreciate cardiology consult Metoprolol - stopped for hypotension. (2) Hypercalcemia Comment: Patient had labs done at [facility] 10/17/16 and was called with an elevated calcium 12.2. treated with IVF, Furosemide, and Zoledronic acid 10/16/16. Calcium back to normal. PTH is low consistent with non-PTH mediated hypercalcemia. With her h/o lymphoma , major concern is malignancy associated hypercalcemia. D/w Dr. Orr (3) Elevated troponin Comment: CTA chest was negative for PE and LE doppler negative for DVT. Echocardiogram showed signs of moderate pulmonary HTN, mild dilatation of RV, and RV systolic function moderately reduced and this is new when compared to prior echo from January 2016. - Pulm eval appreciated - concerned for GREG as source of pulmonary hypertension , but pt could not tolerate CPAP. - ?? small vessel occlusions -- pulmonary thrombotic vasculopathy? started AC 10/24/16 in AM (lovenox) (4) PIERRE (acute kidney injury) Comment: Suspect part of it secondary to NSAID use, worsened by dehydration caused by hypercalcemia. - Resolved in initally, now creat slightly increased- will monitor on tx with Albumin and Lasix (5) Polyarthritis Comment: Rheum w/u as outpatient was negative. CRP was 92, but RF, anti-CCP, HANY , ANCA were all negative. - Rheum consult appreciated - repeat w/u in process - With her nasal symptoms, concerned for Hunter's - but sinus CT negative. - Continue pain management. (6) Rash Comment: "thrombotic vasculopathy" d/w hematology; could this be a low grade DIC secondary to a malignancy? Drug reaction vs rheumatologic condition. Stopped gabapentin to streamline potentially involved meds, though there are not many at present. (7) Gastric wall thickening Comment: CT abdomen revealed gastric thickening suggestive of linitis plastica. - EGD 10/23 unremarkable, but with bx taken -- results pending (8) H/O lymphoma Comment: H/o follicular lymphoma, s/p chemo in fall 2015, now in remission - Bone marrow biopsy when stable and if not alternative explanation for current presentation. (9) Fluid overload Comment: appreciate Dr. Rader's suggestions, albumin infusions and Lasix started on 10/25/16-will cont fopr now Pt is in significant volume overload from tx with IVF for initial hypercalcemia (10) Migraine Comment: - Continue Topamax. (11) LFT elevation Comment: suspect due to vascular congestion. improved with diuresis (12) Fever Comment: on 10/24/16 blood cx negative, nontoxic appearing. leukocytosis present, but pt on steroids (13) DVT prophylaxis Comment: - Lovenox (14) Full code status Status and Disposition: . Inpatient.
[2016-10-26 14:09] LABS: LAC APTT 28 sec (26 - 36); LAC INR 1.2; Lac DRVVT Screen Ratio 0.9 ratio (0.0 - 1.1); Prothrombin Time(LAC) 13.6 sec
[2016-10-26] MEDS ORDERED: Furosemide IV* 10 MG/ML 2 ML VIAL (20 MG) IV SCH (16:00)
--- NOTE | 2016-10-26 18:56 | CONSULT ---
Consult Consult: Rheumatology Consult follow up Note Patient Name: MIKE MONTES Date of : 1950 Patient Status: Inpatient Attending Provider: Steve Hensley Date: 10/26/16 Initialization Date: 10/26/16 Chief Complaint: elevated CRP Subjective Date of Service: 10/26/16 Interval History: Overall Ms. Montes is feeling better and her edema is improved; she does have discomfort in her knees and spine and hips but it is mild. Edema has improved and she is on no Oxygen. Family History: Unchanged from Admission Social History: Unchanged from Admission Past Medical History: Unchanged from Admission Objective Active Medications: Acetaminophen (Tylenol Tab*) 650 mg PO Q4H PRN PRN Reason: FEVER/PAIN Last Admin: 10/24/16 08:32 Dose: 650 mg Alprazolam (Xanax Tab*) 0.5 mg PO TID PRN PRN Reason: ANXIETY Last Admin: 10/26/16 10:23 Dose: 0.5 mg Docusate Sodium (Colace Cap*) 100 mg PO BID [facility] Last Admin: 10/26/16 08:50 Dose: Not Given Enoxaparin Sodium (Lovenox(*)) 80 mg SUBCUT Q12H [facility] Last Admin: 10/26/16 11:42 Dose: 80 mg Furosemide (Lasix Iv*) 20 mg IV DAILY [facility] Albumin Human 100 ml/ IV (Solution) 100 mls @ 0 mls/hr IV .(ENTER) [facility] PRN Reason: As Directed Last Admin: 10/26/16 09:41 Dose: 50 mls/hr Albumin Human 50 ml/ IV (Solution) 50 mls @ 0 mls/hr IV Q12HR [facility] PRN Reason: As Directed Last Admin: 10/26/16 10:20 Dose: 50 mls/hr Lactobacillus Rhamnosus (Culturelle*) 1 cap PO DAILY [facility] Last Admin: 10/26/16 08:56 Dose: 1 cap Lidocaine (Lidoderm 5% Patch*) 1 patch TRANSDERM DAILY@1999 [facility] Last Admin: 10/25/16 20:03 Dose: 1 patch Magnesium Oxide (Magox 400 Tab*) 800 mg PO DAILY [facility] Last Admin: 10/26/16 08:55 Dose: 800 mg Morphine Sulfate (Morphine Inj (Syringe)*) 2 mg IV Q4H PRN PRN Reason: SEVERE PAIN Last Admin: 10/26/16 10:22 Dose: 2 mg Multi-Ingredient Mouthwash/Gargle (Biotene Dry Mouth Oral Rinse(Nf)) 15 ml MT . DIRECTED [facility] Last Admin: 10/24/16 21:24 Dose: 15 ml Omeprazole (Prilosec Cap*) 40 mg PO DAILY@0600 [facility] Last Admin: 10/26/16 05:58 Dose: 40 mg Ondansetron HCl (Zofran Inj*) 4 mg IV Q6H PRN PRN Reason: NAUSEA Last Admin: 10/23/16 00:59 Dose: 4 mg Oxycodone/Acetaminophen (Percocet 5/325 Tab*) 2 tab PO Q4H PRN PRN Reason: PAIN Last Admin: 10/25/16 14:26 Dose: 2 tab Oxymetazoline HCl (Afrin 0.05% Nasal [place]*) 3 spray BOTH NARES BEDTIME PRN PRN Reason: NASAL CONGESTION Stop: 10/29/16 23:59 Last Admin: 10/24/16 21:25 Dose: 3 nasal.[facility] Pharmacy Profile Note (Lidocaine Patch Remove*) 1 note PATCH OFF DAILY@0800 [facility] Last Admin: 10/26/16 08:52 Dose: 1 note Polyethylene Glycol/Electrolytes (Miralax*) 17 gm PO 0800,2100 [facility] Last Admin: 10/26/16 08:49 Dose: Not Given Potassium Chloride (Klor Con Er Tab*) 20 meq PO BID WITH MEALS [facility] Last Admin: 10/26/16 08:55 Dose: 20 meq Prednisone (Deltasone Tab*) 40 mg PO DAILY [facility] Last Admin: 10/26/16 08:55 Dose: 40 mg Senna (Senokot Tab*) 1 tab PO BEDTIME PRN PRN Reason: CONSTIPATION Sodium Chloride (Sodium Chloride 0.65% Nasal Drops*) 1 drop BOTH NARES Q4H PRN PRN Reason: CONGESTION Last Admin: 10/24/16 20:05 Dose: 1 drop Topiramate (Topamax(*)) 50 mg PO BEDTIME [facility] Last Admin: 10/25/16 20:38 Dose: 50 mg Vital Signs 10/25/16 10/25/16 10/25/16 14:00 14:37 15:00 Temperature Pulse Rate 85 83 Respiratory 22 23 20 Rate Blood Pressure 102/73 102/55 (mmHg) O2 Sat by Pulse 95 92 Oximetry 10/25/16 10/25/16 10/25/16 15:54 16:00 16:42 Temperature 99.5 F Pulse Rate 77 82 Respiratory 18 Rate Blood Pressure 97/60 (mmHg) O2 Sat by Pulse 93 Oximetry 10/25/16 10/25/16 10/25/16 17:00 18:00 18:59 Temperature Pulse Rate 118 88 Respiratory 23 20 16 Rate Blood Pressure 105/63 95/56 (mmHg) O2 Sat by Pulse 95 96 Oximetry 10/25/16 10/25/16 10/25/16 19:00 19:43 20:00 Temperature 98.2 F Pulse Rate 71 78 Respiratory 16 30 Rate Blood Pressure 107/72 108/62 (mmHg) O2 Sat by Pulse 97 95 Oximetry 10/25/16 10/25/16 10/25/16 20:39 20:40 21:00 Temperature Pulse Rate 75 Respiratory 26 26 21 Rate Blood Pressure 112/58 (mmHg) O2 Sat by Pulse 95 Oximetry 10/25/16 10/25/16 10/25/16 22:00 22:07 23:00 Temperature Pulse Rate 73 73 68 Respiratory 17 17 17 Rate Blood Pressure 100/53 85/56 (mmHg) O2 Sat by Pulse 95 93 93 Oximetry 10/25/16 10/26/16 10/26/16 23:40 00:00 00:01 Temperature 97.0 F Pulse Rate 98 89 Respiratory 17 17 Rate Blood Pressure 95/51 (mmHg) O2 Sat by Pulse 92 93 Oximetry 10/26/16 10/26/16 10/26/16 01:00 02:00 03:00 Temperature Pulse Rate 88 68 67 Respiratory 18 25 17 Rate Blood Pressure 94/57 102/61 91/51 (mmHg) O2 Sat by Pulse 93 95 94 Oximetry 10/26/16 10/26/16 10/26/16 04:00 05:00 06:00 Temperature Pulse Rate 65 64 75 Respiratory 16 15 30 Rate Blood Pressure 96/51 91/48 125/75 (mmHg) O2 Sat by Pulse 94 94 98 Oximetry 10/26/16 10/26/16 10/26/16 07:00 08:00 09:00 Temperature 98.5 F Pulse Rate 66 70 69 Respiratory 18 18 16 Rate Blood Pressure 121/60 121/97 (mmHg) O2 Sat by Pulse 96 97 98 Oximetry 10/26/16 10/26/16 10/26/16 10:00 10:11 10:22 Temperature Pulse Rate 67 67 Respiratory 24 23 22 Rate Blood Pressure 124/69 (mmHg) O2 Sat by Pulse 99 98 Oximetry 10/26/16 10/26/16 10/26/16 10:23 11:00 12:00 Temperature 98.8 F Pulse Rate 68 Respiratory 22 28 Rate Blood Pressure 123/77 (mmHg) O2 Sat by Pulse 95 Oximetry Oxygen Devices in Use Now: None Appearance: 65 yo F in nAD, aAOx3 Eyes: No Scleral Icterus, PERRLA Ears/Nose/Mouth/Throat: NL Teeth, Lips, Gums, Mucous Membranes Moist Neck: NL Appearance and Movements; NL JVP, Trachea Midline Respiratory: Symmetrical Chest Expansion and Respiratory Effort, - - crackles at bases b/l Cardiovascular: NL Sounds; No Murmurs; No JVD, RRR Abdominal: NL Sounds; No Tenderness; No Distention Lymphatic: No Cervical Adenopathy Extremities: No Clubbing, Cyanosis, - - anasarca up to waist, improving Skin: No Nodules or Sclerosis, - - pale rash all over body and face-unchanged Neurological: Alert and Oriented x 3, NL Muscle Strength and Tone Result Diagrams: 10/26/16 06:20 10/26/16 06:20 Additional Lab and Data: . Microbiology and Other Data: Microbiology 10/18/16 03:45 Nasal Screen MRSA (PCR)([facility]) - Final Nasal Mrsa Negative Assess/Plan/Problems-Billing . Assessment: Mrs. Montes is a 65yo F with PMH of follicular lymphoma s/p RCHOP, migraines, who was admitted with renal insufficiency, hypercalcemia, elevated CRP, elevated white count. Polyarthritis Comment: Her repeatRF, anti-CCP, HANY, ANCA were all negative. - She is on a trial of prednisone 40mg daily; she does have some PMR symptoms that are responsive to steroids, but this does not explain all of her findings; consider paraneoplastic process - She will need a gradual taper. (6) Rash Comment: Thrombotic vasculopathy: cardiolipin antibodies not significantly elevated; possible DIC? (7) Gastric wall thickening Comment: CT abdomen revealed gastric thickening and biopsy results pending (8) H/O lymphoma Comment: H/o follicular lymphoma, s/p chemo in fall 2015, now in remission - Bone marrow biopsy may be helpful once stable
[2016-10-26] MEDS ORDERED: Albumin Human 25%* 50 ML BTL IV ONE (20:33)
[2016-10-26] MEDS: Lidocaine PATCH 5%* 1 PATCH TRANSDERM SCH (20:36)
[2016-10-26] MEDS: Topiramate TAB(*) 25 MG PO SCH (20:36)
[2016-10-27] MEDS: oxyCODONE/Acetamin 5/325 MG* TAB PO PRN ×3 (01:59→22:21)
[2016-10-27 04:31] LABS: Hematocrit 24 % (35-47); Hemoglobin 7.7 g/dl (12.0-16.0); Mean Corpuscular HGB Conc 33 g/dl (31-36); Mean Corpuscular Hemoglobin 30 pg (27-31); Mean Corpuscular Volume 93 fL (80-97); Mean Platelet Volume 9 um3 (7.4-10.4); Red Blood Count 2.54 10^6/ul (4.0-5.4); Red Cell Distribution Width 16 % (10.5-15); White Blood Count 15.7 10^3/ul (3.5-10.8)
[2016-10-27 04:32] LABS: Add Diff/Slide Review? Slide Review Added
[2016-10-27 04:57] LABS: Albumin 3.2 g/dL (3.2-5.2); BUN/Creatinine Ratio 27.7 (8-20); Calcium 9.5 mg/dL (8.6-10.3); EGFR African American 52.7 (>60); Globulin 1.6 g/dL (2-4); Potassium 4.4 mmol/L (3.5-5.0); Total Bilirubin 0.4 mg/dL (0.2-1.0); Total Protein 4.8 g/dL (6.4-8.9)
[2016-10-27 05:13] LABS: Macrocytosis 1+; Microcytosis 2+
[2016-10-27 05:14] LABS: Add Path Review? YES; Polychromasia 1+; Schistocytes 1+; Spherocytes 1+; Target Cells 1+; Toxic Granulation 1+
[2016-10-27] MEDS: Omeprazole CAP* 20 MG PO SCH (06:46)
[2016-10-27] MEDS ORDERED: Albumin Human 5%* 500 ML in PREMIX* 0 ML IV ONE ×2 (08:02→09:00)
--- NOTE | 2016-10-27 08:15 | PN ---
Progress Note - Progress Note Note: Progress Note Critical Care 24 hour events/significant events: -no overnight events noted; no resp distress/cp/n/v -making urine, continued diuretics and albumin Vitals: Vital Signs Temp 99.7 F 10/27/16 07:33 Pulse 59 10/27/16 06:00 Resp 17 10/27/16 06:00 BP 113/65 10/27/16 06:00 Pulse Ox 95 10/27/16 06:00 Intake & Output 10/26/16 10/27/16 10/27/16 18:59 06:59 18:59 Intake Total 490 490 Output Total 0 550 Balance 490 -60 Weight 170 lb 10.205 oz Intake: IV Fluids 30 50 NS (0.9%) 30 albumin 50 IVPB 100 albumin 100 Oral 360 440 Output: Urine 0 550 O2/Vent: RA Infusions: none Medications: Current Medications Acetaminophen (Tylenol Tab*) 650 mg PO Q4H PRN PRN Reason: FEVER/PAIN Last Admin: 10/24/16 08:32 Dose: 650 mg Alprazolam (Xanax Tab*) 0.5 mg PO TID PRN PRN Reason: ANXIETY Last Admin: 10/26/16 20:40 Dose: 0.5 mg Docusate Sodium (Colace Cap*) 100 mg PO BID [facility] Last Admin: 10/26/16 20:44 Dose: Not Given Enoxaparin Sodium (Lovenox(*)) 80 mg SUBCUT Q12H [facility] Last Admin: 10/26/16 23:00 Dose: 80 mg Furosemide (Lasix Iv*) 20 mg IV DAILY [facility] Last Admin: 10/26/16 16:20 Dose: 20 mg Albumin Human 50 ml/ IV (Solution) 50 mls @ 0 mls/hr IV Q12HR [facility] PRN Reason: As Directed Last Admin: 10/26/16 20:42 Dose: 50 mls/hr Albumin Human 500 ml/ IV (Solution) 500 mls @ 0 mls/hr IV ONCE ONE PRN Reason: As Directed Stop: 10/27/16 08:03 Lactobacillus Rhamnosus (Culturelle*) 1 cap PO DAILY [facility] Last Admin: 10/26/16 08:56 Dose: 1 cap Lidocaine (Lidoderm 5% Patch*) 1 patch TRANSDERM DAILY@1999 [facility] Last Admin: 10/26/16 20:36 Dose: 1 patch Magnesium Oxide (Magox 400 Tab*) 800 mg PO DAILY [facility] Last Admin: 10/26/16 08:55 Dose: 800 mg Morphine Sulfate (Morphine Inj (Syringe)*) 2 mg IV Q4H PRN PRN Reason: SEVERE PAIN Last Admin: 10/26/16 20:36 Dose: 2 mg Multi-Ingredient Mouthwash/Gargle (Biotene Dry Mouth Oral Rinse(Nf)) 15 ml MT . DIRECTED [facility] Last Admin: 10/24/16 21:24 Dose: 15 ml Omeprazole (Prilosec Cap*) 40 mg PO DAILY@0600 [facility] Last Admin: 10/27/16 06:46 Dose: 40 mg Ondansetron HCl (Zofran Inj*) 4 mg IV Q6H PRN PRN Reason: NAUSEA Last Admin: 10/23/16 00:59 Dose: 4 mg Oxycodone/Acetaminophen (Percocet 5/325 Tab*) 2 tab PO Q4H PRN PRN Reason: PAIN Last Admin: 10/27/16 01:59 Dose: 2 tab Oxymetazoline HCl (Afrin 0.05% Nasal [place]*) 3 spray BOTH NARES BEDTIME PRN PRN Reason: NASAL CONGESTION Stop: 10/29/16 23:59 Last Admin: 10/24/16 21:25 Dose: 3 nasal.[facility] Profile Note (Lidocaine Patch Remove*) 1 note PATCH OFF DAILY@0800 [facility] Last Admin: 10/26/16 08:52 Dose: 1 note Polyethylene Glycol/Electrolytes (Miralax*) 17 gm PO 0800,2100 [facility] Last Admin: 10/26/16 20:44 Dose: Not Given Potassium Chloride (Klor Con Er Tab*) 20 meq PO BID WITH MEALS [facility] Last Admin: 10/26/16 17:43 Dose: 20 meq Prednisone (Deltasone Tab*) 40 mg PO DAILY [facility] Last Admin: 10/26/16 08:55 Dose: 40 mg Senna (Senokot Tab*) 1 tab PO BEDTIME PRN PRN Reason: CONSTIPATION Sodium Chloride (Sodium Chloride 0.65% Nasal Drops*) 1 drop BOTH NARES Q4H PRN PRN Reason: CONGESTION Last Admin: 10/24/16 20:05 Dose: 1 drop Topiramate (Topamax(*)) 50 mg PO BEDTIME [facility] Last Admin: 10/26/16 20:36 Dose: 50 mg Physical Exam: General: awake, alert, no distress, no diaphoresis Head: normocephalic, atraumatic HEENT: no pallor, no icterus, moist mucous membranes Neck: no stridor, no jvd CVS: normal rate, normal rhythm, no murmur Resp: bilateral air entry, no rhales, no wheeze, no rhonchi, no acc muscle use Abdomen: soft, nontender, nondistended, bowel sounds present Ext: pulses+, warm, +edema in LE and upper ext mild Skin: intact, no breakdown; less areas of rash/erythema barely noticable now. Neuro: awake, alert, orientedx3, moving all extremities, no gross focal deficit Labs: Laboratory Results - last 24 hr 10/22/16 10/23/16 10/23/16 16:30 11:03 11:03 WBC 13.8 H RBC Hgb Hct MCV MCH MCHC RDW Plt Count MPV Neut % (Auto) Lymph % (Auto) Mcdonough % (Auto) Eos % (Auto) Baso % (Auto) Absolute Neuts (auto) Absolute Lymphs (auto) Absolute Monos (auto) Absolute Eos (auto) Absolute Basos (auto) Absolute Nucleated RBC Nucleated RBC % Toxic Granulation Normal RBC Morphology Polychromasia Microcytosis Macrocytosis Spherocytes Target Cells Schistocytes Hem Pathologist Commnt PT 13.6 H INR 1.2 Cryofibrinogen Negative Lupus Anticoag aPTT 28 dRVVT Screen Ratio 0.9 Lupus Anticoag Interp See comment Protein C Activity Protein S Activity Sodium Potassium Chloride Carbon Dioxide Anion Gap BUN Creatinine Est GFR ( Amer) Est GFR (Non-Af Amer) BUN/Creatinine Ratio Glucose Calcium Total Bilirubin AST ALT Alkaline Phosphatase Total Protein Albumin Globulin Albumin/Globulin Ratio Cryoglobulin Negative 10/23/16 10/24/16 10/25/16 11:03 04:38 05:16 WBC RBC Hgb Hct MCV MCH MCHC RDW Plt Count MPV Neut % (Auto) Lymph % (Auto) Mcdonough % (Auto) Eos % (Auto) Baso % (Auto) Absolute Neuts (auto) Absolute Lymphs (auto) Absolute Monos (auto) Absolute Eos (auto) Absolute Basos (auto) Absolute Nucleated RBC Nucleated RBC % Toxic Granulation Normal RBC Morphology Polychromasia Microcytosis Macrocytosis Spherocytes Target Cells Schistocytes Hem Pathologist Commnt PT INR Cryofibrinogen Lupus Anticoag aPTT dRVVT Screen Ratio Lupus Anticoag Interp Protein C Activity 51 L Protein S Activity 92 Sodium Potassium Chloride Carbon Dioxide Anion Gap BUN Creatinine Est GFR ( Amer) Est GFR (Non-Af Amer) BUN/Creatinine Ratio Glucose Calcium Total Bilirubin AST ALT Alkaline Phosphatase Total Protein Albumin Globulin Albumin/Globulin Ratio Cryoglobulin 10/26/16 10/27/16 10/27/16 06:20 04:10 04:10 WBC 15.7 H RBC 2.54 L Hgb 7.7 L Hct 24 L MCV 93 MCH 30 MCHC 33 RDW 16 H Plt Count 294 MPV 9 Neut % (Auto) 83.5 H Lymph % (Auto) 7.1 L Mcdonough % (Auto) 9.2 H Eos % (Auto) 0 Baso % (Auto) 0.2 Absolute Neuts (auto) 13.1 H Absolute Lymphs (auto) 1.1 Absolute Monos (auto) 1.5 H Absolute Eos (auto) 0 Absolute Basos (auto) 0 Absolute Nucleated RBC 0.05 Nucleated RBC % 0.3 Toxic Granulation 1+ Normal RBC Morphology Not Reportable Polychromasia 1+ Microcytosis 2+ Macrocytosis 1+ Spherocytes 1+ Target Cells 1+ Schistocytes 1+ Hem Pathologist Commnt PT INR Cryofibrinogen Lupus Anticoag aPTT dRVVT Screen Ratio Lupus Anticoag Interp Protein C Activity Protein S Activity Sodium 133 Potassium 4.4 Chloride 104 Carbon Dioxide 19 L Anion Gap 10 BUN 36 H Creatinine 1.30 H Est GFR ( Amer) 52.7 Est GFR (Non-Af Amer) 41.0 BUN/Creatinine Ratio 27.7 H Glucose 106 H Calcium 9.5 Total Bilirubin 0.40 AST 110 H ALT 156 H Alkaline Phosphatase 163 H Total Protein 4.8 L Albumin 3.2 Globulin 1.6 L Albumin/Globulin Ratio 2.0 Cryoglobulin Imaging: -ECHO 10/2016 findings are consistent with low volume/IVC collapsed and mild RV dil, appears to be intact RV function, with mild-mod pulm htn. Preserved LV function. -CT chest/abd/pelvis 10/18/16 no PE; small to mod effusions bilaterally with mild comp atelectasis; gastric antrum mildly thickened -LE duplex 10/18 neg for DVT Assessment: 65y F pmhx Follicular Lymphoma s/p [facility] (last 05/2016); admitted for arthralgia/fevers/rash since July. This was a recurrence of symptoms since stopping prednisone 2 weeks back. Worsening arthralgias of joints, muscle aches and edema has been developing. Treated for hypercalcemia, now with PIERRE, Transaminitis, intermittent hypotension, new onset Afib. -new onset Atrial Fibrillation -small-mod Pleural effusions -Pulmonary Hypertension -hypotension, hypovolemic, improved -Intravascular volume depletion, with gross body overload -hypoalbuminemia -PIERRE, improved, multifactorial nsaid/hypercal/dehydration -Liver Injury, congestive/ischemic -Anemia -Generalized Anasarca -Polyarthralgia/polyarthritis -Generalized rash, improved -Thrombotic vasculopathy -Hypercalcemia -h/o Follicular Lymphoma Plan: Neuro- stable CVS- no hypotension, making urine. on albumin 25% q12h, lasix 20mg iv qdaily only. Positive i/o balance noted. Has been in NSR all night, no further Afib noted, seems paroxysmal, dig/lopressor was not started. Would prob start low dose BB anyway just to keep her controlled. K normal, follow and replete as needed daily. keep k>4, mg>2. Resp-on RA, no distress ID- afebrile, wbc 15. no signs of sepsis otherwise. may be response to steroids. cont to monitor. GI- LFTs improving. likely was ischemic injury. PPI po. Renal- gross overload. PIERRE not much changed. Will give 500cc albumin now, more fluid to improve perfusion. Maybe we should hold lasix today and allow renal function to recover completely. K normal, mild nongap acidosis with bicarb 19. Cr 1.30. Heme- s/p chemo 05/2016. hg to 7.7, no bleeding noted. Hg has been in 8 range since admission, repeat tomorrow and transfuse if <7 or more symptomatic. on therapeutic lovenox for thrombotic vasculopathy, and now also for pAFib. Prednisone 40mg po daily for undetermined connective tissue process/vasculitis phenomenon. Will send off FOBT just incase. Endo-stable Musculsk-rash seems better on prednisone 40mg daily. Wounds-none Nutrition-reg diet DVT prophylaxis: lovenox sq bid GI prophylaxis:PPI Central Line:no Arterial Line:no [place] Cathetor:no Disposition: ICU for intermittent hypotension; improving; will follow as needed. Code Status: full code Abdias Rader MD [place] (Electronically Signed)
--- NOTE | 2016-10-27 09:05 | PN ---
Subjective Date of Service: 10/27/16 Interval History: Patient seen this morning. Says she continues to have MURRY and pains in her joints, rash is improving. Has been urinating quite a bit, feels like edema is moving in the right direction. Frustrated she does not know exactly what is causing all of her symptoms. No AFib overnight. Family History: Unchanged from Admission Social History: Unchanged from Admission Past Medical History: Unchanged from Admission Objective Active Medications: Acetaminophen (Tylenol Tab*) 650 mg PO Q4H PRN Alprazolam (Xanax Tab*) 0.5 mg PO TID PRN Docusate Sodium (Colace Cap*) 100 mg PO BID [facility] Enoxaparin Sodium (Lovenox(*)) 80 mg SUBCUT Q12H [facility] Albumin Human 50 ml/ IV (Solution) 50 mls @ 0 mls/hr IV Q12HR [facility] Lactobacillus Rhamnosus (Culturelle*) 1 cap PO DAILY [facility] Lidocaine (Lidoderm 5% Patch*) 1 patch TRANSDERM DAILY@2000 [facility] Magnesium Oxide (Magox 400 Tab*) 800 mg PO DAILY [facility] Morphine Sulfate (Morphine Inj (Syringe)*) 2 mg IV Q4H PRN Multi-Ingredient Mouthwash/Gargle (Biotene Dry Mouth Oral Rinse(Nf)) 15 ml MT . DIRECTED [facility] Omeprazole (Prilosec Cap*) 40 mg PO DAILY@0600 [facility] Ondansetron HCl (Zofran Inj*) 4 mg IV Q6H PRN Oxycodone/Acetaminophen (Percocet 5/325 Tab*) 2 tab PO Q4H PRN Oxymetazoline HCl (Afrin 0.05% Nasal [place]*) 3 spray BOTH NARES BEDTIME PRN Pharmacy Profile Note (Lidocaine Patch Remove*) 1 note PATCH OFF DAILY@0800 [facility] Polyethylene Glycol/Electrolytes (Miralax*) 17 gm PO 0800,2100 [facility] Potassium Chloride (Klor Con Er Tab*) 20 meq PO BID WITH MEALS [facility] Prednisone (Deltasone Tab*) 40 mg PO DAILY [facility] Senna (Senokot Tab*) 1 tab PO BEDTIME PRN Sodium Chloride (Sodium Chloride 0.65% Nasal Drops*) 1 drop BOTH NARES Q4H PRN Topiramate (Topamax(*)) 50 mg PO BEDTIME [facility] Vital Signs 10/26/16 10/26/16 10/26/16 10:00 10:11 10:22 Temperature Pulse Rate 67 67 Respiratory 22 23 22 Rate Blood Pressure 124/69 (mmHg) O2 Sat by Pulse 99 98 Oximetry 10/26/16 10/26/16 10/26/16 10:23 11:00 12:00 Temperature 98.8 F Pulse Rate 68 68 Respiratory 22 30 21 Rate Blood Pressure 123/77 124/84 (mmHg) O2 Sat by Pulse 95 97 Oximetry 10/27/16 10/27/16 10/27/16 05:00 06:00 07:33 Temperature 99.7 F Pulse Rate 55 59 Respiratory 18 17 Rate Blood Pressure 104/53 113/65 (mmHg) O2 Sat by Pulse 93 95 Oximetry Oxygen Devices in Use Now: None Appearance: Middle-aged, F, laying in bed in NAD Eyes: No Scleral Icterus Ears/Nose/Mouth/Throat: - - Dry MM Neck: NL Appearance and Movements; NL JVP Respiratory: Symmetrical Chest Expansion and Respiratory Effort, - - Diminished/ absent BS in bases, otherwise clear Cardiovascular: NL Sounds; No Murmurs; No JVD, RRR Abdominal: NL Sounds; No Tenderness; No Distention Lymphatic: No Cervical Adenopathy Extremities: - - Anasarca to waist Skin: - - Faint MP rash over face, torso and arms Neurological: Alert and Oriented x 3 Result Diagrams: 10/27/16 04:10 10/27/16 04:10 Additional Lab and Data: . Assess/Plan/Problems-Billing . Assessment: Mrs. Montes is a 65yo F with PMH of follicular lymphoma s/p RCHOP, migraines, who presented to ED due to abnormal labs revealing hypercalcemia, also found to have troponin elevation. - Patient Problems (1) Atrial fibrillation Current Visit: Yes Comment: Due to hypotention, sotalol was stopped and digoxin started on 10/25/16. Start maintenance dose of 125 mcg daily starting CHADS2 vasc score is 2 (sex, age). Appreciate cardiology consult Metoprolol - stopped for hypotension. (2) Hypercalcemia Current Visit: Yes Comment: Patient had labs done at [place] 10/17/16 and was called with an elevated calcium 12.2. treated with IVF, Furosemide, and Zoledronic acid 10/16/16. Calcium back to normal. PTH is low consistent with non-PTH mediated hypercalcemia. With her h/o lymphoma , major concern is malignancy associated hypercalcemia. Oncology following. (3) Elevated troponin Current Visit: Yes Comment: CTA chest was negative for PE and LE doppler negative for DVT. Echocardiogram showed signs of moderate pulmonary HTN, mild dilatation of RV, and RV systolic function moderately reduced and this is new when compared to prior echo from January 2016. - Pulm eval appreciated - concerned for GREG as source of pulmonary hypertension , but pt could not tolerate CPAP. - ?? small vessel occlusions -- pulmonary thrombotic vasculopathy? started AC 10/24/16 in AM (lovenox) (4) PIERRE (acute kidney injury) Current Visit: Yes Comment: Suspect part of it secondary to NSAID use, worsened by dehydration caused by hypercalcemia. - Resolved initally, now creat slightly elevated but stable, will hold IV Lasix today, continue albumin alone (5) Polyarthritis Current Visit: Yes Comment: Rheum w/u as outpatient was negative. CRP was 92, but RF, anti-CCP, HANY, ANCA were all negative. - Rheum consult appreciated - repeat w/u unremarkable for clear process - With her nasal symptoms, concerned for Hunter's - but sinus CT negative. - Continue pain management. (6) Rash Current Visit: Yes Comment: "thrombotic vasculopathy" d/w hematology; could this be a low grade DIC secondary to a malignancy? Drug reaction vs rheumatologic condition. Stopped gabapentin to streamline potentially involved meds, though there are not many at present. 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 - EGD 10/23 unremarkable, but with bx taken that only show some areas of inflammation, no evidence of malignancy (8) H/O lymphoma Current Visit: Yes Comment: H/o follicular lymphoma, s/p chemo in fall 2015, now in remission - Bone marrow biopsy when stable and if not alternative explanation for current presentation. (9) Fluid overload Current Visit: Yes Comment: appreciate Dr. Rader's suggestions, albumin infusions and Lasix started on 10/25/16-will hold Lasix for today Pt is in significant volume overload from tx with IVF for initial hypercalcemia (10) LFT elevation Current Visit: Yes Comment: suspect due to vascular congestion or ischemia. improved with diuresis (11) Migraine Current Visit: Yes Comment: - Continue Topamax. (12) Fever Current Visit: Yes Comment: on 10/24/16, no recurrence blood cx negative, nontoxic appearing. leukocytosis present, but pt on steroids (13) DVT prophylaxis Current Visit: Yes Comment: Lovenox (14) Full code status Current Visit: Yes Status and Disposition: . Inpatient.
[2016-10-27] MEDS: Polyethylene Glycol 3350* 17 GM PACKET PO SCH (09:06)
[2016-10-27] MEDS: Lidocaine Patch REMOVE* 1 NOTE MISC PATCH OFF SCH (09:06)
[2016-10-27] MEDS: Docusate CAP* 100 MG PO SCH ×2 (09:06→23:37)
[2016-10-27] MEDS: Magnesium Oxide TAB* 400 MG PO SCH (09:15)
[2016-10-27] MEDS: Potassium Chlor TAB* 20 MEQ TAB.ER PO SCH ×2 (09:15→17:35)
[2016-10-27] MEDS: predniSONE TAB* 20 MG PO SCH (09:15)
[2016-10-27] MEDS: Lactobacillus Acidophilu (GG)* 1 CAP CAP PO SCH (09:17)
[2016-10-27] MEDS: Enoxaparin(*) 80 MG/0.8 ML SYR SUBCUT SCH ×2 (11:08→22:25)
[2016-10-27] MEDS: Digoxin TAB* 0.125 MG PO SCH (17:34)
[2016-10-27] MEDS: Morphine INJ* 2 MG/ML 1 ML SYRINGE IV PRN (19:14)
[2016-10-27 19:33] LABS: Vitamin B2 Level 22 mcg/L (1-19)
[2016-10-27] MEDS ORDERED: Albumin Human 25%* 50 ML in PREMIX* 0 ML IV SCH (21:00)
[2016-10-27] MEDS: ALPRAZolam TAB* 0.5 MG PO PRN (22:17)
[2016-10-27] MEDS: Topiramate TAB(*) 25 MG PO SCH (22:24)
[2016-10-27] MEDS: Lidocaine PATCH 5%* 1 PATCH TRANSDERM SCH (22:28)
[2016-10-28] MEDS: Albumin Human 25%* 50 ML in PREMIX* 0 ML IV SCH ×2 (00:59→12:25)
[2016-10-28] MEDS: Morphine INJ* 2 MG/ML 1 ML SYRINGE IV PRN (01:15)
[2016-10-28] MEDS: Polyethylene Glycol 3350* 17 GM PACKET PO SCH ×3 (04:01→20:45)
[2016-10-28] MEDS: Omeprazole CAP* 20 MG PO SCH (05:43)
[2016-10-28 07:08] LABS: Hematocrit 24 % (35-47); Hemoglobin 7.8 g/dl (12.0-16.0); Mean Corpuscular HGB Conc 32 g/dl (31-36); Mean Corpuscular Hemoglobin 30 pg (27-31); Mean Corpuscular Volume 94 fL (80-97); Mean Platelet Volume 9 um3 (7.4-10.4); Red Blood Count 2.56 10^6/ul (4.0-5.4); Red Cell Distribution Width 16 % (10.5-15); White Blood Count 19.1 10^3/ul (3.5-10.8)
[2016-10-28 07:09] LABS: Comments Flag Yes
[2016-10-28 07:10] LABS: Add Diff/Slide Review? Slide Review Added
[2016-10-28] MEDS: predniSONE TAB* 20 MG PO SCH (07:20)
[2016-10-28] MEDS: Docusate CAP* 100 MG PO SCH ×2 (07:20→20:44)
[2016-10-28] MEDS: Potassium Chlor TAB* 20 MEQ TAB.ER PO SCH ×2 (07:21→16:07)
[2016-10-28] MEDS: Magnesium Oxide TAB* 400 MG PO SCH (07:22)
[2016-10-28] MEDS: Lactobacillus Acidophilu (GG)* 1 CAP CAP PO SCH (07:22)
[2016-10-28] MEDS: Lidocaine Patch REMOVE* 1 NOTE MISC PATCH OFF SCH (07:24)
[2016-10-28 07:28] LABS: Albumin 3.5 g/dL (3.2-5.2); BUN/Creatinine Ratio 26.9 (8-20); Calcium 9.7 mg/dL (8.6-10.3); EGFR African American 52.7 (>60); Globulin 1.6 g/dL (2-4); Potassium 4.3 mmol/L (3.5-5.0); Total Bilirubin 0.5 mg/dL (0.2-1.0); Total Protein 5.1 g/dL (6.4-8.9)
[2016-10-28] MEDS ORDERED: Furosemide IV* 10 MG/ML 10 ML VIAL (100 MG) IV ONE (09:52)
[2016-10-28] MEDS: ALPRAZolam TAB* 0.5 MG PO PRN ×2 (10:33→21:15)
[2016-10-28] MEDS: Enoxaparin(*) 80 MG/0.8 ML SYR SUBCUT SCH ×2 (10:34→23:58)
[2016-10-28] MEDS ORDERED: LORazepam TAB(*) 0.5 MG PO SCH (11:00)
[2016-10-28] MEDS: oxyCODONE/Acetamin 5/325 MG* TAB PO PRN ×2 (12:23→20:56)
--- NOTE | 2016-10-28 13:46 | PN ---
Subjective Date of Service: 10/28/16 Interval History: Patient had recurrent episode of AFib overnight. States she did not sleep well overnight, partly due to roomate, partly because she felt short of breath at times. Still has significant pain/discomfort from edema and joint pains. Underwent BMBx by Dr. Orr this morning. Family History: Unchanged from Admission Social History: Unchanged from Admission Past Medical History: Unchanged from Admission Objective Active Medications: Acetaminophen (Tylenol Tab*) 650 mg PO Q4H PRN Alprazolam (Xanax Tab*) 0.5 mg PO TID PRN Digoxin (Lanoxin Tab*) 0.125 mg PO 1700 [facility] Docusate Sodium (Colace Cap*) 100 mg PO BID [facility] Enoxaparin Sodium (Lovenox(*)) 80 mg SUBCUT Q12H [facility] Albumin Human 50 ml/ IV (Solution) 50 mls @ 0 mls/hr IV Q12H [facility] Lactobacillus Rhamnosus (Culturelle*) 1 cap PO DAILY [facility] Lidocaine (Lidoderm 5% Patch*) 1 patch TRANSDERM DAILY@2000 [facility] Lorazepam (Ativan Tab(*)) 0.5 mg PO ONCE [facility] Magnesium Oxide (Magox 400 Tab*) 800 mg PO DAILY [facility] Morphine Sulfate (Morphine Inj (Syringe)*) 2 mg IV Q4H PRN Multi-Ingredient Mouthwash/Gargle (Biotene Dry Mouth Oral Rinse(Nf)) 15 ml MT . DIRECTED [facility] Omeprazole (Prilosec Cap*) 40 mg PO DAILY@0600 [facility] Ondansetron HCl (Zofran Inj*) 4 mg IV Q6H PRN Oxycodone/Acetaminophen (Percocet 5/325 Tab*) 2 tab PO Q4H PRN Oxymetazoline HCl (Afrin 0.05% Nasal [place]*) 3 spray BOTH NARES BEDTIME PRN Pharmacy Profile Note (Lidocaine Patch Remove*) 1 note PATCH OFF DAILY@0800 [facility] Polyethylene Glycol/Electrolytes (Miralax*) 17 gm PO 0800,2100 [facility] Potassium Chloride (Klor Con Er Tab*) 20 meq PO BID WITH MEALS [facility] Prednisone (Deltasone Tab*) 40 mg PO DAILY [facility] Senna (Senokot Tab*) 1 tab PO BEDTIME PRN Sodium Chloride (Sodium Chloride 0.65% Nasal Drops*) 1 drop BOTH NARES Q4H PRN Topiramate (Topamax(*)) 50 mg PO BEDTIME [facility] Vital Signs 10/27/16 10/27/16 10/27/16 14:00 15:00 16:00 Temperature Pulse Rate 64 61 60 Respiratory 19 14 14 Rate Blood Pressure 123/80 (mmHg) O2 Sat by Pulse 97 95 96 Oximetry 10/28/16 10/28/16 10/28/16 11:18 12:23 12:33 Temperature 97.7 F Pulse Rate 92 Respiratory 22 18 18 Rate Blood Pressure 122/77 (mmHg) O2 Sat by Pulse 96 Oximetry Oxygen Devices in Use Now: None Appearance: Middle-aged, F, laying in bed in NAD Eyes: No Scleral Icterus Ears/Nose/Mouth/Throat: Mucous Membranes Moist Neck: NL Appearance and Movements; NL JVP Respiratory: Symmetrical Chest Expansion and Respiratory Effort, - - Diminshed BS in bases, no rales appreciated Cardiovascular: NL Sounds; No Murmurs; No JVD, - - IRIR Abdominal: NL Sounds; No Tenderness; No Distention Lymphatic: No Cervical Adenopathy Extremities: - - Anasarca to low back Skin: - - Cannot appreciate much residual rash Neurological: Alert and Oriented x 3 Result Diagrams: 10/28/16 05:22 10/28/16 05:22 Additional Lab and Data: . Microbiology and Other Data: Assess/Plan/Problems-Billing . Assessment: Mrs. Montes is a 65yo F with PMH of follicular lymphoma s/p RCHOP, migraines, who presented to ED due to abnormal labs revealing hypercalcemia, also found to have troponin elevation. - Patient Problems (1) Atrial fibrillation Current Visit: Yes Comment: Flipped from NSR back to AFib late 10/27 Due to hypotention, sotalol and metoprolol were stopped and digoxin started on . Started maintenance dose of 125 mcg daily on 10/27, will check level in AM CHADS2 vasc score is 2 (sex, age). Appreciate cardiology consult (2) Hypercalcemia Current Visit: Yes Comment: Patient had labs done at [facility] 10/17/16 and was called with an elevated calcium 12.2. treated with IVF, Furosemide, and Zoledronic acid 10/16/16. Calcium back to normal. PTH is low consistent with non-PTH mediated hypercalcemia. With her h/o lymphoma , major concern is malignancy associated hypercalcemia. Oncology following. BMBx done 10/[address] Orr, results pending (3) Elevated troponin Current Visit: Yes Comment: CTA chest was negative for PE and LE doppler negative for DVT. Echocardiogram showed signs of moderate pulmonary HTN, mild dilatation of RV, and RV systolic function moderately reduced and this is new when compared to prior echo from January 2016. - Pulm eval appreciated - concerned for GREG as source of pulmonary hypertension , but pt could not tolerate CPAP. - ?? small vessel occlusions -- pulmonary thrombotic vasculopathy? started AC 10/24/16 in AM (lovenox) (4) PIERRE (acute kidney injury) Current Visit: Yes Comment: Suspect part of it secondary to NSAID use, worsened by dehydration caused by hypercalcemia. - Resolved initally, now creat slightly elevated but stable, will resume IV Lasix. Stop Albumin after today. (5) Polyarthritis Current Visit: Yes Comment: Rheum w/u as outpatient was negative. CRP was 92, but RF, anti-CCP, HANY, ANCA were all negative. - Rheum consult appreciated - repeat w/u unremarkable for clear process - Continue Prednisone 40 mg daily - With her nasal symptoms, concerned for Hunter's - but sinus CT negative. - Continue pain management. (6) Rash Current Visit: Yes Comment: "thrombotic vasculopathy" d/w hematology; could this be a low grade DIC secondary to a malignancy? Drug reaction vs rheumatologic condition. Stopped gabapentin to streamline potentially involved meds, though there are not many at present. 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 - EGD 10/23 unremarkable, but with bx taken that only show some areas of inflammation, no evidence of malignancy (8) H/O lymphoma Current Visit: Yes Comment: H/o follicular lymphoma, s/p chemo in fall 2015, now in remission - Bone marrow biopsy when stable and if not alternative explanation for current presentation. (9) Fluid overload Current Visit: Yes Comment: appreciate Dr. Rader's suggestions, albumin infusions and Lasix started on 10/25/16-will resume Lasix today Pt is in significant volume overload from tx with IVF for initial hypercalcemia (10) LFT elevation Current Visit: Yes Comment: suspect due to vascular congestion or ischemia. improved with diuresis (11) Migraine Current Visit: Yes Comment: - Continue Topamax. (12) Fever Current Visit: Yes Comment: on 10/24/16, no recurrence blood cx negative, nontoxic appearing. leukocytosis present, but pt on steroids (13) DVT prophylaxis Current Visit: Yes Comment: Lovenox (14) Full code status Current Visit: Yes Status and Disposition: . Inpatient.
[2016-10-28] MEDS: Digoxin TAB* 0.125 MG PO SCH (16:08)
--- NOTE | 2016-10-28 20:43 | CONSULT ---
Consult Consult: Hospital follow up Note Patient: MIKE MONTES /Age: 05 1950 65 Medical Record#: [id number] Admission Date: 10/17/16 Provider: Steve Hensley MD Chief Complaint: myalgias and elevated CRP Subjective Date of Service: 10/28/16 Interval History: Patient had a bone marrow biopsy this afternoon and tolerated it well. She still has some migratory joint pain and swelling in her truncal region and lower extremity; Lidoderm has helped the pain. States she did not sleep well overnight, partly due to roomate activitivites and she still has significant pain/discomfort from edema and joint pains. Underwent BMBx by Dr. Orr this morning. Family History: Unchanged from Admission Social History: Unchanged from Admission Past Medical History: Unchanged from Admission Objective Active Medications: Acetaminophen (Tylenol Tab*) 650 mg PO Q4H PRN Alprazolam (Xanax Tab*) 0.5 mg PO TID PRN Digoxin (Lanoxin Tab*) 0.125 mg PO 1700 [facility] Docusate Sodium (Colace Cap*) 100 mg PO BID MARIN Enoxaparin Sodium (Lovenox(*)) 80 mg SUBCUT Q12H MARIN Albumin Human 50 ml/ IV (Solution) 50 mls @ 0 mls/hr IV Q12H [facility] Lactobacillus Rhamnosus (Culturelle*) 1 cap PO DAILY MARIN Lidocaine (Lidoderm 5% Patch*) 1 patch TRANSDERM DAILY@2000 [facility] Lorazepam (Ativan Tab(*)) 0.5 mg PO ONCE MARIN Magnesium Oxide (Magox 400 Tab*) 800 mg PO DAILY MARIN Morphine Sulfate (Morphine Inj (Syringe)*) 2 mg IV Q4H PRN Multi-Ingredient Mouthwash/Gargle (Biotene Dry Mouth Oral Rinse(Nf)) 15 ml MT . DIRECTED MARIN Omeprazole (Prilosec Cap*) 40 mg PO DAILY@0600 [facility] Ondansetron HCl (Zofran Inj*) 4 mg IV Q6H PRN Oxycodone/Acetaminophen (Percocet 5/325 Tab*) 2 tab PO Q4H PRN Oxymetazoline HCl (Afrin 0.05% Nasal [place]*) 3 spray BOTH NARES BEDTIME PRN Pharmacy Profile Note (Lidocaine Patch Remove*) 1 note PATCH OFF DAILY@0800 [facility] Polyethylene Glycol/Electrolytes (Miralax*) 17 gm PO 0800,2100 [facility] Potassium Chloride (Klor Con Er Tab*) 20 meq PO BID WITH MEALS MARIN Prednisone (Deltasone Tab*) 40 mg PO DAILY MARIN Senna (Senokot Tab*) 1 tab PO BEDTIME PRN Sodium Chloride (Sodium Chloride 0.65% Nasal Drops*) 1 drop BOTH NARES Q4H PRN Topiramate (Topamax(*)) 50 mg PO BEDTIME [facility] MIKE MONTES [id number] 10/17/16 Vital Signs 10/27/16 10/27/16 14:00 15:00 16:00 Temperature Pulse Rate 64 61 60 Respiratory 19 14 14 Rate Blood Pressure 123/80 (mmHg) O2 Sat by Pulse 97 95 96 Oximetry 10/28/16 10/28/16 11:18 12:23 12:33 Temperature 97.7 F Pulse Rate 92 Respiratory 22 18 18 Rate Blood Pressure 122/77 (mmHg) O2 Sat by Pulse 96 Oximetry Oxygen Devices in Use Now: None Appearance: Middle-aged, F, laying in bed in NAD Eyes: No Scleral Icterus Ears/Nose/Mouth/Throat: Mucous Membranes Moist Neck: NL Appearance and Movements; NL JVP Respiratory: Symmetrical Chest Expansion and Respiratory Effort, - - Diminshed BS in bases, no rales appreciated Cardiovascular: NL Sounds; No Murmurs; No JVD, - - IRIR Abdominal: NL Sounds; No Tenderness; No Distention Lymphatic: No Cervical Adenopathy Extremities: - - Anasarca to low back Skin: - - Cannot appreciate much residual rash Neurological: Alert and Oriented x 3 Result Diagrams: 05:22 05:22 Additional Lab and Data: .Bone Marrow biopsy pending; PR3 antibody is negative Microbiology and Other Data: Assess/Plan/Problems . Assessment: Mrs. Montes is a 65yo F with PMH of follicular lymphoma s/p RCHOP, migraines, who presented to ED due to abnormal labs revealing hypercalcemia, also found to have renal insufficiency and atrial fibrillation, intermittent - Patient Problems (1) Elevated CRP. So far, autoimmune serologies are unrevealing. I am wondering in part about the possibility of sarcoidosis; clues to this include hypercalcemia, thrombotic microangiopathy and family history. Diagnosis would require histologic confirmation of granulomas. If bone marrow biopsy is not revealing, consider cardiac evaluation with cardiac MRI; we will review BM pathology; continue low dose Prednisone at 40mg daily. Rare manifestation of the thrombotic microangiopathy in a patient with sarcoidosis, common variable immunodeficiency and large B-cell non-hodgkin lymphoma: case report. Eklino R1, Loraine VK, Usha K, Collin P, Hoyrn R. (2) Hypercalcemia PTH is low consistent with non-PTH mediated hypercalcemia. With her h/o lymphoma , major concern is malignancy associated hypercalcemia. Oncology following. BMBx done 10/[address] Orr, results pending (3) Polyarthritis CRP was 92, but RF, anti- CCP, HANY, ANCA were all negative. - Continue Prednisone [address] negative. - Continue pain management. (6) Rash Possible low grade DIC? Would follow
[2016-10-28] MEDS: Topiramate TAB(*) 25 MG PO SCH (20:44)
[2016-10-28] MEDS: Lidocaine PATCH 5%* 1 PATCH TRANSDERM SCH (20:44)
[2016-10-29] MEDS: Albumin Human 25%* 50 ML in PREMIX* 0 ML IV SCH (00:33)
[2016-10-29] MEDS: oxyCODONE/Acetamin 5/325 MG* TAB PO PRN ×3 (01:14→23:10)
[2016-10-29] MEDS: Omeprazole CAP* 20 MG PO SCH (05:55)
[2016-10-29 06:58] LABS: Hematocrit 24 % (35-47); Hemoglobin 7.9 g/dl (12.0-16.0); Mean Corpuscular HGB Conc 33 g/dl (31-36); Mean Corpuscular Hemoglobin 31 pg (27-31); Mean Corpuscular Volume 94 fL (80-97); Mean Platelet Volume 9 um3 (7.4-10.4); Red Blood Count 2.57 10^6/ul (4.0-5.4); Red Cell Distribution Width 16 % (10.5-15); White Blood Count 18.1 10^3/ul (3.5-10.8)
[2016-10-29 07:02] LABS: Comments Flag Yes
[2016-10-29 07:09] LABS: BUN/Creatinine Ratio 27.7 (8-20); EGFR African American 52.7 (>60); Potassium 4.1 mmol/L (3.5-5.0)
[2016-10-29] MEDS: Potassium Chlor TAB* 20 MEQ TAB.ER PO SCH ×2 (07:09→16:20)
[2016-10-29] MEDS: Polyethylene Glycol 3350* 17 GM PACKET PO SCH ×2 (07:09→20:04)
[2016-10-29] MEDS: Lidocaine Patch REMOVE* 1 NOTE MISC PATCH OFF SCH (07:12)
[2016-10-29] MEDS: Magnesium Oxide TAB* 400 MG PO SCH (07:47)
[2016-10-29] MEDS: Docusate CAP* 100 MG PO SCH ×2 (07:47→20:04)
[2016-10-29] MEDS: predniSONE TAB* 20 MG PO SCH (07:47)
[2016-10-29] MEDS: Lactobacillus Acidophilu (GG)* 1 CAP CAP PO SCH (07:47)
[2016-10-29] MEDS ORDERED: Furosemide IV* 10 MG/ML 10 ML VIAL (100 MG) IV ONE (10:22)
--- NOTE | 2016-10-29 10:27 | PN ---
Subjective Date of Service: 10/29/16 Interval History: Patient seen this morning. Had a difficult night of sleep again 2/2 roommate and back discomfort, moved to private room this AM. Feels swelling in arms has improved. Had good amount of urine yesterday after IV Lasix. Still feels significant swelling in back and legs. Family History: Unchanged from Admission Social History: Unchanged from Admission Past Medical History: Unchanged from Admission Objective Active Medications: Acetaminophen (Tylenol Tab*) 650 mg PO Q4H PRN Alprazolam (Xanax Tab*) 0.5 mg PO TID PRN Digoxin (Lanoxin Tab*) 0.125 mg PO 1700 [facility] Docusate Sodium (Colace Cap*) 100 mg PO BID MARIN Enoxaparin Sodium (Lovenox(*)) 80 mg SUBCUT Q12H [facility]IN Furosemide (Lasix Iv*) 20 mg IV ONCE ONE Albumin Human 50 ml/ IV (Solution) 50 mls @ 0 mls/hr IV Q12H [facility]IN Lactobacillus Rhamnosus (Culturelle*) 1 cap PO DAILY [facility] Lidocaine (Lidoderm 5% Patch*) 1 patch TRANSDERM DAILY@2000 [facility] Lorazepam (Ativan Tab(*)) 0.5 mg PO ONCE [facility] Magnesium Oxide (Magox 400 Tab*) 800 mg PO DAILY [facility] Morphine Sulfate (Morphine Inj (Syringe)*) 2 mg IV Q4H PRN Multi-Ingredient Mouthwash/Gargle (Biotene Dry Mouth Oral Rinse(Nf)) 15 ml MT . DIRECTED MAR[facility] Omeprazole (Prilosec Cap*) 40 mg PO DAILY@0600 [facility] Ondansetron HCl (Zofran Inj*) 4 mg IV Q6H PRN Oxycodone/Acetaminophen (Percocet 5/325 Tab*) 2 tab PO Q4H PRN Oxymetazoline HCl (Afrin 0.05% Nasal [place]*) 3 spray BOTH NARES BEDTIME PRN Pharmacy Profile Note (Lidocaine Patch Remove*) 1 note PATCH OFF DAILY@0800 [facility] Polyethylene Glycol/Electrolytes (Miralax*) 17 gm PO 0800,2100 [facility] Potassium Chloride (Klor Con Er Tab*) 20 meq PO BID WITH MEALS MARIN Prednisone (Deltasone Tab*) 40 mg PO DAILY [facility] Senna (Senokot Tab*) 1 tab PO BEDTIME PRN Sodium Chloride (Sodium Chloride 0.65% Nasal Drops*) 1 drop BOTH NARES Q4H PRN Topiramate (Topamax(*)) 50 mg PO BEDTIME [facility] Vital Signs 10/28/16 10/28/16 10/28/16 10:33 11:18 12:23 Temperature 97.7 F Pulse Rate 92 Respiratory 18 22 18 Rate Blood Pressure 122/77 (mmHg) O2 Sat by Pulse 96 Oximetry 10/28/16 10/28/16 10/28/16 12:33 14:23 15:45 Temperature 97.5 F Pulse Rate 103 Respiratory 18 18 20 Rate Blood Pressure 121/75 (mmHg) O2 Sat by Pulse 96 Oximetry 10/28/16 10/28/16 10/28/16 16:08 19:33 20:00 Temperature 97.4 F Pulse Rate 85 93 Respiratory 18 19 Rate Blood Pressure 128/69 (mmHg) O2 Sat by Pulse 100 Oximetry 10/28/16 10/28/16 10/28/16 20:56 21:15 22:56 Temperature Pulse Rate Respiratory 18 16 18 Rate Blood Pressure (mmHg) O2 Sat by Pulse Oximetry 10/28/16 10/28/16 10/29/16 23:15 23:57 01:14 Temperature 97.7 F Pulse Rate 81 Respiratory 18 20 18 Rate Blood Pressure 117/68 (mmHg) O2 Sat by Pulse 97 Oximetry 10/29/16 10/29/16 10/29/16 03:14 03:32 06:26 Temperature 98.1 F Pulse Rate 75 Respiratory 16 16 18 Rate Blood Pressure 125/63 (mmHg) O2 Sat by Pulse 98 Oximetry 10/29/16 07:23 Temperature 97.6 F Pulse Rate 70 Respiratory 22 Rate Blood Pressure 119/76 (mmHg) O2 Sat by Pulse 98 Oximetry Oxygen Devices in Use Now: None Appearance: Middle-aged, F, sitting in chair in NAD Eyes: No Scleral Icterus Ears/Nose/Mouth/Throat: Mucous Membranes Moist Neck: NL Appearance and Movements; NL JVP Respiratory: Symmetrical Chest Expansion and Respiratory Effort, - - Absent BS in B/L bases Cardiovascular: NL Sounds; No Murmurs; No JVD, RRR Abdominal: NL Sounds; No Tenderness; No Distention Lymphatic: No Cervical Adenopathy Extremities: - - Edema in B/L LEs to low back Skin: - - Cannot appreciate rash in UEs, LEs with some faint discoloration but may be due to position Neurological: Alert and Oriented x 3 Result Diagrams: 10/29/16 06:26 10/29/16 06:27 Additional Lab and Data: . Microbiology and Other Data: Assess/Plan/Problems-Billing . Assessment: Mrs. Montes is a 65yo F with PMH of follicular lymphoma s/p RCHOP, migraines, who presented to ED due to abnormal labs revealing hypercalcemia, also found to have troponin elevation. - Patient Problems (1) Atrial fibrillation Current Visit: Yes Comment: Paroxysmal. Currently in NSR again Due to hypotention, sotalol and metoprolol were stopped and digoxin started on . Started maintenance dose of 125 mcg daily on 10/27, level pending CHADS2 vasc score is 2 (sex, age). Appreciate cardiology consult (2) Hypercalcemia Current Visit: Yes Comment: Patient had labs done at [place] 10/17/16 and was called with an elevated calcium 12.2. treated with IVF, Furosemide, and Zoledronic acid 10/16/16. Calcium back to normal. PTH is low consistent with non-PTH mediated hypercalcemia. With her h/o lymphoma , major concern is malignancy associated hypercalcemia. Oncology following. BMBx done 10/[address] Orr, results pending (3) Elevated troponin Current Visit: Yes Comment: CTA chest was negative for PE and LE doppler negative for DVT. Echocardiogram showed signs of moderate pulmonary HTN, mild dilatation of RV, and RV systolic function moderately reduced and this is new when compared to prior echo from January 2016. - Pulm eval appreciated - concerned for GREG as source of pulmonary hypertension , but pt could not tolerate CPAP. - ?? small vessel occlusions -- pulmonary thrombotic vasculopathy? started AC 10/24/16 in AM (lovenox) (4) PIERRE (acute kidney injury) Current Visit: Yes Comment: Suspect part of it secondary to NSAID use, worsened by dehydration caused by hypercalcemia. - Resolved initally, now creat slightly elevated but stable, continue IV Lasix (5) Polyarthritis Current Visit: Yes Comment: Rheum w/u as outpatient was negative. CRP was 92, but RF, anti-CCP, HANY, ANCA were all negative. - Rheum consult appreciated - repeat w/u unremarkable for clear process, Dr. Hensley entertaining sarcoidosis, LANDON level sent, consider cardiac MRI - Continue Prednisone 40 mg daily - With her nasal symptoms, concerned for Hunter's - but sinus CT negative. - Continue pain management. (6) Rash Current Visit: Yes Comment: "thrombotic vasculopathy" d/w hematology; could this be a low grade DIC secondary to a malignancy? Drug reaction vs rheumatologic condition. Stopped gabapentin to streamline potentially involved meds, though there are not many at present. 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 - EGD 10/23 unremarkable, but with bx taken that only show some areas of inflammation, no evidence of malignancy (8) H/O lymphoma Current Visit: Yes Comment: H/o follicular lymphoma, s/p chemo in fall 2015, now in remission - Bone marrow biopsy done 10/28, results pending (9) Fluid overload Current Visit: Yes Comment: appreciate Dr. Rader's suggestions, albumin infusions and Lasix started on 10/25/16, continue direusis with IV Lasix Pt is in significant volume overload from tx with IVF for initial hypercalcemia and low albumin levels (10) LFT elevation Current Visit: Yes Comment: suspect due to vascular congestion or ischemia. improved with diuresis (11) Migraine Current Visit: Yes Comment: - Continue Topamax. (12) Fever Current Visit: Yes Comment: on 10/24/16, no recurrence blood cx negative, nontoxic appearing. leukocytosis present, but pt on steroids (13) DVT prophylaxis Current Visit: Yes Comment: Lovenox (14) Full code status Current Visit: Yes Status and Disposition: . Inpatient for continued diuresis, once improved can probably continue work-up as an outpatient
[2016-10-29] MEDS: Enoxaparin(*) 80 MG/0.8 ML SYR SUBCUT SCH ×2 (10:30→21:56)
[2016-10-29 10:35] LABS: Digoxin 1.1 ng/ml (0.8-2.0)
[2016-10-29 10:57] LABS: Albumin 3.5 g/dL (3.2-5.2)
[2016-10-29] MEDS: Digoxin TAB* 0.125 MG PO SCH (16:20)
[2016-10-29] MEDS: Lidocaine PATCH 5%* 1 PATCH TRANSDERM SCH (20:03)
[2016-10-29] MEDS: Topiramate TAB(*) 25 MG PO SCH (20:04)
[2016-10-29] MEDS: ALPRAZolam TAB* 0.5 MG PO PRN (23:49)
[2016-10-30] MEDS: Morphine INJ* 2 MG/ML 1 ML SYRINGE IV PRN (02:23)
[2016-10-30] MEDS: Omeprazole CAP* 20 MG PO SCH (05:55)
[2016-10-30 07:26] LABS: BUN/Creatinine Ratio 30.2 (8-20); Calcium 10.3 mg/dL (8.6-10.3); EGFR African American 54.6 (>60); EGFR Non-African American 42.5 (>60); Potassium 3.8 mmol/L (3.5-5.0)
[2016-10-30] MEDS: Polyethylene Glycol 3350* 17 GM PACKET PO SCH ×2 (09:24→22:46)
[2016-10-30] MEDS: Potassium Chlor TAB* 20 MEQ TAB.ER PO SCH ×2 (09:24→17:09)
[2016-10-30] MEDS: Docusate CAP* 100 MG PO SCH ×2 (09:24→22:36)
[2016-10-30] MEDS: Magnesium Oxide TAB* 400 MG PO SCH (09:25)
[2016-10-30] MEDS: predniSONE TAB* 20 MG PO SCH (09:27)
[2016-10-30] MEDS: Lidocaine Patch REMOVE* 1 NOTE MISC PATCH OFF SCH (09:28)
[2016-10-30] MEDS: Lactobacillus Acidophilu (GG)* 1 CAP CAP PO SCH (09:31)
[2016-10-30] MEDS: Enoxaparin(*) 80 MG/0.8 ML SYR SUBCUT SCH ×2 (11:55→22:41)
[2016-10-30] MEDS: ALPRAZolam TAB* 0.5 MG PO PRN ×2 (12:08→22:51)
--- NOTE | 2016-10-30 12:44 | PN ---
Subjective Date of Service: 10/30/16 Interval History: Patient seen early this afternoon. She ambulated around the unit which she was pleased with. Still reports some edema, particularly in back and legs. Denies chest pain, fever, chills. Leaking from BM site stopped. Family History: Unchanged from Admission Social History: Unchanged from Admission Past Medical History: Unchanged from Admission Objective Active Medications: Acetaminophen (Tylenol Tab*) 650 mg PO Q4H PRN Alprazolam (Xanax Tab*) 0.5 mg PO TID PRN Digoxin (Lanoxin Tab*) 0.125 mg PO 1700 [facility] Docusate Sodium (Colace Cap*) 100 mg PO BID MARIN Enoxaparin Sodium (Lovenox(*)) 80 mg SUBCUT Q12H [facility] Lactobacillus Rhamnosus (Culturelle*) 1 cap PO DAILY [facility] Lidocaine (Lidoderm 5% Patch*) 1 patch TRANSDERM DAILY@2000 [facility] Magnesium Oxide (Magox 400 Tab*) 800 mg PO DAILY [facility] Multi-Ingredient Mouthwash/Gargle (Biotene Dry Mouth Oral Rinse(Nf)) 15 ml MT . DIRECTED [facility] Omeprazole (Prilosec Cap*) 40 mg PO DAILY@0600 [facility] Ondansetron HCl (Zofran Inj*) 4 mg IV Q6H PRN Oxycodone/Acetaminophen (Percocet 5/325 Tab*) 2 tab PO Q4H PRN Pharmacy Profile Note (Lidocaine Patch Remove*) 1 note PATCH OFF DAILY@0800 [facility] Polyethylene Glycol/Electrolytes (Miralax*) 17 gm PO 0800,2100 [facility] Potassium Chloride (Klor Con Er Tab*) 20 meq PO BID WITH MEALS [facility] Prednisone (Deltasone Tab*) 40 mg PO DAILY [facility] Senna (Senokot Tab*) 1 tab PO BEDTIME PRN Sodium Chloride (Sodium Chloride 0.65% Nasal Drops*) 1 drop BOTH NARES Q4H PRN Topiramate (Topamax(*)) 50 mg PO BEDTIME [facility] Vital Signs 10/29/16 10/29/16 10/29/16 15:02 15:51 16:20 Temperature 98.2 F Pulse Rate 77 77 Respiratory 18 17 Rate Blood Pressure 133/81 (mmHg) O2 Sat by Pulse 97 Oximetry 10/29/16 10/29/16 10/29/16 17:02 19:29 19:52 Temperature 98.3 F Pulse Rate 74 Respiratory 18 16 19 Rate Blood Pressure 123/70 (mmHg) O2 Sat by Pulse 97 Oximetry 10/29/16 10/29/16 10/29/16 23:10 23:26 23:49 Temperature 97.8 F Pulse Rate 81 Respiratory 18 20 19 Rate Blood Pressure 139/82 (mmHg) O2 Sat by Pulse 98 Oximetry 10/30/16 10/30/16 10/30/16 01:10 01:49 02:23 Temperature Pulse Rate Respiratory 18 18 18 Rate Blood Pressure (mmHg) O2 Sat by Pulse Oximetry 10/30/16 10/30/16 10/30/16 03:23 03:28 07:55 Temperature 98.4 F 97.6 F Pulse Rate 86 96 Respiratory 18 16 14 Rate Blood Pressure 136/86 120/74 (mmHg) O2 Sat by Pulse 98 97 Oximetry 10/30/16 10/30/16 08:00 12:08 Temperature Pulse Rate Respiratory 16 16 Rate Blood Pressure (mmHg) O2 Sat by Pulse Oximetry Oxygen Devices in Use Now: None Appearance: Middle-aged, F, laying in bed in NAD Eyes: No Scleral Icterus Ears/Nose/Mouth/Throat: Mucous Membranes Moist Neck: NL Appearance and Movements; NL JVP Respiratory: Symmetrical Chest Expansion and Respiratory Effort, Clear to Auscultation Cardiovascular: NL Sounds; No Murmurs; No JVD, RRR Abdominal: - - Soft, non-tender, edema Lymphatic: No Cervical Adenopathy Extremities: - - B/L LE edema to low back Skin: No Rash or Ulcers Neurological: Alert and Oriented x 3 Result Diagrams: 10/29/16 06:26 10/30/16 06:49 Additional Lab and Data: . Microbiology and Other Data: Assess/Plan/Problems-Billing . Assessment: Mrs. Montes is a 65yo F with PMH of follicular lymphoma s/p RCHOP, migraines, who presented to ED due to abnormal labs revealing hypercalcemia, also found to have troponin elevation. - Patient Problems (1) Atrial fibrillation Current Visit: Yes Comment: Paroxysmal. Currently in NSR again Due to hypotention, sotalol and metoprolol were stopped and digoxin started on . Started maintenance dose of 125 mcg daily on 10/27 CHADS2 vasc score is 2 (sex, age). Appreciate cardiology consult (2) Hypercalcemia Current Visit: Yes Comment: Patient had labs done at [place] 10/17/16 and was called with an elevated calcium 12.2. treated with IVF, Furosemide, and Zoledronic acid 10/16/16. Calcium back to normal. PTH is low consistent with non-PTH mediated hypercalcemia. BMBx done 10/[address] Orr was normal with no signs of malignancy (3) Elevated troponin Current Visit: Yes Comment: CTA chest was negative for PE and LE doppler negative for DVT. Echocardiogram showed signs of moderate pulmonary HTN, mild dilatation of RV, and RV systolic function moderately reduced and this is new when compared to prior echo from January 2016. - Pulm eval appreciated - concerned for GREG as source of pulmonary hypertension , but pt could not tolerate CPAP. - ?? small vessel occlusions -- pulmonary thrombotic vasculopathy? started AC 10/24/16 in AM (lovenox) (4) PIERRE (acute kidney injury) Current Visit: Yes Comment: Suspect part of it secondary to NSAID use, worsened by dehydration caused by hypercalcemia. - Resolved initally, now creat slightly elevated but stable, continue IV Lasix (5) Polyarthritis Current Visit: Yes Comment: Rheum w/u as outpatient was negative. CRP was 92, but RF, anti-CCP, HANY, ANCA were all negative. - Rheum consult appreciated - repeat w/u unremarkable for clear process, Dr. Hensley entertaining sarcoidosis, LANDON level normal, consider cardiac MRI as outpatient - Continue Prednisone 40 mg daily - With her nasal symptoms, concerned for Hunter's - but sinus CT negative. - Continue pain management. (6) Rash Current Visit: Yes Comment: "thrombotic vasculopathy" d/w hematology; could this be a low grade DIC secondary to a malignancy? Drug reaction vs rheumatologic condition. Stopped gabapentin to streamline potentially involved meds, though there are not many at present. 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 - EGD 10/23 unremarkable, but with bx taken that only show some areas of inflammation, no evidence of malignancy (8) H/O lymphoma Current Visit: Yes Comment: H/o follicular lymphoma, s/p chemo in fall 2015, now in remission - Bone marrow biopsy done 10/28 was normal, no evidence of malignancy (9) Fluid overload Current Visit: Yes Comment: appreciate Dr. Rader's suggestions, albumin infusions and Lasix started on 10/25/16, continue direusis with IV Lasix Pt is in significant volume overload from tx with IVF for initial hypercalcemia and low albumin levels (10) LFT elevation Current Visit: Yes Comment: suspect due to vascular congestion or ischemia. improved with diuresis (11) Migraine Current Visit: Yes Comment: - Continue Topamax. (12) Fever Current Visit: Yes Comment: on 10/24/16, no recurrence blood cx negative, nontoxic appearing. leukocytosis present, but pt on steroids (13) DVT prophylaxis Current Visit: Yes Comment: Lovenox (14) Full code status Current Visit: Yes Status and Disposition: . Inpatient for continued diuresis, once improved can probably continue work-up as an outpatient
[2016-10-30] MEDS: Digoxin TAB* 0.125 MG PO SCH (17:08)
[2016-10-30] MEDS: Furosemide IV* 10 MG/ML 10 ML VIAL (100 MG) IV SCH (17:13)
--- NOTE | 2016-10-30 17:14 | CONSULT ---
Consult Consult: Consult follow up Note Patient: MIKE MONTES /Age: 05 1950 65 Medical Record#: [id number] Admission Date: 10/17/16 Provider: Steve Hensley MD Chief complaint: elevated CRP and myalgias Subjective Date of Service: 10/30/16 Interval History: Ms. Montes notes that her edema is improved; she was recently evaluated by OT and PT and ambulated around the unit which she was pleased with. Still reports some generalized swelling and some anxiety at night. Denies chest pain, fever, chills. Leaking from BM site stopped. Family History: Unchanged from Admission Social History: Unchanged from Admission Past Medical History: Unchanged from Admission Objective Active Medications: Acetaminophen (Tylenol Tab*) 650 mg PO Q4H PRN Alprazolam (Xanax Tab*) 0.5 mg PO TID PRN Digoxin (Lanoxin Tab*) 0.125 mg PO 1700 [facility] Docusate Sodium (Colace Cap*) 100 mg PO BID [facility] Enoxaparin Sodium (Lovenox(*)) 80 mg SUBCUT Q12H [facility] Lactobacillus Rhamnosus (Culturelle*) 1 cap PO DAILY [facility] Lidocaine (Lidoderm 5% Patch*) 1 patch TRANSDERM DAILY@2000 [facility] Magnesium Oxide (Magox 400 Tab*) 800 mg PO DAILY [facility] Multi-Ingredient Mouthwash/Gargle (Biotene Dry Mouth Oral Rinse(Nf)) 15 ml MT . DIRECTED [facility] Omeprazole (Prilosec Cap*) 40 mg PO DAILY@0600 [facility] Ondansetron HCl (Zofran Inj*) 4 mg IV Q6H PRN Oxycodone/Acetaminophen (Percocet 5/325 Tab*) 2 tab PO Q4H PRN Pharmacy Profile Note (Lidocaine Patch Remove*) 1 note PATCH OFF DAILY@0800 [facility] Polyethylene Glycol/Electrolytes (Miralax*) 17 gm PO 0800,2100 [facility] Potassium Chloride (Klor Con Er Tab*) 20 meq PO BID WITH MEALS MARIN Prednisone (Deltasone Tab*) 40 mg PO DAILY [facility] Senna (Senokot Tab*) 1 tab PO BEDTIME PRN Sodium Chloride (Sodium Chloride 0.65% Nasal Drops*) 1 drop BOTH NARES Q4H PRN Topiramate (Topamax(*)) 50 mg PO BEDTIME [facility] Vital Signs 03/23/ 17 03/23/17 03/23/17 15:02 15:51 16:20 Temperature 98.2 F Pulse Rate 77 77 Respiratory 18 17 Rate Blood Pressure 133/81 (mmHg) O2 Sat by Pulse 97 Oximetry 10/29/16 10/29/16 17:02 19:29 19:52 Temperature 98.3 F Pulse Rate 74 Respiratory 18 16 19 Rate Blood Pressure 123/70 (mmHg) O2 Sat by Pulse 97 Oximetry 10/29/16 10/29/16 23:10 23:26 23:49 Temperature 97.8 F Pulse Rate 81 Respiratory 18 20 19 Rate Blood Pressure 139/82 (mmHg) O2 Sat by Pulse 98 Oximetry 10/30/16 10/30/16 01:10 01:49 02:23 Temperature Pulse Rate Respiratory 18 18 18 Rate Blood Pressure (mmHg) O2 Sat by Pulse Oximetry 10/30/16 10/30/16 03:23 03:28 07:55 Temperature 98.4 F 97.6 F Pulse Rate 86 96 Respiratory 18 16 14 Rate Blood Pressure 136/86 120/74 (mmHg) O2 Sat by Pulse 98 97 Oximetry 10/30/16 10/30/16 08:00 12:08 Temperature Pulse Rate Respiratory 16 16 Rate Blood Pressure (mmHg) O2 Sat by Pulse Oximetry Oxygen Devices in Use Now: None Appearance: Middle-aged, F, laying in bed in NAD Eyes: No Scleral Icterus Ears/Nose/Mouth/Throat: Mucous Membranes Moist Neck: NL Appearance and Movements; NL JVP Respiratory: Symmetrical Chest Expansion and Respiratory Effort, Clear to Auscultation Cardiovascular: NL Sounds; No Murmurs; No JVD, RRR Abdominal: - - Soft, non-tender, edema Lymphatic: No Cervical Adenopathy Extremities: - - B/L LE edema to low back Skin: No Rash or Ulcers Neurological: Alert and Oriented x 3 Result Diagrams: 06:26 White count 18.1K Additional Lab and Data: . Microbiology and Other Data: Assess/Plan/Problems-Billing . Assessment: Mrs. Montes is a 65yo F with PMH of follicular lymphoma s/p RCHOP, migraines, who presented to ED due to abnormal labs revealing hypercalcemia, also found to have an elevated CRP , intermittent atrial fibrillation - Patient Problems (1) Elevated CRP. Bone marrow biopsy showed no granulomas. Ms. Montes is on prednisone 40mg daily. She will need a gradual taper of prednisone over time; consider tapering by 10mg every week down to 10mg daily and maintaining this dose for some time, similiar to PMR (although she does not have classic features of polymyalgia rheumatica). Ms. Montes inquired if there would be an effective steroid sparing medication she could transition to as she tapers steroids. Possibly Plaquenil may be a relatively safe option as she does have some pain from osteoarthritis and she has had articular joint pain from OA; however we discussed that Plaquenil is more often used to treat Lupus and RA and that serologically we have not been able to identify a specific connective tissue disorder that is explaining her symptoms. 2) Pulmonary HTN 3) Hypercalcemia 4) Intermittent atrial fibrillation, elevated troponin. She may need further cardiac imaging as an outpatient, as I still wonder about a possible underlying atypical granulomatous condition, which has not yet been found. 5) Hypercalcemia : improved. 6) Chronic steroid use: she will need vitamin D supplementation. Would check D level. 7) Lymphoma: follow up per hematology
[2016-10-30] MEDS: Topiramate TAB(*) 25 MG PO SCH (22:38)
[2016-10-30] MEDS: Lidocaine PATCH 5%* 1 PATCH TRANSDERM SCH (22:43)
[2016-10-31] MEDS: Omeprazole CAP* 20 MG PO SCH (06:01)
[2016-10-31 07:58] LABS: Albumin 3.3 g/dL (3.2-5.2); BUN/Creatinine Ratio 32.3 (8-20); Calcium 10.3 mg/dL (8.6-10.3); EGFR African American 55.7 (>60); EGFR Non-African American 43.3 (>60); Potassium 3.7 mmol/L (3.5-5.0)
[2016-10-31] MEDS: oxyCODONE/Acetamin 5/325 MG* TAB PO PRN (08:28)
[2016-10-31] MEDS: Polyethylene Glycol 3350* 17 GM PACKET PO SCH ×2 (08:42→22:15)
[2016-10-31] MEDS: Lactobacillus Acidophilu (GG)* 1 CAP CAP PO SCH (08:43)
[2016-10-31] MEDS: Potassium Chlor TAB* 20 MEQ TAB.ER PO SCH ×2 (08:43→15:26)
[2016-10-31] MEDS: Cholecalciferol TAB* 1000 UNITS PO SCH (08:44)
[2016-10-31] MEDS: Magnesium Oxide TAB* 400 MG PO SCH (08:44)
[2016-10-31] MEDS: predniSONE TAB* 20 MG PO SCH (08:44)
[2016-10-31] MEDS: Docusate CAP* 100 MG PO SCH ×2 (08:44→22:05)
[2016-10-31] MEDS: Furosemide IV* 10 MG/ML 10 ML VIAL (100 MG) IV SCH (08:46)
[2016-10-31] MEDS: Lidocaine Patch REMOVE* 1 NOTE MISC PATCH OFF SCH (11:10)
[2016-10-31] MEDS: Enoxaparin(*) 80 MG/0.8 ML SYR SUBCUT SCH ×2 (11:10→22:08)
[2016-10-31] MEDS: Digoxin TAB* 0.125 MG PO SCH (15:26)
--- NOTE | 2016-10-31 15:34 | PN ---
Subjective Date of Service: 10/31/16 Interval History: Patient seen this morning. Reports continued improvement. Has been having significant UOP and weight loss. Moved bowels this morning. Encouraged by work with PT. Needs to be able to get to the 2nd floor of her house. No fever or chills. Still having occasional episodes of SOB with exertion, also at night at times Family History: Unchanged from Admission Social History: Unchanged from Admission Past Medical History: Unchanged from Admission Objective Active Medications: Acetaminophen (Tylenol Tab*) 650 mg PO Q4H PRN Alprazolam (Xanax Tab*) 0.5 mg PO TID PRN Cholecalciferol (Vitamin D Tab*) 1,000 units PO DAILY [facility] Digoxin (Lanoxin Tab*) 0.125 mg PO 1700 [facility] Docusate Sodium (Colace Cap*) 100 mg PO BID [facility] Enoxaparin Sodium (Lovenox(*)) 70 mg SUBCUT Q12H [facility] Furosemide (Lasix Iv*) 20 mg IV DAILY [facility] Lactobacillus Rhamnosus (Culturelle*) 1 cap PO DAILY [facility] Lidocaine (Lidoderm 5% Patch*) 1 patch TRANSDERM DAILY@2000 [facility] Magnesium Oxide (Magox 400 Tab*) 800 mg PO DAILY [facility] Morphine Sulfate (Morphine Inj (Syringe)*) 2 mg IV Q4H PRN Multi-Ingredient Mouthwash/Gargle (Biotene Dry Mouth Oral Rinse(Nf)) 15 ml MT . DIRECTED [facility] Omeprazole (Prilosec Cap*) 40 mg PO DAILY@0600 [facility] Ondansetron HCl (Zofran Inj*) 4 mg IV Q6H PRN Oxycodone/Acetaminophen (Percocet 5/325 Tab*) 2 tab PO Q4H PRN Pharmacy Profile Note (Lidocaine Patch Remove*) 1 note PATCH OFF DAILY@0800 [facility] Polyethylene Glycol/Electrolytes (Miralax*) 17 gm PO 0800,2100 [facility] Potassium Chloride (Klor Con Er Tab*) 20 meq PO BID WITH MEALS MARIN Prednisone (Deltasone Tab*) 40 mg PO DAILY [facility] Senna (Senokot Tab*) 1 tab PO BEDTIME PRN Sodium Chloride (Sodium Chloride 0.65% Nasal Drops*) 1 drop BOTH NARES Q4H PRN Topiramate (Topamax(*)) 50 mg PO BEDTIME [facility] Vital Signs 10/30/16 10/30/16 10/30/16 15:31 17:08 19:42 Temperature 97.8 F 98.1 F Pulse Rate 76 76 81 Respiratory 18 16 Rate Blood Pressure 121/67 128/77 (mmHg) O2 Sat by Pulse 97 98 Oximetry 10/31/16 10/31/16 10/31/16 07:50 08:28 10:28 Temperature 98.1 F Pulse Rate 80 Respiratory 18 18 18 Rate Blood Pressure 124/73 (mmHg) O2 Sat by Pulse 96 Oximetry 10/31/16 10/31/16 10/31/16 11:17 15:21 15:26 Temperature 98.1 F 97.6 F Pulse Rate 70 102 110 Respiratory 16 18 Rate Blood Pressure 121/71 139/79 (mmHg) O2 Sat by Pulse 93 97 Oximetry Oxygen Devices in Use Now: None Appearance: Middle-aged, F, laying in chair in NAD Eyes: No Scleral Icterus Ears/Nose/Mouth/Throat: Mucous Membranes Moist Neck: NL Appearance and Movements; NL JVP Respiratory: Symmetrical Chest Expansion and Respiratory Effort, - - Diminished in B/L bases Cardiovascular: NL Sounds; No Murmurs; No JVD, RRR Abdominal: NL Sounds; No Tenderness; No Distention Lymphatic: No Cervical Adenopathy Extremities: - - B/L LE edema improving Skin: No Rash or Ulcers Neurological: Alert and Oriented x 3 Result Diagrams: 10/29/16 06:26 10/31/16 05:15 Additional Lab and Data: . Microbiology and Other Data: Assess/Plan/Problems-Billing . Assessment: Mrs. Montes is a 65yo F with PMH of follicular lymphoma s/p RCHOP, migraines, who presented to ED due to abnormal labs revealing hypercalcemia, also found to have troponin elevation. - Patient Problems (1) Atrial fibrillation Current Visit: Yes Comment: Paroxysmal. Due to hypotention, sotalol and metoprolol were stopped and digoxin started on . Started maintenance dose of 125 mcg daily on 10/27 CHADS2 vasc score is 2 (sex, age). Appreciate cardiology consult (2) Hypercalcemia Current Visit: Yes Comment: Patient had labs done at [place] 10/17/16 and was called with an elevated calcium 12.2. treated with IVF, Furosemide, and Zoledronic acid 10/16/16. Calcium back to normal. PTH is low consistent with non-PTH mediated hypercalcemia. BMBx done 10/[address] Orr was normal with no signs of malignancy (3) Elevated troponin Current Visit: Yes Comment: CTA chest was negative for PE and LE doppler negative for DVT. Echocardiogram showed signs of moderate pulmonary HTN, mild dilatation of RV, and RV systolic function moderately reduced and this is new when compared to prior echo from January 2016. - Pulm eval appreciated - concerned for GREG as source of pulmonary hypertension , but pt could not tolerate CPAP. - ?? small vessel occlusions -- pulmonary thrombotic vasculopathy? started AC 10/24/16 in AM (lovenox) (4) PIERRE (acute kidney injury) Current Visit: Yes Comment: Suspect part of it secondary to NSAID use, worsened by dehydration caused by hypercalcemia. - Resolved initally, now creat slightly elevated but stable, continue IV Lasix (5) Polyarthritis Current Visit: Yes Comment: Rheum w/u as outpatient was negative. CRP was 92, but RF, anti-CCP, HANY, ANCA were all negative. - Rheum consult appreciated - repeat w/u unremarkable for clear process, Dr. Hensley entertaining sarcoidosis, LANDON level normal, consider cardiac MRI as outpatient - Continue Prednisone 40 mg daily - With her nasal symptoms, concerned for Hunter's - but sinus CT negative. - Continue pain management. (6) Rash Current Visit: Yes Comment: "thrombotic vasculopathy" d/w hematology; could this be a low grade DIC secondary to a malignancy? Drug reaction vs rheumatologic condition. Stopped gabapentin to streamline potentially involved meds, though there are not many at present. 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 - EGD 10/23 unremarkable, but with bx taken that only show some areas of inflammation, no evidence of malignancy (8) H/O lymphoma Current Visit: Yes Comment: H/o follicular lymphoma, s/p chemo in fall 2015, now in remission - Bone marrow biopsy done 10/28 was normal, no evidence of malignancy (9) Fluid overload Current Visit: Yes Comment: Pt had significant volume overload from tx with IVF for initial hypercalcemia and low albumin levels appreciate Dr. Rader's suggestions, albumin infusions and Lasix started on , continue direusis with IV Lasix. Albumin has been stable off infusions (10) LFT elevation Current Visit: Yes Comment: suspect due to vascular congestion or ischemia. improved with diuresis (11) Migraine Current Visit: Yes Comment: - Continue Topamax. (12) Fever Current Visit: Yes Comment: on 10/24/16, no recurrence blood cx negative, nontoxic appearing. leukocytosis present, but pt on steroids (13) DVT prophylaxis Current Visit: Yes Comment: Lovenox (14) Full code status Current Visit: Yes Status and Disposition: . Inpatient for continued diuresis, once improved can probably continue work-up as an outpatient
[2016-10-31] MEDS ORDERED: Metoprolol Tartrate IV* 1 MG/ML 5 ML VIAL IV PRN ×2 (16:32→17:58)
[2016-10-31] MEDS: Topiramate TAB(*) 25 MG PO SCH (22:06)
[2016-10-31] MEDS: Lidocaine PATCH 5%* 1 PATCH TRANSDERM SCH (22:13)
[2016-10-31] MEDS: ALPRAZolam TAB* 0.5 MG PO PRN (22:20)
[2016-10-31] MEDS: Morphine INJ* 2 MG/ML 1 ML SYRINGE IV PRN (22:22)
[2016-11-01 05:30] LABS: Calcium 10.4 mg/dL (8.6-10.3); EGFR African American 62.6 (>60); EGFR Non-African American 48.7 (>60); Potassium 3.5 mmol/L (3.5-5.0)
[2016-11-01 05:42] LABS: Digoxin 0.8 ng/ml (0.8-2.0)
[2016-11-01] MEDS: Omeprazole CAP* 20 MG PO SCH (05:55)
[2016-11-01] MEDS: Furosemide IV* 10 MG/ML 10 ML VIAL (100 MG) IV SCH (08:48)
[2016-11-01] MEDS: Potassium Chlor TAB* 20 MEQ TAB.ER PO SCH ×2 (08:50→16:42)
[2016-11-01] MEDS: Docusate CAP* 100 MG PO SCH ×2 (08:50→21:16)
[2016-11-01] MEDS: predniSONE TAB* 20 MG PO SCH (08:50)
[2016-11-01] MEDS: Cholecalciferol TAB* 1000 UNITS PO SCH (08:50)
[2016-11-01] MEDS: Magnesium Oxide TAB* 400 MG PO SCH (08:51)
[2016-11-01] MEDS: Polyethylene Glycol 3350* 17 GM PACKET PO SCH ×2 (08:52→21:19)
[2016-11-01] MEDS: Ondansetron INJ* 2 MG/ML VIAL IV PRN (09:00)
[2016-11-01] MEDS: Lactobacillus Acidophilu (GG)* 1 CAP CAP PO SCH (09:00)
[2016-11-01] MEDS: oxyCODONE/Acetamin 5/325 MG* TAB PO PRN (09:42)
[2016-11-01] MEDS ORDERED: oxyCODONE TAB* 5 MG TAB PO PRN (09:56)
[2016-11-01] MEDS ORDERED: Insulin LISPRO* 1 UNITS UNIT SUBCUT ONE (10:33)
[2016-11-01] MEDS ORDERED: Dextrose 50% Syringe 50 ML* 25 GM/50 ML SYRINGE IV PUSH PRN (10:33)
--- NOTE | 2016-11-01 11:02 | PN ---
Subjective Date of Service: 11/01/16 Interval History: Patient seen this morning. Has some RVR yesterday evening and overnight, said she felt palpitations. Slept well for a time but was waken up for vitals and could not get back to sleep. Had some intermittent SOB and pains this AM that both resolved with percocet. Reports emergence of a cold sore on her lip. Family History: Unchanged from Admission Social History: Unchanged from Admission Past Medical History: Unchanged from Admission Objective Active Medications: Acetaminophen (Tylenol Tab*) 650 mg PO Q4H PRN Alprazolam (Xanax Tab*) 0.5 mg PO TID PRN Cholecalciferol (Vitamin D Tab*) 1,000 units PO DAILY [facility] Dextrose (D50w Syringe 50 Ml*) 12.5 gm IV PUSH .FOR FS < 60 - SS PRN Digoxin (Lanoxin Tab*) 0.125 mg PO 1700 [facility] Docusate Sodium (Colace Cap*) 100 mg PO BID [facility] Enoxaparin Sodium (Lovenox(*)) 70 mg SUBCUT Q12H [facility] Furosemide (Lasix Iv*) 20 mg IV DAILY [facility] Lactobacillus Rhamnosus (Culturelle*) 1 cap PO DAILY [facility] Lidocaine (Lidoderm 5% Patch*) 1 patch TRANSDERM DAILY@2000 [facility] Magnesium Oxide (Magox 400 Tab*) 800 mg PO DAILY [facility] Metoprolol Tartrate (Lopressor Iv*) 5 mg IV Q5M PRN Morphine Sulfate (Morphine Inj (Syringe)*) 2 mg IV Q4H PRN Multi-Ingredient Mouthwash/Gargle (Biotene Dry Mouth Oral Rinse(Nf)) 15 ml MT . DIRECTED [facility] Omeprazole (Prilosec Cap*) 40 mg PO DAILY@0600 [facility] Ondansetron HCl (Zofran Inj*) 4 mg IV Q6H PRN Oxycodone HCl (Roxycodone Tab*) 10 mg PO Q4H PRN Pharmacy Profile Note (Lidocaine Patch Remove*) 1 note PATCH OFF DAILY@0800 [facility] Polyethylene Glycol/Electrolytes (Miralax*) 17 gm PO 0800,2100 [facility] Potassium Chloride (Klor Con Er Tab*) 20 meq PO BID WITH MEALS [facility] Prednisone (Deltasone Tab*) 40 mg PO DAILY [facility] Senna (Senokot Tab*) 1 tab PO BEDTIME PRN Sodium Chloride (Sodium Chloride 0.65% Nasal Drops*) 1 drop BOTH NARES Q4H PRN Topiramate (Topamax(*)) 50 mg PO BEDTIME [facility] Vital Signs 10/31/16 10/31/16 10/31/16 11:17 15:21 15:26 Temperature 98.1 F 97.6 F Pulse Rate 70 102 110 Respiratory 16 18 Rate Blood Pressure 121/71 139/79 (mmHg) O2 Sat by Pulse 93 97 Oximetry 11/01/16 11/01/16 11/01/16 03:20 07:00 07:42 Temperature 98.2 F 97.8 F Pulse Rate 77 77 Respiratory 16 20 16 Rate Blood Pressure 110/60 125/77 (mmHg) O2 Sat by Pulse 95 96 Oximetry 11/01/16 09:42 Temperature Pulse Rate Respiratory 20 Rate Blood Pressure (mmHg) O2 Sat by Pulse Oximetry Oxygen Devices in Use Now: None Appearance: Middle-aged, F, laying in bed in NAD Eyes: No Scleral Icterus Ears/Nose/Mouth/Throat: Mucous Membranes Moist, - - cold sore on L upper lip Neck: NL Appearance and Movements; NL JVP Respiratory: Symmetrical Chest Expansion and Respiratory Effort, - - Diminshed at bases, otherwise clear Cardiovascular: - - IRIR, normal rate Abdominal: NL Sounds; No Tenderness; No Distention Lymphatic: No Cervical Adenopathy Extremities: - - B/L LE edema, improving Skin: No Rash or Ulcers Neurological: Alert and Oriented x 3 Result Diagrams: 10/29/16 06:26 11/01/16 04:58 Additional Lab and Data: . Microbiology and Other Data: Assess/Plan/Problems-Billing . Assessment: Mrs. Montes is a 65yo F with PMH of follicular lymphoma s/p RCHOP, migraines, who presented to ED due to abnormal labs revealing hypercalcemia, also found to have troponin elevation. - Patient Problems (1) Atrial fibrillation Current Visit: Yes Comment: Paroxysmal. Due to hypotention, sotalol and metoprolol were stopped and digoxin started on . Started maintenance dose of 125 mcg daily on 10/27. Had RVR evening and overnight on 10/31 that responded to IV metoprolol, digoxin level at low end of normal, will increase dose to alternate 250 mcg with 125 mcg every other day. CHADS2 vasc score is 2 (sex, age). Appreciate cardiology consult (2) Hypercalcemia Current Visit: Yes Comment: Patient had labs done at [place] 10/17/16 and was called with an elevated calcium 12.2. treated with IVF, Furosemide, and Zoledronic acid 10/16/16. Calcium back to normal. PTH is low consistent with non-PTH mediated hypercalcemia. BMBx done 10/[address] Orr was normal with no signs of malignancy (3) Elevated troponin Current Visit: Yes Comment: CTA chest was negative for PE and LE doppler negative for DVT. Echocardiogram showed signs of moderate pulmonary HTN, mild dilatation of RV, and RV systolic function moderately reduced and this is new when compared to prior echo from January 2016. - Pulm eval appreciated - concerned for GREG as source of pulmonary hypertension , but pt could not tolerate CPAP. Should get sleep study as an outpatient. - ?? small vessel occlusions -- pulmonary thrombotic vasculopathy? started AC 10/24/16 in AM (lovenox). Can likely transition to oral AC on discharge. (4) PIERRE (acute kidney injury) Current Visit: Yes Comment: Suspect part of it secondary to NSAID use, worsened by dehydration caused by hypercalcemia. - Resolved initally, now creat slightly elevated but stable, continue IV Lasix (5) Polyarthritis Current Visit: Yes Comment: Rheum w/u as outpatient was negative. CRP was 92, but RF, anti-CCP, HANY, ANCA were all negative. - Rheum consult appreciated - repeat w/u unremarkable for clear process, Dr. Hensley entertaining sarcoidosis, LANDON level normal, consider cardiac MRI as outpatient - Continue Prednisone 40 mg daily, will need gradual taper as outpatient as per Dr. Hensley - With her nasal symptoms, concerned for Hunter's - but sinus CT negative. - Continue pain management. - Vit D supplementation started with low-normal Vit D (6) Rash Current Visit: Yes Comment: "thrombotic vasculopathy" d/w hematology; could this be a low grade DIC secondary to a malignancy? Drug reaction vs rheumatologic condition. Stopped gabapentin to streamline potentially involved meds, though there are not many at present. 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 - EGD 10/23 unremarkable, but with bx taken that only show some areas of inflammation, no evidence of malignancy (8) H/O lymphoma Current Visit: Yes Comment: H/o follicular lymphoma, s/p chemo in fall 2015, now in remission - Bone marrow biopsy done 10/28 was normal, no evidence of malignancy (9) Fluid overload Current Visit: Yes Comment: Pt had significant volume overload from tx with IVF for initial hypercalcemia and low albumin levels appreciate Dr. Rader's suggestions, albumin infusions and Lasix started on , continue direusis with IV Lasix. Albumin has been stable off infusions. Weight 144 today, dry weight is ~130 as per patient. (10) LFT elevation Current Visit: Yes Comment: suspect due to vascular congestion or ischemia. improved with diuresis (11) Migraine Current Visit: Yes Comment: - Continue Topamax. (12) Cold sore Current Visit: Yes Comment: Acyclovir started on 11/01 (13) Dysphagia Current Visit: Yes Comment: Complaining of some intermittent swallowing issues. Will order swallow eval (14) DVT prophylaxis Current Visit: Yes Comment: Lovenox (15) Full code status Current Visit: Yes Status and Disposition: . Inpatient for continued diuresis, continues to improve. Hopeful for discharge in next 24-48 hours
[2016-11-01] MEDS: Enoxaparin(*) 80 MG/0.8 ML SYR SUBCUT SCH ×2 (11:05→21:18)
[2016-11-01] MEDS: Lidocaine Patch REMOVE* 1 NOTE MISC PATCH OFF SCH (11:07)
[2016-11-01] MEDS: Acyclovir CAP* 200 MG PO SCH ×3 (13:11→21:16)
[2016-11-01] MEDS: Acetaminophen TAB* 325 MG PO PRN (14:41)
[2016-11-01] MEDS ORDERED: Digoxin TAB* 0.25 MG PO SCH (17:00)
[2016-11-01] MEDS: Topiramate TAB(*) 25 MG PO SCH (21:16)
[2016-11-01] MEDS: ALPRAZolam TAB* 0.5 MG PO PRN (21:16)
[2016-11-01] MEDS: Lidocaine PATCH 5%* 1 PATCH TRANSDERM SCH (21:17)
[2016-11-01] MEDS: Morphine INJ* 2 MG/ML 1 ML SYRINGE IV PRN (21:18)
[2016-11-02] MEDS: Morphine INJ* 2 MG/ML 1 ML SYRINGE IV PRN ×3 (03:31→21:26)
[2016-11-02] MEDS: Omeprazole CAP* 20 MG PO SCH (06:41)
[2016-11-02] MEDS: Acyclovir CAP* 200 MG PO SCH ×5 (06:47→21:32)
[2016-11-02 08:52] LABS: Albumin 3.4 g/dL (3.2-5.2); Calcium 10.2 mg/dL (8.6-10.3); EGFR African American 66.7 (>60); EGFR Non-African American 51.9 (>60); Potassium 3.6 mmol/L (3.5-5.0)
[2016-11-02] MEDS: Lactobacillus Acidophilu (GG)* 1 CAP CAP PO SCH (08:53)
[2016-11-02] MEDS: Magnesium Oxide TAB* 400 MG PO SCH (08:53)
[2016-11-02] MEDS: Cholecalciferol TAB* 1000 UNITS PO SCH (08:53)
[2016-11-02] MEDS: Potassium Chlor TAB* 20 MEQ TAB.ER PO SCH ×2 (08:53→18:15)
[2016-11-02] MEDS: predniSONE TAB* 20 MG PO SCH (08:53)
[2016-11-02] MEDS: Docusate CAP* 100 MG PO SCH ×2 (08:53→21:32)
[2016-11-02] MEDS: Polyethylene Glycol 3350* 17 GM PACKET PO SCH ×2 (08:53→21:46)
[2016-11-02] MEDS: Furosemide IV* 10 MG/ML 10 ML VIAL (100 MG) IV SCH (08:54)
[2016-11-02] MEDS: Lidocaine Patch REMOVE* 1 NOTE MISC PATCH OFF SCH (08:54)
[2016-11-02] MEDS: Enoxaparin(*) 80 MG/0.8 ML SYR SUBCUT SCH (10:22)
[2016-11-02] MEDS: Acetaminophen TAB* 325 MG PO PRN ×2 (14:09→23:00)
[2016-11-02] MEDS ORDERED: Digoxin TAB* 0.125 MG PO SCH (17:00)
--- NOTE | 2016-11-02 18:20 | CONSULT ---
Consult Consult: Consult follow up Note Patient: MIKE MONTES /Age: 05 1950 65 Medical Record#: [id number] Admission Date: 10/17/16 Provider: Steve Hensley MD Chief complaint High CRP Subjective Date of Service: 11/01/16 Interval History: Patient seen this evening; she feels overall well; her shoulder pain is improved ; she has had mild hand and wrist and knee pain; she is considering blood thinners for her arrythmia. Has some RVR yesterday evening and overnight, said she felt palpitations. Slept well for a time but was waken up for vitals and could not get back to sleep. Had some intermittent SOB but this is improved now Family History: Unchanged from Admission Social History: Unchanged from Admission Past Medical History: Unchanged from Admission Objective Active Medications: Acetaminophen (Tylenol Tab*) 650 mg PO Q4H PRN Alprazolam (Xanax Tab*) 0.5 mg PO TID PRN Cholecalciferol (Vitamin D Tab*) 1,000 units PO DAILY [facility] Dextrose (D50w Syringe 50 Ml*) 12.5 gm IV PUSH .FOR FS < 60 - SS PRN Digoxin (Lanoxin Tab*) 0.125 mg PO 1700 [facility] Docusate Sodium (Colace Cap*) 100 mg PO BID [facility] Enoxaparin Sodium (Lovenox(*)) 70 mg SUBCUT Q12H [facility] Furosemide (Lasix Iv*) 20 mg IV DAILY [facility] Lactobacillus Rhamnosus (Culturelle*) 1 cap PO DAILY [facility] Lidocaine (Lidoderm 5% Patch*) 1 patch TRANSDERM DAILY@2000 [facility] Magnesium Oxide (Magox 400 Tab*) 800 mg PO DAILY [facility] Metoprolol Tartrate (Lopressor Iv*) 5 mg IV Q5M PRN Morphine Sulfate (Morphine Inj (Syringe)*) 2 mg IV Q4H PRN Multi-Ingredient Mouthwash/Gargle (Biotene Dry Mouth Oral Rinse(Nf)) 15 ml MT . DIRECTED [facility] Omeprazole (Prilosec Cap*) 40 mg PO DAILY@0600 [facility] Ondansetron HCl (Zofran Inj*) 4 mg IV Q6H PRN Oxycodone HCl (Roxycodone Tab*) 10 mg PO Q4H PRN Pharmacy Profile Note (Lidocaine Patch Remove*) 1 note PATCH OFF DAILY@0800 [facility] Polyethylene Glycol/Electrolytes (Miralax*) 17 gm PO 0800,2100 [facility] Potassium Chloride (Klor Con Er Tab*) 20 meq PO BID WITH MEALS [facility] Prednisone (Deltasone Tab*) 40 mg PO DAILY [facility] Senna (Senokot Tab*) 1 tab PO BEDTIME PRN Sodium Chloride (Sodium Chloride 0.65% Nasal Drops*) 1 drop BOTH NARES Q4H PRN Topiramate (Topamax(*)) 50 mg PO BEDTIME [facility] Vital Signs 10/31/16 10/31/16 11:17 15:21 15:26 Temperature 98.1 F 97.6 F Pulse Rate 70 102 110 Respiratory 16 18 Rate Blood Pressure 121/71 139/79 (mmHg) O2 Sat by Pulse 93 97 Oximetry 11/01/16 11/01/16 03:20 07:00 07:42 Temperature 98.2 F 97.8 F Pulse Rate 77 77 Respiratory 16 20 16 Rate Blood Pressure 110/60 125/77 (mmHg) O2 Sat by Pulse 95 96 Oximetry 11/01/16 09:42 Temperature Pulse Rate Respiratory 20 Rate Blood Pressure ( mmHg) O2 Sat by Pulse Oximetry Oxygen Devices in Use Now: None Appearance: Middle-aged, F, laying in bed in NAD Eyes: No Scleral Icterus Ears/Nose/Mouth/Throat: Mucous Membranes Moist, - - cold sore on L upper lip Neck: NL Appearance and Movements; NL JVP Respiratory: Symmetrical Chest Expansion and Respiratory Effort, - - Diminshed at bases, otherwise clear Cardiovascular: - - IRIR, normal rate Abdominal: NL Sounds; No Tenderness; No Distention Lymphatic: No Cervical Adenopathy Extremities: - - B/L LE edema, improving Skin: No Rash or Ulcers Neurological: Alert and Oriented x 3 Result Diagrams: 06:26 Progress Note MIKE MONTES [id number] 10/17/16 04:58 Additional Lab and Data: Creatinine 1.12. Hemoglobin of 7.9 Microbiology and Other Data: Assess/Plan/Problems-Billing . Assessment: Mrs. Montes is a 65yo F with PMH of follicular lymphoma s/p RCHOP, migraines, who presented to ED due to abnormal labs revealing hypercalcemia, also found to have renal insufficiency and an elevated CRP - Patient Problems (1) Polymyalgias; based on age and elevated CRP, she may have an atypical form of polymyalgia rheumatica. Of note, she has had some improvement with steroids ; she also has had some jaw pain but denied visual symptoms; she will need a gradual reduction of steroids based on improvement in inflammatory markers and symptoms. (2) Hypercalcemia Low vitamin D; she will need replacement being on chronic steroids; we will need an outpatient BMD (3) Elevated troponin Current Visit: I do wonder if further cardiac MRI imaging would be helpful - pulmonary thrombotic vasculopathy? started AC 10/24/16 in AM (lovenox). Can likely transition to oral AC on discharge. (4) PIERRE (acute kidney injury) Current Visit: NSAIDs on hold - Resolved initally, now creat slightly elevated but stable, continue IV Lasix (5) Polyarthritis Follow CRP
--- NOTE | 2016-11-02 19:05 | PN ---
Subjective Date of Service: 11/02/16 Interval History: pt feels well. Family History: Unchanged from Admission Social History: Unchanged from Admission Past Medical History: Unchanged from Admission Objective Active Medications: Acetaminophen (Tylenol Tab*) 650 mg PO Q4H PRN PRN Reason: FEVER/PAIN Last Admin: 11/02/16 14:09 Dose: 650 mg Acyclovir (Zovirax Cap*) 200 mg PO FIVE TIMES DAILY [facility] Stop: 11/06/16 13:59 Last Admin: 11/02/16 18:15 Dose: 200 mg Alprazolam (Xanax Tab*) 0.5 mg PO TID PRN PRN Reason: ANXIETY Last Admin: 11/01/16 21:16 Dose: 0.5 mg Cholecalciferol (Vitamin D Tab*) 1,000 units PO DAILY [facility] Last Admin: 11/02/16 08:53 Dose: 1,000 units Digoxin (Lanoxin Tab*) 0.125 mg PO Q48H [facility] Last Admin: 11/02/16 18:14 Dose: 0.125 mg Digoxin (Lanoxin Tab*) 0.25 mg PO Q48H [facility] Last Admin: 11/01/16 16:41 Dose: 0.25 mg Docusate Sodium (Colace Cap*) 100 mg PO BID [facility] Last Admin: 11/02/16 08:53 Dose: 100 mg Enoxaparin Sodium (Lovenox(*)) 60 mg SUBCUT 1000,2200 [facility] Furosemide (Lasix Iv*) 20 mg IV DAILY [facility] Last Admin: 11/02/16 08:54 Dose: 20 mg Lactobacillus Rhamnosus (Culturelle*) 1 cap PO DAILY [facility] Last Admin: 11/02/16 08:53 Dose: 1 cap Lidocaine (Lidoderm 5% Patch*) 1 patch TRANSDERM DAILY@1999 [facility] Last Admin: 11/01/16 21:17 Dose: 1 patch Magnesium Oxide (Magox 400 Tab*) 800 mg PO DAILY [facility] Last Admin: 11/02/16 08:53 Dose: 800 mg Metoprolol Tartrate (Lopressor Iv*) 5 mg IV Q5M PRN PRN Reason: Afib, HR persistently > 120 Morphine Sulfate (Morphine Inj (Syringe)*) 2 mg IV Q4H PRN PRN Reason: Pain/SOB Last Admin: 11/02/16 14:18 Dose: 2 mg Multi-Ingredient Mouthwash/Gargle (Biotene Dry Mouth Oral Rinse(Nf)) 15 ml MT . DIRECTED [facility] Last Admin: 10/24/16 21:24 Dose: 15 ml Omeprazole (Prilosec Cap*) 40 mg PO DAILY@0600 [facility] Last Admin: 11/02/16 06:41 Dose: 40 mg Ondansetron HCl (Zofran Inj*) 4 mg IV Q6H PRN PRN Reason: NAUSEA Last Admin: 11/01/16 09:00 Dose: 4 mg Oxycodone HCl (Roxycodone Tab*) 10 mg PO Q4H PRN PRN Reason: PAIN Pharmacy Profile Note (Lidocaine Patch Remove*) 1 note PATCH OFF DAILY@0800 [facility] Last Admin: 11/02/16 08:54 Dose: 1 note Polyethylene Glycol/Electrolytes (Miralax*) 17 gm PO 0800,2100 [facility] Last Admin: 11/02/16 08:53 Dose: 17 gm Potassium Chloride (Klor Con Er Tab*) 20 meq PO BID WITH MEALS [facility] Last Admin: 11/02/16 18:15 Dose: 20 meq Prednisone (Deltasone Tab*) 40 mg PO DAILY [facility] Last Admin: 11/02/16 08:53 Dose: 40 mg Senna (Senokot Tab*) 1 tab PO BEDTIME PRN PRN Reason: CONSTIPATION Sodium Chloride (Sodium Chloride 0.65% Nasal Drops*) 1 drop BOTH NARES Q4H PRN PRN Reason: CONGESTION Last Admin: 10/24/16 20:05 Dose: 1 drop Topiramate (Topamax(*)) 50 mg PO BEDTIME [facility] Last Admin: 11/01/16 21:16 Dose: 50 mg Vital Signs 11/01/16 11/01/16 11/01/16 20:00 20:25 21:16 Temperature 97.6 F Pulse Rate 81 Respiratory 19 19 18 Rate Blood Pressure 119/70 (mmHg) O2 Sat by Pulse 96 Oximetry 11/01/16 11/01/16 11/01/16 21:18 22:18 23:16 Temperature Pulse Rate Respiratory 18 14 14 Rate Blood Pressure (mmHg) O2 Sat by Pulse Oximetry 11/02/16 11/02/16 11/02/16 03:31 03:36 04:31 Temperature 97.9 F Pulse Rate 79 Respiratory 16 20 16 Rate Blood Pressure 128/78 (mmHg) O2 Sat by Pulse 96 Oximetry 11/02/16 11/02/16 11/02/16 07:12 08:00 08:31 Temperature 99.0 F 98.5 F Pulse Rate 74 78 Respiratory 16 18 18 Rate Blood Pressure 129/81 127/75 (mmHg) O2 Sat by Pulse 95 96 Oximetry 11/02/16 11/02/16 11/02/16 11:34 13:22 14:18 Temperature 97.8 F 98.2 F Pulse Rate 80 79 Respiratory 16 18 20 Rate Blood Pressure 129/72 124/69 (mmHg) O2 Sat by Pulse 96 96 Oximetry 11/02/16 11/02/16 11/02/16 15:15 15:18 18:14 Temperature 98.6 F Pulse Rate 81 72 Respiratory 16 18 Rate Blood Pressure 132/78 (mmHg) O2 Sat by Pulse 96 Oximetry Oxygen Devices in Use Now: None Appearance: 65 yo F in nAd, aAOx3 Eyes: No Scleral Icterus, PERRLA Ears/Nose/Mouth/Throat: NL Teeth, Lips, Gums, Mucous Membranes Moist Neck: NL Appearance and Movements; NL JVP, Trachea Midline Respiratory: Symmetrical Chest Expansion and Respiratory Effort, Clear to Auscultation Cardiovascular: NL Sounds; No Murmurs; No JVD, RRR Abdominal: NL Sounds; No Tenderness; No Distention Lymphatic: No Cervical Adenopathy Extremities: No Clubbing, Cyanosis, - - trace b/l pedal edema Skin: No Rash or Ulcers, No Nodules or Sclerosis Neurological: Alert and Oriented x 3, NL Muscle Strength and Tone Result Diagrams: 10/29/16 06:26 11/02/16 06:40 Additional Lab and Data: . Microbiology and Other Data: Assess/Plan/Problems-Billing . Assessment: Mrs. Montes is a 65yo F with PMH of follicular lymphoma s/p RCHOP, migraines, who presented to ED due to abnormal labs revealing hypercalcemia, also found to have troponin elevation. - Patient Problems (1) Atrial fibrillation Comment: Paroxysmal. Due to hypotention, sotalol and metoprolol were stopped and digoxin started on . Started maintenance dose of 125 mcg daily on 10/27. Had RVR evening and overnight on 10/31 that responded to IV metoprolol, digoxin level at low end of normal, will increase dose to alternate 250 mcg with 125 mcg every other day. CHADS2 vasc score is 2 (sex, age). Needs to be on anticoagulation. Appreciate cardiology consult (2) Hypercalcemia Comment: Patient had labs done at [place] 10/17/16 and was called with an elevated calcium 12.2. treated with IVF, Furosemide, and Zoledronic acid 10/16/16. Calcium back to normal. PTH is low consistent with non-PTH mediated hypercalcemia. BMBx done 10/[address] Orr was normal with no signs of malignancy (3) Elevated troponin Comment: CTA chest was negative for PE and LE doppler negative for DVT. Echocardiogram showed signs of moderate pulmonary HTN, mild dilatation of RV, and RV systolic function moderately reduced and this is new when compared to prior echo from January 2016. - Pulm eval appreciated - concerned for GREG as source of pulmonary hypertension , but pt could not tolerate CPAP. Should get sleep study as an outpatient. - ?? small vessel occlusions -- pulmonary thrombotic vasculopathy? started AC 10/24/16 in AM (lovenox). will start oral anticoagulant tomorrow. [facility]16 (4) PIERRE (acute kidney injury) Comment: Suspect part of it secondary to NSAID use, worsened by dehydration caused by hypercalcemia. - Resolved initally, now creat slightly elevated but stable, continue IV Lasix (5) Polyarthritis Comment: Rheum w/u as outpatient was negative. CRP was 92, but RF, anti-CCP, HANY , ANCA were all negative. - Rheum consult appreciated - repeat w/u unremarkable for clear process, Dr. Hensley entertaining sarcoidosis, LANDON level normal, consider cardiac MRI as outpatient - Continue Prednisone 40 mg daily, will need gradual taper as outpatient as per Dr. Hensley - With her nasal symptoms, concerned for Hunter's - but sinus CT negative. - Continue pain management. - Vit D supplementation started with low-normal Vit D (6) Rash Comment: "thrombotic vasculopathy" d/w hematology; could this be a low grade DIC secondary to a malignancy? Drug reaction vs rheumatologic condition. Stopped gabapentin to streamline potentially involved meds, though there are not many at present. 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 - EGD 10/23 unremarkable, but with bx taken that only show some areas of inflammation, no evidence of malignancy (8) H/O lymphoma Comment: H/o follicular lymphoma, s/p chemo in fall 2015, now in remission - Bone marrow biopsy done 10/28 was normal, no evidence of malignancy (9) Fluid overload Comment: Pt had significant volume overload from tx with IVF for initial hypercalcemia and low albumin levels appreciate Dr. Rader's suggestions, albumin infusions and Lasix started on , continue direusis with IV Lasix. Albumin has been stable off infusions. Weight 141 today, dry weight is ~130 as per patient. (10) Migraine Comment: - Continue Topamax. (11) LFT elevation Comment: suspect due to vascular congestion or ischemia. improved with diuresis (12) Fever Comment: on 10/24/16, no recurrence blood cx negative, nontoxic appearing. leukocytosis present, but pt on steroids (13) DVT prophylaxis Comment: Lovenox (14) Full code status (15) Cold sore Comment: Acyclovir started on 11/01 Status and Disposition: . Inpatient for continued diuresis, continues to improve. Hopeful for discharge in next 48 hours
[2016-11-02] MEDS: Lidocaine PATCH 5%* 1 PATCH TRANSDERM SCH (21:31)
[2016-11-02] MEDS: ALPRAZolam TAB* 0.5 MG PO PRN (21:32)
[2016-11-02] MEDS: Topiramate TAB(*) 25 MG PO SCH (21:32)
[2016-11-02] MEDS: Enoxaparin(*) 60 MG/0.6 ML SYR SUBCUT SCH (21:32)
[2016-11-03] MEDS: Morphine INJ* 2 MG/ML 1 ML SYRINGE IV PRN (01:00)
[2016-11-03] MEDS: Omeprazole CAP* 20 MG PO SCH (06:50)
[2016-11-03] MEDS: Acyclovir CAP* 200 MG PO SCH ×5 (06:50→21:17)
[2016-11-03] MEDS: Acetaminophen TAB* 325 MG PO PRN ×3 (08:21→21:42)
[2016-11-03] MEDS: Lidocaine Patch REMOVE* 1 NOTE MISC PATCH OFF SCH (08:23)
[2016-11-03] MEDS: Cholecalciferol TAB* 1000 UNITS PO SCH (08:24)
[2016-11-03] MEDS: Polyethylene Glycol 3350* 17 GM PACKET PO SCH ×2 (08:24→21:22)
[2016-11-03] MEDS: Potassium Chlor TAB* 20 MEQ TAB.ER PO SCH ×2 (08:24→17:42)
[2016-11-03] MEDS: Docusate CAP* 100 MG PO SCH ×2 (08:25→21:16)
[2016-11-03] MEDS: Furosemide IV* 10 MG/ML 10 ML VIAL (100 MG) IV SCH (08:25)
[2016-11-03] MEDS: Magnesium Oxide TAB* 400 MG PO SCH (08:25)
[2016-11-03] MEDS: predniSONE TAB* 20 MG PO SCH (08:26)
[2016-11-03] MEDS: Lactobacillus Acidophilu (GG)* 1 CAP CAP PO SCH (08:31)
[2016-11-03] MEDS ORDERED: Metoprolol Tartrate TAB* 25 MG PO SCH (09:00)
[2016-11-03 09:03] LABS: BUN/Creatinine Ratio 33.3 (8-20); Digoxin 0.9 ng/ml (0.8-2.0); EGFR African American 72.2 (>60); EGFR Non-African American 56.1 (>60); Potassium 3.6 mmol/L (3.5-5.0)
[2016-11-03] MEDS: Enoxaparin(*) 60 MG/0.6 ML SYR SUBCUT SCH (09:12)
[2016-11-03 12:54] LABS: Magnesium 1.8 mg/dL (1.9-2.7)
[2016-11-03] MEDS ORDERED: Acetaminophen TAB* 325 MG PO ONE (13:07)
[2016-11-03] MEDS ORDERED: Ibuprofen TAB* 400 MG PO ONE (13:07)
[2016-11-03] MEDS ORDERED: Magnesium Sulfate 1 GM IV* 1 GM/100 ML BAG IV ONE (13:30)
[2016-11-03 13:38] LABS: Hematocrit 29 % (35-47); Hemoglobin 9.1 g/dl (12.0-16.0); Mean Corpuscular HGB Conc 32 g/dl (31-36); Mean Corpuscular Hemoglobin 31 pg (27-31); Mean Corpuscular Volume 97 fL (80-97); Mean Platelet Volume 9 um3 (7.4-10.4); Red Blood Count 2.94 10^6/ul (4.0-5.4); Red Cell Distribution Width 18 % (10.5-15); White Blood Count 16.7 10^3/ul (3.5-10.8)
[2016-11-03 13:41] LABS: Add Diff/Slide Review? Slide Review Added; Comments Flag Yes
--- NOTE | 2016-11-03 14:52 | PN ---
Subjective Date of Service: 11/03/16 Interval History: pt had a "horrible night". she was in a. fib and felt her heart "pounding". No c /o CP. now c/o migraine headache On telem review she is in and out of A. fib HR 120's Family History: Unchanged from Admission Social History: Unchanged from Admission Past Medical History: Unchanged from Admission Objective Active Medications: Acetaminophen (Tylenol Tab*) 650 mg PO Q4H PRN PRN Reason: FEVER/PAIN Last Admin: 11/03/16 12:23 Dose: 650 mg Acyclovir (Zovirax Cap*) 200 mg PO FIVE TIMES DAILY [facility] Stop: 11/06/16 13:59 Last Admin: 11/03/16 09:11 Dose: 200 mg Alprazolam (Xanax Tab*) 0.5 mg PO TID PRN PRN Reason: ANXIETY Last Admin: 11/02/16 21:32 Dose: 0.5 mg Apixaban (Eliquis*) 5 mg PO BID [facility] Cholecalciferol (Vitamin D Tab*) 1,000 units PO DAILY [facility] Last Admin: 11/03/16 08:24 Dose: 1,000 units Digoxin (Lanoxin Tab*) 0.125 mg PO Q48H [facility] Last Admin: 11/02/16 18:14 Dose: 0.125 mg Digoxin (Lanoxin Tab*) 0.25 mg PO Q48H [facility] Last Admin: 11/01/16 16:41 Dose: 0.25 mg Docusate Sodium (Colace Cap*) 100 mg PO BID [facility] Last Admin: 11/03/16 08:25 Dose: 100 mg Furosemide (Lasix Iv*) 20 mg IV DAILY [facility] Last Admin: 11/03/16 08:25 Dose: 20 mg Lactobacillus Rhamnosus (Culturelle*) 1 cap PO DAILY [facility] Last Admin: 11/03/16 08:31 Dose: 1 cap Lidocaine (Lidoderm 5% Patch*) 1 patch TRANSDERM DAILY@1999 [facility] Last Admin: 11/02/16 21:31 Dose: 1 patch Magnesium Oxide (Magox 400 Tab*) 800 mg PO DAILY [facility] Last Admin: 11/03/16 08:25 Dose: 800 mg Metoprolol Tartrate (Lopressor Tab*) 25 mg PO BID [facility] Last Admin: 11/03/16 09:11 Dose: 25 mg Morphine Sulfate (Morphine Inj (Syringe)*) 2 mg IV Q4H PRN PRN Reason: Pain/SOB Last Admin: 11/03/16 01:00 Dose: 2 mg Multi-Ingredient Mouthwash/Gargle (Biotene Dry Mouth Oral Rinse(Nf)) 15 ml MT . DIRECTED [facility] Last Admin: 10/24/16 21:24 Dose: 15 ml Omeprazole (Prilosec Cap*) 40 mg PO DAILY@0600 [facility] Last Admin: 11/03/16 06:50 Dose: 40 mg Ondansetron HCl (Zofran Inj*) 4 mg IV Q6H PRN PRN Reason: NAUSEA Last Admin: 11/01/16 09:00 Dose: 4 mg Oxycodone HCl (Roxycodone Tab*) 10 mg PO Q4H PRN PRN Reason: PAIN Pharmacy Profile Note (Lidocaine Patch Remove*) 1 note PATCH OFF DAILY@0800 [facility] Last Admin: 11/03/16 08:23 Dose: 1 note Polyethylene Glycol/Electrolytes (Miralax*) 17 gm PO 0800,2100 [facility] Last Admin: 11/03/16 08:24 Dose: 17 gm Potassium Chloride (Klor Con Er Tab*) 20 meq PO BID WITH MEALS [facility] Last Admin: 11/03/16 08:24 Dose: 20 meq Prednisone (Deltasone Tab*) 40 mg PO DAILY [facility] Last Admin: 11/03/16 08:26 Dose: 40 mg Senna (Senokot Tab*) 1 tab PO BEDTIME PRN PRN Reason: CONSTIPATION Sodium Chloride (Sodium Chloride 0.65% Nasal Drops*) 1 drop BOTH NARES Q4H PRN PRN Reason: CONGESTION Last Admin: 10/24/16 20:05 Dose: 1 drop Topiramate (Topamax(*)) 50 mg PO BEDTIME [facility] Last Admin: 11/02/16 21:32 Dose: 50 mg Vital Signs 11/02/16 11/02/16 11/02/16 15:15 15:18 18:14 Temperature 98.6 F Pulse Rate 81 72 Respiratory 16 18 Rate Blood Pressure 132/78 (mmHg) O2 Sat by Pulse 96 Oximetry 11/02/16 11/02/16 11/02/16 19:20 20:00 21:26 Temperature 97.9 F Pulse Rate 81 Respiratory 18 16 16 Rate Blood Pressure 139/81 (mmHg) O2 Sat by Pulse 98 Oximetry 11/02/16 11/02/16 11/02/16 21:32 22:26 22:55 Temperature Pulse Rate 75 Respiratory 16 18 16 Rate Blood Pressure 140/71 (mmHg) O2 Sat by Pulse 99 Oximetry 11/02/16 11/03/16 11/03/16 23:32 00:54 01:00 Temperature 97.7 F Pulse Rate 71 Respiratory 18 20 18 Rate Blood Pressure 140/74 (mmHg) O2 Sat by Pulse 99 Oximetry 11/03/16 11/03/16 11/03/16 02:00 06:14 07:24 Temperature 98.5 F 98.3 F Pulse Rate 73 73 Respiratory 14 16 18 Rate Blood Pressure 124/66 136/77 (mmHg) O2 Sat by Pulse 100 98 Oximetry 11/03/16 11/03/16 08:00 11:58 Temperature 98.1 F Pulse Rate 68 Respiratory 18 20 Rate Blood Pressure 126/59 (mmHg) O2 Sat by Pulse 92 Oximetry Oxygen Devices in Use Now: None Appearance: 65 yo F in nAd, aAO3 Eyes: No Scleral Icterus, PERRLA Ears/Nose/Mouth/Throat: NL Teeth, Lips, Gums, Mucous Membranes Moist Neck: NL Appearance and Movements; NL JVP, Trachea Midline Respiratory: Symmetrical Chest Expansion and Respiratory Effort, Clear to Auscultation Cardiovascular: NL Sounds; No Murmurs; No JVD, RRR Abdominal: NL Sounds; No Tenderness; No Distention Lymphatic: No Cervical Adenopathy Extremities: No Clubbing, Cyanosis, - - +1 pedal pitting edema b/l Skin: No Rash or Ulcers, No Nodules or Sclerosis Neurological: Alert and Oriented x 3, NL Muscle Strength and Tone Result Diagrams: 11/03/16 08:14 11/03/16 08:15 Additional Lab and Data: . Microbiology and Other Data: Assess/Plan/Problems-Billing . Assessment: Mrs. Montes is a 65yo F with PMH of follicular lymphoma s/p RCHOP, migraines, who presented to ED due to abnormal labs revealing hypercalcemia, also found to have troponin elevation. - Patient Problems (1) Atrial fibrillation Comment: Paroxysmal, but symptomatic. Started on lopressor today. Asked Dr. Knox for further receommendations Due to hypotention, sotalol and metoprolol were stopped and digoxin started on . Started maintenance dose of 125 mcg daily on 10/27. Had RVR evening and overnight on 10/31 that responded to IV metoprolol, digoxin level at low end of normal, it was increased to 125 mcg alternating with 250 mcg. CHADS2 vasc score is 2 (sex, age). Needs to be on anticoagulation .Eliquis started on 11/03/16. will check overnight pulse ox-symptoms occur mostly at night (2) Hypercalcemia Comment: Patient had labs done at [place] 10/17/16 and was called with an elevated calcium 12.2. treated with IVF, Furosemide, and Zoledronic acid 10/16/16. Calcium back to normal. PTH is low consistent with non-PTH mediated hypercalcemia. BMBx done 10/[address] Orr was normal with no signs of malignancy (3) Elevated troponin Comment: CTA chest was negative for PE and LE doppler negative for DVT. Echocardiogram showed signs of moderate pulmonary HTN, mild dilatation of RV, and RV systolic function moderately reduced and this is new when compared to prior echo from January 2016. - Pulm eval appreciated - concerned for GREG as source of pulmonary hypertension , but pt could not tolerate CPAP. Should get sleep study as an outpatient. (4) PIERRE (acute kidney injury) Comment: Suspect part of it secondary to NSAID use, worsened by dehydration caused by hypercalcemia. - Resolved (5) Polyarthritis Comment: Rheum w/u as outpatient was negative. CRP was 92, but RF, anti-CCP, HANY , ANCA were all negative. - Rheum consult appreciated - repeat w/u unremarkable for clear process, Dr. Hensley entertaining sarcoidosis, LANDON level normal, consider cardiac MRI as outpatient - Continue Prednisone 40 mg daily, will need gradual taper as outpatient as per Dr. Hensley - With her nasal symptoms, concerned for Hunter's - but sinus CT negative. - Continue pain management. - ?? small vessel occlusions -- pulmonary thrombotic vasculopathy on skin bx results of rash. - Vit D supplementation started with low-normal Vit D (6) Rash Comment: "thrombotic vasculopathy" d/w hematology; could this be a low grade DIC secondary to a malignancy? Drug reaction vs rheumatologic condition. Stopped gabapentin to streamline potentially involved meds, though there are not many at present. 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 - EGD 10/23 unremarkable, but with bx taken that only show some areas of inflammation, no evidence of malignancy (8) H/O lymphoma Comment: H/o follicular lymphoma, s/p chemo in fall 2015, now in remission - Bone marrow biopsy done 10/28 was normal, no evidence of malignancy (9) Fluid overload Comment: Pt had significant volume overload from tx with IVF for initial hypercalcemia and low albumin levels appreciate Dr. Rader's suggestions, albumin infusions and Lasix started on , continue direusis with IV Lasix. Albumin has been stable off infusions. Weight 137 today, dry weight is ~130 as per patient. (10) Migraine Comment: - Continue Topamax. -will tx with a dose of ibuprofen and tylenol (11) LFT elevation Comment: suspect due to vascular congestion or ischemia. improved with diuresis (12) Fever Comment: on 10/24/16, no recurrence blood cx negative, nontoxic appearing. leukocytosis present, but pt on steroids (13) DVT prophylaxis Comment: Lovenox (14) Full code status (15) Cold sore Comment: Acyclovir started on 11/01 Status and Disposition: . Inpatient for continued diuresis, continues to improve. Hopeful for discharge in next 48 hours
[2016-11-03] MEDS ORDERED: Potassium Chlor TAB* 20 MEQ TAB.ER PO ONE (14:57)
[2016-11-03] MEDS: ALPRAZolam TAB* 0.5 MG PO PRN (21:15)
[2016-11-03] MEDS: Dronedarone TAB* 400 MG PO SCH (21:16)
[2016-11-03] MEDS: Apixaban* 5 MG TAB PO SCH (21:17)
[2016-11-03] MEDS: Metoprolol Tartrate TAB* 50 mg PO SCH (21:17)
[2016-11-03] MEDS: Topiramate TAB(*) 25 MG PO SCH (21:17)
[2016-11-03] MEDS: Lidocaine PATCH 5%* 1 PATCH TRANSDERM SCH (21:18)
[2016-11-04] MEDS: ALPRAZolam TAB* 0.5 MG PO PRN (02:38)
[2016-11-04] MEDS: Morphine INJ* 2 MG/ML 1 ML SYRINGE IV PRN (02:38)
[2016-11-04] MEDS: Acyclovir CAP* 200 MG PO SCH ×3 (06:49→14:14)
[2016-11-04] MEDS: Omeprazole CAP* 20 MG PO SCH (06:49)
[2016-11-04] MEDS: Apixaban* 5 MG TAB PO SCH (08:14)
[2016-11-04] MEDS: Magnesium Oxide TAB* 400 MG PO SCH (08:15)
[2016-11-04] MEDS: predniSONE TAB* 20 MG PO SCH (08:16)
[2016-11-04] MEDS: Lactobacillus Acidophilu (GG)* 1 CAP CAP PO SCH (08:16)
[2016-11-04] MEDS: Potassium Chlor TAB* 20 MEQ TAB.ER PO SCH (08:17)
[2016-11-04] MEDS: Docusate CAP* 100 MG PO SCH (08:17)
[2016-11-04] MEDS: Cholecalciferol TAB* 1000 UNITS PO SCH (08:17)
[2016-11-04] MEDS: Dronedarone TAB* 400 MG PO SCH (08:18)
[2016-11-04] MEDS: Polyethylene Glycol 3350* 17 GM PACKET PO SCH (08:18)
[2016-11-04] MEDS: Lidocaine Patch REMOVE* 1 NOTE MISC PATCH OFF SCH (08:18)
[2016-11-04] MEDS: Furosemide IV* 10 MG/ML 10 ML VIAL (100 MG) IV SCH (08:18)
[2016-11-04] MEDS: Metoprolol Tartrate TAB* 50 mg PO SCH (08:19)
--- NOTE | 2016-11-04 11:11 | PN ---
Subjective Date of Service: 11/04/16 - CC paroxysmal atrial fibrillation Interval History: The patient feels much better today, no pounding and no headaches. Converted from afib, RVR to normal sinus rhythm with Multaq and electrolyte replacement. The patient had multiple questions for me about atrial fibrillation, renal insufficiency, and her overall hematological, rheumatological health including desire to review comprehensive inpatient review of hospital course and outpatient expectations. ROS: No orthopnea, PND, no chest pain, feeling back to herself. Denies arthralgias or myalgias. Medications Active Medications: Acetaminophen (Tylenol Tab*) 650 mg PO Q4H PRN PRN Reason: FEVER/PAIN Last Admin: 11/03/16 21:42 Dose: 650 mg Acyclovir (Zovirax Cap*) 200 mg PO FIVE TIMES DAILY [facility] Stop: 11/06/16 13:59 Last Admin: 11/04/16 10:06 Dose: 200 mg Alprazolam (Xanax Tab*) 0.5 mg PO TID PRN PRN Reason: ANXIETY Last Admin: 11/04/16 02:38 Dose: 0.5 mg Apixaban (Eliquis*) 5 mg PO BID [facility] Last Admin: 11/04/16 08:14 Dose: 5 mg Cholecalciferol (Vitamin D Tab*) 1,000 units PO DAILY [facility] Last Admin: 11/04/16 08:17 Dose: 1,000 units Docusate Sodium (Colace Cap*) 100 mg PO BID [facility] Last Admin: 11/04/16 08:17 Dose: 100 mg Dronedarone (Multaq Tab*) 400 mg PO BID [facility] Last Admin: 11/04/16 08:18 Dose: 400 mg Furosemide (Lasix Iv*) 20 mg IV DAILY [facility] Last Admin: 11/04/16 08:18 Dose: 20 mg Lactobacillus Rhamnosus (Culturelle*) 1 cap PO DAILY [facility] Last Admin: 11/04/16 08:16 Dose: 1 cap Lidocaine (Lidoderm 5% Patch*) 1 patch TRANSDERM DAILY@1999 [facility] Last Admin: 11/03/16 21:18 Dose: 1 patch Magnesium Oxide (Magox 400 Tab*) 800 mg PO DAILY [facility] Last Admin: 11/04/16 08:15 Dose: 800 mg Metoprolol Tartrate (Lopressor Tab*) 50 mg PO BID [facility] Last Admin: 11/04/16 08:19 Dose: 50 mg Morphine Sulfate (Morphine Inj (Syringe)*) 2 mg IV Q4H PRN PRN Reason: Pain/SOB Last Admin: 11/04/16 02:38 Dose: 2 mg Multi-Ingredient Mouthwash/Gargle (Biotene Dry Mouth Oral Rinse(Nf)) 15 ml MT . DIRECTED [facility] Last Admin: 10/24/16 21:24 Dose: 15 ml Omeprazole (Prilosec Cap*) 40 mg PO DAILY@0600 [facility] Last Admin: 11/04/16 06:49 Dose: 40 mg Oxycodone HCl (Roxycodone Tab*) 10 mg PO Q4H PRN PRN Reason: PAIN Last Admin: 11/04/16 08:15 Dose: 10 mg Pharmacy Profile Note (Lidocaine Patch Remove*) 1 note PATCH OFF DAILY@0800 [facility] Last Admin: 11/04/16 08:18 Dose: 1 note Polyethylene Glycol/Electrolytes (Miralax*) 17 gm PO 0800,2100 [facility] Last Admin: 11/04/16 08:18 Dose: Not Given Potassium Chloride (Klor Con Er Tab*) 20 meq PO BID WITH MEALS [facility] Last Admin: 11/04/16 08:17 Dose: 20 meq Prednisone (Deltasone Tab*) 40 mg PO DAILY [facility] Last Admin: 11/04/16 08:16 Dose: 40 mg Senna (Senokot Tab*) 1 tab PO BEDTIME PRN PRN Reason: CONSTIPATION Sodium Chloride (Sodium Chloride 0.65% Nasal Drops*) 1 drop BOTH NARES Q4H PRN PRN Reason: CONGESTION Last Admin: 10/24/16 20:05 Dose: 1 drop Topiramate (Topamax(*)) 50 mg PO BEDTIME [facility] Last Admin: 11/03/16 21:17 Dose: 50 mg Objective Vital Signs: Temp Pulse Resp BP Pulse Ox 97.9 F 72 16 117/71 97 11/04/16 07:35 11/04/16 07:35 11/04/16 10:07 11/04/16 07:35 11/04/16 07:35 Oxygen Devices in Use Now: None Appearance: well nourished, appears healthy, in no acute distress, conversant and pleasant Eyes: No Scleral Icterus, PERRLA Ears/Nose/Mouth/Throat: Clear Oropharnyx, Mucous Membranes Moist Neck: NL Appearance and Movements; NL JVP, Trachea Midline, No Thyroid Enlargement, Masses, - Respiratory: Symmetrical Chest Expansion and Respiratory Effort, Clear to Auscultation Cardiovascular: NL Sounds; No Murmurs; No JVD, RRR, - - no significant murmur, diffuse 2+ edema lower extremites Abdominal: NL Sounds; No Tenderness; No Distention, No Hepatosplenomegaly, - Lymphatic: No Cervical Adenopathy Extremities: No Edema, No Clubbing, Cyanosis Skin: No Rash or Ulcers Neurological: Alert and Oriented x 3, NL Muscle Strength and Tone Laboratory Results: 11/03/16 08:14 11/03/16 08:15 PT 13.6 sec H 10/23/16 11:03 INR (Anticoag Therapy) 1.17 (0.89-1.11) H 10/23/16 11:03 APTT 29.3 seconds (26.0-36.3) 10/23/16 11:03 Total Bilirubin 0.50 mg/dL (0.2-1.0) 10/28/16 05:22 AST 73 U/L (13-39) H 10/28/16 05:22 ALT 139 U/L (7-52) H 10/28/16 05:22 Alkaline Phosphatase 176 U/L (34-104) H 10/28/16 05:22 B-Natriuretic Peptide 437 pg/mL (-100) H 10/17/16 13:04 Total Protein 5.1 g/dL (6.4-8.9) L 10/28/16 05:22 Albumin 3.4 g/dL (3.2-5.2) 11/02/16 06:40 Globulin 1.6 g/dL (2-4) L 10/28/16 05:22 Albumin/Globulin Ratio 2.2 (1-3) 10/28/16 05:22 TSH 3.95 mcIU/mL (0.34-5.60) 10/19/16 06:36 10/17/16 10/17/16 17:57 20:01 Troponin I 0.16 H* 0.14 H* Diagnostic Imaging: Overnight oximeter 11/04/16: improved significantly, still desats> 5 mins. Overnight oximeter from 10/21/16 showed marked desaturation and with desaturation associated increase in heart rate, oxygen saturation below 90%, 4 hours and 50 minutes and oxygenation below 80%, 2 minutes. EKG Data: Monitor now: NSR. Assessment/Plan Gely Montes is a 65-year-old woman with a history of lymphoma s/p chemotherapy with R-CHOP last year since then has had fever/rash/hand swelling- pain treated with multiple course of steroids admitted with hypercalcemia has developed volume overload and third spacing in the setting of large amounts of IV saline in the setting of a low albumin level and anemia, pulm HTN some RV dysfunction but non-dilated IVC suggestive of third-spacing fluid, found with asymptomatic intermittent rapid afib had hypotension SBP 70's with sotalol and has been ineffective, also with pulmonary HTN and skin biopsy with thrombotic vasculopathy Recurrence of afib, RVR with sleep, off antiarrhythmics, now symptomatic with heart pounding and headache/migraine symptoms. S/p Multaq with spontaneous cardioversion to sinus rhythm and feeling well again. Points of Discussion: Paroxysmal atrial fibrillation: Continue Multaq for now. Continue Lopressor. Continue Eliquis. KCl goals 4-5, Magnesium goal: 2-2.2 if able. I educated patient wrt afib risks, age, GREG and more, extensive discussion on the natural course of afib, lack of ability to cure. I recommend outpatient evaluation for GREG in case contributing to paroxysmal atrial fibrillation. The patient is aware she can call the cardiology office prn recurrence of afib. Out patient f/u November with cardiology, the patient is requesting Dr. Mera as her sees him. Volume and pulmonary HTN: As the patient is back on steroids, she is at risk for fluid retention and I agree with diuretics. NO NSAIDs in the future, I discussed the possible relationship of NSAIDs and her acute process. I recommend daily weights, call if weight gain >/= to discharge weight (weigh immediately on arrival to home). Inflammatory presentation: It is my understanding no clear diagnosis behind recurrent symptoms of swelling , arthralgias and myalgias, but these symptoms have again responded to prednisone. > 1 hour was spent caring for this patient and >50% was spent with the patient and her family.
[2016-11-04 12:05] VITALS: BP 110/64
--- NOTE | 2016-11-05 01:02 | DS ---
DISCHARGE SUMMARY: DATE OF ADMISSION: 10/17/16 DATE OF DISCHARGE: 11/04/16 PRIMARY CARE PROVIDER: Dr. Radha Ardon. DISCHARGE DIAGNOSES: 1. Hypercalcemia. 2. Acute kidney injury due to nonsteroidal antiinflammatory medications, most likely. 3. Anasarca after intravenous fluid treatment for hypercalcemia. 4. History of rash and arthralgias with thrombotic vasculopathy noted on the patient's skin biopsy pathology. The patient has ongoing rheumatologic evaluation with no definitive diagnosis. 5. Pulmonary hypertension. 6. Obstructive sleep apnea. 7. New atrial fibrillation. CONSULTATION DURING THE HOSPITAL STAY: Included: 1. Dr. Orr from Oncology. 2. Dr. Hensley, Rheumatology. 3. Dr. Rader, coffee farmer. 4. Dr. Reyes, Pulmonology. 5. Dr. Clemons, Cardiology. 6. Dr. Han, Gastroenterology. PROCEDURES DURING THE HOSPITAL STAY: Included EGD performed by Dr. Han on 10/23/16 with pathology of the gastric mucosa showing nonspecific superficial chronic inflammation. No active gastritis or H. pylori like organisms. No evidence of malignancy. The duodenal biopsy also showed no significant abnormalities and no evidence of neoplasia. The impression of the procedure report from EGD showed normal duodenum, stomach , and CLOtest negative. Otherwise, grossly normal upper endoscopy and biopsies pending of the gastric body, antrum, descending, and duodenum." Skin biopsy obtained on 10/20/16 showed "thrombotic vasculopathy." Furthermore in the body of the report was mentioned that there was no evidence of leukocytoclastic vasculitis. Direct immunofluorescence microscopy was negative for immunoglobulin or complement deposition that would suggest an autoimmune process. Sections showed no evidence of inflammatory process and small vessel vascular wall obliteration with luminal occlusion by thrombin composed of aggregated platelets and fibrin. RADIOLOGY STUDIES: On 10/17/16, chest x-ray showed "no evidence of acute intrathoracic disease." Venous Doppler study on 10/18/16, impression: "No evidence of DVT of either lower extremity present. Bilateral popliteal cysts noted." CTA of the chest, abdomen, and pelvis obtained on 10/18/16, impression: "No evidence of pulmonary embolism. Moderate-sized bilateral pleural effusions and bibasilar atelectasis is noted. No mediastinal or hilar adenopathy is noted. The gastric antrum is poorly distended and appears tubular. There is some mild thickening of the gastric antrum and an infiltrative process such as linitis plastica should be considered. There is a compression of inferior endplate of L3, which was not present on previous exam." Neck CT obtained on 10/18/16, impression: "No evidence of abnormal lymphadenopathy noted. There are bilateral pleural effusions. Postoperative changes of the right parotid gland. No significant changes noted since previous exam." Bone marrow biopsy obtained on 10/28/16, final diagnosis: "Bone marrow left posterior iliac crest with mildly hypercellular bone marrow at 60% with preserved trilineage hematopoiesis and no morphologic evidence of hematologic malignancy. The core needle biopsy showed "predominantly cortical bone and periosteal tissue with less than 5% cellularity with no morphologic evidence of hematologic malignancy." MEDICATIONS AT DISCHARGE: Include: 1. Topamax 50 mg at bedtime. 2. Xanax 0.5 mg 3 times a day. The patient was dispensed a minimum of 15 tablets and I-STOP was checked. 3. Eliquis 5 mg b.i.d. 4. Vitamin D 3000 units daily. 5. Multaq 400 mg b.i.d. 6. Lasix 20 mg daily for the next 7 days together with potassium chloride 20 mEq daily for the next 7 days. 7. Lidoderm patch 5% apply to the affected area daily. 8. Mag-Ox 800 mg daily. 9. Lopressor 50 mg b.i.d. 10. Prilosec 40 mg daily. 11. Oxycodone 5 mg every 4 hours p.r.n. The patient was dispensed prescription for 30 tablets. I-STOP was checked. 12. Prednisone 40 mg daily. DISCHARGE FOLLOWUP: At discharge, the patient is recommended to follow up with Dr. Hensley in approximately 1 to 2 weeks. Follow up with Dr. Orr in approximately 1 to 2 weeks. The patient requested Dr. Mera to be her refractory worker and the appointment was scheduled with Dr. Mera on 11/30/16 at 2:30 p.m. The patient is also recommended to follow with her primary care provider as she was already scheduled with Dr. Radha Ardon on 11/09/16 for a followup. LABORATORY DATA: Throughout the patient's hospital stay, please note that the patient's creatinine peaked at 1.38 on 10/26/16. The patient has had mild LFT elevations and those were trending down and last checked on 10/28/16 with AST of 73, ALT of 139, alkaline phosphatase of 176. Bilirubin was normal at 0.5. Most recent chemistries obtained on 11/03/16 shows sodium of 136, potassium 3.6 , chloride 99, carbon dioxide 27, BUN 33, creatinine 0.99. Most recent CBC on 11/03/16 showed white blood cell count of 16.7, hemoglobin 9.1, hematocrit 29, and platelets of 303. Remaining chemistry values showed 25-hydroxy vitamin D total of 30.5, vitamin D hydroxy of 277. TSH of 3.9, PTH of below 1.3. PTH related to peptide of 0.4 with a norm being below 2. Angiotensin converting enzyme level of 28 with a norm being of 8 to 53 range. Vitamin B2 of 22, which was high normal of 19. Prealbumin was last checked on 10/25/16 and it was 8. The patient's ESR was noticed to be 13 on 10/19/16. The patient's CRP was noticed to be 42 on 10/19/16. Immunology report showed negative for cryoglobulin, rheumatoid factor of below 15, CCP below 15, HANY of below 0.1. Proteinase 3, myeloperoxidase as well as anti-Ro antibody and anti-La antibodies as well as antiscleroderma antibodies were negative. Beta-2 GPI IgG, IgA, and IgM were negative. Anticardiolipin antibody was negative. HOSPITALIZATION COURSE: Gely Montes is a 65-year-old female with a history of diagnosis of lymphoma several years ago, who underwent chemotherapy for lymphoma in July of 2016 ending in the fall of 2016. The patient has had problems with myalgias, arthralgias, and intermittent rash that had been ongoing since July and June of 2016. She was often on steroid treatments and whenever she will be taken off steroids, her rash and arthralgias would worsen. She is under the care of Dr. Hensley. She went to [place] for a second opinion in regards to her arthralgias and she was noted to be hypercalcemic with a calcium level of 12.2. She was directed to the hospital for evaluation. For further details of the patient's presentation, please see history and physical dictated by Dr. Gordillo on 10/17/16. Shortly, the patient was admitted to the intensive care unit and treated with intravenous fluids. Initially, she had mild acute kidney injury with a creatinine of 1.04. After treatment with bisphosphonates as well as intravenous fluids, she actually developed acute kidney injury and anasarca. She was noted to be approximately 40 pounds over her weight. She developed pulmonary hypertension and acute respiratory failure and needed to be placed on high level of oxygen in the ICU for support. She was intermittently placed on CPAP, but she did not tolerate it very well. Dr. Reyes saw the patient in consultation and thought it was mostly related to fluid overload and anasarca. During that time, the patient also developed new atrial fibrillation that continued to be a problem throughout her hospital stay mostly at night. She was ultimately placed on amiodarone and sotalol as well as beta blockers. For further details of this treatment, please refer to Cardiology progress notes. Her amiodarone was stopped when she developed liver function test elevation that was felt to be due to liver congestion from anasarca. Amiodarone was stopped. The patient did not tolerate sotalol and beta blockers initially due to systolic blood pressures in the 70s. Those were stopped and the patient was placed on digoxin. She tolerated digoxin fairly well until the end of her hospital stay. In a couple of days prior to her discharge, she continued to have repeated episodes of nighttime atrial fibrillation with a heart rate in the 150s. Cardiology was reconsulted and recommended Multaq and continuation of beta haider. The patient tolerated it well still off and on being in atrial fibrillation. Most of the time, she was asymptomatic, but sometimes she did experience palpitations. She never experienced chest pain. Overnight pulse oximetry today prior to discharge noted that she was over 5 minutes in desaturations of below 89% at night. At that point, she was a candidate for overnight oxygen via nasal cannula, which she is going to be discharged on. She is also recommended to have obstructive sleep apnea evaluation as an outpatient. In regards to the patient's rash, that started resolving slowly after steroids were started by Dr. Hensley during the patient's hospital stay. The rash was noted to be pale erythema, rather diffuse throughout the patient's body and on the face. It was not raised. The skin was biopsied and the biopsy pathology report showed as mentioned above, thrombotic vasculopathy, but no evidence of autoimmune disease. Due to evidence of thrombotic vasculopathy and that the patient has paroxysmal atrial fibrillation with CHADS score of 2, the patient was a good candidate for anticoagulation. She was started on Lovenox and then converted to Eliquis prior to her discharge. In regards to the patient's arthralgias and rash that started resolving once on steroids and she continued to be on prednisone at 40 mg throughout most of her hospital stay and she is recommended to continue it at discharge and follow up further with recommendations as per Dr. Hensley as an outpatient. In regards to the patient's acute renal failure, she initially had acute kidney injury due to hypercalcemia. Then, she received intravenous fluid resuscitation and that resolved, but then she developed anasarca and vascular congestion and liver congestion. Her acute kidney injury with creatinine of peak at 1.39 was noted again. She was seen by Dr. Rader, the coffee farmer, while in the intensive care unit and she received albumin transfusions and intravenous Lasix to diurese her. She did very well. Eventually, she was able to be taken off albumin transfusions and be continued on IV Lasix. She diuresed very well throughout her hospital stay and she is almost at her baseline weight at the time discharge of 135 pounds. She is going to receive Lasix and potassium supplement for the next 7 days and then it should be discontinued. I do not believe that she will need Lasix past that 7 days. The patient's liver function tests elevation was most likely due to passive vascular liver congestion and that started slowly resolving once the patient was diuresed. The patient did have a troponin of 0.16, that has peaked, which was most likely due to demand ischemia. She was seen by Cardiology throughout her hospital stay as mentioned above. At discharge, the patient wishes to follow up with Dr. Mera, who is also her 's refractory worker. Please note that she did have a transthoracic echocardiogram noted on 10/17/16, which showed EF of 65% with mild concentric LVH. There was increased basal septal hypertrophy noted without evidence of an increased gradient across the left ventricular outflow tract. There was abnormal left ventricular diastolic filling observed consistent with impaired relaxation. There was mild-to- moderate mitral regurgitation, ventricular global systolic function moderately reduced. There was moderate tricuspid regurgitation and moderate pulmonary hypertension and small pericardial effusion. Please also note that the patient was seen by Oncology throughout her hospital stay. It was noted that her hypercalcemia was not PTH related. A bone marrow biopsy was obtained to look for recurrence of the patient's malignancy which as above confirmed to be negative. At this point, we still do not have a diagnosis or an etiology of the patient's hypercalcemia. Dr. Hensley noted that the patient's vitamin D levels are borderline and recommended vitamin D supplementation, which was provided to the patient. In regards to the patient's atrial fibrillation, as above, at discharge, the patient is going to be continued on Multaq, Eliquis, and metoprolol. For her obstructive sleep apnea, she is going to be on oxygen at night and recommended sleep study at night. The patient is also going to be continued on Xanax and oxycodone since she did have arthralgias throughout her hospital stay and she continued to have intermittent problems with anxiety. PHYSICAL EXAMINATION AT THE TIME OF DISCHARGE: Blood pressure of 110/64, heart rate of 65 and regular, respiratory rate 15, oxygen saturation 100% on room air , temperature 98.2. General: The patient is a very pleasant 65-year-old female , who is no acute distress. Alert, awake, and oriented x3. HEENT: Head atraumatic, normocephalic. Eyes: Pupils equal, reactive to light and accommodation. Oropharynx clear. Mucosa moist. Neck: Supple. No JVD, no bruits bilaterally. Cardiovascular: Regular rate and rhythm. No murmur. Respiratory: Clear to auscultation bilaterally. Abdomen: Soft, nontender. Bowel sounds present in all 4 quadrants. Extremities: There is trace bilateral pedal edema. Pulses +2 bilaterally. No clubbing or cyanosis. Neuro Evaluation: Speech clear. Cranial nerves II through XII grossly intact. Motor strength is 5/5 bilaterally. Please note that this is a very long complicated hospitalization of this patient. Please refer to further medical records for details. TIME SPENT: Approximately 1 hour was spent on the patient's discharge. CC: Dr. Radha Ardon; Dr. Orr; Dr. Hensley, Dr. Mera; Dr. Clemons; Dr. Han; Dr. Reyes; Dr. Rader * [id number]/[facility] #: [id number] [facility]
== END 2016-11-04 14:17 | disposition home health service (06) | DRG 640 ==
LOC: ED 12:36 → MEDTELE 15:56 → ICU 10-22 01:59 → MEDTELE 10-27 16:39
PROVIDERS: ADMIT Hospitalist; ATTEND Internal Medicine
PROC: 0HBDXZX Excision of Right Lower Arm Skin, External Approach, Diagnostic (ICD-10-PCS; 2016-10-20)
PROC: 0DB68ZX Excision of Stomach, Via Natural or Artificial Opening Endoscopic, Diagnostic (ICD-10-PCS; principal; 2016-10-23)
PROC: 0DB98ZX Excision of Duodenum, Via Natural or Artificial Opening Endoscopic, Diagnostic (ICD-10-PCS; 2016-10-23)
PROC: 5A09357 Assistance with Respiratory Ventilation, Less than 24 Consecutive Hours, Continuous Positive Airway Pressure (ICD-10-PCS; 2016-10-24)
PROC: 07DR3ZX Extraction of Iliac Bone Marrow, Percutaneous Approach, Diagnostic (ICD-10-PCS; 2016-10-28)
DX: E83.52 Hypercalcemia (principal); M31.1 Thrombotic microangiopathy; J96.01 Acute respiratory failure with hypoxia; N17.9 Acute kidney failure, unspecified; I95.9 Hypotension, unspecified; J90 Pleural effusion, not elsewhere classified; I24.8 Other forms of acute ischemic heart disease; J98.11 Atelectasis; I31.3 Pericardial effusion (noninflammatory); I27.2 Other secondary pulmonary hypertension; E87.70 Fluid overload, unspecified; G47.30 Sleep apnea, unspecified; K21.9 Gastro-esophageal reflux disease without esophagitis; G43.909 Migraine, unspecified, not intractable, without status migrainosus; Z85.72 Personal history of non-Hodgkin lymphomas; Z83.3 Family history of diabetes mellitus; Z80.3 Family history of malignant neoplasm of breast; M25.50 Pain in unspecified joint; R21 Rash and other nonspecific skin eruption; G47.33 Obstructive sleep apnea (adult) (pediatric); M13.0 Polyarthritis, unspecified; T39.395A Adverse effect of other nonsteroidal anti-inflammatory drugs [NSAID], initial encounter; Z79.52 Long term (current) use of systemic steroids; I48.0 Paroxysmal atrial fibrillation; I08.1 Rheumatic disorders of both mitral and tricuspid valves; K44.9 Diaphragmatic hernia without obstruction or gangrene; M43.8X6 Other specified deforming dorsopathies, lumbar region; G89.29 Other chronic pain; M25.519 Pain in unspecified shoulder; R50.9 Fever, unspecified; E86.0 Dehydration; R79.89 Other specified abnormal findings of blood chemistry; B00.1 Herpesviral vesicular dermatitis
CPT/HCPCS: 36415; 38220; 38221; 70491; 71010; 71275; 74177; 80048; 80053; 80162; 80202; 81003; 81479; 82040; 82164; 82272; 82306; 82330; 82397; 82585; 82595; 82652; 82728; 83516; 83540; 83550; 83605; 83615; 83690; 83735; 83880; 83970; 84100; 84134; 84252; 84443; 84484; 85025; 85045; 85049; 85060; 85097; 85303; 85306; 85362; 85384; 85610; 85613; 85652; 85730; 86038; 86140; 86146; 86147; 86200; 86235; 86431; 87040; 87641; 88184; 88185; 88187; 88188; 88305; 88311; 88342; 88346; 88350; 93005; 93306; 93970; 94660; 94760; 94762; 99212; 99232; 99233; A9270-GY; G0463; G8996-GN-CH; G8997-GN-CH; G8998-GN-CH; J0282; J1160; J1650; J1885; J1940; J2060; J2250; J2270; J2405; J2543; J3370; J3475; J3489; J7512; P9045; P9047; Q9967

== ENCOUNTER 2017-01-11 13:57 | Inpatient (IN) | payer MEDICARE ==
[2017-01-11] MEDS ORDERED: NS 0.9% 1000 ML* 1,000 ML IV ONE (14:32)
[2017-01-11] MEDS ORDERED: Diltiazem IV* 5 MG/ML 5 ML VIAL (for loading dose/IV Push) (25 MG) ONE (14:34)
[2017-01-11] MEDS: Diltiazem IV* 5 MG/ML 5 ML VIAL (for loading dose/IV Push) (25 MG) IV SLOW PU ONE ×2 (14:36→14:46)
[2017-01-11 14:39] LABS: Hematocrit 37 % (35-47); Hemoglobin 11.9 g/dl (12.0-16.0); Mean Corpuscular HGB Conc 32 g/dl (31-36); Mean Corpuscular Hemoglobin 29 pg (27-31); Mean Corpuscular Volume 90 fL (80-97); Mean Platelet Volume 8 um3 (7.4-10.4); Red Blood Count 4.11 10^6/ul (4.0-5.4); Red Cell Distribution Width 17 % (10.5-15); White Blood Count 41.3 10^3/ul (3.5-10.8)
[2017-01-11 14:40] LABS: Comments Flag Yes
[2017-01-11 14:41] LABS: Add Diff/Slide Review? Slide Review Added
[2017-01-11] MEDS ORDERED: Acetaminophen TAB* 325 MG PO ONE (14:41)
[2017-01-11 14:56] LABS: Troponin I 0.03 ng/mL (<0.04)
--- NOTE | 2017-01-11 14:59 | RAD ---
HISTORY: Tachycardia COMPARISONS: October 17, 2016 VIEWS:1: Single frontal portable view of the chest at 2:37 PM FINDINGS: LINES AND TUBES: A left-sided chest port is noted with the tip overlying the superior vena cava CARDIOMEDIASTINAL SILHOUETTE: The cardiomediastinal silhouette is normal for portable technique. PLEURA: There are small, left greater than right, bilateral pleural effusions LUNG PARENCHYMA: There is confluent alveolar opacification of the left lung base ABDOMEN: The upper abdomen is clear. There is no subphrenic gas. BONES AND SOFT TISSUES: No bone or soft tissue abnormalities are noted. IMPRESSION: 1. LINES AND TUBES ABOVE. 2. LEFT BASILAR CONSOLIDATION WITH SMALL BILATERAL PLEURAL EFFUSIONS. 3. RECOMMEND FOLLOW-UP UNTIL RESOLUTION TO EXCLUDE UNDERLYING PULMONARY PARENCHYMAL PATHOLOGY
[2017-01-11 15:06] LABS: Albumin 3.1 g/dL (3.2-5.2); Calcium 9.4 mg/dL (8.6-10.3); EGFR African American 96.2 (>60); EGFR Non-African American 74.8 (>60); Globulin 2.1 g/dL (2-4); Potassium 4.6 mmol/L (3.5-5.0); Total Bilirubin 0.6 mg/dL (0.2-1.0); Total Protein 5.2 g/dL (6.4-8.9)
[2017-01-11] MEDS ORDERED: HYDROcodone/ACETAMIN 5-325 MG* 1 TAB PO ONE (16:42)
[2017-01-11] MEDS ORDERED: Iohexol 350* (CONTRAST) 500 ML MDV IV ONE (16:55)
--- NOTE | 2017-01-11 17:34 | RAD ---
INDICATION: Atrial fibrillation evaluate for pulmonary embolism and pericardial effusion. COMPARISON: Comparison is made with a prior CT angiogram of the chest from October 18, 2016 and a prior chest x-ray study from January 11, 2017. TECHNIQUE: A CT angiogram of the chest was performed with intravenous following intravenous injection of 620 ml of Omnipaque 350 nonionic contrast. Contiguous axial sections were obtained from the lung apices through the lung bases. Images were reconstructed in the coronal and sagittal planes. FINDINGS: There is relatively homogeneous opacification of the pulmonary arteries. No intraluminal filling defect or pulmonary embolism is seen. The heart appears mildly enlarged. There is a small to moderate size pericardial effusion present. The thoracic aorta is normal in caliber and demonstrates homogeneous contrast opacification. No significant enlarged mediastinal or hilar lymph nodes are seen. There are moderate-sized bilateral pleural effusions. There is dependent infiltrates in both lower lobes most consistent with atelectasis. No significant focal osseous abnormality is seen. IMPRESSION: 1. NO EVIDENCE FOR PULMONARY EMBOLISM. 2. PERICARDIAL EFFUSION. 3. MODERATE SIZE BILATERAL PLEURAL EFFUSIONS AND BILATERAL LOWER LOBE INFILTRATES SUGGESTIVE OF ATELECTASIS.
[2017-01-11] MEDS ORDERED: Levofloxacin 750 MG IVPREMIX(* 750 MG/150 ML BAG IVPB ONE (19:01)
--- NOTE | 2017-01-11 21:14 | CONS ---
CONSULTATION REPORT: DATE OF CONSULT: 01/11/17 PRIMARY CARE PROVIDER: Dr. Radha Ardon. CHIEF COMPLAINT: Shortness of breath and atrial fibrillation. HISTORY OF PRESENT ILLNESS: Gely Montes is a 66-year-old female with a history of lymphoma several years ago, who underwent chemotherapy for lymphoma in July 2016 and ending in the fall of 2015. Ever since then, the patient has had problems with myalgias, arthralgias, and intermittent rash whenever she would be taken off steroids. She was admitted to our facility in October 2016 for hypercalcemia, acute kidney injury due to hypercalcemia as well as rash. She was also noted to have [id number] mitral regurgitation, pulmonary hypertension, obstructive sleep apnea, and new atrial fibrillation that would occur mostly paroxysmally at night. She also was discharged on oxygen at night. During that time, the patient had skin biopsy obtained on 10/20/16, which showed "thrombotic vasculopathy." Due to that as well as due to atrial fibrillation, she was placed on anticoagulation. Gradually, during the hospital stay, she was diuresed. Her atrial fibrillation was controlled with oxygen at night. She basically was discharged in normal sinus rhythm, steroids, and anticoagulants, to follow up with Dr. Hensley from Rheumatology as well as Dr. Orr from Oncology and Dr. Mera from Cardiology. She apparently had been doing okay until November of 2016, when she was noted to have an episode of bronchitis. She was prescribed Augmentin for the bronchitis and developed rash. She went to see one of the dermatologists in the area, who stated that it was most likely a drug-related rash and prescribed a steroid cream that she can use on as an needed basis if the rash becomes pruritic. The patient stated that she called her glass lined tank repairer later on when her rashes became worse, it was several days later and at that point, the glass lined tank repairer after consultation with Dr. Hensley thought that maybe the patient should be started on methotrexate. Dr. Hensley had been titrating down the patient's steroids and the patient is down to [address] Hensley also entertained the diagnosis of polymyalgia rheumatica versus other vasculitis- like rheumatologic conditions. Nevertheless, methotrexate was not started and the patient saw Dr. Mera sometime in December of 2016 with complaints of generalized weakness. Dr. Mera thought that the patient's weakness may be due to the patient being on beta blockers. The patient stated that her beta blockers started being titrated down and her Lopressor dose was cut gradually. At some point, during the tapering down process, she developed atrial fibrillation. She went to see Dr. Mera, who prescribed her Cardizem and took her off Multaq when he noted that she was in atrial fibrillation. Despite that, she continued to have problems with atrial fibrillation, noted worsening dyspnea, and worsening weight gain. In fact, she has gained 5 pounds in the past 3 days. She comes to the hospital after she was seen by Dr. Mera in the office with atrial fibrillation with a heart rate in the 120s. The patient also has white blood cell count of 41,000 and was 30,000 just 5 days ago. An admission was recommended by the ER physician after the above-mentioned evaluation. I discussed the case with Dr. Orr, the patient's oncologist. Due to new and increasing leukocytosis and no evidence of infection as well as multi-organ involvement of the patient with unknown rheumatologic condition, ongoing rash, it was recommended by the oncologist for the patient to be transferred to tertiary care center like [facility] for further management of the patient's needs. [facility] was deemed by the specialist to be the closest next available facility for the patient with this complex history to be transferred to. PAST MEDICAL HISTORY: As mentioned above: 1. Rash with arthralgias. Working diagnosis of possibility of polymyalgia rheumatica with skin biopsy that showed superficial thrombosis, but no leukocytoclastic changes were noted. 2. History of paroxysmal atrial fibrillation. 3. History of obstructive sleep apnea, on oxygen at night. 4. History of an episode of hypercalcemia in 2017, which resolved. 5. Pulmonary hypertension. 6. History of moderate mitral regurgitation. 7. 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 8. History of migraine headaches. 9. Parotidectomy. 10. Colectomy for polyp. 11. Excisional lymph node biopsies in the past. 12. TMJ surgery. CURRENT MEDICATIONS: Include: 1. Eliquis 5 mg b.i.d. 2. Vitamin D 5000 units daily. 3. Metoprolol succinate 25 mg b.i.d. 4. Potassium chloride 20 mEq daily. 5. Topamax 50 mg at night. 6. Prednisone 15 mg daily. 7. Magnesium oxide 1000 mg daily. 8. Omeprazole 40 mg daily. 9. Vitamin B12 5000 mcg daily. 10. Vitamin B complex 1 tablet daily. 11. Cardizem CD 120 mg daily. ALLERGIES: No known drug allergies. FAMILY HISTORY: Positive for uncle with diabetes and grandmother with diabetes. SOCIAL HISTORY: The patient denies any tobacco, alcohol, or drug use. As her surrogate next of kin, she notes Radha Corbin, her sister. REVIEW OF SYSTEMS: Please see history of present illness. In addition to the above mentioned, the patient stated that she had more dyspnea and dyspnea is worse when she tries to lie flat. Her abdominal girth increased. Her rash had been unchanged and slightly pruritic. Her last bowel movement was 2 days ago. All the remaining 14 systems were reviewed and apart from the ones mentioned in history of present illness and as above were negative. PHYSICAL EXAM: Blood pressure of , heart rate of 116 and regular, respiratory rate 29, oxygen saturation 95% on 3 L oxygen nasal cannula, and temperature of 98.4. General: The patient is a very pleasant 66-year-old female who is in no acute distress. Alert, awake, and oriented x3. HEENT: Head: Atraumatic, normocephalic. Eyes: Pupils equal, reactive to light and accommodation. Oropharynx clear. Mucosa moist. Neck: Supple. No JVD, no bruit bilaterally. Cardiovascular: Irregularly irregular rhythm. No murmur. Respiratory: Diminished breath sounds at bilateral bases, otherwise clear. Abdomen: Protuberant, soft, nontender. Bowel sounds present in all 4 quadrants. Extremities: There is no edema. Pulses +2 bilaterally. No clubbing or cyanosis. Evaluation of the skin, the patient has raised erythematous rash that is blanchable, mostly concentrated on upper back, upper chest, but also on the patient's toes bilaterally. The patient also has rash on her face especially on her cheeks and forehead. Neuro evaluation: Speech clear. Cranial nerves II through XII grossly intact. Motor strength is 5/5 bilaterally. DIAGNOSTIC STUDIES/LAB DATA: Shows white blood cell count of 41.3, hemoglobin is 11.9, hematocrit 37, platelets of 207. Differential includes 91% of neutrophils, 4.5 lymphocytes, 2.9 monocytes. Sodium was 128, potassium 4.6, chloride , carbon dioxide 22, BUN 20, creatinine 0.77. Liver function tests showed bilirubin of 0.6, AST of 24, ALT of 21. Lactic acid of 1.9. Calcium of 9.4. The patient's albumin was 3.1. Troponin was 0.03. Brain natriuretic peptide was 478. The patient's CTA showed, impression: "No evidence of pulmonary embolism. Pericardial effusion. Moderate-sized bilateral pleural effusions and bilateral lower lobe infiltrates suggestive of atelectasis." The patient's urinalysis is pending at the time of dictation. The patient's EKG showed atrial fibrillation with a heart rate of 136 beats per minute. Small amplitude QRS. ASSESSMENT AND PLAN: A 66-year-old female with multiple problems involving most likely hematologic malignancy and rheumatologic abnormalities including rash, arthralgias that had been ongoing ever since her chemotherapy in the fall of 2015. The patient also has a history of follicular lymphoma and now has marked leukocytosis. She also has uncontrolled atrial fibrillation and bilateral pleural effusions most likely due to congestive heart failure. She has a history of moderate mitral regurgitation. At this point, the patient's case is complex and she already was admitted for a very similar presentation in October of 2016. All the specialists including Rheumatology, Oncology, and GI were involved and so far, no clear diagnosis was agreed upon. At this point, I spoke about the patient's case with the patient' s oncologist, Dr. Orr. Marked leukocytosis makes possibility of hematologic malignancy or recurrence of malignancy likely. Dr. Orr and I agreed that the patient needs a multidisciplinary approach in a tertiary care center that is not available in our facility. It was recommended for the patient to be transferred to [facility]. The case was discussed with Dr. Pinto , the emergency department physician, and the patient is most likely going to be transferred from the ER to [facility]. TIME SPENT: Approximately 80 minutes was spent on consultation of the patient, more than half that time was spent [id number] with the patient in gathering information, physical exam, and counseling. CC: Dr. Radha Ardon; Dr. Mera; Dr. Hensley; Dr. Orr* [id number]/[facility] #: [id number] [facility]
[2017-01-11] MEDS ORDERED: ALPRAZolam TAB* 0.5 MG PO PRN (21:34)
[2017-01-11] MEDS ORDERED: Promethazine TAB* 25 MG PO PRN (21:34)
[2017-01-11] MEDS ORDERED: Diltiazem DRIP* 100 MG/100 ML ADDV.BAG IVPB ONE (21:42)
[2017-01-11] MEDS ORDERED: Norepinephrine 16MCG/ML IVPRE* 4,000 MCG/250 ML BAG IV SCH (22:00)
[2017-01-11] MEDS: Furosemide IV* 10 MG/ML VIAL (40 MG) IV SLOW PU SCH (22:22)
[2017-01-11] MEDS ORDERED: Magnesium Oxide TAB* 400 MG PO SCH (23:00)
[2017-01-11] MEDS ORDERED: Topiramate TAB(*) 25 MG PO SCH (23:00)
[2017-01-11] MEDS: LORazepam TAB(*) 0.5 MG PO PRN (23:46)
[2017-01-12] MEDS ORDERED: Metoprolol Tartrate TAB* 25 MG ONE (00:05)
[2017-01-12] MEDS: Metoprolol Succinate XL TAB* 25 MG PO SCH ×3 (00:28→19:58)
[2017-01-12] MEDS: Butalb/Acetamin/Caff TAB* 1 TAB PO PRN ×3 (00:29→19:59)
[2017-01-12] MEDS: Acetaminophen TAB* 325 MG PO PRN ×2 (00:33→07:40)
[2017-01-12] MEDS ORDERED: oxyCODONE TAB* 5 MG TAB PO ONE (02:00)
[2017-01-12] MEDS ORDERED: Diltiazem DRIP* 100 MG/100 ML ADDV.BAG IVPB SCH (03:00)
--- NOTE | 2017-01-12 06:59 | CONS ---
CONSULTATION REPORT: DATE OF CONSULT: 01/11/17 ADDENDUM: The patient was originally consulted by Dr. Chantel Rodríguez, but the [facility] refused to accept the patient at this time because they felt the patient was too unstable. Her heart rate was slightly elevated, about 110 to 120. Her blood pressure had a systolic of about 98, but there was concern that she was somewhat short of breath, might need diuresis, and that it will be difficult to sustain her blood pressure, we will try to bring her heart rate down. Therefore, the patient will be admitted to the ICU until the patient can be adequately stabilized until [facility] will accept the patient. Apparently, the patient did come in as sent in by Dr. Mera because of the AFib and increased heart rate. It was worse today despite her coming in several times over the last week. She said it was up to the 150s. She also had significant back ache, body ache, and zero energy. She also had night sweats. She has had some increased abdominal pain and girth and a gain of 6 pounds. Of note, the patient has been on prednisone at home at 15 mg a day. ASSESSMENT AND PLAN: See Dr. Rodríguez's note. However, we will put the patient in the ICU. I will start her on Levophed if necessary to keep her pressures up. I will diurese her with Lasix 40 IV q. 12 and get her heart rate under control with a Cardizem drip. I may need to give her Solu-Medrol as she has been on prednisone and she could be hypotensive from cortisol insufficiency. However, the patient is extremely hesitant about this as she says she has had this before and it keeps her up at night. I told her we would use it only if necessary. The patient will be transferred to the ICU, and again if her blood pressure is not sustainable, we will add stress steroids. [id number]/[facility] #: [id number] [facility]
[2017-01-12] MEDS: Furosemide IV* 10 MG/ML VIAL (40 MG) IV SLOW PU SCH (07:28)
[2017-01-12] MEDS: Omeprazole CAP* 20 MG PO SCH (07:40)
--- NOTE | 2017-01-12 07:56 | ED ---
Bashir Wills SooYoung, scribed for Justin Pinto MD on 01/11/17 at 1432 . Palpitations / Dysrhythmia - HPI Summary HPI Summary: A 66 y/o F presents to ED with c/o afib with elevated HR onset TIRE MOLD TESTER. Pt was sent from Dr. Mera's office for further evaluation in ED. Pt's palpitations have worsening over the past three days. Associated sx: weakness, difficulty balancing, malaise, SOB. Denies: CP. Pt also presents with diffuse rash onset November 2016. - History of Current Complaint Chief Complaint: EDDysrhythmPalp Time Seen by Provider: 01/11/17 14:23 Hx Obtained From: Patient, Family/Tank Truck Engine Mechanic - sister present Onset/Duration: Lasting Hours, Lasting Days, Still Present Timing: Constant Severity Initially: Moderate Severity Currently: Moderate - Allergy/Home Medications Allergies/Adverse Reactions: Allergies Allergy/AdvReac Type Severity Reaction Status Date / Time Amoxicillin [From Augmentin] Allergy Unknown Rash Verified 01/11/17 21:44 Clavulanic Acid Allergy Unknown Rash Verified 01/11/17 21:44 [From Augmentin] Home Medications: Home Medications Meddewnyrg-Ronxmrd-Zcmchqml [Fiorinal 50-325-40 mg-] 1 cap PO Q6H PRN 01/11/17 [ History Confirmed 01/11/17] Cholecalciferol TAB* [Vitamin D TAB*] 5,000 units PO QAM 01/11/17 [History Confirmed 01/11/17] Diltiazem HCl Extended Release [Diltiazem HCl ER] 120 mg PO QAM 01/11/17 [ History Confirmed 01/11/17] Diphenhydramine-Acetaminophen [Tylenol Pm Extra Strength 500-25 mg] 1 tab PO BEDTIME PRN 01/11/17 [History Confirmed 01/11/17] Eszopiclone (NF) [Lunesta (NF)] 3 mg PO BEDTIME PRN 01/11/17 [History Confirmed 01/11/17] Magnesium Oxide (mg Supplement [Magnesium Oxide] 1,000 mg PO QPM 01/11/17 [ History Confirmed 01/11/17] Metoprolol Succinate XL TAB* [Toprol XL TAB*] 25 mg PO BID 01/11/17 [History Confirmed 01/11/17] Potassium Chlor TAB* [Klor Con ER TAB*] 20 meq PO QAM 01/11/17 [History Confirmed 01/11/17] Promethazine TAB* [Phenergan TAB*] 25 mg PO Q8H PRN 01/11/17 [History Confirmed 01/11/17] Topiramate [Topamax 50 mg tab] 50 mg PO QPM 01/11/17 [History Confirmed 01/11/17 ] Vitamin B Complex CAP* [B Complex CAP*] 1 cap PO QAM 01/11/17 [History Confirmed 01/11/17] PMH/Surg Hx/FS Hx/Imm Hx Previously Healthy: No Endocrine/Hematology History: Denies: Hx Diabetes, Hx Systemic Lupus Erythematosus Cardiovascular History: Denies: Hx Congestive Heart Failure, Hx Hypertension, Hx Pacemaker/ICD Respiratory History: Reports: Hx Chronic Bronchitis GI History: Reports: Hx Gastroesophageal Reflux Disease - HEARTBURN OCCASIONALLY , NO MEDS, Other GI Disorders - polyp removed and illeoceceal valve History: Denies: Hx Dialysis, Hx Renal Disease Musculoskeletal History: Denies: Hx Rheumatoid Arthritis, Hx Osteoporosis Sensory History: Reports: Hx Contacts or Glasses Denies: Hx Cataracts, Hx Hearing Aid Opthamlomology History: Reports: Hx Contacts or Glasses Denies: Hx Cataracts Neurological History: Reports: Hx Migraine Psychiatric History: Denies: Hx Panic Disorder - Cancer History Cancer Type, Location and Year: lymphoma Hx Chemotherapy: Yes - NON [place] LYMPHOMA, 01/22-06/24 Hx Radiation Therapy: No - Surgical History Surgery Procedure, Year, and Place: 2001 AND 2007 BIOPSY PAROTID TUMOR LYMPHOMA NON [place]; PARTIAL COLON RESECTON RELATED TO A POLYP-UNCHARACTERISTIC ATTACHED SO SURG REMOVED 2008 NON CANCEROUS Hx Anesthesia Reactions: No Infectious Disease History: Denies: Traveled Outside the [place] in Last 30 Days - Family History Known Family History: Positive: Diabetes, Other - pos: paternal aunt, breast CA - Social History Occupation: Retired Lives: With Family Alcohol Use: Weekly Alcohol Amount: RED WINE 3-4 X WEEK Hx Substance Use: No Substance Use Type: Reports: None Hx Tobacco Use: No Smoking Status (MU): Never Smoked Tobacco Review of Systems Positive: Palpitations. Negative: Chest Pain Positive: Shortness Of Breath Neurological: Other - pos: imbalance; malaise Positive: Weakness All Other Systems Reviewed And Are Negative: Yes Physical Exam - Summary Physical Exam Summary: VITAL SIGNS: Reviewed. GENERAL: Patient is a well-developed and nourished female with misld distress secondary to tachycardia with mild SOB. HEAD AND FACE: No signs of trauma. No ecchymosis, hematomas or skull depressions. EYES: PERRLA, EOMI x 2, No injected conjunctiva, . EARS: Hearing grossly intact. Ear canals and tympanic membranes are within normal limits. MOUTH: Oropharynx within normal limits. NECK: Supple, trachea is midline, no adenopathy, no JVD, no carotid bruit, no c- spine tenderness, neck with full ROM. CHEST: Symmetric, no tenderness at palpation LUNGS: Clear to auscultation bilaterally. No wheezing or crackles. CVS: Tachycardia with IRREGULAR RATE AND RHYTHM. S1 and S2 present, no murmurs or gallops appreciated. ABDOMEN: Soft, non-tender. No signs of distention. No rebound, no guarding, and no masses palpated. Bowel sounds are normal. EXTREMITIES: FROM in all major joints, no edema, no cyanosis or clubbing. NEURO: Alert and oriented x 3. No acute neurological deficits. Speech is normal and follows commands. SKIN: Dry and warm. BLANCHING RASH WITH IRREGULAR BORDERS diffusely all over her body. Positive hives and erythema. Triage Information Reviewed: Yes Vital Signs On Initial Exam: Initial Vitals Temp Pulse Resp BP Pulse Ox 98.6 F 66 16 92/53 99 01/11/17 14:02 01/11/17 14:02 01/11/17 14:02 01/11/17 14:02 01/11/17 14:02 Vital Signs Reviewed: Yes Diagnostics - Vital Signs Vital Signs Temp Pulse Resp BP Pulse Ox 01/11/17 14:20 97 01/11/17 14:02 98.6 F 66 16 92/53 99 - Laboratory Lab Results: Lab Results 01/11/17 01/11/17 01/11/17 Range/Units 14:25 14:25 14:25 WBC 41.3 H (3.5-10.8) 10^3/ul RBC 4.11 (4.0-5.4) 10^6/ul Hgb 11.9 L (12.0-16.0) g/dl Hct 37 (35-47) % MCV 90 (80-97) fL MCH 29 (27-31) pg MCHC 32 (31-36) g/dl RDW 17 H (10.5-15) % Plt Count 407 (150-450) 10^3/ul MPV 8 (7.4-10.4) um3 Neut % (Auto) 91.7 H (38-83) % Lymph % (Auto) 4.5 L (25-47) % Eddy % (Auto) 2.9 (1-9) % Eos % (Auto) 0.5 (0-6) % Baso % (Auto) 0.4 (0-2) % Absolute Neuts (auto) 37.9 H (1.5-7.7) 10^3/ul Absolute Lymphs (auto) 1.9 (1.0-4.8) 10^3/ul Absolute Monos (auto) 1.2 H (0-0.8) 10^3/ul Absolute Eos (auto) 0.2 (0-0.6) 10^3/ul Absolute Basos (auto) 0.2 (0-0.2) 10^3/ul Absolute Nucleated RBC 0.01 10^3/ul Nucleated RBC % 0 Sodium 128 L (133-145) mmol/L Potassium 4.6 (3.5-5.0) mmol/L Chloride 98 L (101-111) mmol/L Carbon Dioxide 22 (22-32) mmol/L Anion Gap 8 (2-11) mmol/L BUN 20 (6-24) mg/dL Creatinine 0.77 (0.51-0.95) mg/dL Est GFR ( Amer) 96.2 (>60) Est GFR (Non-Af Amer) 74.8 (>60) BUN/Creatinine Ratio 26.0 H (8-20) Glucose 118 H (70-100) mg/dL Lactic Acid 1.9 (0.5-2.0) mmol/L Calcium 9.4 (8.6-10.3) mg/dL Total Bilirubin 0.60 (0.2-1.0) mg/dL AST 24 (13-39) U/L ALT 21 (7-52) U/L Alkaline Phosphatase 81 (34-104) U/L Troponin I 0.03 (<0.04) ng/mL B-Natriuretic Peptide ( - 100) pg/mL Total Protein 5.2 L (6.4-8.9) g/dL Albumin 3.1 L (3.2-5.2) g/dL Globulin 2.1 (2-4) g/dL Albumin/Globulin Ratio 1.5 (1-3) 01/11/17 01/11/17 01/11/17 Range/Units 14:25 17:58 20:46 WBC (3.5-10.8) 10^3/ul RBC (4.0-5.4) 10^6/ul Hgb (12.0-16.0) g/dl Hct (35-47) % MCV (80-97) fL MCH (27-31) pg MCHC (31-36) g/dl RDW (10.5-15) % Plt Count (150-450) 10^3/ul MPV (7.4-10.4) um3 Neut % (Auto) (38-83) % Lymph % (Auto) (25-47) % Eddy % (Auto) (1-9) % Eos % (Auto) (0-6) % Baso % (Auto) (0-2) % Absolute Neuts (auto) (1.5-7.7) 10^3/ul Absolute Lymphs (auto) (1.0-4.8) 10^3/ul Absolute Monos (auto) (0-0.8) 10^3/ul Absolute Eos (auto) (0-0.6) 10^3/ul Absolute Basos (auto) (0-0.2) 10^3/ul Absolute Nucleated RBC 10^3/ul Nucleated RBC % Sodium (133-145) mmol/L Potassium (3.5-5.0) mmol/L Chloride (101-111) mmol/L Carbon Dioxide (22-32) mmol/L Anion Gap (2-11) mmol/L BUN (6-24) mg/dL Creatinine (0.51-0.95) mg/dL Est GFR ( Amer) (>60) Est GFR (Non-Af Amer) (>60) BUN/Creatinine Ratio (8-20) Glucose (70-100) mg/dL Lactic Acid (0.5-2.0) mmol/L Calcium (8.6-10.3) mg/dL Total Bilirubin (0.2-1.0) mg/dL AST (13-39) U/L ALT (7-52) U/L Alkaline Phosphatase (34-104) U/L Troponin I 0.02 0.03 (<0.04) ng/mL B-Natriuretic Peptide 478 H ( - 100) pg/mL Total Protein (6.4-8.9) g/dL Albumin (3.2-5.2) g/dL Globulin (2-4) g/dL Albumin/Globulin Ratio (1-3) Result Diagrams: 01/11/17 14:25 01/11/17 14:25 Lab Statement: Any lab studies that have been ordered have been reviewed, and results considered in the medical decision making process. - Radiology CXR Xray Interpretation: Positive (See Comments) - IMPRESSION: 1. LINES AND TUBES ABOVE. 2. LEFT BASILAR CONSOLIDATION WITH SMALL BILATERAL PLEURAL EFFUSIONS. 3. RECOMMEND FOLLOW-UP UNTIL RESOLUTION TO EXCLUDE UNDERLYING PULMONARY PARENCHYMAL PATHOLOGY Radiology Interpretation Completed By: Radiologist - EKG 1 EKG Rhythm: Atrial Fibrillation - 136 bpm EKG Interpretation: read at 1425 Re-Evaluation - Re-Evaluation 1 Re-Evaluation Time: 18:20 Change: Unchanged Comment: Discussed transfer with pt, as well as the extra ambulance free. Pt is OK with the charge and voiced understanding. Course/Dx - Course Assessment/Plan: A 66 y/o F presents to ED with c/o afib with elevated HR onset TIRE MOLD TESTER. Pt was sent from Dr. Mera's office for further evaluation in ED. Pt's palpitations have worsening over the past three days. Associated sx: weakness, difficulty balancing, malaise, SOB. Denies: CP. Pt also presents with diffuse rash onset November 2016. Tests results show leukocytosis of 41.3 with positive left shift, but no bandemia. Hyponatremia of 128, BNP of 478. CXR shows "1. LINES AND TUBES ABOVE. 2. LEFT BASILAR CONSOLIDATION WITH SMALL BILATERAL PLEURAL EFFUSIONS. 3. RECOMMEND FOLLOW-UP UNTIL RESOLUTION TO EXCLUDE UNDERLYING PULMONARY PARENCHYMAL PATHOLOGY." EKG shows afib 136 bpm. In the ED course, pt was shown to have afib with RVR with hypotension. Pt given 500 bolus of IV fluids to improve her BP and then she was given Diltiazem for her A. fib w/ RVR. HR is ranging between 100-120. BP is still low at 98/79. At this point , discussed PE findings with Dr. Rodríguez, who examined the pt. After examination, she agrees with management; however, she reports pt needs to be transferred to [facility] b/c pt has rash, leukocytosis, fluid retention, and she thinks patient may be dealing with acute leukemia (despite the fact that there are no blast reported in the CBC). She spoke with Dr. Orr and he thinks patient would benefit from a higher level of care at [facility]. My concern is pt is still hypotensive, tachy, and hypoxic without oxygen. Patient was also started with Levaquin for her Pneumonia. I did not choose Zosyn since she developed a rash after she took Augmenting a couple days ago. I contacted the transfer center at [facility] and I discussed the case with Dr. Robyn Robertson (Oncologist / Acute Leukemia attending) and she states the patient is not stable for transfer. She recommends to admit patient to the hospital stabilized the patient, perform a peripheral smear. After patient becomes stable then the patient can be transferred to [facility] for further assessment. I discussed the case with Dr. Orr and she agrees that the patient needs to stabilize and he recommends admission to the hospitalist. Therefore, I discussed the case with Dr. Ghosh who accepted the patient for admission. Vitals signs: BP 85/67, HR 119 BPM, O2 sat 96 in 5 liters of O2. - Diagnoses Differential Diagnosis/HQI/PQRI: Positive: Other - A fib with RVR, Pneumonia, Bronchitis, CHF, Sepsis Provider Diagnoses: Atrial fibrillation w/ RVR, Pneumonia, Allergic reaction, CHF (congestive heart failure), Hyponatremia - Physician Notifications Discussed Care Of Patient With: Joe Orr - Oncology Time Discussed With Above Provider: 16:27 - recommends admit - Critical Care Time Critical Care Time: 30-74 min Discharge - Discharge Plan Condition: Improved Disposition: ADMITTED TO [facility] Consult Consult: 171: Consult with Dr. Rodríguez, hospitalist, will admit pt. 1800: Consult with Dr. Rodríguez: upon further evaluation, recommends transfer to [facility] for complex acute leukemia, pt needs a higher level of care. 1809: Consult with Dr. Orr, oncology: Agrees with recommendation to transfer. 1854: Spoke again to [facility], Dr. Leslie Robertson, oncology; recommends that pt be stabilized before sending. The documentation as recorded by the Bashir daigle SooYoung accurately reflects the service I personally performed and the decisions made by me, Justin Pinto MD.
[2017-01-12] MEDS ORDERED: Digoxin IV* 0.5 MG/2 ML AMP (0.25 MG/ML) IV SLOW PU ONE (08:50)
[2017-01-12] MEDS ORDERED: Diltiazem CD CAP* 120 MG PO SCH (09:00)
--- NOTE | 2017-01-12 09:01 | PN ---
Subjective Date of Service: 01/12/17 Interval History: PtC/o thoracic back pain, joint pain, headache. HR in 120's on Cardizem gtt at 5 mg/hr, unable to titrate up due to SBP in 90's. 5 min after the exam pt converted to NSR and then went back to a. fib Objective Active Medications: Acetaminophen (Tylenol Tab*) 650 mg PO Q4H PRN PRN Reason: FEVER/PAIN Last Admin: 01/12/17 07:40 Dose: 650 mg Acetaminophen/Butalbital/Caffeine (Fioricet Tab*) 1 tab PO Q6H PRN PRN Reason: MIGRAINE HEADACHE Last Admin: 01/12/17 07:53 Dose: 1 tab Alprazolam (Xanax Tab*) 0.5 mg PO TID PRN PRN Reason: ANXIETY Last Admin: 01/12/17 07:53 Dose: 0.5 mg Apixaban (Eliquis*) 5 mg PO BID [facility] Cholecalciferol (Vitamin D Tab*) 5,000 units PO QAM [facility] Diltiazem HCl (Cardizem Cd Cap*) 120 mg PO QAM [facility] Diltiazem HCl (Cardizem Iv Advan*) 100 mg in 100 mls @ 5 mls/hr IVPB .PER PARAMETERS MARIN PRN Reason: 5 MG/HR Last Admin: 01/12/17 02:25 Dose: 5 mls/hr Lorazepam (Ativan Tab(*)) 0.5 mg PO BEDTIME PRN PRN Reason: ANXIETY Last Admin: 01/11/17 23:46 Dose: 0.5 mg Magnesium Oxide (Magox 400 Tab*) 800 mg PO BEDTIME [facility] Metoprolol Succinate (Toprol Xl Tab*) 25 mg PO BID [facility] Last Admin: 01/12/17 00:28 Dose: 25 mg Omeprazole (Prilosec Cap*) 40 mg PO DAILY@0730 [facility] Last Admin: 01/12/17 07:40 Dose: 40 mg Potassium Chloride (Klor Con Er Tab*) 20 meq PO DAILY WITH MEAL [facility] Promethazine HCl (Phenergan Tab*) 25 mg PO Q8H PRN PRN Reason: NAUSEA/VOMITING Topiramate (Topamax(*)) 50 mg PO BEDTIME [facility] Vitamin B Complex/Vitamin E (Complex B-100*) 1 tab PO QAM [facility] Vital Signs 01/11/17 01/11/17 01/11/17 21:56 22:00 22:01 Temperature 99 F 99 F Pulse Rate 101 100 100 Respiratory 28 29 18 Rate Blood Pressure 117/72 117/72 117/72 (mmHg) O2 Sat by Pulse 96 88 Oximetry 01/11/17 01/11/17 01/11/17 22:15 22:17 22:19 Temperature 99.0 F Pulse Rate 101 Respiratory 33 23 Rate Blood Pressure 121/55 121/55 (mmHg) O2 Sat by Pulse 100 Oximetry 01/11/17 01/11/17 01/11/17 22:30 22:45 23:00 Temperature Pulse Rate 86 Respiratory 28 21 20 Rate Blood Pressure 123/64 123/69 122/57 (mmHg) O2 Sat by Pulse 76 Oximetry 01/11/17 01/11/17 01/11/17 23:15 23:30 23:45 Temperature Pulse Rate 101 Respiratory 25 28 35 Rate Blood Pressure 120/60 125/66 124/55 (mmHg) O2 Sat by Pulse 94 Oximetry 01/11/17 01/12/17 01/12/17 23:46 00:00 00:12 Temperature 99.4 F Pulse Rate 113 Respiratory 28 30 30 Rate Blood Pressure 112/52 (mmHg) O2 Sat by Pulse 96 Oximetry 01/12/17 01/12/17 01/12/17 00:26 01:00 02:00 Temperature Pulse Rate 88 116 105 Respiratory 31 28 34 Rate Blood Pressure 120/88 128/60 107/62 (mmHg) O2 Sat by Pulse 92 100 95 Oximetry 01/12/17 01/12/17 01/12/17 02:23 03:00 03:15 Temperature Pulse Rate 70 134 134 Respiratory 29 28 30 Rate Blood Pressure 114/74 100/63 (mmHg) O2 Sat by Pulse 98 97 97 Oximetry 01/12/17 01/12/17 01/12/17 03:30 03:45 04:00 Temperature 98.6 F Pulse Rate 137 133 128 Respiratory 30 25 22 Rate Blood Pressure 103/62 (mmHg) O2 Sat by Pulse 97 97 97 Oximetry 01/12/17 01/12/17 01/12/17 04:15 04:30 04:31 Temperature Pulse Rate 127 97 107 Respiratory 27 20 28 Rate Blood Pressure 99/53 (mmHg) O2 Sat by Pulse 97 97 97 Oximetry 01/12/17 01/12/17 01/12/17 04:45 04:47 05:00 Temperature Pulse Rate 118 121 Respiratory 30 24 30 Rate Blood Pressure 87/60 (mmHg) O2 Sat by Pulse 95 97 Oximetry 01/12/17 01/12/17 01/12/17 05:02 05:15 05:30 Temperature Pulse Rate 100 120 116 Respiratory 28 32 24 Rate Blood Pressure 92/58 86/61 (mmHg) O2 Sat by Pulse 96 97 98 Oximetry 01/12/17 01/12/17 01/12/17 05:32 05:45 05:58 Temperature Pulse Rate 111 108 Respiratory 24 22 21 Rate Blood Pressure 90/54 (mmHg) O2 Sat by Pulse 98 98 Oximetry 01/12/17 01/12/17 01/12/17 06:00 06:15 06:30 Temperature Pulse Rate 108 115 101 Respiratory 21 20 20 Rate Blood Pressure 85/67 100/70 (mmHg) O2 Sat by Pulse 98 98 98 Oximetry 01/12/17 01/12/17 01/12/17 06:38 06:45 07:00 Temperature Pulse Rate 130 Respiratory 23 20 24 Rate Blood Pressure (mmHg) O2 Sat by Pulse 98 Oximetry 01/12/17 01/12/17 01/12/17 07:07 07:15 07:30 Temperature Pulse Rate 77 121 115 Respiratory 30 23 23 Rate Blood Pressure 99/55 (mmHg) O2 Sat by Pulse 80 96 98 Oximetry 01/12/17 01/12/17 01/12/17 07:31 07:37 07:44 Temperature Pulse Rate Respiratory 24 23 30 Rate Blood Pressure 94/63 157/75 (mmHg) O2 Sat by Pulse Oximetry 01/12/17 01/12/17 01/12/17 07:45 07:53 08:00 Temperature 98.5 F Pulse Rate 31 56 Respiratory 29 28 19 Rate Blood Pressure 136/63 (mmHg) O2 Sat by Pulse 80 95 Oximetry 01/12/17 01/12/17 01/12/17 08:04 08:15 08:30 Temperature Pulse Rate 52 46 Respiratory 17 25 25 Rate Blood Pressure 90/66 (mmHg) O2 Sat by Pulse 96 86 Oximetry Oxygen Devices in Use Now: None - on sat at 90% sitting up Appearance: 66 yo F in nAD, aAOx3 Eyes: No Scleral Icterus, PERRLA Ears/Nose/Mouth/Throat: NL Teeth, Lips, Gums, Mucous Membranes Moist Neck: NL Appearance and Movements; NL JVP, Trachea Midline Respiratory: Symmetrical Chest Expansion and Respiratory Effort, Clear to Palpation, - - decreased breath sounds at b/l bases Abdominal: NL Sounds; No Tenderness; No Distention Lymphatic: No Cervical Adenopathy Extremities: No Clubbing, Cyanosis Skin: No Nodules or Sclerosis, - - erythematous/blanchable, confluent, raised rash on upper back /uper chest, b/l UE's and toes as well as face and neck Neurological: Alert and Oriented x 3, NL Muscle Strength and Tone Result Diagrams: 01/12/17 09:15 01/12/17 09:15 Additional Lab and Data: Lab Results 01/11/17 01/11/17 01/11/17 Range/Units 14:25 14:25 14:25 WBC 41.3 H (3.5-10.8) 10^3/ul RBC 4.11 (4.0-5.4) 10^6/ul Hgb 11.9 L (12.0-16.0) g/dl Hct 37 (35-47) % MCV 90 (80-97) fL MCH 29 (27-31) pg MCHC 32 (31-36) g/dl RDW 17 H (10.5-15) % Plt Count 407 (150-450) 10^3/ul MPV 8 (7.4-10.4) um3 Neut % (Auto) 91.7 H (38-83) % Lymph % (Auto) 4.5 L (25-47) % [place] % (Auto) 2.9 (1-9) % Eos % (Auto) 0.5 (0-6) % Baso % (Auto) 0.4 (0-2) % Absolute Neuts (auto) 37.9 H (1.5-7.7) 10^3/ul Absolute Lymphs (auto) 1.9 (1.0-4.8) 10^3/ul Absolute Monos (auto) 1.2 H (0-0.8) 10^3/ul Absolute Eos (auto) 0.2 (0-0.6) 10^3/ul Absolute Basos (auto) 0.2 (0-0.2) 10^3/ul Absolute Nucleated RBC 0.01 10^3/ul Nucleated RBC % 0 Sodium 128 L (133-145) mmol/L Potassium 4.6 (3.5-5.0) mmol/L Chloride 98 L (101-111) mmol/L Carbon Dioxide 22 (22-32) mmol/L Anion Gap 8 (2-11) mmol/L BUN 20 (6-24) mg/dL Creatinine 0.77 (0.51-0.95) mg/dL Est GFR ( Amer) 96.2 (>60) Est GFR (Non-Af Amer) 74.8 (>60) BUN/Creatinine Ratio 26.0 H (8-20) Glucose 118 H (70-100) mg/dL Lactic Acid 1.9 (0.5-2.0) mmol/L Calcium 9.4 (8.6-10.3) mg/dL Total Bilirubin 0.60 (0.2-1.0) mg/dL AST 24 (13-39) U/L ALT 21 (7-52) U/L Alkaline Phosphatase 81 (34-104) U/L Troponin I 0.03 (<0.04) ng/mL B-Natriuretic Peptide ( - 100) pg/mL Total Protein 5.2 L (6.4-8.9) g/dL Albumin 3.1 L (3.2-5.2) g/dL Globulin 2.1 (2-4) g/dL Albumin/Globulin Ratio 1.5 (1-3) 01/11/17 01/11/17 01/11/17 Range/Units 14:25 17:58 20:46 WBC (3.5-10.8) 10^3/ul RBC (4.0-5.4) 10^6/ul Hgb (12.0-16.0) g/dl Hct (35-47) % MCV (80-97) fL MCH (27-31) pg MCHC (31-36) g/dl RDW (10.5-15) % Plt Count (150-450) 10^3/ul MPV (7.4-10.4) um3 Neut % (Auto) (38-83) % Lymph % (Auto) (25-47) % [place] % (Auto) (1-9) % Eos % (Auto) (0-6) % Baso % (Auto) (0-2) % Absolute Neuts (auto) (1.5-7.7) 10^3/ul Absolute Lymphs (auto) (1.0-4.8) 10^3/ul Absolute Monos (auto) (0-0.8) 10^3/ul Absolute Eos (auto) (0-0.6) 10^3/ul Absolute Basos (auto) (0-0.2) 10^3/ul Absolute Nucleated RBC 10^3/ul Nucleated RBC % Sodium (133-145) mmol/L Potassium (3.5-5.0) mmol/L Chloride (101-111) mmol/L Carbon Dioxide (22-32) mmol/L Anion Gap (2-11) mmol/L BUN (6-24) mg/dL Creatinine (0.51-0.95) mg/dL Est GFR ( Amer) (>60) Est GFR (Non-Af Amer) (>60) BUN/Creatinine Ratio (8-20) Glucose (70-100) mg/dL Lactic Acid (0.5-2.0) mmol/L Calcium (8.6-10.3) mg/dL Total Bilirubin (0.2-1.0) mg/dL AST (13-39) U/L ALT (7-52) U/L Alkaline Phosphatase (34-104) U/L Troponin I 0.02 0.03 (<0.04) ng/mL B-Natriuretic Peptide 478 H ( - 100) pg/mL Total Protein (6.4-8.9) g/dL Albumin (3.2-5.2) g/dL Globulin (2-4) g/dL Albumin/Globulin Ratio (1-3) Microbiology and Other Data: Microbiology 01/11/17 22:40 Nasal Screen MRSA (PCR)([facility]) - Final Nasal Mrsa Negative Assess/Plan/Problems-Billing Assessment: 66 yo f with h/o follicular lymphoma, s/c chemo in summer 2015, polyarthropathy/high CRP/Rash -on prednisone by Dr. Hensley, paroxysmal symptomatic a. fib who presents with worsening rash, A. Fib with RVR and CHF - Patient Problems (1) Atrial fibrillation Comment: symptomatic. will stop Cardizem gtt-seems not to control the rate and lowers the BP. cont digoxin-just started today, will get levels tomorrow. Asked Dr. Konx for further recommendations Due to hypotension, sotalol and amiodarone cannot be used(pt had low BP due to them before) cont metoprolol with hold parameters (2) Fluid overload Comment: due to acute systolic CHF and a. fib. will tx with a small dose of IV lasix if BP allows. (3) H/O lymphoma Comment: H/o follicular lymphoma, s/p chemo in fall 2015, now in remission - Bone marrow biopsy done 10/28 was normal, no evidence of malignancy so far, but now with marked leukocytosis with no evidence of infection Dr. 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 cont prednisone at home dose. Dr. Hensley asked to see pt in consult Drug reaction vs rheumatologic condition. (5) Polyarthritis Comment: Rheum consult pending . (6) DVT prophylaxis Comment: cont Eliquis (7) Hyponatremia Comment: due to CHF Status and Disposition: inpatient
[2017-01-12] MEDS: Apixaban* 5 MG TAB PO SCH ×2 (09:07→19:58)
[2017-01-12] MEDS: Potassium Chlor TAB* 20 MEQ TAB.ER PO SCH (09:07)
[2017-01-12] MEDS: Cholecalciferol TAB* 1000 UNITS PO SCH (09:07)
[2017-01-12] MEDS: Vitamin B Complex TAB PO SCH (09:08)
[2017-01-12 09:45] LABS: BUN/Creatinine Ratio 29.2 (8-20); Calcium 9.2 mg/dL (8.6-10.3); EGFR African American 116.9 (>60); EGFR Non-African American 90.9 (>60); Magnesium 1.8 mg/dL (1.9-2.7); Potassium 3.9 mmol/L (3.5-5.0)
[2017-01-12 09:47] LABS: Hematocrit 34 % (35-47); Hemoglobin 10.8 g/dl (12.0-16.0); Mean Corpuscular HGB Conc 32 g/dl (31-36); Mean Corpuscular Hemoglobin 28 pg (27-31); Mean Corpuscular Volume 90 fL (80-97); Mean Platelet Volume 8 um3 (7.4-10.4); Red Blood Count 3.82 10^6/ul (4.0-5.4); Red Cell Distribution Width 16 % (10.5-15)
[2017-01-12 09:48] LABS: Comments Flag Yes
[2017-01-12 09:49] LABS: White Blood Count 30.8 10^3/ul (3.5-10.8)
[2017-01-12] MEDS ORDERED: Magnesium CITRATE* 300 ML BTL PO ONE (10:04)
[2017-01-12] MEDS ORDERED: Furosemide IV* 10 MG/ML 2 ML VIAL (20 MG) IV ONE (10:04)
[2017-01-12 10:54] LABS: C Reactive Protein 101.98 mg/L (< 5.00)
[2017-01-12] MEDS: oxyCODONE/Acetamin 5/325 MG* TAB PO PRN ×2 (10:56→20:04)
[2017-01-12] MEDS ORDERED: oxyCODONE TAB* 5 MG TAB PO PRN (10:57)
[2017-01-12] MEDS ORDERED: predniSONE TAB* 5 MG PO SCH (11:00)
[2017-01-12] MEDS ORDERED: Metoprolol Tartrate IV* 1 MG/ML 5 ML VIAL ONE (13:04)
[2017-01-12] MEDS: Metoprolol Tartrate IV* 1 MG/ML 5 ML VIAL IV PRN ×2 (13:11→18:36)
[2017-01-12] MEDS ORDERED: Digoxin TAB* 0.25 MG PO SCH (17:00)
--- NOTE | 2017-01-12 18:17 | CONS ---
CC: Dr. Mera; Dr. Ardon; Dr. Orr * CARDIOLOGY CONSULTATION: DATE OF CONSULT: 01/12/17 INDICATION FOR CONSULTATION: Atrial fibrillation. HISTORY OF PRESENT ILLNESS: The patient is a 66-year-old woman with a very complex recent history who was admitted to the hospital for atrial fibrillation and hypotension. The patient was admitted to the hospital back in October for atrial fibrillation. At that time, she had difficulty with control of her atrial fibrillation. The patient was given multiple medications for control of atrial fibrillation including atenolol, sotalol, Multaq, beta blockers, and calcium channel blockers. Ultimately, she was discharged from the hospital on anticoagulation on Multaq and low-dose beta blockers. She followed up with Dr. Mera after discharge from that prolonged hospitalizations. The patient continued to have fatigue after discharge and Dr. Mera tried to wean down her beta blockers to help control some of her other symptoms. Ultimately, she had return of her atrial fibrillation. The patient was then tried on Cardizem to control her heart rate and atrial fibrillation in addition to the Multaq. Ultimately, the patient was seen yesterday, 01/11/17, by Dr. Mera. At that time, her heart rate was 140 beats a minute. Blood pressure was 96/58. At that time, Dr. Mera suggested that she go to the hospital for control of her atrial fibrillation. In speaking with the patient, the patient states that she has just been getting more and more fatigued over the last couple of weeks and has also noticed a rash that has been persistent since her admission to the hospital back in October. Currently, the patient is in the intensive care unit. Her heart rate is around 120 beats a minute. Her blood pressure is 85/60. In speaking with her, she does not feel lightheaded or dizzy. She feels a little short of breath. Her respiratory rate is approximately 20. PAST MEDICAL HISTORY: Significant for: 1. Follicular lymphoma, treated with CHOP chemotherapy in the fall of 2015. 2. Paroxysmal atrial fibrillation. 3. Polymyalgia rheumatica. 4. Sleep apnea. 5. Hypercalcemia. OUTPATIENT MEDICATIONS: 1. Metoprolol ER 25 mg a day. 2. Diltiazem CD 120 mg a day. 3. Prednisone as directed. 4. Topamax 25 mg 3 tablets every night. 5. Magnesium 1000 mg a day. 6. Potassium 20 mEq a day. 7. Eliquis 5 mg twice a day. 8. Lunesta 3 mg q.h.s. 9. Alprazolam 0.5 mg as needed. 10. Omeprazole 20 mg a day. 11. Promethazine 25 mg q.8 hours as needed. ALLERGIES: She is intolerant of AUGMENTIN; however, she has been intolerant of AMIODARONE and ZOLOFT because of hypotension. SOCIAL HISTORY: She is . She is retired. She denies ever smoking. Rare alcohol intake. She tries to get regular exercise, but this has been sporadic due to her medical condition. PHYSICAL EXAM: Height is 5 feet 4 inches, weight is 132 pounds. Heart rate is 115. Blood pressure 92/58. Respiratory rate is 24. Oxygen saturation 90% on 2 L. Temperature is 99.5. Sclerae anicteric. Oropharynx is pink without erythema. Carotids are 2+ without bruits. JVD is normal. Thyroid is normal. Cardiac Exam: Tachycardic. S1, S2 with a 1/6 systolic ejection murmur heard best at the apex. PMI is difficult to assess. Lungs have mild rales at the bases. There is no dullness to percussion. Extremities show no edema. She has 2+ pulses throughout. The patient is awake, alert, and oriented. She moves all 4 extremities equally. Abdomen is slightly distended. There is no clear air fluid levels. There is no hepatosplenomegaly. There are decreased bowel sounds. DIAGNOSTIC STUDIES/LAB DATA: The patient's last echocardiogram was on December 16. At that time, she had a stress echocardiogram. Her LV function was completely normal at that time. She was not able to obtain heart rate. It was a nondiagnostic stress test. White count 30.8, hemoglobin 10, hematocrit 34, platelet count 378. Chemistries : Sodium 128, potassium 3.9, BUN 19, creatinine 0.65. Troponins are negative x3. C- reactive protein is elevated at 101. She did have a CTA of her chest that showed no evidence of pulmonary embolism. There was evidence of pleural effusions. IMPRESSION: This is a 66-year-old female with multiple medical problems who was admitted to the hospital because of atrial fibrillation and hypotension. In the past, the patient has been tried on sotalol, amiodarone, and Multaq for control of her atrial arrhythmia. At this point, I think the patient needs further evaluation with an package worker. I have contacted Dr. Krystian Butterfield up at [facility]. He has accepted the patient in transfer. At this point, my recommendation is the patient stay on her current treatments. Currently, her heart rate is 115. Her blood pressure is 90. She appears to be stable in the intensive care unit. Further recommendations pending her evaluation up at [facility]. [id number]/[facility] #: [id number] MTDD
--- NOTE | 2017-01-12 19:07 | CONSULT ---
Consult Consult: Gely Montes is a 66 year old woman with a history of lymphoma, now with an inflammatory condition with elevated inflammatory markers, recurrent rash, recurrent atrial fibrillation, low grade fever, and pleuropericardial effusions. She has been on prednisone, which has been gradually tapered to 15mg daily, but presented with tachycardia, hypotension, and the above features. Consider underlying immunologic process; possible atypical Still's. We will re check serologies. After speaking to the patient and cardiology, I will increase her prednisone to 30mg daily. Consider abdominal imaging to evaluate her increased abdominal distention. Consider cardiac MRI to evaluate for an infiltrative process. Possible sarcoid , vs. paraneoplastic syndrome? Also consider atypical Still's. Would follow. Thanks
[2017-01-12] MEDS ORDERED: Topiramate TAB(*) 25 MG PO SCH (21:00)
[2017-01-12] MEDS ORDERED: Magnesium Oxide TAB* 400 MG PO SCH (21:00)
--- NOTE | 2017-01-12 22:16 | CONS ---
CONSULTATION REPORT: DATE OF CONSULT: 01/12/17 REASON FOR CONSULT: Evaluate for an inflammatory process. CONSULTING PHYSICIAN: Dr. Rodríguez. CHIEF COMPLAINT: Shortness of breath and rash. HISTORY OF PRESENT ILLNESS: Gely Montes is a 66-year-old woman who is well known to me. She has an ill-defined inflammatory process characterized by recurrent fevers (low grade), a diffuse rash, arthralgias, and atrial fibrillation, as well as significantly elevated inflammatory markers. These symptoms began several months ago towards end of her treatment for lymphoma ( which had included Rituximab). Specifically, in late July, she developed a rash with fevers, which lasted several days; a workup revealed that her CRP was very high at greater than 100. Her HANY and RF and CCP and ESR at the time were normal. The CRP came down after a course of steroids, but remained elevated at 26. She was given initially a Medrol dose pack and the rash and fever improved ; when she finished the steroids her hands became swollen and she was then given more steroids beginning at 60mg daily; this was gradually tapered off. She continued to have at the time some discomfort and swelling in her hands. Shortly after the symptoms commenced, she had a prior hospitalization in October for hypercalcemia complicated by transient renal insufficiency, at which time a skin biopsy revealed thrombotic vasculopathy (with no clear evidence of vasculitis). Workup for a paraneoplastic process given her history of lymphoma was negative. A CT of the chest and abdomen and pelvic region in October revealed a moderated sized bilateral pleural effusion with bibasilar atelectasis and the gastric antrum was poorly distended and appeared tubular (however a subsequent EGD revealed no significant abnormality) She did have markedly elevated inflammatory markers and her symptoms partially responded to corticosteroids, which were resumed. She had been on a taper of prednisone as an outpatient; she was on 20 mg daily and over the last few weeks, this dose has been gradually tapered down to 15 mg daily. However, she has had diffuse arthralgias and her rash has worsened since she has tapered the prednisone. She also had elevated pulmonary pressures, which was confirmed today on a discussion with her metal grader, Dr. Mera, and she was also noted to have pulmonary hypertension during her October hospitalization. She also has mild-to- moderate mitral regurgitation, and she has had atrial fibrillation, which has been difficult to control. She was admitted with poorly controlled atrial fibrillation with an elevated rate. Of note, she has been placed on anticoagulation for her underlying cardiac condition and she has considered ablation therapy. Diureses has helped her symptoms. She has also seen Dermatology and several oncologists as an outpatient. Her CRP has been persistently elevated; in September it was 26.01. In December, her CRP keren to 35.45 , but at the time, it was felt to be elevated due to bronchitis. She was prescribed Augmentin and it is probably around then that she had developed recurrent rash. It was felt that she might have a drug-related process and so she was given a corticosteroid cream; however, her symptoms persisted. Given her underlying inflammatory condition which is thought to either be polymyalgia rheumatica or an atypical variant of Still's disease, we had considered initiation of methotrexate as a steroid-sparing agent. She also has had generalized weakness, there was some concern that her weakness may be secondary to a beta haider. It was titrated down and at some point, she developed recurrent fibrillation. Her rate was hard to control, so she was sent to the ER yesterday. She has also been prescribed Cardizem and she was taken off Multaq. She has continued to have symptoms of atrial fibrillation, worsening shortness of breath and with abdominal bloating and distention and her heart rate in the 120s. She also was found to have an elevated white count of 41,000 , which has improved today. During hospitalization, she has been also followed by Cardiology as well as Hematology as well and she is tentatively being scheduled to be transferred to [facility]. PAST MEDICAL HISTORY: Notable for: 1. 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 2. Also, history of atrial fibrillation. 3. History of obstructive sleep apnea, on oxygen at night. 4. History of an episode of hypercalcemia in 2017, which resolved. 5. Pulmonary hypertension. 6. History of moderate mitral regurgitation. 7. 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 8. History of migraine headaches. 9. Parotidectomy. 10. Colectomy for polyps. 11. Excisional lymph node biopsies in the past with TMJ surgery. MEDICATIONS: As an outpatient include: 1. Eliquis 5 mg b.i.d. 2. Vitamin D 5000 units daily. 3. Metoprolol succinate 25 mg b.i.d. 4. Potassium. 5. Topamax 50 mg at night. 6. Prednisone 15 mg daily. 7. Magnesium oxide 1000 mg daily. 8. Omeprazole 40 mg daily. 9. Vitamin B12 5000 mcg daily. 10. B complex 1 tablet daily. 11. Cardizem CD 120 mg daily. ALLERGIES: No known drug allergies. Include intolerance of Augmentin. She has been intolerant of amiodarone and Zoloft because of hypotension. FAMILY HISTORY: Notable for an uncle with diabetes and grandmother with diabetes. SOCIAL HISTORY: She denies any tobacco, alcohol, or drug use. She has a supportive sister. She is . She is retired. Rare alcohol intake. She does exercise, but this has been sporadic due to her medical condition. REVIEW OF SYSTEMS: Musculoskeletal: She has complained of arthralgias, but no definite joint swelling. She does have lower extremity edema. Cardiac: As noted above. Pulmonary: With dyspnea and recent imaging study showed evidence of pleural effusion with pericardial effusion as well too. GI: Abdominal distention noted and this restricts her. Last bowel movement was several days ago. : No blood in the urine or stool. Endocrine: No glandular swelling. Lymph: No lymph node swelling. She does have mildly dry eyes and dry mouth. Other 14-point review of systems was reviewed and were otherwise negative. In terms of her current status, she is in intensive care unit. Her heart rate is around 120 beats per minute; blood pressure is around 85/60, but she is not syncopal; she does feel little bit short of breath with a respiratory rate of 20. Also constitutionally, she has been generally more fatigued as well. PHYSICAL EXAM: Height is 5 feet 4 inches, weight is 132 pounds, heart rate of 115, blood pressure 92/58, respiratory rate of 20, O2 sats 90% on 2 L, temperature of 99.5. In general, she is pleasant, in no acute distress, sitting up. Skin: She had a diffuse erythematous rash with slightly raised features, papular in nature, across the upper chest wall and truncal region, also in the lower extremity as well. Oropharynx is clear with no erythema. On her toes, there is some erythema which is an extension of a rash, which is partially confluent. Carotids were 2+ without bruits. JVD was within normal limits. Endocrine: Thyroid was normal with no thyromegaly. Cardiac exam revealed slight tachycardia with a 1/6 systolic ejection murmur best heard at the apex. PMI is not displaced. Lungs have mild crackles at the bases, but no dullness to percussion. Extremities show no edema. She had 2+ pulses throughout. She was able to move all 4 extremities. Abdominal exam was notable for moderate distention, but no clear air-fluid levels. No hepatosplenomegaly. Slightly decreased breath sounds. Musculoskeletal Exam: There is no synovitis. Endocrine: No glandular swelling. DIAGNOSTIC STUDIES/LAB DATA: She had an echo on December 16, which showed LV function completely normal at that time. She was not able to obtain the heart rate with nondiagnostic stress test. White count of 30.8, hemoglobin 10, hematocrit 34, platelet count 378,000. Sodium 128, potassium 3.9, creatinine 0.65. Troponin is negative x3. CRP is elevated at 101. She did have a CTA of her chest that showed no evidence of pulmonary hypertension. There was evidence of pleural effusion. There was pericardial effusion. Assessment) Ms. Montes is a 66 year old woman with a history of lymphoma, now with recurrent low grade fevers, arthralgias, elevated inflammatory markers, pleuropericardial effusions, pulmonary hypertension, atrial fibrillation and a recurrent diffuse rash. Potential etiologies of her symptoms remain complex. She may have an evolving connective tissue disorder (although her HANY has been negative); consider atypical Still's variant given her elevated inflammatory markers; also consider an underlying paraneoplastic process which has not yet been identified. I have spoken with cardiology; consider a cardiac echo to screen for any infiltrative process such as sarcoidosis (which may explain her remote history of hypercalcemia). A pericardial biopsy and/ or aspiration is risky given her anticoagulant use; imaging therefore with a cardiac MRI may be a reasonable next step. In addition to her rash, she has some livedoid changes in her skin, suggestive of an underlying procoagulant process. I will re check her ANCA She also has abdominal bloating and distention; I am not sure if this could be related to her cardiac or pulmonary process or represent some intrinsic process in the abdominal region and I agree with also getting abdominal imaging; I understand that she is scheduled to have a CT of her abdomen. I will re check autoimmune markers. Consider also checking anticardiolipin antibodies and cryoglobulins and ferritin levels Prednisone was increased to 30mg daily; she was concerned about potential side effects, but potentially it could be increased further if needed. Given her history of vertebral endplate deformites found on prior imaging studies and chronic steroid use, she is at risk for complications of watermelon inspector steroids (including vertebral compression fractures) and would benefit from vitamin D supplementation and bisphosphanate therapy on a watermelon inspector basis. Continue GI prophylaxis to prevent stress ulceration. MTDD
[2017-01-13] MEDS: LORazepam TAB(*) 0.5 MG PO PRN (02:19)
[2017-01-13] MEDS: oxyCODONE/Acetamin 5/325 MG* TAB PO PRN ×2 (02:45→14:00)
[2017-01-13] MEDS: Metoprolol Tartrate IV* 1 MG/ML 5 ML VIAL IV PRN (05:50)
[2017-01-13 05:55] LABS: Hematocrit 31 % (35-47); Mean Corpuscular HGB Conc 32 g/dl (31-36); Mean Corpuscular Hemoglobin 29 pg (27-31); Mean Corpuscular Volume 90 fL (80-97); Mean Platelet Volume 8 um3 (7.4-10.4); Red Blood Count 3.48 10^6/ul (4.0-5.4); Red Cell Distribution Width 16 % (10.5-15); White Blood Count 44.1 10^3/ul (3.5-10.8)
[2017-01-13 05:58] LABS: Comments Flag Yes
[2017-01-13 06:05] LABS: BUN/Creatinine Ratio 32.9 (8-20); Calcium 9.7 mg/dL (8.6-10.3); EGFR African American 107.3 (>60); EGFR Non-African American 83.5 (>60); Magnesium 1.9 mg/dL (1.9-2.7); Potassium 4.2 mmol/L (3.5-5.0)
[2017-01-13 06:12] LABS: Digoxin 1.6 ng/ml (0.8-2.0)
[2017-01-13] MEDS: Omeprazole CAP* 20 MG PO SCH (08:03)
[2017-01-13] MEDS: Potassium Chlor TAB* 20 MEQ TAB.ER PO SCH (08:05)
[2017-01-13] MEDS: Metoprolol Succinate XL TAB* 25 MG PO SCH (08:07)
[2017-01-13] MEDS: Vitamin B Complex TAB PO SCH (08:07)
[2017-01-13] MEDS: Cholecalciferol TAB* 1000 UNITS PO SCH (08:07)
[2017-01-13] MEDS: Apixaban* 5 MG TAB PO SCH (08:08)
[2017-01-13] MEDS: Acetaminophen TAB* 325 MG PO PRN (08:23)
[2017-01-13] MEDS ORDERED: predniSONE TAB* 10 MG PO SCH (08:30)
[2017-01-13] MEDS ORDERED: Iodixanol* (CONTRAST) 320 MG/ML 100 ML SDV IV ONE (08:33)
--- NOTE | 2017-01-13 09:01 | PN ---
Subjective - Subjective History: Rheumatology follow up note Date 01/13/2017 Reason for follow up: Systemic inflammatory condition Chief complaint: Abdominal distention. Ms. Montes overall was able to sleep somewhat but still has diffuse discomfort in her abdominal region which extends to her back. Her rash is about the same. She has had no high grade fevers and no peripheral joint swelling. She continues to be monitored in the ICU regarding her tachyarrhythmia. Active Problems: Active Problems Hyponatremia (Acute) E87.1 due to CHF Current Medications: Current Medications Acetaminophen (Tylenol Tab*) 650 mg PO Q4H PRN PRN Reason: FEVER/PAIN Last Admin: 01/13/17 08:23 Dose: 650 mg Acetaminophen/Butalbital/Caffeine (Fioricet Tab*) 1 tab PO Q6H PRN PRN Reason: MIGRAINE HEADACHE Last Admin: 01/12/17 19:59 Dose: 1 tab Alprazolam (Xanax Tab*) 0.5 mg PO TID PRN PRN Reason: ANXIETY Last Admin: 01/12/17 07:53 Dose: 0.5 mg Apixaban (Eliquis*) 5 mg PO BID [facility] Last Admin: 01/13/17 08:08 Dose: 5 mg Cholecalciferol (Vitamin D Tab*) 5,000 units PO QAM [facility] Last Admin: 01/13/17 08:07 Dose: 5,000 units Digoxin (Lanoxin Tab*) 0.25 mg PO 1700 [facility] Last Admin: 01/12/17 16:51 Dose: 0.25 mg Lorazepam (Ativan Tab(*)) 0.5 mg PO BEDTIME PRN PRN Reason: ANXIETY Last Admin: 01/13/17 02:19 Dose: 0.5 mg Magnesium Oxide (Magox 400 Tab*) 800 mg PO BEDTIME [facility] Last Admin: 01/12/17 19:58 Dose: 800 mg Metoprolol Succinate (Toprol Xl Tab*) 25 mg PO BID [facility] Last Admin: 01/13/17 08:07 Dose: 25 mg Metoprolol Tartrate (Lopressor Iv*) 5 mg IV Q4H PRN PRN Reason: BLOOD PRESSURE Last Admin: 01/13/17 05:50 Dose: 5 mg Omeprazole (Prilosec Cap*) 40 mg PO DAILY@0730 [facility] Last Admin: 01/13/17 08:03 Dose: 40 mg Oxycodone HCl (Roxycodone Tab*) 5 mg PO Q4H PRN PRN Reason: PAIN Oxycodone/Acetaminophen (Percocet 5/325 Tab*) 1 tab PO Q4H PRN PRN Reason: PAIN Last Admin: 01/13/17 02:45 Dose: 1 tab Potassium Chloride (Klor Con Er Tab*) 20 meq PO DAILY WITH MEAL [facility] Last Admin: 01/13/17 08:05 Dose: 20 meq Prednisone (Deltasone Tab*) 30 mg PO DAILY WITH MEAL [facility] Last Admin: 01/13/17 08:05 Dose: 30 mg Promethazine HCl (Phenergan Tab*) 25 mg PO Q8H PRN PRN Reason: NAUSEA/VOMITING Topiramate (Topamax(*)) 50 mg PO BEDTIME [facility] Last Admin: 01/12/17 20:02 Dose: 50 mg Vitamin B Complex/Vitamin E (Complex B-100*) [facility] [place] Last Admin: 01/13/17 08:07 Dose: 1 tab - Review of Systems Constitutional Symptoms: Yes: Weakness, Fatigue, No: Night Sweats, Unexplained Falls Dermatology: Rash: Yes, Skin Lesions: Yes, Change in Skin Lesion: No HEENT: Yes Normal Eyes: Positive: Normal Thyroid: Positive: Normal Pulmonary: Positive: Normal Cardiology: Positive: Shortness of Breath, Orthopnoea Genital - Urinary: Positive: Normal Musculoskeletal: Positive: Joint Stiffness, Low Back Pain Endocrinology: Positive: Normal Hematologic/Lymphatic: Positive: Hx Lymphoma Neurology: Positive: Migraines Psychiatry: Positive: Normal Allergic/Immunologic: Positive: Immunocompromise Home Medications: Home Medications Medication Instructions Recorded Confirmed Type Omeprazole CAP* [Prilosec CAP* 20 40 mg PO QAM 03/17/16 01/11/17 History MG] ALPRAZolam TAB* [Xanax TAB*] 0.5 mg PO TID PRN #15 tab MDD 3 11/04/16 01/11/17 Rx tabs Apixaban* [Eliquis*] 5 mg PO BID #60 tab 11/04/16 01/11/17 Rx Rjimbqfbty-Cthfnqs-Bmcqamzy 1 cap PO Q6H PRN 01/11/17 01/11/17 History [Fiorinal 50-325-40 mg-] Cholecalciferol TAB* [Vitamin D 5,000 units PO QAM 01/11/17 01/11/17 History TAB*] Diltiazem HCl Extended Release 120 mg PO QAM 01/11/17 01/11/17 History [Diltiazem HCl ER] Diphenhydramine-Acetaminophen 1 tab PO BEDTIME PRN 01/11/17 01/11/17 History [Tylenol Pm Extra Strength 500-25 mg] Eszopiclone (NF) [Lunesta (NF)] 3 mg PO BEDTIME PRN 01/11/17 01/11/17 History Magnesium Oxide (mg Supplement 1,000 mg PO QPM 01/11/17 01/11/17 History [Magnesium Oxide] Metoprolol Succinate XL TAB* 25 mg PO BID 01/11/17 01/11/17 History [Toprol XL TAB*] Potassium Chlor TAB* [Klor Con ER 20 meq PO QAM 01/11/17 01/11/17 History TAB*] Promethazine TAB* [Phenergan TAB*] 25 mg PO Q8H PRN 01/11/17 01/11/17 History Topiramate [Topamax 50 mg tab] 50 mg PO QPM 01/11/17 01/11/17 History Vitamin B Complex CAP* [B Complex 1 cap PO QAM 01/11/17 01/11/17 History CAP*] predniSONE TAB* [Deltasone TAB*] 15 mg DAILY 01/12/17 01/12/17 History Allergies: Allergies Allergy/AdvReac Type Severity Reaction Status Date / Time Amoxicillin [From Augmentin] Allergy Unknown Rash Verified 01/11/17 21:44 Clavulanic Acid Allergy Unknown Rash Verified 01/11/17 21:44 [From Augmentin] Objective - Vital Signs Vital Signs: Vital Signs 01/12/17 01/12/17 01/12/17 09:00 09:15 09:18 Temperature Pulse Rate Respiratory 30 30 Rate Blood Pressure 84/52 (mmHg) O2 Sat by Pulse Oximetry 01/12/17 01/12/17 01/12/17 09:30 09:45 10:00 Temperature Pulse Rate 129 119 Respiratory 29 34 Rate Blood Pressure 88/45 (mmHg) O2 Sat by Pulse 93 92 Oximetry 01/12/17 01/12/17 01/12/17 10:08 10:15 10:30 Temperature Pulse Rate 52 145 54 Respiratory 15 30 16 Rate Blood Pressure 94/59 131/63 (mmHg) O2 Sat by Pulse 95 85 95 Oximetry 01/12/17 01/12/17 01/12/17 10:35 10:45 10:56 Temperature Pulse Rate 54 120 Respiratory 14 20 30 Rate Blood Pressure 109/88 (mmHg) O2 Sat by Pulse 95 91 Oximetry 01/12/17 01/12/17 01/12/17 11:00 11:02 11:15 Temperature Pulse Rate 54 31 Respiratory 13 27 Rate Blood Pressure 76/54 106/60 (mmHg) O2 Sat by Pulse 96 83 Oximetry 01/12/17 01/12/17 01/12/17 11:25 11:30 11:45 Temperature 99.5 F Pulse Rate 114 Respiratory 29 Rate Blood Pressure 91/62 (mmHg) O2 Sat by Pulse 91 Oximetry 01/12/17 01/12/17 01/12/17 11:54 12:00 12:12 Temperature Pulse Rate 53 Respiratory 28 19 30 Rate Blood Pressure 103/45 (mmHg) O2 Sat by Pulse 96 Oximetry 01/12/17 01/12/17 01/12/17 12:15 12:30 12:45 Temperature Pulse Rate 124 51 Respiratory 30 20 34 Rate Blood Pressure 91/50 (mmHg) O2 Sat by Pulse 90 96 Oximetry 01/12/17 01/12/17 01/12/17 13:00 13:15 13:30 Temperature Pulse Rate 133 119 118 Respiratory 30 32 30 Rate Blood Pressure 97/62 88/49 (mmHg) O2 Sat by Pulse 92 90 89 Oximetry 01/12/17 01/12/17 01/12/17 13:39 13:45 14:00 Temperature Pulse Rate 100 118 Respiratory 22 24 27 Rate Blood Pressure 83/57 (mmHg) O2 Sat by Pulse 91 93 Oximetry 01/12/17 01/12/17 01/12/17 14:15 14:19 14:30 Temperature Pulse Rate 109 114 Respiratory 32 26 28 Rate Blood Pressure 95/57 (mmHg) O2 Sat by Pulse 92 92 Oximetry 01/12/17 01/12/17 01/12/17 14:45 14:49 15:00 Temperature Pulse Rate 101 130 117 Respiratory 27 27 25 Rate Blood Pressure 97/57 90/48 (mmHg) O2 Sat by Pulse 88 89 88 Oximetry 01/12/17 01/12/17 01/12/17 15:30 16:00 16:30 Temperature 99.2 F Pulse Rate 113 99 116 Respiratory 24 22 27 Rate Blood Pressure 92/58 95/52 95/58 (mmHg) O2 Sat by Pulse 90 91 93 Oximetry 01/12/17 01/12/17 01/12/17 16:58 17:00 17:30 Temperature Pulse Rate 104 112 Respiratory 22 28 23 Rate Blood Pressure 93/57 94/57 (mmHg) O2 Sat by Pulse 94 94 Oximetry 01/12/17 01/12/17 01/12/17 18:00 18:30 19:00 Temperature Pulse Rate Respiratory 25 18 24 Rate Blood Pressure 82/69 87/63 72/50 (mmHg) O2 Sat by Pulse Oximetry 01/12/17 01/12/17 01/12/17 19:10 19:30 19:36 Temperature 99.3 F Pulse Rate 107 Respiratory 26 23 Rate Blood Pressure 91/60 90/53 (mmHg) O2 Sat by Pulse 93 Oximetry 01/12/17 01/12/17 01/12/17 20:00 20:04 20:30 Temperature Pulse Rate 103 Respiratory 26 22 20 Rate Blood Pressure 101/61 (mmHg) O2 Sat by Pulse 94 Oximetry 01/12/17 01/12/17 01/12/17 20:36 21:00 21:28 Temperature Pulse Rate 100 100 Respiratory 21 24 24 Rate Blood Pressure 101/62 112/56 (mmHg) O2 Sat by Pulse 92 Oximetry 01/12/17 01/12/17 01/12/17 21:44 21:45 22:00 Temperature Pulse Rate 99 Respiratory 28 25 Rate Blood Pressure 100/61 93/54 (mmHg) O2 Sat by Pulse 94 Oximetry 01/12/17 01/12/17 01/12/17 22:30 22:46 23:00 Temperature Pulse Rate 92 114 Respiratory 24 23 22 Rate Blood Pressure 95/53 93/51 (mmHg) O2 Sat by Pulse 97 95 Oximetry 01/12/17 01/12/17 01/12/17 23:22 23:30 23:34 Temperature 97.8 F Pulse Rate 94 Respiratory 22 22 Rate Blood Pressure 106/62 (mmHg) O2 Sat by Pulse 89 89 Oximetry 01/12/17 01/13/17 01/13/17 23:44 00:00 00:01 Temperature Pulse Rate 111 103 Respiratory 22 19 20 Rate Blood Pressure 105/61 (mmHg) O2 Sat by Pulse 95 94 Oximetry 01/13/17 01/13/17 01/13/17 00:30 00:55 01:00 Temperature Pulse Rate 108 110 Respiratory 22 22 22 Rate Blood Pressure 103/51 100/54 (mmHg) O2 Sat by Pulse 95 96 Oximetry 01/13/17 01/13/17 01/13/17 01:30 01:31 02:00 Temperature Pulse Rate 105 104 110 Respiratory 21 21 24 Rate Blood Pressure 84/45 110/63 (mmHg) O2 Sat by Pulse 95 95 89 Oximetry 01/13/17 01/13/17 01/13/17 02:14 02:19 02:30 Temperature Pulse Rate 111 105 Respiratory 25 27 24 Rate Blood Pressure 92/61 89/50 (mmHg) O2 Sat by Pulse 93 97 Oximetry 01/13/17 01/13/17 01/13/17 02:43 02:45 03:00 Temperature Pulse Rate Respiratory 28 24 27 Rate Blood Pressure 109/59 110/57 (mmHg) O2 Sat by Pulse Oximetry 01/13/17 01/13/17 01/13/17 03:30 04:00 04:30 Temperature 98.5 F Pulse Rate 111 106 111 Respiratory 24 25 22 Rate Blood Pressure 101/51 99/58 95/50 (mmHg) O2 Sat by Pulse 91 93 90 Oximetry 01/13/17 01/13/17 01/13/17 04:44 05:00 05:30 Temperature Pulse Rate 111 110 Respiratory 25 22 21 Rate Blood Pressure 100/59 97/55 (mmHg) O2 Sat by Pulse 95 95 Oximetry 01/13/17 01/13/17 01/13/17 05:32 05:52 05:57 Temperature Pulse Rate 131 112 Respiratory 21 23 23 Rate Blood Pressure 107/68 80/56 (mmHg) O2 Sat by Pulse 82 93 Oximetry 01/13/17 01/13/17 01/13/17 06:00 06:30 06:31 Temperature Pulse Rate 101 99 96 Respiratory 25 22 25 Rate Blood Pressure 94/67 91/61 (mmHg) O2 Sat by Pulse 90 96 97 Oximetry 01/13/17 01/13/17 06:45 07:55 Temperature 99.2 F Pulse Rate Respiratory 25 Rate Blood Pressure (mmHg) O2 Sat by Pulse Oximetry - Intake and Output Intake and Output: Intake & Output 01/11/17 01/12/17 01/13/17 01/14/17 06:59 06:59 06:59 06:59 Intake Total 294 1101.8 Output Total 650 700 Balance -356 401.8 Weight 132 lb 4.438 oz 131 lb 2.801 oz 132 lb Intake: IV Fluids 37 125 NS (0.9%) 37 125 Medicated IV 17 36.8 GEN - Diltiazem/Cardizem 17 36.8 Oral 240 940 Output: Urine 650 700 Other: Estimated Void Large # Bowel Movements 1 Estimated Stool Amount Small # Voids 1 ADLs: Meal Record Start: 01/11/17 22: 17 Freq: 09,13,18 Status: Active Created 01/11/17 22:17 System (Rec: 01/11/17 22:17 System [id number]) Document 01/12/17 09:00 [id number] (Rec: 01/12/17 09:57 [id number] ICU-C15) Document 01/12/17 14:34 [id number] (Rec: 01/12/17 14:34 [id number] ICU-C15) Document 01/12/17 18:00 [id number] (Rec: 01/12/17 19:37 [id number] ICU-C14) Intake and Output Start: 01/11/17 22: 17 Freq: 06,14,22 Status: Active Created 01/11/17 22:17 System (Rec: 01/11/17 22:17 System [id number]) Document 01/12/17 00:00 [id number] (Rec: 01/12/17 03:07 [id number] ICU-M06) Document 01/12/17 05:57 [id number] (Rec: 01/12/17 05:58 [id number] ICU-C16) Document 01/12/17 12:49 [id number] (Rec: 01/12/17 12:49 [id number] ICU-C15) Document 01/12/17 20:00 [id number] (Rec: 01/13/17 05:15 [id number] ICU-C16) Document 01/12/17 21:07 [id number] (Rec: 01/12/17 21:07 [id number] ICU-C14) Document 01/13/17 05:15 [id number] (Rec: 01/13/17 05:15 [id number] ICU-C16) Document 01/13/17 06:30 [id number] (Rec: 01/13/17 06:51 [id number] ICU-C16) - Physical Exam General Physical Exam Comment: Sitting up in no acute distress Eye Exam: bilateral: PERRLA, EOMI Skin: Abnormal: Rash Head: Yes Normocephalic Thyroid Function: Clinically Euthyroid Lungs and Chest: Yes: Chest Expansion Full, Chest Expansion Symetrica, Percussion Note Resonant Heart Rate and Rhythm: Irregular JVP: Not Elevated Jolo Beat: Non Displaced Additional Cardiovascular: Yes: Jolo Beat not Displaced Abdominal Exam: Yes: Distention - Rheumotological System Additional Musculoskeletal: Lumbar Spine Tenderness - Extremities Posterior Tibial Pulse: Bilateral Normal Dorsalis Pedis Pulses: Bilateral Normal Hematology: No Supraclavicular Adenopathy Limbs: Normal Coordination, Normal Sensation - Neuro Orientation: A/O x3 Psychiatric: Normal Speech: Normal Results - Results Lab Results: Laboratory Results - last 24 hr 01/12/17 01/12/17 01/12/17 09:15 09:15 19:40 WBC 30.8 H RBC 3.82 L Hgb 10.8 L Hct 34 L MCV 90 MCH 28 MCHC 32 RDW 16 H Plt Count 378 MPV 8 Neut % (Auto) 87.7 H Lymph % (Auto) 8.6 L [place] % (Auto) 2.3 Eos % (Auto) 0.8 Baso % (Auto) 0.6 Absolute Neuts (auto) 27.0 H Absolute Lymphs (auto) 2.6 Absolute Monos (auto) 0.7 Absolute Eos (auto) 0.2 Absolute Basos (auto) 0.2 Absolute Nucleated RBC 0.03 Nucleated RBC % 0.1 Sodium 128 L Potassium 3.9 Chloride 98 L Carbon Dioxide 22 Anion Gap 8 BUN 19 Creatinine 0.65 Est GFR ( Amer) 116.9 Est GFR (Non-Af Amer) 90.9 BUN/Creatinine Ratio 29.2 H Glucose 111 H Calcium 9.2 Magnesium 1.8 L Ferritin 111.7 C-Reactive Protein 101.98 H Digoxin 01/13/17 01/13/17 05:30 05:30 WBC 44.1 H RBC 3.48 L Hgb 10.0 L Hct 31 L MCV 90 MCH 29 MCHC 32 RDW 16 H Plt Count 335 MPV 8 Neut % (Auto) Lymph % (Auto) [place] % (Auto) Eos % (Auto) Baso % (Auto) Absolute Neuts (auto) Absolute Lymphs (auto) Absolute Monos (auto) Absolute Eos (auto) Absolute Basos (auto) Absolute Nucleated RBC Nucleated RBC % Sodium 127 L Potassium 4.2 Chloride 96 L Carbon Dioxide 24 Anion Gap 7 BUN 23 Creatinine 0.70 Est GFR ( Amer) 107.3 Est GFR (Non-Af Amer) 83.5 BUN/Creatinine Ratio 32.9 H Glucose 91 Calcium 9.7 Magnesium 1.9 Ferritin C-Reactive Protein Digoxin 1.6 Assessment - Problem List Assessment: Patient Problems Hyponatremia (Acute) PIERRE (acute kidney injury) (Acute) Atrial fibrillation (Acute) Cold sore (Acute) DVT prophylaxis (Acute) Dysphagia (Acute) Elevated troponin (Acute) Fever (Acute) Fluid overload (Acute) Full code status (Acute) Gastric wall thickening (Acute) H/O lymphoma (Acute) Hypercalcemia (Acute) LFT elevation (Acute) Migraine (Acute) Polyarthritis (Acute) Rash (Acute) Plan: Ms. Montes has atrial fibrillation, recurrent pleuropericardial effusions, elevated inflammatory markers, rash, arthralgias, pulmonary HTN, abdominal distention. Prednisone was increased to 30mg daily to help her underlying inflammatory process. Given the complexity of her cardiac condition, she may be transferred to a tertiary care facility, and I agree with this. She may consider ablation therapy for her recurrent refractory atrial fibrillation Her recent echo was reviewed. I think that she would benefit from having a cardiac MRI done to screen for any infiltrative process. She will have a CT of the abdomen today. Her prednisone was increased to 30mg daily. She will need a gradual taper, depending on clinical improvement. In terms of rash, continue prednisone. I am not sure if a 2nd skin biopsy would be helpful but could be considered. Follow up autoimmune markers Coordination of Care: Yes
--- NOTE | 2017-01-13 12:32 | RAD ---
CLINICAL HISTORY: Lymphoma COMPARISON: October 18, 2016 TECHNIQUE: Multiple contiguous axial CT scans were obtained of the abdomen and pelvis after the administration of intravenous contrast. Coronal and sagittal multiplanar reformations are submitted for review. Oral contrast was administered. Delayed images were obtained through the abdomen and pelvis. FINDINGS: LUNG BASES: There are large bilateral pleural effusions. There is a large pericardial effusion. This has progressed from the previous examination. LIVER: The liver is normal in shape, size, contour, and attenuation. BILE DUCTS: There is no intrahepatic or extrahepatic biliary dilatation. GALLBLADDER: The gallbladder is normal, without pericholecystic inflammatory change. PANCREAS: The pancreas is normal, without mass or ductal dilatation. SPLEEN: Again noted is heterogeneous attenuation of the spleen, stable UPPER GI TRACT: Evaluation of the gastrointestinal tract is limited by incomplete gastric distention. There is mucosal thickening of the gastric antrum similar to the previous examination. SMALL BOWEL AND MESENTERY: There is diffuse stranding of the small bowel mesentery with multiple small lymph nodes. This is slightly progressed compared to the previous examination. COLON: The colon is normal in contour, course, caliber. There is no pericolonic inflammatory change. ADRENALS: Normal bilaterally. KIDNEYS: The kidneys are normal in shape, size, contour, and axis. There is no hydronephrosis or nephrolithiasis. BLADDER: The bladder is smooth in contour. PELVIC ORGANS: The uterus is fibroid. AORTA: The aorta is normal. IVC: Unremarkable LYMPH NODES: There are multiple inguinal lymph nodes bilaterally. There is a 1.5 cm short axis left inguinal lymph node. ABDOMINAL WALL: There is no evidence for abdominal wall hernia. BONES AND SOFT TISSUES: Chronic appearing compression deformities noted of L3. There is perirectal and subcutaneous edema OTHER: There is trace ascites. IMPRESSION: 1. THERE HAS BEEN INTERVAL PROGRESSION OF BILATERAL PLEURAL EFFUSIONS AND A PERICARDIAL EFFUSION. 2. AGAIN NOTED IS HETEROGENEOUS ATTENUATION OF THE SPLEEN. 3. THERE IS DIFFUSE STRANDING OF THE MESENTERIC FAT WITH MULTIPLE SMALL MESENTERIC LYMPH NODES. THERE HAS BEEN MILD PROGRESSION COMPARED TO THE PREVIOUS EXAMINATION. 4. AGAIN NOTED IS MUCOSAL THICKENING OF THE DISTAL STOMACH. 5. THERE IS TRACE ASCITES WITH SUBCUTANEOUS EDEMA 6. AGAIN NOTED IS LEFT INGUINAL LYMPHADENOPATHY
[2017-01-13] MEDS ORDERED: Nystatin SUSPENSION* 100000 UNITS/ML 5 ML UDC PO SCH (13:00)
[2017-01-13 14:17] VITALS: BP 97/55
--- NOTE | 2017-01-13 15:46 | TRS ---
CC: Dr. Radha Ardon; Dr. Orr; Dr. Hensley; Dr. Knox; Dr. Mera; Dr. Stallworth from [facility] TRANSFER SUMMARY: DATE OF ADMISSION: 01/11/17 DATE OF TRANSFER: 01/13/17. To [facility] PRIMARY CARE PHYSICIAN: Dr. Radha Ardon. PHYSICIAN ACCEPTING TRANSFER: Dr. Agustin Stallworth from [facility] in [place], [place]. REASON FOR TRANSFER: 1. Symptomatic paroxysmal atrial fibrillation, most likely need for EP study and possibly ablation. 2. Marked leukocytosis, rule out malignancy. 3. Elevated CRP, arthralgias and rash. Rule out an ongoing rheumatologic process. 4. Hyponatremia, most likely due to acute systolic CHF. SECONDARY DIAGNOSES: 1. History of paroxysmal atrial fibrillation. 2. History of obstructive sleep apnea, on oxygen at night. 3. History of rash with arthralgias with elevated CRP, on chronic prednisone as per Dr. Hensley. 4. History of episode of hypercalcemia in October 2016 but resolved after initial intravenous fluid hydration. 5. History of pulmonary hypertension. 6. Moderate mitral regurgitation. 7. History of follicular lymphoma, status post chemotherapy treatment in the fall of 2015. 8. History of migraine headaches. 9. Parotidectomy. 10. History of colectomy for polyp. 11. History of excisional lymph node biopsies in the past. 12. History of TMJ surgery. 13. History of status post skin biopsy for the above-mentioned rash, which showed "thrombotic vasculopathy. No evidence of leukocytoclastic vasculitis." The patient's EGD was performed on 10/23/16, which showed gastric oxyntic type mucosa with mild nonspecific superficial chronic inflammation. No active gastritis or Helicobacter pylori like organisms. No evidence of malignancy. There was no abnormality on duodenal biopsy either. The patient's bone marrow biopsy was last obtained on 10/26/16, which showed "mildly hypercellular bone marrow at 60% with preserved trilineage hematopoiesis and no morphologic or immunophenotypic evidence of hematologic malignancy." DIAGNOSTIC STUDIES/LAB DATA: Current laboratory studies performed during the hospital stay beginning 01/11/17 include: On 01/13/17, white blood cell count was 44, hemoglobin of 10.0, hematocrit of 31 , and platelets of 335. White blood cell count had been approximately 30,000 to 40,000 in the past week, on 01/07/17 was 30.9, on 01/11/17 was 41.3, and on 01/12/17 was 30.8. The patient's most recent chemistry obtained on 01/13/17 showed sodium of 127, potassium 4.2, chloride 96, carbon dioxide 24, BUN 23, creatinine 0.7, magnesium of 1.9. Ferritin was 111. C-reactive protein was 101.9 on 01/12/17. Brain natriuretic peptide was obtained on 01/11/17, it was 478. Digoxin level obtained on 01/13/17 was 1.6. Troponin was 0.02 and 0.03 obtained on 01/11/17. CT of the abdomen and pelvis obtained on 01/13/17, impression: "There has been interval progression of the bilateral pleural effusions and pericardial effusion. Again, noted is heterogeneous attenuation of the spleen. There is diffuse stranding of the mesenteric fat with multiple small mesenteric lymph nodes. There has been mild progression compared to the previous evaluation. Again noted mucosal thickening of the distal stomach. There is a trace ascites with subcutaneous edema. Again noted left inguinal lymphadenopathy." CT angiogram of the chest obtained on 01/11/17, impression: "No evidence for pulmonary embolism. Pericardial effusion. Moderate-sized bilateral pleural effusions and bilateral lower lobe infiltrates suggestive of atelectasis." CONSULTATIONS DURING THE HOSPITAL STAY: Included Dr. Hensley from Rheumatology; Dr. Knox, Cardiology; Dr. Orr, Oncology. HOSPITALIZATION COURSE: Gely Montes is a 66-year-old female who is known to our facility from the prolonged hospitalization in October 2016. For details, please note my history and physical noted in consultation dictation on 01/11/17 on the patient's admission. Shortly, the patient has history of arthralgias and rash that had been ongoing ever since she stopped chemotherapy in the fall of 2015. Her rash got somewhat better after a hospital stay in October 2016 but reoccurred and got much worse in November 2016 after she got a course of Augmentin for upper respiratory infection. Since then, she also noted more fatigue and had problems with atrial fibrillation. She was noted to be in atrial fibrillation when she was seen at Dr. Mera's office sometime in December 2016 and at that point, Multaq was discontinued. Her beta-haider dose was decreased and the patient was started on Cardizem. Despite that, she continues to be in persistent atrial fibrillation. In the past, the patient had been symptomatic with atrial fibrillation, dyspnea and fatigue. She came into the hospital on 01/11/[address] Mera's office with atrial fibrillation with rapid ventricular response with heart rate in the 120s to 130s with systolic pressures in the 80s to 90s and bilateral pleural effusions due to CHF as well as mild ascites due to CHF. Initially, the patient was attempted to be transferred from the emergency department to [facility] due to the complexity of her case. The patient was deemed not to be a stable enough candidate to be transferred to [facility] from the emergency department and was admitted to our facility to the intensive care unit. Initially, she was placed on Cardizem drip, which lowered her blood pressure and did not control her heart rate. Cardizem drip was stopped as well as Cardizem CD that she used orally at home. She was continued on beta-blockers with hold parameters as well as intermittent Lopressor IV p.r.n. She was loaded with digoxin dose of 0.5 mg on 01/12/17 with good results. In fact, intermittently she would go back into sinus tachycardia but then within a minute she would be back in atrial fibrillation again. The patient has a history of hypotension, on sotalol and amiodarone. Due to complexity of the patient's cardiac presentation, I asked Dr. Knox from Cardiology for evaluation. Dr. Knox recommended for the patient to be transferred to a tertiary care center due to evaluation for EP study and possibility of ablation for atrial fibrillation. Dr. Stallworth from cardiology department at [facility] kindly accepted the patient for a transfer to [facility] on 01/13/17. From the other ongoing problems, the patient continues to have rash that is mostly on her upper trunk and bilateral toes. It is blanchable, slightly raised erythema that is confluent mostly on her shoulders. The rash is occasionally pruritic, not painful. Dr. Hensley saw the patient in evaluation and recommended no further biopsies for the time being. He increased the patient's dose of prednisone from 15 mg that she was taking at home to 30 mg during the hospital stay. 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 In regards to the patient's hyponatremia, we tried to diurese the patient with a dose of Lasix on 01/12/17. Nevertheless, she continued to require oxygen through most of her hospital stay and continued to have bilateral pleural effusions. Systolic blood pressures in the 90s did not allow us to diurese the patient more. In regards to the patient's marked leukocytosis, it is a new occurrence and was initially noted on 01/07/17. Dr. Orr saw the patient in consultation and recommended a CT of abdomen and pelvis with results as above. At this point, the question is if the patient has recurrence of her malignancy or another malignancy with her history of follicular lymphoma. Dr. Orr also recommended for the patient to be transferred to a tertiary care center for multidisciplinary evaluation. At the time of discharge, the patient started developing diarrhea. She denies abdominal pain. PHYSICAL EXAM AT THE TIME OF DISCHARGE: Please see daily progress notes. Please also note that all of the above consultants recommended for the patient to be transferred to [facility] as the closest best available facility to take care of this patient. TIME SPENT: Approximately 40 minutes was spent on the patient's transfer. [id number]/[facility] #: [id number] MTDKalyan
--- NOTE | 2017-01-14 14:45 | PN ---
Subjective Date of Service: 01/13/17 Interval History: Pt was examine prior to transfer to [facility] on 01/13/17. After CT scan with PO contrast had loose BM. C/o "pressure" and abd fullness Objective Oxygen Devices in Use Now: None Appearance: 66 yo F in NAD, AAOx3 Eyes: No Scleral Icterus, PERRLA Ears/Nose/Mouth/Throat: NL Teeth, Lips, Gums, Mucous Membranes Moist Neck: NL Appearance and Movements; NL JVP, Trachea Midline Respiratory: Symmetrical Chest Expansion and Respiratory Effort, - - absent breath sounds at b/l bases Cardiovascular: NL Sounds; No Murmurs; No JVD, RRR Abdominal: - - soft, distended, NT BS+ Lymphatic: No Cervical Adenopathy Extremities: No Clubbing, Cyanosis, - - trace pedal edema b/l Skin: No Nodules or Sclerosis, - - rash on upper back and upper chest b/l toes and scattered on trunk-as previously described-unchanged Neurological: Alert and Oriented x 3, NL Muscle Strength and Tone Result Diagrams: 01/13/17 05:30 01/13/17 05:30 Additional Lab and Data: Lab Results 01/11/17 01/11/17 01/11/17 Range/Units 14:25 14:25 14:25 WBC 41.3 H (3.5-10.8) 10^3/ul RBC 4.11 (4.0-5.4) 10^6/ul Hgb 11.9 L (12.0-16.0) g/dl Hct 37 (35-47) % MCV 90 (80-97) fL MCH 29 (27-31) pg MCHC 32 (31-36) g/dl RDW 17 H (10.5-15) % Plt Count 407 (150-450) 10^3/ul MPV 8 (7.4-10.4) um3 Neut % (Auto) 91.7 H (38-83) % Lymph % (Auto) 4.5 L (25-47) % [place] % (Auto) 2.9 (1-9) % Eos % (Auto) 0.5 (0-6) % Baso % (Auto) 0.4 (0-2) % Absolute Neuts (auto) 37.9 H (1.5-7.7) 10^3/ul Absolute Lymphs (auto) 1.9 (1.0-4.8) 10^3/ul Absolute Monos (auto) 1.2 H (0-0.8) 10^3/ul Absolute Eos (auto) 0.2 (0-0.6) 10^3/ul Absolute Basos (auto) 0.2 (0-0.2) 10^3/ul Absolute Nucleated RBC 0.01 10^3/ul Nucleated RBC % 0 Sodium 128 L (133-145) mmol/L Potassium 4.6 (3.5-5.0) mmol/L Chloride 98 L (101-111) mmol/L Carbon Dioxide 22 (22-32) mmol/L Anion Gap 8 (2-11) mmol/L BUN 20 (6-24) mg/dL Creatinine 0.77 (0.51-0.95) mg/dL Est GFR ( Amer) 96.2 (>60) Est GFR (Non-Af Amer) 74.8 (>60) BUN/Creatinine Ratio 26.0 H (8-20) Glucose 118 H (70-100) mg/dL Lactic Acid 1.9 (0.5-2.0) mmol/L Calcium 9.4 (8.6-10.3) mg/dL Total Bilirubin 0.60 (0.2-1.0) mg/dL AST 24 (13-39) U/L ALT 21 (7-52) U/L Alkaline Phosphatase 81 (34-104) U/L Troponin I 0.03 (<0.04) ng/mL B-Natriuretic Peptide ( - 100) pg/mL Total Protein 5.2 L (6.4-8.9) g/dL Albumin 3.1 L (3.2-5.2) g/dL Globulin 2.1 (2-4) g/dL Albumin/Globulin Ratio 1.5 (1-3) 01/11/17 01/11/17 01/11/17 Range/Units 14:25 17:58 20:46 WBC (3.5-10.8) 10^3/ul RBC (4.0-5.4) 10^6/ul Hgb (12.0-16.0) g/dl Hct (35-47) % MCV (80-97) fL MCH (27-31) pg MCHC (31-36) g/dl RDW (10.5-15) % Plt Count (150-450) 10^3/ul MPV (7.4-10.4) um3 Neut % (Auto) (38-83) % Lymph % (Auto) (25-47) % [place] % (Auto) (1-9) % Eos % (Auto) (0-6) % Baso % (Auto) (0-2) % Absolute Neuts (auto) (1.5-7.7) 10^3/ul Absolute Lymphs (auto) (1.0-4.8) 10^3/ul Absolute Monos (auto) (0-0.8) 10^3/ul Absolute Eos (auto) (0-0.6) 10^3/ul Absolute Basos (auto) (0-0.2) 10^3/ul Absolute Nucleated RBC 10^3/ul Nucleated RBC % Sodium (133-145) mmol/L Potassium (3.5-5.0) mmol/L Chloride (101-111) mmol/L Carbon Dioxide (22-32) mmol/L Anion Gap (2-11) mmol/L BUN (6-24) mg/dL Creatinine (0.51-0.95) mg/dL Est GFR ( Amer) (>60) Est GFR (Non-Af Amer) (>60) BUN/Creatinine Ratio (8-20) Glucose (70-100) mg/dL Lactic Acid (0.5-2.0) mmol/L Calcium (8.6-10.3) mg/dL Total Bilirubin (0.2-1.0) mg/dL AST (13-39) U/L ALT (7-52) U/L Alkaline Phosphatase (34-104) U/L Troponin I 0.02 0.03 (<0.04) ng/mL B-Natriuretic Peptide 478 H ( - 100) pg/mL Total Protein (6.4-8.9) g/dL Albumin (3.2-5.2) g/dL Globulin (2-4) g/dL Albumin/Globulin Ratio (1-3) Microbiology and Other Data: Microbiology 01/11/17 22:40 Nasal Screen MRSA (PCR)(ZANE) - Final Nasal Mrsa Negative Assess/Plan/Problems-Billing Assessment: 66 yo f with h/o follicular lymphoma, s/c chemo in summer 2015, polyarthropathy/high CRP/Rash -on prednisone by Dr. Hensley, paroxysmal symptomatic a. fib who presents with worsening rash, A. Fib with RVR and CHF Status and Disposition: pt is being transferred to [facility] , please see transfer summary for details.
[2017-01-14 19:02] LABS: Phospholipid Ab IgG < 9.4 GPL; Phospholipid Ab IgM, S < 9.4 MPL
[2017-01-15 19:43] LABS: Beta 2 Glycoprotein IgG <9.4 U/mL
== END 2017-01-13 14:00 | disposition short-term general hospital (02) | DRG 308 ==
LOC: ED 13:57 → ICU 21:42 → UNDODISIN 01-13 14:00
PROVIDERS: ADMIT Internal Medicine; ATTEND Internal Medicine
DX: I48.0 Paroxysmal atrial fibrillation (principal); I50.21 Acute systolic (congestive) heart failure; M31.1 Thrombotic microangiopathy; N17.9 Acute kidney failure, unspecified; I31.3 Pericardial effusion (noninflammatory); E87.1 Hypo-osmolality and hyponatremia; R13.10 Dysphagia, unspecified; I27.2 Other secondary pulmonary hypertension; G43.909 Migraine, unspecified, not intractable, without status migrainosus; J42 Unspecified chronic bronchitis; K21.9 Gastro-esophageal reflux disease without esophagitis; G47.33 Obstructive sleep apnea (adult) (pediatric); L98.9 Disorder of the skin and subcutaneous tissue, unspecified; Z72.89 Other problems related to lifestyle; R59.0 Localized enlarged lymph nodes; M13.0 Polyarthritis, unspecified; R21 Rash and other nonspecific skin eruption; R19.7 Diarrhea, unspecified; I34.0 Nonrheumatic mitral (valve) insufficiency; I95.2 Hypotension due to drugs; T44.7X5A Adverse effect of beta-adrenoreceptor antagonists, initial encounter; R14.0 Abdominal distension (gaseous); Z85.72 Personal history of non-Hodgkin lymphomas; Z88.1 Allergy status to other antibiotic agents; Z86.010 Personal history of colon polyps; Z92.21 Personal history of antineoplastic chemotherapy; Z83.3 Family history of diabetes mellitus; Z80.3 Family history of malignant neoplasm of breast; Z88.4 Allergy status to anesthetic agent; Z90.49 Acquired absence of other specified parts of digestive tract; Y92.9 Unspecified place or not applicable; Z79.52 Long term (current) use of systemic steroids; Z79.01 Long term (current) use of anticoagulants
CPT/HCPCS: 36415; 71010; 71275; 74177; 80048; 80053; 80162; 81376; 82085; 82585; 82595; 82728; 83516; 83605; 83735; 83880; 84484; 85025; 85027; 86038; 86140; 86146; 86147; 86160; 86200; 87641; 93005; A9270-GY; J1160; J1940; J7512; Q9967